=== PATIENT | female | born 1950 | race Caucasian/White ===

== ENCOUNTER → 2019-02-03 06:40 | Outpatient (CLI) | payer MEDICARE, SELFPAY ==
[2019-01-13 12:53] VITALS: BMI 26.7
--- NOTE | 2019-02-03 17:06 | STRESSREP_ITS ---
Stress Test Report Exercise myocardial perfusion stress test. 68-year-old lady with a history of hypertension, hyperlipidemia and coronary disease status post angioplasty and stenting to the proximal and mid right coronary artery. Stress protocol: Resting EKG demonstrates normal sinus rhythm with a rate of 77 bpm normal intervals are noted resting blood pressures 146/80 mmHg. Patient exercised according to regular Jose protocol for total duration of 7 minutes completing 1 minute into stage III of the Jose protocol the maximum heart rate attained was 141 bpm was 91% maximum predicted heart rate maximum workload was 8.5 metabolic equivalents. Patient maintained sinus rhythm throughout the recording. At rest there were no ST or T wave changes no suggest ischemia peak exercise upsloping ST changes only were noted with no meet the criteria for ischemia. No clinical angina was noted no arrhythmias were noted. Patient tolerated the procedure w ell. The test was terminated due to target heart rate being achieved. The resting blood pressure was 146/80 with a peak blood pressure 158/84 mmHg. Myocardial perfusion protocol. 11.0 mCi of technetium 99m sestamibi was injected at rest. The patient exercised for 7 minutes and at peak exercise 33.0 mCi of technetium 99m sestamibi was injected stress images were obtained stress and rest images were reconstructed and compared in the short axis vertical and horizontal long axis. Gated images was obtained Perfusion SPECT analysis: Review of the stress images demonstrate normal uptake of tracer noted in all areas of myocardium the rest images similar demonstrate normal uptake of tracer noted in all areas of myocardium. No reversibility is no suggest ischemia no previous infarct is noted. Gated SPECT analysis: The gated ejection fraction is noted to be 78%. Conclusion: Normal exercise myocardial perfusion stress test at a moderate workload. Preserved ejection fraction.
== END ==
PROVIDERS: Family Provider Family Medicine; PCP Family Medicine; Referring Provider Internal Medicine Cardiovascular Disease; Visit Provider Internal Medicine Cardiovascular Disease
DX: I25.10 Atherosclerotic heart disease of native coronary artery without angina pectoris (principal); Z95.5 Presence of coronary angioplasty implant and graft
CPT/HCPCS: 78452; 93017; A9500; A4216

== ENCOUNTER 2020-05-16 13:54 | Outpatient (RCR) | payer MEDICARE, SELFPAY ==
[2020-04-20 15:03] VITALS: BMI 27.6
[2020-05-16] MEDS: COVID-19 VACC, MRNA(PFIZER)/PF 30 MCG/0.3 ML SYRINGE IM (09:51)
[2020-06-06] MEDS: COVID-19 VACC, MRNA(PFIZER)/PF 30 MCG/0.3 ML SYRINGE IM (09:32)
== END 2020-08-15 23:59 ==
LOC: IMMUN 13:54
PROVIDERS: PCP Family Medicine; Visit Provider Family Medicine
DX: Z23 Encounter for immunization (principal)
CPT/HCPCS: 0001A; 0002A; 91300

== ENCOUNTER → 2020-05-22 09:41 | Outpatient (CLI) | payer MEDICARE, SELFPAY ==
[2020-04-20 15:03] VITALS: BMI 27.6
[2020-05-22 11:01] LABS: AST(SGOT) 35 U/L (15-37); Alanine Aminotransfer ALT/SGPT 26 U/L (13-56); Albumin, Serum 3.8 g/dL (3.2-5.0); Alkaline Phosphatase 76 U/L (45-117); Bilirubin, Direct 0.21 mg/dL (0.00-0.30); Cholesterol 152 mg/dL (200); Globulin 3.5 g/dL (2.2-4.2); High Density Lipoprotein 72 mg/dL; Protein, Total 7.3 g/dL (6.4-8.2); Triglycerides 47 mg/dL; Very Low Density Lipoprotein 9 mg/dL (5-40)
== END ==
PROVIDERS: PCP Family Medicine; Referring Provider Internal Medicine Cardiovascular Disease; Visit Provider Internal Medicine Cardiovascular Disease
DX: I25.10 Atherosclerotic heart disease of native coronary artery without angina pectoris (principal); E78.5 Hyperlipidemia, unspecified
CPT/HCPCS: 36415; 80061; 80076

== ENCOUNTER 2020-11-08 10:15 | Emergency (ER) | payer MEDICARE, SELFPAY ==
[2020-11-08 10:16] VITALS: BP 139/69; PULSE 91; RESP 14; TEMP 36.9; O2SAT 94; BMI 26.4
--- NOTE | 2020-11-08 10:24 | EKG12_ITS ---
Test Reason : CP Blood Pressure : / mmHG Vent. Rate : 089 BPM Atrial Rate : 089 BPM P-R Int : 154 ms QRS Dur : 076 ms QT Int : 360 ms P-R-T Axes : 041 011 029 degrees QTc Int : 438 ms Normal sinus rhythm Normal ECG Confirmed by JACY ZAMBRANO, NELI ([id number]), online content editor ANTHONY DELGADILLO ([id number]) on 11/09/2020 12:55:30 PM Referred By: MARINO Confirmed By:MILTON LOUIE MD
--- NOTE | 2020-11-08 10:26 | ED.VIS.CHEST ---
HPI History of Present Illness Chief Complaint: Chest Pain Informant: patient Onset/Context/Timing Onset: Today Timing: Intermittent Quality: Positive for Aching and Heaviness Location: Left Chest Current Severity: Gone Maximum Severity: Moderate Relieved By: NTG Associated Symptoms: Positive for Dyspnea Narrative Narrative: Patient presents via EMS secondary to chest pain. Patient is a history of cardiac disease and had 2 stents placed to the RCA in 2016. She does note increased shortness of breath with exertion for the past 2 weeks. Yesterday she developed URI symptoms with sinus congestion. This morning she had pain on the left side of her chest that lasted approximately half an hour. Symptoms resolved after 1 sublingual nitroglycerin. [facility] Medical History (Updated 11/08/20 @ 13:[address] Rea Nazario MD) Atherosclerotic heart disease of [place] coronary artery without angina pectoris Essential (primary) hypertension GERD (gastroesophageal reflux disease) Hyperlipemia Lupus erythematosus Osteopenia Tubular adenoma Home Medications meloxicam 15 mg tablet 15 mg PO DAILY 01/12/19 [History Last Taken Unknown] nitroglycerin 0.4 mg sublingual tablet 0.4 mg SUBLINGUAL Q5-15M 01/12/19 [History Last Taken Unknown] prednisolone sodium phosphate 10 mg disintegrating tablet 10 mg PO DAILY PRN tab 01/12/19 [History Last Taken Unknown] diclofenac sodium 1 % topical gel 2 g TOPICAL ONCE PRN 01/13/19 [History Last Taken Unknown] metoprolol succinate 25 mg tablet,extended release 24 hr 25 mg PO DAILY #90 tab 01/13/19 [Rx Last Taken Unknown] losartan 100 mg tablet 100 mg PO DAILY #90 tab 04/20/20 [Rx Last Taken Unknown] clopidogrel 75 mg tablet 75 mg PO DAILY #90 tab 04/24/20 [Rx Last Taken Unknown] hydrochlorothiazide 12.5 mg capsule 12.5 mg PO DAILY #90 cap 04/24/20 [Rx Last Taken Unknown] atorvastatin 40 mg tablet 40 mg PO QHS #90 tab 09/21/20 [Rx Last Taken Unknown] isosorbide mononitrate 30 mg PO DAILY #30 tab 11/08/20 [Rx Last Taken Unknown] mometasone-formoterol [Dulera] 2 puff INHALATION BID 11/08/20 [History Last Taken Unknown] pantoprazole 20 mg PO DAILY 11/08/20 [History Last Taken Unknown] Allergy/AdvReac Type Severity Reaction Status Date / Time amoxicillin AdvReac GI Upaset Verified 11/08/20 10:16 Family History Mother Breast cancer Myocardial infarction Father Hypertension Diabetes Surgical History History of coronary artery stent placement (02/13/16) Social History Smoking Status: Never smoker ROS ROS ED Constitutional Constitutional ED: Denies chills or fever(s) Eyes Eyes: Denies change in vision ENT ENT ED: Reports other Details: Head congestion ; Denies sore throat Cardiovascular Cardiovascular: Reports chest pain Respiratory/Chest Respiratory/Chest: Reports cough and dyspnea; Denies sputum Gastrointestinal Gastrointestinal: Denies abdominal pain, diarrhea, nausea or vomiting Genitourinary Genitourinary ED: Denies dysuria Musculoskeletal Musculoskeletal: Denies back pain Integumentary Denies rash Neurologic Neurologic: Reports weakness; Denies headache(s) Allergic/Immunologic Allergic/Immunologic ED: Denies urticaria EXAM Physical Exam Const Vital Signs: 11/08/20 10:16 11/08/20 10:24 11/08/20 10:27 Temperature 98.4 F Temperature Source Oral Pulse Rate 91 Respiratory Rate 14 Respiratory Effort Short of Breath Respiratory Pattern Normal Blood Pressure 139/69 H Blood Pressure Mean 92 Pulse Ox 94 Oxygen Delivery Method Room Air Nasal Cannula Oxygen Flow Rate (L/min) 2 Fraction of Inspired Oxygen (FIO2) 94 11/08/20 12:15 11/08/20 13:00 Temperature Temperature Source Pulse Rate 89 83 Respiratory Rate 18 19 H Respiratory Effort Respiratory Pattern Blood Pressure 141/77 H 150/77 H Blood Pressure Mean 98 101 Pulse Ox 98 98 Oxygen Delivery Method Nasal Cannula Nasal Cannula Oxygen Flow Rate (L/min) 2 2 Fraction of Inspired Oxygen (FIO2) Positive well nourished and well developed General Appearance ED: well developed HEENT Reports normocephalic and head/scalp atraumatic Eyes PERRL and EOMs intact bilaterally Neck supple Chest Wall inspection of chest normal and palpation of chest normal Resp normal respiratory effort and clear to auscultation bilaterally Cardio regular rate and regular rhythm GI normal to inspection, nondistended, normoactive bowel sounds, soft to palpation and non-tender Palpation: soft Extremity normal to inspection Neuro oriented x3 and no sensory deficits noted Sensorium / Orientation: alert Motor Exam: strength 5/5 throughout Psych mental status grossly normal Skin no rashes or lesions noted Heart Score History: Moderately Suspicious ECG: Normal Age: >/= 65 years Risk Factors: >/= 3 Risk Factors or History of CAD Troponin: </= Normal Limit Score: 5 MDM MDM MDM Narrative Medical decision making narrative: Patient was given aspirin on arrival. She was chest pain-free on initial evaluation. Lab work, chest x-ray, EKG, Covid test obtained. Lab Data Attestation: I reviewed the patient's lab results. Labs: Laboratory Results - last 24 hr 11/08/20 11/08/20 11/08/20 10:14 10:14 10:14 WBC 9.4 RBC 4.75 Hgb 14.2 Hct 40.5 MCV 85.3 MCH 29.9 MCHC 35.1 RDW Std Deviation 37.7 RDW Coeff of Marisa 12.2 Plt Count 206 MPV 10.9 Immature Gran % (Auto) 0.200 Neut % (Auto) 65.5 Lymph % (Auto) 19.7 [place] % (Auto) 13.1 H Eos % (Auto) 0.9 Baso % (Auto) 0.6 Absolute Neuts (auto) 6.1 Absolute Lymphs (auto) 1.85 Nucleated RBC % 0 D-Dimer Quant (PE/DVT) 0.36 Sodium 134 L Potassium 3.5 Chloride 100 Carbon Dioxide 26.0 Anion Gap 8 BUN 14 Creatinine 1.01 Estim Creat Clear Calc 50.07 Est GFR (MDRD) Af Amer 70 Est GFR (MDRD) Non-Af 58 L BUN/Creatinine Ratio 13.9 Glucose 158 H Calcium 9.7 Troponin I High Sens 5 11/08/20 12:10 WBC RBC Hgb Hct MCV MCH MCHC RDW Std Deviation RDW Coeff of Marisa Plt Count MPV Immature Gran % (Auto) Neut % (Auto) Lymph % (Auto) [place] % (Auto) Eos % (Auto) Baso % (Auto) Absolute Neuts (auto) Absolute Lymphs (auto) Nucleated RBC % D-Dimer Quant (PE/DVT) Sodium Potassium Chloride Carbon Dioxide Anion Gap BUN Creatinine Estim Creat Clear Calc Est GFR (MDRD) Af Amer Est GFR (MDRD) Non-Af BUN/Creatinine Ratio Glucose Calcium Troponin I High Sens 5 Radiography Chest X-Ray - ED: 1 View, Read by ED Physician, Normal, Heart, Lungs and Mediastinum Diagnostic Testing: Radiology Impression Chest X-Ray 11/08/20 10:50 IMPRESSION: No radiographic evidence of acute cardiopulmonary disease. at 1107 Reported and signed by: Johnathan Barr MD Electronically Signed: Johnathan Barr MD at 11:06 EDT Tel , Service support , EKG Initial EKG: Attestation: I personally reviewed and interpreted this EKG as follows: Interpretation: Sinus Rhythm (Sinus 89 with no acute ischemia.) Follow-up EKG: Attestation: I personally reviewed and interpreted this EKG as follows: Interpretation: Sinus Rhythm (Sinus at 74 with no acute ischemia.) Treatment and Re-Evaluation Comments:: On repeat evaluation patient is resting comfortably. She is had no recurrence of chest pain while in the emergency room. Patient's initial troponin returned negative at 5. Her Covid test did return positive. I spoke with Dr. 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 He did recommend obtaining a second troponin and if this is negative we could consider treating her at home to allow her to recover from her Covid before pursuing further cardiac evaluation. This was discussed with patient and at bedside and they are in agreement with this plan. Patient will start taking baby aspirin daily. We will write her prescription for Imdur and she will double her metoprolol dose to 50 mg daily. She will also be referred for monoclonal antibody treatment for her Covid. She is given return instructions. Discharge Plan Triage Chief Complaint: Chest Pain ED Provider: Rea Nazario Dx/Rx/DC Orders Clinical Impression: COVID-19, Chest pain Instructions: Coronavirus Disease 2019 (COVID-19): Overview, Coronavirus Disease 2019 (COVID-19): Caring for Yourself or Others, ED Chest Pain, Uncertain Cause Prescriptions: New isosorbide mononitrate 30 mg tablet extended release 24 hr 30 mg PO DAILY Qty: 30 RF: 0 No Action metoprolol succinate 25 mg tablet extended release 24 hr 25 mg PO DAILY Qty: 90 RF: 4 nitroglycerin 0.4 mg tablet, sublingual 0.4 mg SUBLINGUAL Q5-15M RF: 0 meloxicam [Mobic] 15 mg tablet 15 mg PO DAILY RF: 0 prednisolone sodium phosphate 10 mg tablet,disintegrating 10 mg PO DAILY PRN (Reason: Cold Symptoms) RF: 0 diclofenac sodium [Voltaren] 1 % gel 2 g TOPICAL ONCE PRN (Reason: Pain, Mild) RF: 0 losartan 100 mg tablet 100 mg PO DAILY Qty: 90 RF: 4 pantoprazole 20 mg Tablet,Delayed Release (Dr/Ec) 20 mg PO DAILY RF: 0 Dulera 100-5 mcg/actuation Hfa Aerosol Inhaler 2 puff INHALATION BID RF: 0 clopidogrel 75 mg tablet 75 mg PO DAILY Qty: 90 RF: 4 hydrochlorothiazide 12.5 mg capsule 12.5 mg PO DAILY Qty: 90 RF: 4 atorvastatin 40 mg tablet 40 mg PO QHS Qty: 90 RF: 3 Other Ambulatory Orders: COVID Outpatient Monoclonal Antibody Referral (Routine) Location: None Selected Ordered By: Dr. Rea Nazario Primary Care Provider: Xavi Frazier Referrals: Xavi Frazier MD [Primary Care Provider] - Activity Restrictions/Additional Instructions: As discussed, cardiology wants to change some of your heart medication. Please start taking baby aspirin daily. A prescription for Imdur has been sent to the pharmacy for you. The metoprolol you currently take is 25 mg. Please double this to 50 mg. Disposition Disposition: Home, Self Care
[2020-11-08] MEDS: Aspirin 81 MG TAB.CHEW 324 MG PO (10:36)
[2020-11-08 10:39] LABS: Absolute Lymphocyte Count 1.85 X10^3/uL (0.83-4.51); Absolute Neutrophil Count 6.1 X10^3/uL (2.0-7.7); Basophil# 0.06 X10^3/uL; Basophil% 0.6 % (0-1); Eosinophil# 0.08 X10^3/uL; Eosinophils% 0.9 % (0-5); Hematocrit 40.5 % (37-47); Hemoglobin 14.2 g/dL (12.0-15.0); Lymphocyte # 1.85 X10^3/ul (0.83-4.51); Lymphocyte % 19.7 % (19-41); Mean Corp Hgb Conc 35.1 g/dL (32-36); Mean Corpuscular Hgb 29.9 pg (27.0-32.0); Mean Corpuscular Volume 85.3 fL (81-99); Mean Platelet Vol. 10.9 fl (6.2-12.0); Monocyte# 1.23 X10^3/uL; Monocyte% 13.1 % (0-10); NRBC Flagged by Analyzer 0 % (0-5); Neutrophil # 6.13 X10^3/uL (2.7-7.7); Neutrophil % 65.5 % (47-70); Platelet Count 206 K/mm3 (150-450); RBC Distribution Width CV 12.2 % (11.6-14.6); RBC Distribution Width SD 37.7 fl (35.1-43.9); Red Blood Count 4.75 M/mm3 (4.2-5.4); White Blood Count 9.4 K/mm3 (4.4-11.0)
[2020-11-08 10:43] LABS: D-Dimer Quantitative (DVT/PE) 0.36 FEU/ug/m (0.27-0.49)
[2020-11-08 10:49] LABS: Anion Gap 8 (5-15); BUN 14 mg/dL (7-18); BUN/Creat Ratio 13.9 RATIO (10-20); Calcium,Total 9.7 mg/dL (8.5-10.1); Chloride 100 mmol/L (98-107); Creatinine, Serum 1.01 mg/dL (0.55-1.02); EST Glomerular Filtration Rate 58 mL/min (>60); Est Glom Filt Rate - Afr Amer 70 mL/min (>60); Estimated Creatinine Clearance 50.07 ml/min; Glucose 158 mg/dL (74-106); Potassium 3.5 mmol/L (3.5-5.1); Sodium Level 134 mmol/L (136-145); Troponin-I HS 5 pg/mL (3.0-54.0)
--- NOTE | 2020-11-08 10:50 | RAD_ITS ---
History: chest pain EXAMINATION/TECHNIQUE: XR Chest 1 View: Portable COMPARISON: None FINDINGS: LINES/DEVICES: None. LUNGS: No consolidation, edema or effusion. No pneumothorax. MEDIASTINUM AND CARDIOVASCULAR STRUCTURES: Cardiac silhouette not enlarged. Central airways and mediastinal contour are unremarkable. BONES AND SOFT TISSUES: Unremarkable. RAD/Chest 1 View (Portable) IMPRESSION: No radiographic evidence of acute cardiopulmonary disease. at 1107 Reported and signed by: Johnathan Barr MD Electronically Signed: Johnathan Barr MD at 11:06 EDT Tel , Service support ,
--- NOTE | 2020-11-08 12:14 | EKG12_ITS ---
Test Reason : REPEPAT Blood Pressure : / mmHG Vent. Rate : 074 BPM Atrial Rate : 074 BPM P-R Int : 156 ms QRS Dur : 074 ms QT Int : 376 ms P-R-T Axes : 039 004 019 degrees QTc Int : 417 ms Normal sinus rhythm Normal ECG Confirmed by JACY ZAMBRANO, NELI ([id number]), state editor ANTHONY DELGADILLO ([id number]) on 11/09/2020 12:55:17 PM Referred By: MARINO Confirmed By:MILTON LOUIE MD
[2020-11-08 12:15] VITALS: BP 141/77; PULSE 89; RESP 18; O2SAT 98
[2020-11-08 12:42] LABS: Troponin-I HS 5 pg/mL (3.0-54.0)
[2020-11-08 13:00] VITALS: BP 150/77; PULSE 83; RESP 19; O2SAT 98
== END 2020-11-08 13:39 | disposition home or self-care (01) ==
PROVIDERS: Emergency Provider Emergency Medicine; PCP Family Medicine
DX: U07.1 COVID-19 (principal); R07.9 Chest pain, unspecified; I25.10 Atherosclerotic heart disease of native coronary artery without angina pectoris; E78.5 Hyperlipidemia, unspecified; K21.9 Gastro-esophageal reflux disease without esophagitis; I10 Essential (primary) hypertension; Z79.51 Long term (current) use of inhaled steroids; Z79.899 Other long term (current) drug therapy
CPT/HCPCS: 71045; 80048; 84484; 85025; 85379; 87426; 93005; 99285; A4216

== ENCOUNTER 2020-12-08 15:24 | Emergency (ER) | payer MEDICARE, SELFPAY ==
[2020-12-08 15:37] VITALS: BP 145/87; PULSE 91; RESP 16; TEMP 36.6; O2SAT 98; BMI 25.4
--- NOTE | 2020-12-08 15:47 | EKG12_ITS ---
Test Reason : CP Blood Pressure : / mmHG Vent. Rate : 090 BPM Atrial Rate : 090 BPM P-R Int : 152 ms QRS Dur : 080 ms QT Int : 360 ms P-R-T Axes : 033 009 010 degrees QTc Int : 440 ms Normal sinus rhythm Normal ECG Confirmed by TOMASZ ZAMBRANO, EDEL ([id number]), story editor ANTHONY DELGADILLO ([id number]) on 12/11/2020 1:14:28 PM Referred By: WILTON Confirmed By:EDEL TOLBERT MD
--- NOTE | 2020-12-08 15:47 | RAD_ITS ---
History: chest pain EXAMINATION/TECHNIQUE: XR Chest 1 View: Portable COMPARISON: Not available FINDINGS: LINES/DEVICES: None. LUNGS: No consolidation, edema or effusion. No pneumothorax. MEDIASTINUM AND CARDIOVASCULAR STRUCTURES: Cardiac silhouette not enlarged. Central airways and mediastinal contour are unremarkable. BONES AND SOFT TISSUES: Unremarkable. RAD/Chest 1 View (Portable) IMPRESSION: No radiographic evidence of acute cardiopulmonary disease. at 1610 Reported and signed by: Johnathan Barr MD Electronically Signed: Johnathan Barr MD at 16:09 EDT Tel , Service support ,
[2020-12-08 16:00] LABS: Absolute Lymphocyte Count 1.17 X10^3/uL (0.83-4.51); Absolute Neutrophil Count 3.9 X10^3/uL (2.0-7.7); Basophil# 0.05 X10^3/uL; Basophil% 0.9 % (0-1); Eosinophil# 0.06 X10^3/uL; Hematocrit 38.6 % (37-47); Hemoglobin 13.4 g/dL (12.0-15.0); Lymphocyte # 1.17 X10^3/ul (0.83-4.51); Lymphocyte % 20.1 % (19-41); Mean Corp Hgb Conc 34.7 g/dL (32-36); Mean Corpuscular Hgb 29.9 pg (27.0-32.0); Mean Corpuscular Volume 86.2 fL (81-99); Mean Platelet Vol. 10.4 fl (6.2-12.0); Monocyte% 10.3 % (0-10); NRBC Flagged by Analyzer 0 % (0-5); Neutrophil # 3.91 X10^3/uL (2.7-7.7); Neutrophil % 67.2 % (47-70); Platelet Count 202 K/mm3 (150-450); RBC Distribution Width CV 12.9 % (11.6-14.6); RBC Distribution Width SD 39.9 fl (35.1-43.9); Red Blood Count 4.48 M/mm3 (4.2-5.4); White Blood Count 5.8 K/mm3 (4.4-11.0)
[2020-12-08 16:26] LABS: Anion Gap 7 (5-15); BUN 12 mg/dL (7-18); BUN/Creat Ratio 14.5 RATIO (10-20); Calcium,Total 9.7 mg/dL (8.5-10.1); Chloride 100 mmol/L (98-107); Creatinine, Serum 0.83 mg/dL (0.55-1.02); EST Glomerular Filtration Rate 73 mL/min (>60); Est Glom Filt Rate - Afr Amer 88 mL/min (>60); Estimated Creatinine Clearance 58.53 ml/min; Glucose 104 mg/dL (74-106); Potassium 3.5 mmol/L (3.5-5.1); Sodium Level 138 mmol/L (136-145); Troponin-I HS 6 pg/mL (3.0-54.0)
[2020-12-08 16:56] VITALS: BP 151/81; PULSE 79; RESP 16; O2SAT 100
--- NOTE | 2020-12-08 17:36 | ED.VIS.CHEST ---
HPI History of Present Illness Chief Complaint: Chest Pain Informant: patient Onset/Context/Timing Onset: Today (Onset at 0130 while lying in bed) Activity at onset: sudden Timing: Intermittent (Initial episode lasted 5 minutes multiple episodes since that lasted less than 1 minute) Quality: Positive for Tightness (Initial episode felt like something was running down her chest) Location: Substernal (Subsequent episodes that lasts less than 1 minute) and Right Parasternal (Initial episode) Current Severity: Gone Maximum Severity: Mild Worsened By: Nothing Relieved By: Nothing Associated Symptoms: Positive for Acid Reflux; Negative for Nausea, Vomiting, Diaphoresis, Dyspnea, Cough, Fever, Lightheadedness and Palpitations Narrative Narrative: Patient is a 70 Prior Similar Symptoms: No Recent Illness/Hospitalization: No CVD Risk Factors: Positive for Hypertension and Hypercholesterolemia; Negative for Diabetes and Family History 1' </=55 PE Risk Factors: Negative for Recent Travel/Surgery, Recent Immobilization, Prior DVT or PE, Cancer and OCP + Smoking + >/=35 TAD Risk Factors: Positive for Hypertension; Negative for Marfan's Syndrome and Family History [facility] Medical History (Updated 12/08/20 @ 17:[address] Ubaldo Peck MD) Atherosclerotic heart disease of [place] coronary artery without angina pectoris Essential (primary) hypertension GERD (gastroesophageal reflux disease) Hyperlipemia Lupus erythematosus Osteopenia Tubular adenoma Home Medications meloxicam 15 mg tablet 15 mg PO DAILY 01/12/19 [History Last Taken Unknown] nitroglycerin 0.4 mg sublingual tablet 0.4 mg SUBLINGUAL Q5-15M 01/12/19 [History Last Taken Unknown] prednisolone sodium phosphate 10 mg disintegrating tablet 10 mg PO DAILY PRN tab 01/12/19 [History Last Taken Unknown] diclofenac sodium 1 % topical gel 2 g TOPICAL ONCE PRN 01/13/19 [History Last Taken Unknown] losartan 100 mg tablet 100 mg PO DAILY #90 tab 04/20/20 [Rx Last Taken Unknown] clopidogrel 75 mg tablet 75 mg PO DAILY #90 tab 04/24/20 [Rx Last Taken Unknown] hydrochlorothiazide 12.5 mg capsule 12.5 mg PO DAILY #90 cap 04/24/20 [Rx Last Taken Unknown] atorvastatin 40 mg tablet 40 mg PO QHS #90 tab 09/21/20 [Rx Last Taken Unknown] aspirin 81 mg tablet,delayed release 81 mg PO DAILY 11/08/20 [History Last Taken Unknown] isosorbide mononitrate 30 mg PO DAILY #30 tab 11/08/20 [Rx Last Taken Unknown] metoprolol succinate 50 mg tablet,extended release 24 hr 50 mg PO DAILY #90 tab 11/08/20 [Rx Last Taken Unknown] mometasone-formoterol [Dulera] 2 puff INHALATION BID 11/08/20 [History Last Taken Unknown] pantoprazole 20 mg PO DAILY 11/08/20 [History Last Taken Unknown] Allergy/AdvReac Type Severity Reaction Status Date / Time amoxicillin AdvReac GI Upaset Verified 12/08/20 15:39 Family History Mother Breast cancer Myocardial infarction Father Hypertension Diabetes Surgical History History of coronary artery stent placement (02/13/16) Social History (Updated 12/08/20 @ 17:[address] Ubaldo Peck MD) household members: spouse Smoking Status: Never smoker alcohol intake: current alcohol intake frequency: other substance use type: does not use ROS ROS ED Constitutional Constitutional ED: Denies chills, fever(s), subjective or sweats Eyes Eyes: Reports none ENT ENT ED: Denies ear pain, rhinorrhea or sore throat Cardiovascular Cardiovascular: Reports as per HPI and chest pain; Denies orthopnea, palpitations, paroxysmal nocturnal dyspnea or racing heartbeat Respiratory/Chest Respiratory/Chest: Denies cough, dyspnea, dyspnea on exertion, orthopnea, paroxysmal nocturnal dyspnea or sputum Gastrointestinal Gastrointestinal: Denies abdominal pain, diarrhea, nausea or vomiting Genitourinary Genitourinary ED: Denies dysuria, hematuria or urinary frequency Musculoskeletal Musculoskeletal: Denies arthralgias, back pain or myalgias Integumentary Denies rash Neurologic Neurologic: Denies headache(s) or weakness Hematologic/Lymphatic Hematologic/Lymphatic: Denies easy bleeding or easy bruising EXAM Physical Exam Const Vital Signs: 12/08/20 15:37 12/08/20 16:56 12/08/20 16:59 Temperature 97.8 F Temperature Source Temporal Pulse Rate 91 79 Respiratory Rate 16 16 Respiratory Effort Normal Non-Labored Blood Pressure 145/87 H 151/81 H Blood Pressure Mean 106 104 Pulse Ox 98 100 Oxygen Delivery Method Room Air Room Air Positive well nourished and well developed General Appearance ED: well developed and NAD HEENT Reports moist mucous membranes normocephalic and atraumatic Eyes PERRL and EOMs intact bilaterally General Eye ED: Negative for pale conjunctiva Neck no lymphadenopathy and no JVD Chest Wall palpation of chest normal Resp normal respiratory effort Effort and Inspection: respiratory distress Cardio regular rate, regular rhythm, S1 normal heart sound and S2 normal heart sound GI normal to inspection, nondistended, normoactive bowel sounds, soft to palpation and non-tender; Negative for hepatosplenomegaly Back/Spine no CVA tenderness Extremity normal to inspection Neuro oriented x3 and CN's II-XII intact bilaterally Sensorium / Orientation: awake and alert Psych mental status grossly normal Skin no rashes or lesions noted Heart Score History: Slightly/Non-Suspicious ECG: Normal Age: >/= 65 years Risk Factors: >/= 3 Risk Factors or History of CAD Troponin: </= Normal Limit Score: 4 MDM MDM MDM Narrative Medical decision making narrative: With onset of symptoms greater than 12 hours prior to presentation transient and a normal troponin, 6. History of GERD with noncompliance of diet suspect this represents esophageal spasm/GERD. She is scheduled for outpatient stress test. Her marine habitat resource specialist Dr. Ventura. Her work-up is negative. Her EKG is normal. Lab Data Attestation: I reviewed the patient's lab results. Labs: Laboratory Results - last 24 hr 12/08/20 12/08/20 15:50 15:50 WBC 5.8 RBC 4.48 Hgb 13.4 Hct 38.6 MCV 86.2 MCH 29.9 MCHC 34.7 RDW Std Deviation 39.9 RDW Coeff of Marisa 12.9 Plt Count 202 MPV 10.4 Immature Gran % (Auto) 0.500 Neut % (Auto) 67.2 Lymph % (Auto) 20.1 [place] % (Auto) 10.3 H Eos % (Auto) 1.0 Baso % (Auto) 0.9 Absolute Neuts (auto) 3.9 Absolute Lymphs (auto) 1.17 Nucleated RBC % 0 Sodium 138 Potassium 3.5 Chloride 100 Carbon Dioxide 31.0 Anion Gap 7 BUN 12 Creatinine 0.83 Estim Creat Clear Calc 58.53 Est GFR (MDRD) Af Amer 88 Est GFR (MDRD) Non-Af 73 BUN/Creatinine Ratio 14.5 Glucose 104 Calcium 9.7 Troponin I High Sens 6 Radiography Chest X-Ray - ED: 1 View, Read by ED Physician, Normal, Heart, Lungs, Mediastinum, Bony Structures and No Acute Disease Diagnostic Testing: Radiology Impression Chest X-Ray 12/08/20 15:47 IMPRESSION: No radiographic evidence of acute cardiopulmonary disease. at 1610 Reported and signed by: Johnathan Barr MD Electronically Signed: Johnathan Barr MD at 16:09 EDT Tel , Service support , EKG Initial EKG: Attestation: I personally reviewed and interpreted this EKG as follows: Interpretation: Sinus Rhythm (The EKG is normal with a ventricular rate of 90. VT interval is 152 ms. QS duration 80 ms. QT duration 3 and 60 ms. [place] is normal.) Discharge Plan Triage Chief Complaint: Chest Pain ED Provider: Ubaldo Peck Dx/Rx/DC Orders Clinical Impression: Atypical chest pain, History of gastroesophageal reflux (GERD) Instructions: ED Chest Pain, Noncardiac Prescriptions: No Action nitroglycerin 0.4 mg tablet, sublingual 0.4 mg SUBLINGUAL Q5-15M RF: 0 meloxicam [Mobic] 15 mg tablet 15 mg PO DAILY RF: 0 prednisolone sodium phosphate 10 mg tablet,disintegrating 10 mg PO DAILY PRN (Reason: Cold Symptoms) RF: 0 diclofenac sodium [Voltaren] 1 % gel 2 g TOPICAL ONCE PRN (Reason: Pain, Mild) RF: 0 losartan 100 mg tablet 100 mg PO DAILY Qty: 90 RF: 4 pantoprazole 20 mg Tablet,Delayed Release (Dr/Ec) 20 mg PO DAILY RF: 0 Dulera 100-5 mcg/actuation Hfa Aerosol Inhaler 2 puff INHALATION BID RF: 0 isosorbide mononitrate 30 mg tablet extended release 24 hr 30 mg PO DAILY Qty: 30 RF: 0 clopidogrel 75 mg tablet 75 mg PO DAILY Qty: 90 RF: 4 hydrochlorothiazide 12.5 mg capsule 12.5 mg PO DAILY Qty: 90 RF: 4 atorvastatin 40 mg tablet 40 mg PO QHS Qty: 90 RF: 3 aspirin [Adult Aspirin Regimen] 81 mg tablet,delayed release (DR/EC) 81 mg PO DAILY RF: 0 metoprolol succinate 50 mg tablet extended release 24 hr 50 mg PO DAILY Qty: 90 RF: 3 Primary Care Provider: Xavi Frazier Referrals: Xavi Frazier MD [Primary Care Provider] - As Needed Disposition Disposition: Home, Self Care
[2020-12-08 17:56] VITALS: BP 158/72; PULSE 71; RESP 16; O2SAT 97
== END 2020-12-08 18:03 | disposition home or self-care (01) ==
LOC: ED 18:00
PROVIDERS: Emergency Provider Emergency Medicine; PCP Family Medicine
DX: R07.89 Other chest pain (principal); K21.9 Gastro-esophageal reflux disease without esophagitis; I10 Essential (primary) hypertension; I25.10 Atherosclerotic heart disease of native coronary artery without angina pectoris; E78.5 Hyperlipidemia, unspecified; Z79.51 Long term (current) use of inhaled steroids; Z79.82 Long term (current) use of aspirin; Z79.899 Other long term (current) drug therapy
CPT/HCPCS: 71045; 80048; 84484; 85025; 93005; 99284; A4216

== ENCOUNTER → 2020-12-20 07:08 | Outpatient (CLI) | payer MEDICARE, SELFPAY ==
--- NOTE | 2020-12-20 12:54 | STRESSREP ---
Stress Test Report Exercise myocardial perfusion stress test. 70-year-old lady with a history of chest pain. Stress protocol: Resting EKG demonstrates normal sinus rhythm with a rate of 76 bpm normal intervals are noted resting blood pressure is 150/88 mmHg. The patient exercised according to regular Jose protocol for total duration of 6 minutes completing stage II of the Jose protocol the maximum heart rate attained was 139 bpm which was 91% of max infected heart rate the maximum workload was 7 metabolic equivalents. At rest there were no ST or T wave changes noted to suggest ischemia and at peak exercise upsloping ST changes were noted with did not meet the criteria for ischemia. No clinical angina was noted. The test was terminated due to dyspnea and attainment of target heart rate. The peak blood pressure was noted to be 182/80 mmHg. Resting hypertension was noted. Myocardial perfusion protocol. 10.4 mCi of technetium 99m sestamibi was injected at rest. The patient exercised according to regular Jose protocol for 6 minutes and at peak exercise 35.7 mCi of technetium 99m sestamibi was injected stress images were obtained stress and rest images were reconstructed and compared in the short axis vertical long and horizontal long axis. Gated images were also obtained. Perfusion SPECT analysis: Review of the stress images demonstrate normal uptake of tracer noted in all areas of the myocardium the resting images similarly demonstrate normal uptake of tracer noted in all areas of the myocardium. No areas of reversibility are noted suggest ischemia and no previous infarct is noted. Gated SPECT analysis: The gated ejection fraction is 82%. Conclusion: Normal exercise myocardial perfusion stress test at a moderate workload. Preserved ejection fraction.
== END ==
PROVIDERS: PCP Family Medicine; Referring Provider Internal Medicine Cardiovascular Disease; Visit Provider Internal Medicine Cardiovascular Disease
DX: I25.119 Atherosclerotic heart disease of native coronary artery with unspecified angina pectoris (principal); U07.1 COVID-19; R07.9 Chest pain, unspecified; I10 Essential (primary) hypertension; E78.5 Hyperlipidemia, unspecified; Z95.5 Presence of coronary angioplasty implant and graft
CPT/HCPCS: 78452; 93017; A9500

== ENCOUNTER → 2022-05-23 | Outpatient (CLI) | payer MEDICARE, SELFPAY ==
[2022-05-23 12:46] LABS: AST(SGOT) 35 U/L (15-37); Alanine Aminotransfer ALT/SGPT 26 U/L (13-56); Albumin, Serum 3.6 g/dL (3.2-5.0); Alkaline Phosphatase 61 U/L (45-117); Bilirubin, Direct 0.14 mg/dL (0.00-0.30); Cholesterol 144 mg/dL (200); Creatinine, Serum 0.99 mg/dL (0.55-1.02); EST Glomerular Filtration Rate 59 mL/min (>60); Est Glom Filt Rate - Afr Amer 71 mL/min (>60); Globulin 3.5 g/dL (2.2-4.2); High Density Lipoprotein 73 mg/dL; Protein, Total 7.1 g/dL (6.4-8.2); Triglycerides 47 mg/dL; Very Low Density Lipoprotein 9 mg/dL (5-40)
== END | disposition home or self-care (01) ==
LOC: MTLAB 09:44
PROVIDERS: PCP Family Medicine; Referring Provider Internal Medicine Cardiovascular Disease; Visit Provider Internal Medicine Cardiovascular Disease
DX: N28.9 Disorder of kidney and ureter, unspecified (principal); E78.5 Hyperlipidemia, unspecified
CPT/HCPCS: 36415; 80061; 80076; 82565

== ENCOUNTER → 2022-05-31 | Outpatient (CLI) | payer MEDICARE, SELFPAY ==
--- NOTE | 2022-05-31 08:21 | ECHOD_ITS ---
Reason For Study: CAD/ASHD Procedure This was a 2D Doppler, Color Flow transthoracic echocardiogram. Exam performed in department. Left Ventricle Normal LV size. Left ventricular systolic function is normal. The estimated ejection fraction is 55 %. No regional wall motion abnormalities noted. Right Ventricle Normal RV size. Normal systolic function. Atria Normal left atrium. Normal right atrium. Mitral Valve Normal mitral valve. Mild (1+) eccentric mitral valve insufficiency. Tricuspid Valve Normal tricuspid valve. Mild (1+) tricuspid valve insufficiency. Pulmonary artery systolic pressure is 30 mmHg. Aortic Valve Trisinus/trileaflet aortic valve. Pulmonic Valve Normal pulmonic valve. Mild (1+) pulmonic valve insufficiency. Great Vessels Normal aortic root. The pulmonary artery is normal size. Normal inferior vena cava. Pericardium/Pleural No pericardial effusion. MMode/2D Measurements & Calculations LVIDd: 4.6 cm IVSd: 0.81 cm Ao root diam: 2.6 cm LVIDs: 3.2 cm LVPWd: 0.88 cm RVDd: 2.6 cm FS: 31.6 % LAV(MOD-bp): 43.6 ml LVAd ap4: 20.1 cm2 LVAd ap2: 22.8 cm2 LAV(MOD-bp) Indexed: 28.5 ml/m2 LVLd ap4: 6.5 cm LVLd ap2: 7.3 cm LAV(MOD-sp2): 44.8 ml EDV(MOD-sp4): 51.1 ml EDV(MOD-sp2): 62.1 ml LAV(MOD-sp4): 32.4 ml EDV(sp4-el): 52.3 ml EDV(sp2-el): 60.8 ml LVAs ap4: 10.0 cm2 LVAs ap2: 12.5 cm2 LVLs ap4: 5.0 cm LVLs ap2: 5.9 cm ESV(MOD-sp4): 17.5 ml ESV(MOD-sp2): 23.2 ml ESV(sp4-el): 16.9 ml ESV(sp2-el): 22.7 ml EF(MOD-sp4): 65.8 % EF(MOD-sp2): 62.6 % EF(sp4-el): 67.7 % SV(MOD-sp4): 33.6 ml SV(MOD-sp2): 38.9 ml SV(sp4-el): 35.4 ml LA dimension(2D): 3.6 cm LA A4 area: 12.5 cm2 RA A4 area: 9.8 cm2 Time Measurements MV dec time: 0.15 sec Doppler Measurements & Calculations MV E max anjum: 72.0 cm/sec Lat Peak E' Anjum: 6.3 cm/sec Med Peak E' Anjum: 6.3 cm/sec MV A max anjum: 64.3 cm/sec E/E' lat: 11.5 E/E' med: 11.5 MV E/A: 1.1 MV dec slope: 485.6 cm/sec2 Ao V2 max: 99.8 cm/sec LV V1 max: 78.6 cm/sec Ao max P.0 mmHg LV V1 max P.5 mmHg Ao V2 mean: 66.9 cm/sec LV V1 mean P.2 mmHg Ao mean P.1 mmHg LV V1 mean: 50.7 cm/sec Ao V2 VTI: 24.5 cm LV V1 VTI: 20.2 cm AV (velocity ratio): 0.83 MR max anjum: 594.8 cm/sec PA V2 max: 75.9 cm/sec PI dec slope: 150.8 cm/sec2 MR max P.5 mmHg PA V2 mean: 55.8 cm/sec MR mean anjum: 505.8 cm/sec MR mean P.1 mmHg MR VTI: 234.2 cm TR max anjum: 258.7 cm/sec TR max P.8 mmHg ECHO/Echo Complete Interpretation Summary Normal LV size. Left ventricular systolic function is normal. The estimated ejection fraction is 55 %. Mild (1+) eccentric mitral valve insufficiency. Structurally normal valves. Ordering Physician: Altaf Ventura Referring Physician: Xavi Frazier Performed By: Jaylene Baxter, [place], RVT
== END | disposition home or self-care (01) ==
LOC: CVS 08:18
PROVIDERS: PCP Family Medicine; Visit Provider Internal Medicine Cardiovascular Disease
DX: R07.9 Chest pain, unspecified (principal); I25.10 Atherosclerotic heart disease of native coronary artery without angina pectoris
CPT/HCPCS: 93306

== ENCOUNTER → 2022-08-14 | Outpatient (CLI) | payer MEDICARE, SELFPAY ==
[2022-08-14 13:06] LABS: Creatinine, Serum 1.01 mg/dL (0.55-1.02); EST Glomerular Filtration Rate 58 mL/min (>60); Est Glom Filt Rate - Afr Amer 70 mL/min (>60)
== END | disposition home or self-care (01) ==
LOC: MTLAB 10:44
PROVIDERS: PCP Family Medicine; Referring Provider Internal Medicine Rheumatology; Visit Provider Internal Medicine Rheumatology
DX: N28.9 Disorder of kidney and ureter, unspecified (principal)
CPT/HCPCS: 36415; 82565

== ENCOUNTER → 2022-12-04 | Outpatient (CLI) | payer MEDICARE, SELFPAY ==
[2022-12-04 11:11] LABS: AST(SGOT) 33 U/L (15-37); Alanine Aminotransfer ALT/SGPT 25 U/L (13-56); Albumin, Serum 3.4 g/dL (3.2-5.0); Alkaline Phosphatase 66 U/L (45-117); Bilirubin, Direct 0.14 mg/dL (0.00-0.30); Cholesterol 139 mg/dL (200); Globulin 3.6 g/dL (2.2-4.2); High Density Lipoprotein 72 mg/dL; Triglycerides 72 mg/dL; Very Low Density Lipoprotein 14 mg/dL (5-40)
== END | disposition home or self-care (01) ==
PROVIDERS: PCP Family Medicine; Referring Provider Internal Medicine Cardiovascular Disease; Visit Provider Internal Medicine Cardiovascular Disease
DX: E78.00 Pure hypercholesterolemia, unspecified (principal)
CPT/HCPCS: 36415; 80061; 80076

== ENCOUNTER → 2023-02-25 | Outpatient (CLI) | payer MEDICARE, SELFPAY ==
[2023-02-25 10:50] LABS: PTHIN 68.2 pg/mL (18.4-80.1)
== END | disposition home or self-care (01) ==
LOC: MTLAB 09:19
PROVIDERS: PCP Family Medicine
DX: E20.9 Hypoparathyroidism, unspecified (principal)
CPT/HCPCS: 36415; 83970

== ENCOUNTER → 2023-06-12 | Outpatient (CLI) | payer MEDICARE, SELFPAY ==
--- NOTE | 2023-06-12 09:55 | CDU_ITS ---
Reason For Study: carotid stenosis Rt. Velocities/BP Lt. Velocities/BP Prox CCA 72.1/21.1 cm/sec. Prox CCA 123.2/29.8 cm/sec. Mid CCA 87.2/23.9 cm/sec. Mid CCA 99.8/24.9 cm/sec. Dist CCA 78.7/23.0 cm/sec. Dist CCA 86.3/20.0 cm/sec. Prox ICA 176.3/44.6 cm/sec. Prox ICA 124.7/37.1 cm/sec. Mid ICA 159.2/40.7 cm/sec. Mid ICA 104.7/35.3 cm/sec. Dist ICA 132.1/31.6 cm/sec. Dist ICA 112.0/31.6 cm/sec. Rt. ICA/CCA = 2.0. Lt. ICA/CCA = 1.2. Prox ECA 218.0/16.0 cm/sec. Prox ECA 47.6/16.8 cm/sec. Rt. Vert. 61.8/15.1 cm/sec. Lt. Vert. 47.6/16.8 cm/sec. Right Extracranial There is intimal thickening but no significant atherosclerotic plaque noted in the right common carotid artery. There is heterogeneous, irregular atherosclerotic plaque noted in the right internal carotid artery. There is heterogeneous, irregular atherosclerotic plaque noted in the right external carotid artery. Antegrade flow is noted in the right vertebral artery. Left Extracranial There is intimal thickening but no significant atherosclerotic plaque noted in the left common carotid artery. There is heterogeneous, irregular atherosclerotic plaque noted in the left internal carotid artery. The atherosclerotic plaque causes acoustic shadowing. There is heterogeneous, irregular atherosclerotic plaque noted in the left external carotid artery. Antegrade flow is noted in the left vertebral artery. Procedure Carotid Duplex [id number]. This is a Carotid Duplex examination using B-mode, color flow and specral Doppler. The exam was diagnostic. Exam performed in department. VL/Carotid Duplex Ultrasound Interpretation Summary Extensive irregular calcific plaque with shadowing at the proximal right internal communications specialist al carotid artery with less than 50% stenosis based upon current guidelines but likely close to t his level. Greater than 50% stenosis right external carotid artery Heterogenous irregular plaque at the proximal left internal carotid artery with less than 50% stenosis Less than 50% stenosis left external carotid artery Patent antegrade vertebral arteries bilaterally Ordering Physician: Dylon Peña Performed By: Sumanth Martinez RVT
== END | disposition home or self-care (01) ==
LOC: CVS 09:52
PROVIDERS: PCP Family Medicine; Referring Provider Surgery; Visit Provider Surgery
DX: I65.22 Occlusion and stenosis of left carotid artery (principal)
CPT/HCPCS: 93880

== ENCOUNTER → 2023-08-29 | Outpatient (CLI) | payer MEDICARE, SELFPAY ==
[2023-08-29 12:31] LABS: Color, Urine Yellow (Yellow); Glucose, Dipstick Normal (Normal); Ketone-Dipstick Negative (Negative); Leukocyte Esterase-Dipstick Negative /ul (Negative); Nitrite-Dipstick Negative (Negative); Occult Blood-Urine Negative /ul (Negative); Protein-Dipstick Negative (Negative); Urine Bilirubin Dipstick Negative (Negative); Urine Clarity Clear (Clear); Urine Urobilinogen Normal (Normal); Urine pH 6.5 (5.0 - 8.0)
== END | disposition home or self-care (01) ==
LOC: MTLAB 10:46
PROVIDERS: PCP Family Medicine
DX: R31.9 Hematuria, unspecified (principal)
CPT/HCPCS: 81002

== ENCOUNTER 2023-12-15 13:53 | Outpatient (RCR) | payer MEDICARE, SELFPAY ==
--- NOTE | 2023-12-15 15:34 | HP.PTEVAL ---
Patient's Visit Information Visit Information Visit Information: MICHAEL ALCANTARA is a 73 year old F referred to Physical Therapy by EZEQUIEL SOTO MD with a diagnosis of Chronic lumbar spine pain. Date of Evaluation: 12/15/23 Physical Therapist: Duane Morataya DPT Visit Plan Frequency: 1x/Week Duration: 6 Weeks Plan: 1) glute med/max strengthening, core strengthening 2) lumbar stretching into flexion/extension (REIL/prayer stretch) 3) Progress gym exercises as tolerated. Subjective Subjective: Pt. is here today for her initial evaluation with diagnosis of chronic low back pain. Pt. reports having Lupus and RA. Due to this she has flare ups with increased low and mid back pain as well as B hip pain. Pt. [place] walking at local rec center. She had previously been waling ~12 laps, but now at times she can only walk 5-6 laps. Pt. is hopeful to get exercises to increase her overall strength and be able to continue to be active with her walking. Sleeping well. No N/T in either LE. No marked myotomal weakness noted. Pt. does not do much stretching or strengthening, but focuses her exercises with walking. Pain Lumbar spine: Pain Intensity (Out of 10): 1 Pain Intensity Range: 0 and 4 Thoracic spine: Pain Intensity (Out of 10): 0 Pain Intensity Range: 0 and 4 B hips: Pain Intensity (Out of 10): 0 Pain Intensity Range: 0 and 4 Objective Objective: POSTURE: Pt. has normal KYLE in stance. Slight increased thoracic kyphosis and slight posterior pelvic tilt. PALPATION: Pt. has no pain with palpation of Lumbar or thoracic spine. NEURO: Pt. has normal sensation and normal DTR of BLEs. Pt. is able to rise on heels and toes without issues. ROM: LUMBAR SPINE: flexion min loss tightness, extension mod loss tightness, SB nil loss bilat, rotation nil loss bilat. B hips: Pt. has good flexion, extension and IR motions. Slight tightness into B ER motions. Pt. has tightness in B HS. MMT: Pt. has good strength throughout BLEs, except 4/5 bilateral hip abduction, core strength poor+, lumbar extension poor+. GAIT: Pt. has fairly normal gait pattern, no Trendelenburg noted. STAIRS: pt. is able to complete with use of B HR with 1 HR without issues, but reports some increased fatigue. - PAs throughout lumbar and thoracic spine. - slump test noted bilaterally. - B hip scour testing. Balance/Special Test Scores Oswestry Low Back Score: 12 Goals Goal 1:: LTG: Pt. to be I with HEP. Goal Time Frame: 4-6 Weeks Goal 2:: LTG: pt. to have increased HS length to 90deg in 90/90 positioning. Goal Time Frame: 4-6 Weeks Goal 3:: LTG: Pt. to have increased B hip and core strength to 5/5 throughout. Goal Time Frame: 4-6 Weeks Goal 4:: LTG: Pt. to be able to complete all walking routine without increase in LBP or thoracic spine pain. Goal Time Frame: 4-6 Weeks Rehabilitation Potential Physical Therapy Diagnosis: Pt. has signs and symptoms consistent with chronic low back pain. Pt. has some low back tightness, and some core weakness. She would benefit from PT to address the above limitations. Rehabilitation Potential: Good Anticipated Interventions Patient/Client Instruction: Educate patient on: Condition, Plan of Care, Risk Factors and Benefits of Fitness Program For the Purpose of:: To facilitate caregiver knowledge, To improve self management, To prevent re-injury, To improve ability to perform tasks related to life management and To improve tolerance to ADL's Therapeutic Exercise to Include: Strength training, Power training, Postural training, Flexibilty training, Active ROM, Dynamic Lumbar Stabilization and Svetlana Exercises For the Purpose of:: To decrease pain, To increase ROM, To improve nutrient delivery to tissue, To increase oxygenation perfusion, To improve muscle performance and motor function, To improve ability to perform ADL's and To improve health of tissue Text: Thank you for the opportunity to evaluate your patient. For Medicare and Medicare HMO plans, please review the plan of care and approve it. It will need to be FAXED BACK to us at [phone] for Medicare purposes. For Medicare only, by signing this I certify the plan of care. Please let me know if there are questions or concerns regarding this plan of care. Physician Signature: Date:
== END 2023-12-15 19:00 | disposition home or self-care (01) ==
LOC: PT 13:53
PROVIDERS: PCP Family Medicine; Referring Provider Internal Medicine Rheumatology; Visit Provider Internal Medicine Rheumatology
DX: M54.50 Low back pain, unspecified (principal); M25.559 Pain in unspecified hip
CPT/HCPCS: 97110; 97161

== ENCOUNTER 2024-01-25 19:43 | Emergency (ER) | payer MEDICARE, SELFPAY ==
[2024-01-25 19:43] VITALS: BP 157/81; PULSE 88; RESP 16; TEMP 36; O2SAT 100; BMI 26.2
--- NOTE | 2024-01-25 19:52 | EKG12_ITS ---
Test Reason : CP Blood Pressure : */* mmHG Vent. Rate : 84 BPM Atrial Rate : 84 BPM P-R Int : 172 ms QRS Dur : 78 ms QT Int : 370 ms P-R-T Axes : 52 23 35 degrees QTcB Int : 437 ms Normal sinus rhythm Nonspecific T wave abnormality Abnormal ECG Confirmed by RENAN ZAMBRANO, BUBBA ([id number]), acquisition editor MARILEE AVERY ([id number]) on 01/26/2024 9:54:39 AM Referred By: MICK Confirmed By: BUBBA URRUTIA MD
[2024-01-25 20:07] LABS: Absolute Lymphocyte Count 1.89 X10^3/uL (0.83-4.51); Absolute Neutrophil Count 3.9 X10^3/uL (2.0-7.7); Basophil% 1.4 % (0-1); Eosinophil# 0.25 X10^3/uL; Eosinophils% 3.5 % (0-5); Hematocrit 39.7 % (37-47); Hemoglobin 13.6 g/dL (12.0-15.0); Lymphocyte # 1.89 X10^3/ul (0.83-4.51); Lymphocyte % 26.4 % (19-41); Mean Corp Hgb Conc 34.3 g/dL (32-36); Mean Corpuscular Volume 87.4 fL (81-99); Mean Platelet Vol. 10.8 fl (6.2-12.0); Monocyte# 0.99 X10^3/uL; Monocyte% 13.8 % (0-10); NRBC Flagged by Analyzer 0 % (0-5); Neutrophil # 3.93 X10^3/uL (2.7-7.7); Neutrophil % 54.8 % (47-70); Platelet Count 202 K/mm3 (150-450); RBC Distribution Width CV 12.8 % (11.6-14.6); RBC Distribution Width SD 40.9 fl (35.1-43.9); Red Blood Count 4.54 M/mm3 (4.2-5.4); White Blood Count 7.2 K/mm3 (4.4-11.0)
--- NOTE | 2024-01-25 20:25 | RAD_ITS ---
STUDY: XR Chest 2 Views 01/25/2024 8:24 PM REASON FOR EXAM: Female, 73 years old. chest pain COMPARISON: 12.09.23 TECHNIQUE: XR Chest 2 Views FINDINGS: There is no demonstrated pleural abnormality. Normal heart size. Normal mediastinum. Normal mateo. Prominent appearing increased interstitial lung markings. Normal visualized pulmonary arteries. There is atherosclerotic calcification of the aortic arch with tortuosity. There are diffuse degenerative changes of the visualized thoracic spine. There is degenerative osteoarthritis of the bilateral shoulders. There are no acute findings of the upper abdomen. RAD/Chest PA and Lateral IMPRESSION: There are no acute findings. Electronically Signed: Huey Pierce MD at 20:52 EST ,
[2024-01-25 20:35] LABS: Anion Gap 6 (5-15); BUN 17 mg/dL (7-18); Calcium,Total 9.4 mg/dL (8.5-10.1); Chloride 102 mmol/L (98-107); Creatinine, Serum 1.06 mg/dL (0.55-1.02); EST Glomerular Filtration Rate 54 mL/min (>60); Est Glom Filt Rate - Afr Amer 66 mL/min (>60); Estimated Creatinine Clearance 39.11 ml/min; Glucose 117 mg/dL (74-106); Potassium 3.6 mmol/L (3.5-5.1); Sodium Level 138 mmol/L (136-145); Troponin-I HS (w/2H Reflex) 4 pg/mL (3.0-54.0)
[2024-01-25 20:37] LABS: BNP,B-Type NATRIURETIC PEPTIDE 47.4 pg/mL (0-100)
[2024-01-25 20:43] VITALS: PULSE 75; O2SAT 98
[2024-01-25 21:00] VITALS: PULSE 69; O2SAT 98
[2024-01-25 21:51] VITALS: BP 148/69
[2024-01-25 22:00] VITALS: BP 141/66; PULSE 68; O2SAT 96
[2024-01-25 22:04] LABS: Reflex Troponin-HS? (from REC) Y
[2024-01-25 22:28] LABS: Troponin-I HS 5 pg/mL (3.0-54.0)
--- NOTE | 2024-01-25 22:47 | EDS_ITS ---
HPI History of Present Illness Chief Complaint: Chest Pain Narrative Narrative: Patient is a 73-year-old female with past medical history of GERD, hypertension, hyperlipidemia [facility] a chief complaint of chest pain. Patient states that around 330 this afternoon she was sitting watching TV when she developed some chest discomfort in the middle of her chest. States that the pain waxed and waned and her significant other noted that her blood pressure was elevated prompting them to come here for further evaluation management. Patient states that nothing makes her pain better or worse. States that she had a stress test about a year ago and states that it was normal. Patient denies history of blood clots denies any recent travel history. [facility] Medical History (Updated 01/25/24 @ 22:[address] Mj Posey, DO) Lupus erythematosus Osteopenia Tubular adenoma GERD (gastroesophageal reflux disease) Atherosclerotic heart disease of [place] coronary artery without angina pectoris Essential (primary) hypertension Hyperlipemia Home Medications ?Medication ?Instructions ?Recorded ?Last Taken ?Type nitroglycerin 0.4 mg sublingual 0.4 mg sublingual Q5-15M 01/12/19 Unknown History tablet pantoprazole 20 mg tablet,delayed 20 mg PO DAILY 11/08/20 Unknown History release potassium chloride 10 mEq 10 meq PO DAILY 12/29/20 Unknown History capsule,extended release mometasone-formoterol HFA 100 2 puff inhalation BID PRN SOB 04/20/21 Unknown History mcg-5 mcg/actuation aerosol inhaler (Dulera) calcium 600 mg (as 1 tab PO DAILY 05/21/22 Unknown History carbonate)-vitamin D3 20 mcg (800 unit) tablet hydroxychloroquine 200 mg tablet 200 mg PO DAILY 05/21/22 Unknown History lactobacillus combination no.9 4 4,000 mmu cells PO DAILY 05/21/22 Unknown History billion cell capsule (Adult 50 Plus Probiotic) clopidogrel 75 mg tablet 75 mg PO DAILY #90 TABLETS 08/29/23 Unknown Rx losartan 100 mg tablet 100 mg PO DAILY #90 tabs 10/08/23 Unknown Rx hydrochlorothiazide 12.5 mg capsule 12.5 mg PO DAILY #90 caps 10/15/23 Unknown Rx metoprolol succinate 50 mg 50 mg PO DAILY #90 tabs 10/15/23 Unknown Rx tablet,extended release 24 hr amlodipine 2.5 mg tablet 2.5 mg PO DAILY #90 tabs 12/08/23 Unknown Rx atorvastatin 40 mg tablet 40 mg PO QHS #90 tabs 12/30/23 Unknown Rx Allergy/AdvReac Type Severity Reaction Status Date / Time amoxicillin AdvReac GI Upaset Verified 01/25/24 19:46 Family History Mother Breast cancer Myocardial infarction Father Hypertension Diabetes Surgical History History of coronary artery stent placement (02/13/16) Social History household members: spouse Smoking Status: Never smoker alcohol intake: current alcohol intake frequency: other substance use type: does not use ROS ROS ED ROS Narrative Constitutional: Denies any fevers, chills, headaches, lightness, dizziness Eyes: Denies change in vision double vision blurry vision Cardiovascular: Complaint of chest pain as noted above denies palpitations Respiratory: Denies coughing wheezing shortness of breath Abdomen: Denies abdominal pain nausea vomit diarrhea : Denies any urinary symptoms Neurological: Denies any numbness, weakness, tingling Musculoskeletal: Denies back pain Skin: Denies rashes or lesions EXAM Physical Exam Narrative Exam Narrative: General: Patient lying in bed rest comfortably did not appear to be in acute d istress Head: Atraumatic, normocephalic Eyes: PERRL bilateral, EOMI bladder, no conjunctival injection noted Neck: Soft, supple, trachea midline Cardiovascular: Regular rate and rhythm no murmurs gallops rubs noted Respiratory: Clear to auscultation bilaterally no rales rhonchi or wheeze noted Abdomen: Soft, nondistended, nontender to palpation, bowel sounds present for Extremities: +5/5 strength noted in the bilateral upper and lower extremities, radial pulses +2/4 in the bilateral extremities, no pedal edema no exam Neurological: Patient following commands knew that she was at [facility] year is 2023 Skin: Warm, dry, intact Const Vital Signs: 01/25/24 19:43 01/25/24 20:00 01/25/24 20:43 Temperature 96.8 F L Temperature Source Temporal Pulse Rate 88 75 Respiratory Rate 16 Blood Pressure 157/81 H Blood Pressure Mean 106 Pulse Ox 100 98 Oxygen Delivery Method Room Air Room Air 01/25/24 21:00 01/25/24 21:51 01/25/24 22:00 Temperature Temperature Source Pulse Rate 69 68 Respiratory Rate Blood Pressure 148/69 H 141/66 H Blood Pressure Mean 95 91 Pulse Ox 98 96 Oxygen Delivery Method Room Air MDM MDM MDM Narrative Medical decision making narrative: Patient is a 73-year-old female who presents to the emergency department the chief complaint of chest pain. Patient will have a workup performed here on the differential diagnose includes but limited to ACS, GERD, pneumonia, pneumothorax, PE although revised Mcbh [place] score shows low risk therefore feel that this less likely. Patient's heart score was noted to be 3 low score. Once workup is obtained reviewed she will be reevaluated. Patient CBC reviewed and showed no evidence of leukocytosis white blood count normal at 7.2, hemoglobin stable 13.6, platelet count normal at 202. Sodium normal 130, potassium normal 3.6, creatinine normal at 1.06. Patient's troponin was normal at 4 with a delta troponin obtained normal at 5. Patient's EKG reviewed and independently interpreted by myself which showed sinus rhythm with a rate of 84 bpm . Patient's proBNP normal at 47. Patient's chest x-ray reviewed by myself and by radiology which showed no acute cardiopulmonary processes. Did discuss results with the patient and significant other at bedside she would like to go home at this point time. She was advised to follow-up with her primary care physician in the outpatient setting. She was advised to return with worsening symptoms or other concerns. She is agreeable with this plan all question concerns answered she was discharged home in stable condition. Lab Data Labs: Laboratory Results - last 24 hr 01/25/24 01/25/24 19:57 21:56 WBC 7.2 RBC 4.54 Hgb 13.6 Hct 39.7 MCV 87.4 MCH 30.0 MCHC 34.3 RDW Std Deviation 40.9 RDW Coeff of Marisa 12.8 Plt Count 202 MPV 10.8 Immature Gran % (Auto) 0.100 Neut % (Auto) 54.8 Lymph % (Auto) 26.4 Osborne % (Auto) 13.8 H Eos % (Auto) 3.5 Baso % (Auto) 1.4 H Absolute Neuts (auto) 3.9 Absolute Lymphs (auto) 1.89 Nucleated RBC % 0 Sodium 138 Potassium 3.6 Chloride 102 Carbon Dioxide 30.0 Anion Gap 6 BUN 17 Creatinine 1.06 H Estim Creat Clear Calc 39.11 Est GFR (MDRD) Af Amer 66 Est GFR (MDRD) Non-Af 54 L BUN/Creatinine Ratio 16.0 Glucose 117 H Calcium 9.4 Troponin I High Sens 4 5 B-Natriuretic Peptide 47.4 Radiography Diagnostic Testing: Clinical Impression(s) from Imaging Studies Chest X-Ray 01/25/24 20:25 IMPRESSION: There are no acute findings. Electronically Signed: Huey Pierce MD at 20:52 EST Reading Location ID and State: [facility] / [place] , Service support , Discharge Plan Triage Chief Complaint: Chest Pain ED Provider: Mj Posey Dx/Rx/DC Orders Clinical Impression: Chest pain Prescriptions: No Action nitroglycerin 0.4 mg tablet, sublingual 0.4 mg SUBLINGUAL Q5-15M potassium chloride 10 mEq capsule, extended release 10 meq PO DAILY calcium carbonate-vitamin D3 600 mg-20 mcg (800 unit) tablet 1 tab PO DAILY hydroxychloroquine 200 mg tablet 200 mg PO DAILY Adult 50 Plus Probiotic 4 billion cell capsule 4,000 mmu cells PO DAILY Rx Instructions: administer with a meal pantoprazole 20 mg Tablet,Delayed Release (Dr/Ec) 20 mg PO DAILY Dulera 100-5 mcg/actuation HFA aerosol inhaler 2 puff INHALATION BID PRN (Reason: SOB) clopidogrel 75 mg tablet 75 mg PO DAILY Qty: 90 4RF losartan 100 mg tablet 100 mg PO DAILY Qty: 90 3RF hydrochlorothiazide 12.5 mg capsule 12.5 mg PO DAILY Qty: 90 3RF metoprolol succinate 50 mg tablet extended release 24 hr 50 mg PO DAILY Qty: 90 3RF amlodipine 2.5 mg tablet 2.5 mg PO DAILY Qty: 90 3RF atorvastatin 40 mg tablet 40 mg PO QHS Qty: 90 3RF Primary Care Provider: Xavi Frazier Referrals: Xavi Frazier MD [Primary Care Provider] - Activity Restrictions/Additional Instructions: Follow-up with your primary care physician outpatient setting. Keep an eye on your blood pressure and keep blood pressure log and write your blood pressure randomly down 3 times a day and what time he took it take this to your family physician for their review. Return with worsening symptoms or other concerns. Print Language: Niuean Disposition Disposition: Home, Self Care
[2024-01-25 23:02] VITALS: BP 142/63; PULSE 70; RESP 14; TEMP 37.2; O2SAT 99
== END 2024-01-25 23:02 | disposition home or self-care (01) ==
PROVIDERS: Emergency Provider Emergency Medicine; PCP Family Medicine; Visit Provider Emergency Medicine
DX: R07.9 Chest pain, unspecified (principal); I25.10 Atherosclerotic heart disease of native coronary artery without angina pectoris; Z79.899 Other long term (current) drug therapy; Z95.5 Presence of coronary angioplasty implant and graft
CPT/HCPCS: 71046; 80048; 83880; 84484; 85025; 93005; 99284; A4216

== ENCOUNTER → 2024-06-14 | Outpatient (CLI) | payer MEDICARE, SELFPAY ==
--- NOTE | 2024-06-14 09:40 | CDU_ITS ---
Reason For Study Reason For Study: Carotid stenosis Rt. Velocities/BP Lt. Velocities/BP Prox CCA 77.8/19.2 cm/sec. Prox CCA 95.5/17 cm/sec. Mid CCA 89.1/20.1 cm/sec. Mid CCA 95.5/20.6 cm/sec. Dist CCA 74/18.2 cm/sec. Dist CCA 70.7/16.8 cm/sec. Prox ICA 163.4/32.3 cm/sec. Prox ICA 90.5/28.9 cm/sec. Mid ICA 148.8/31 cm/sec. Mid ICA 80.6/24.5 cm/sec. Dist ICA 106.5/24.3 cm/sec. Dist ICA 100.3/27.8 cm/sec. Rt. ICA/CCA = 1.83. Lt. ICA/CCA = 1.05. Prox ECA 196.1/5.2 cm/sec. Prox ECA 82.8/5.8 cm/sec. Rt. Vert. 56.9/13.9 cm/sec. Lt. Vert. 52/14.6 cm/sec. Right Extracranial There is intimal thickening but no significant atherosclerotic plaque noted in the right common carotid artery. There is heterogeneous, irregular atherosclerotic plaque noted in the right internal carotid artery. There is heterogeneous, irregular atherosclerotic plaque noted in the right external carotid artery. Antegrade flow is noted in the right vertebral artery. Left Extracranial There is intimal thickening but no significant atherosclerotic plaque noted in the left common carotid artery. There is heterogeneous, irregular atherosclerotic plaque noted in the left internal carotid artery. There is heterogeneous, irregular atherosclerotic plaque noted in the left external carotid artery. Antegrade flow is noted in the left vertebral artery. Procedure Carotid Duplex [id number]. This is a Carotid Duplex examination using B-mode, color flow and specral Doppler. Exam performed in department. VL/Carotid Duplex Ultrasound Interpretation Summary Moderate (50-69%) stenosis right extracranial internal carotid. Mild (<50%) stenosis left extracranial internal carotid. Patent and antegrade vertebrals bilaterally. Ordering Physician: Brooks Jamison Referring Physician: Xavi Frazier Performed By: Matilde Rutledge RVT
== END | disposition home or self-care (01) ==
LOC: CVS 09:39
PROVIDERS: PCP Family Medicine; Referring Provider Surgery Trauma Surgery; Visit Provider Surgery Trauma Surgery
DX: I65.21 Occlusion and stenosis of right carotid artery (principal)
CPT/HCPCS: 93880

== ENCOUNTER → 2024-08-23 | Outpatient (CLI) | payer MEDICARE, SELFPAY ==
--- OUTSIDE RECORDS SUMMARY | 2024-08-23 06:22 | XMS RPT_ITS | CCD ---
Author Organization [facility] Care Team Providers Care Bowling Alley Refinisher Name Role Phone QUENTIN RUTLEDGE Unavailable Unavailable XAVI JAIMES Unavailable Unavailable QUENTIN RUTLEDGE Unavailable Unavailable Xavi Jaimes Unavailable Unavailable Xavi Jaimes Unavailable Unavailable QUENTIN RUTLEDGE Unavailable Unavailable QUENTIN RUTLEDGE Unavailable Unavailable Xavi Jaimes Unavailable Unavailable XAVI JAIMES MD Primary Care Physician Xavi Jaimes MD Primary Care Provider Lorenzo, Roebuck S Unavailable Xavi Jaimes MD Primary Care Provider Lorenzo, Altaf S Unavailable Dr. Xavi Jaimes Primary Care Provider Fiona, Dr. Hurley Referring Provider Dr. Altaf Ventura Attending Provider Xavi Jaimes MD Primary Care Provider Lorenzo, Altaf S Unavailable Dr. Dylon Peña Attending Provider Jaida Padilla Attending Provider Unavailable Lornezo, Roebuck S Unavailable Altaf Ventura MD S Unavailable JENNIFER ROJAS MD Attending Unavailable XAVI JAIMES MD Primary Care Unavailable Dr. Xavi Jaimes Primary Care Provider Fiona, Dr. Hurley Referring Provider Donn ART, NIKKIE Grant Attending Provider Dr. Dylon Peña Attending Provider Varina MD, Xavi J Primary Care Provider Estee JOY OPERATOR HELPER.BUSINESS JOB TITLES, Amber Unavailable Jordan JOY OPERATOR HELPER.BUSINESS JOB TITLES, Rachel A Unavailable Dr. Xavi Jaimes MD Primary Care Provider VarinaDr. Xavi ba MD Referring Provider Bijal Scott Attending Provider [phone] Yaquelin ZAMBRANO, Dr. Guy Attending Provider [phone] Yaquelin ZAMBRANO, Dr. Guy Referring Provider [phone] ROMARIO GONZALES Attending Unavailable FIONA, XAVI J Primary Care Unavailable REFERRED, SELF Referring Unavailable FIONA, XAVI J Primary Care Unavailable ROMARIO GONZALES Referring Unavailable ROMARIO GONZALES Attending Unavailable Vivienne Blake RN Unavailable Unavailable Brooks Jamison Attending Unavailable Brooks Jamison Referring Unavailable Fiona, Xavi Primary Care Unavailable Mj Posey Attending Unavailable Varina, Xavi Primary Care Unavailable Varina, Xavi Primary Care Unavailable LorenzoAltaf plasencia Attending Unavailable Lorenzo, Roebuck Referring Unavailable YaquelinBrooks Attending Unavailable Brooks Jamison Referring Unavailable Fiona, Xavi Primary Care Unavailable Fiona, Xavi Referring Unavailable Fiona, Xavi Primary Care Unavailable Altaf Ventura Attending Unavailable Fiona, Xavi Referring Unavailable Bijal Wade Attending Unavailable Fiona, Xavi Primary Care Unavailable JONE PRYOR Attending Unavailable Varina, Xavi Primary Care Unavailable EZEQUIEL SOTO Attending Unavailable EZEQUIEL SOTO Referring Unavailable Varina, Xavi Primary Care Unavailable FIONA, XAVI J Primary Care Unavailable FIONA, XAVI J Referring Unavailable FIONA, XAVI J Primary Care Unavailable FIONA, XAVI J Attending Unavailable FIONA, XAVI J Primary Care Unavailable FIONA, XAVI J Referring Unavailable FIONA, XAVI J Primary Care Unavailable FIONA, XAVI J Primary Care Unavailable VERONIKA GOINS Attending Unavailable FARZANA SHIRLEY Referring Unavailable FIONA, XAVI J Primary Care Unavailable FARZANA SHIRLEY Attending Unavailable FIONA, XAVI J Referring Unavailable FIONA, XAVI J Primary Care Unavailable FIONA, XAVI J Attending Unavailable FIONA, XAVI J Primary Care Unavailable FIONA, XAVI J Referring Unavailable Allergies Allergy Classification Reported Allergen(s) Allergy Type Date of Onset Reaction(s) Facility (3 sources) OTHER; Translations: [OTHER] Propensity to adverse reactions (disorder) 5 [facility] Other [facility] (2 sources) seasonal enviromental Allergy to substance runny nose, sneezing [facility] (20 sources) Amoxicillin; Translations: [AMOXICILLIN] Drug Allergy 9 Diarrhea, GI Upset [facility] (12 sources) environmemtal [Other] Propensity to adverse reactions 5 [facility] Work Phone: (13 sources) Seasonal allergy; Translations: [SEASONAL ALLERGIES] Allergy to substance 4 Other: See Comments [facility] (1 source) Amoxicillin Drug Allergy 5 [facility] Repository Medications Current Medications Medication Drug Class(es) Dates Sig (Normalized) Sig (Original) amLODIPine 2.5 mg oral tablet (20 sources) Dihydropyridine Calcium Channel Philipp Start: 12-29-2020 End: 12-08-2023 take 1 tablet by mouth once daily Amlodipine 2.5 mg tablet Active 2.5 mg PO DAILY 90 December 08, 2023 1:03pm Comment on above: Take 2.5 mg by mouth once daily. atorvastatin 40 mg oral tablet (20 sources) HMG-CoA Reductase Inhibitor Start: 12-28-2018 End: 12-30-2023 take 1 tablet by mouth once daily atorvastatin (LIPITOR) 40 mg tablet Take 1 tablet by mouth once daily. 90 tablet 3 12/28/2018 Active Comment on above: Take 1 tablet by krystal once daily. benzonatate 100 mg oral capsule (1 source) Non-narcotic Antitussive Start: 04-24-2024 End: 05-01-2024 take 1 capsule by mouth every eight hours as needed benzonatate (TESSALON PERLE) 100 mg capsule Take 1 capsule by mouth three times a day as needed for cough for up to 7 days. 21 capsule 04/24/2024 05/01/2024 Active calcium carbonate 1500 mg oral tablet (8 sources) Start: 10-10-2021 calcium (as carbonate) 600 mg oral tablet Dose : 1,200 mg = 2 tab(s), Oral, qDay, 0 Refill(s) Start Date: 10/10/21 Status: Ordered Start: 12-29-2020 End: 05-21-2022 take 1 tablet by mouth once daily Calcium Carbonate (Calcium 500) 500 mg calcium (1,250 mg) tablet Discontinued 500 mg PO DAILY December 29, 2020 12:00am May 21, 2022 1:04pm calcium carbonate 1500 mg / cholecalciferol 800 unt oral tablet (6 sources) Vitamin D Start: 05-21-2022 Calcium Carbon ate-Vitamin D3 600 mg-20 mcg (800 unit) tablet Active 1 {tbl} PO DAILY May 21, 2022 12:00am Start: 05-21-2022 take 1 tablet by [facility] once daily Calcium Carbonate-Vitamin D3 Active 1 TABLET PO DAILY May 21, 2022 12:00am Calcium Carbonate / vitamin D3 (20 sources) take 2 tablets by mo [facility] once daily calcium carbonate/vitamin D3 (CALCIUM 600 + D,3, ORAL) Take 2 tablets by mouth once daily. Active take 2 tablets by mouth once kati ly calcium carbonate/vitamin D3 (CALCIUM 600 + D,3, ORAL) Take 2 tablets by mouth once daily. 0 Active Comment on above: Take 2 tablets by mo [facility] once daily. clopidogrel 75 mg oral tablet (20 sources) P2Y12 Platelet Inhibitor Start : 05-18 End: 08-28 clopidogrel (PLAVIX) 75 mg tablet TAKE 1 TABLET DAILY 90 tablet 3 05/18/2018 Active Comment on above: TAKE 1 TABLET DAILY Dulera 200 mcg-5 mcg/inh Metered Dose Inhaler (1 source) Start : 12-10 take 1 puff(s) by inhalation once daily Dulera 200 mcg-5 mcg/inh Metered Dose Inhaler 1 puff, Inhalation, Daily, # 13 gram(s), 0 Refill(s) Start Date: 12/10/22 Status: Ordered hydroCHLOROthiazide 12.5 mg oral capsule (20 sources) Thiazide Diuretic Start : 06-05 End: 10-14 take 1 capsule by mouth once daily Hydrochlorothiazide 12.5 mg capsule Take 1 capsule by mouth once daily. 90 capsule 3 06/05/2018 Active Comment on above: Take 1 capsule by mo ut once daily. hydroxychloroquine sulfate 200 mg oral tablet (20 sources) Antimalarial, Antirheumatic Agent Start : 10-10 take 1 tablet by mouth once daily hydrOXYchloroQUINE (PLAQUENIL) 200 mg tablet Take 200 mg by mouth once daily. 05/10/2022 Active Start: 01-12-2019 End: 04-20-2020 take 1 tablet by mouth once daily Hydroxychloroquine (Plaquenil) 200 mg tablet Discontinued 200 mg PO DAILY January 12, 2019 1:00am April 20, 2020 4:04pm Comment on above: Take 200 mg by mouth once daily. Lactobacillus acidophilus (12 sources) Lactobacillus acidophilus (PROBIOTIC ACIDOPHILUS ORAL) Take by mouth. Active Lactobacillus Combination No.9 (Adult 50 Plus Probiotic) 4 billion cell capsule (6 sources) Start: take 4 capsules by mouth once daily Lactobacillus Combination No.9 (Adult 50 Plus Probiotic) 4 billion cell capsule Active 4000 NMA PO DAILY May 21, 2022 12:00am administer with a meal Start: 05-21-2022 take 4 capsules by m outh once daily Lactobacillus Combination No.9 (Adult 50 Plus Probiotic) 4 billion cell capsule Active 4000 MMU CELLS PO DAILY May 20, 2022 11:00pm administer with a meal Start: 05-21-2022 take 4 capsules by m outh once daily Lactobacillus Combination No.9 (Adult 50 Plus Probiotic) 4 billion cell capsule Active 4000 MMU CELLS PO DAILY May 21, 2022 12:00am administer with a meal losartan potassium 100 mg oral tablet (20 sources) Angiotensin 2 Receptor Philipp Start: 04-20-2020 End: 10-08-2023 take 1 tablet by mouth once daily losartan (COZAAR) 100 mg tablet Take 100 mg by mouth once daily. 04/11/2022 Active Start: 08-06-2019 End: 04-20-2020 take 1 tablet by mouth once daily Losartan 50 mg tablet Discontinued 50 mg PO DAILY August 06, 2019 1:51pm April 20, 2020 4:11pm Start: 01-12-2019 End: 08-06-2019 take 1 tablet by mouth once daily Losartan 25 mg tablet Discontinued 25 mg PO DAILY July 14, 2019 10:25am August 06, 2019 1:51pm Comment on above: Take 100 mg by mouth once daily. 24 hr metoprolol succinate 50 mg extended release oral tablet (20 sources) beta-Adrenergic Philipp Start: 10-10-2021 Metoprolol Succinate ER 50 mg oral TABLET extended release Dose : 50 mg = 1 tab(s), Oral, qDay, # 30 tab(s), 0 Refill(s) Start Date: 10/10/21 Status: Ordered Start: 11-08-2020 End: 10-15-2023 take 1 tablet by mouth once daily metoprolol succinate ER (TOPROL XL) 50 mg 24 hr tablet Take 50 mg by mouth once daily. 04/11/2022 Active Start: 01-12-2019 End: 11-08-2020 take 1 tablet by mouth once daily Metoprolol Succinate 25 mg tablet extended release 24 hr Discontinued 25 mg PO DAILY 90 January 13, 2019 1:57pm November 08, 2020 4:52pm Comment on above: Take 50 mg by mouth once daily. Mometasone-Formoterol (Dulera) 100-5 mcg/actuation HFA aerosol inhaler (1 source) Start: 04-20-2021 Mometasone-Formoterol (Dulera) 100-5 mcg/actuation HFA aerosol inhaler Active 2 NMA INHALATION TWICE A DAY as needed for SOB April 20, 2021 11:15am nitroglycerin 0.4 mg sublingual tablet (20 sources) Nitrate Vasodilator Start: 01-12-2019 Nitroglycerin 0.4 mg tablet, sublingual Active 0.4 mg SL every 5 to 15 minutes January 12, 2019 1:00am Start: 01-12-2019 Nitroglycerin Active 0.4 MG SL every 5 to 15 minutes January 12, 2019 1:00am Start: 12-09-2017 nitroglycerin sublingual (NITROQUICK) 0.4 mg SL tablet Dissolve 1 tablet under the tongue as needed. FOR CHEST PAIN. IF NO RELIEF CALL 911 1 Bottle of 25 3 12/09/2017 Active Comment on above: Dissolve 1 tablet un jose the tongue as needed. FOR CHEST PAIN. IF NO RELIEF CALL 911 pantoprazole 20 mg delayed release oral tablet (20 sources) Proton Pump Inhibitor Start: End: 4 take 1 tablet by mouth once daily before breakfast pantoprazole DR (PROTONIX) 20 mg tablet Take 1 tablet by mouth daily before breakfast. Take on empty stomach, 1/2 hr before meal. 90 tablet 3 10/08/2023 Active Comment on above: Take 1 tablet by krystal th daily before breakfast. Take on empty stomach, 1/2 hr before meal. polyethylene glycol 3350 137141 mg / potassium chloride 2970 mg / sodium bicarbonate 6740 mg / sodium chloride 5860 mg / sodium sulfate 14262 mg powder for oral solution (1 source) Osmotic Laxative Start: End: peg 3350-Electrolytes (GOLYTELY) 236-22.74-6.74 -5.86 gram suspension Indications: History of colonic polyps , Screen for colon cancer Take 4,000 mL by mouth one time only for 1 dose. Refer to printed prep instructions from your provider. 4000 mL 12/31/2023 12/31/2023 Active potassium chloride 20 meq extended release oral tablet (20 sources) Start: End: take 1 tablet by mouth once daily at breakfast potassium chloride 20 mEq TbER Indications: Hypokalemia Take 1 tablet by mouth daily with breakfast. 90 tablet 3 06/09/2024 06/09/2025 Active Start: 01-26-2024 End: 01-25-2025 take 1 tablet by mouth once daily at breakfast potassium chloride (K-TAB) 10 mEq tablet Indications: Hypokalemia Take 1 tablet by mouth daily with breakfast. 90 tablet 3 01/26/2024 06/09/2024 Discontinued Start: 12-02-2022 End: 12-02-2023 take 1 tablet by mouth once daily at breakfast potassium chloride (K-TAB) 10 mEq tablet Indications: Hypokalemia Take 1 tablet by mouth daily with breakfast. 90 tablet 3 12/02/2022 12/02/2023 Active Start: 10-10-2021 Potassium Chlo ride (Eqv-K-Tab) 10 mEq oral tablet, extended release 0 Refill(s) Start Date: 10/10/21 Status: Ordered Start: 02-09-2021 End: 11-29-2022 take 1 tablet by mouth once daily at breakfast potassium chloride (K-TAB) 10 mEq tablet Indications: Hypokalemia Take 1 tablet by mouth daily with breakfast. 90 tablet 3 11/29/2021 11/29/2022 Active Start: 12-29-2020 take 1 capsule by mo [facility] once daily Potassium Chloride 10 mEq capsule, extended release Active 10 meq PO DAILY December 29, 2020 12:00am take 1 tablet by krystal th twice daily potassium chloride (K-TAB) 10 mEq tablet Take 10 mEq by mouth two times a day. Active Comment on above: Take 1 tablet by krystal th daily with breakfast. predniSONE 10 mg oral tablet (19 sources) Start: 04-24-19 End: 04-29-19 take 1 tablet by mouth twice daily predniSONE (DELTASONE) 10 mg tablet Take 1 tablet by mouth two times a day for 5 days. 10 tablet 04/24/2024 04/29/2024 Active Comment on above: Take 10 mg by mouth as needed. Probiotic (2 sources) Start: 10-11-19 Probiotic 0 Refill(s) Start Date: 10/10/21 Status: Ordered 72 hr scopolamine 0.0139 mg/hr transdermal system (6 sources) Anticholinergic Start: 06-10-19 End: 06-25-19 scopolamine (TRANSDERM-SCOP) patch 1.5 mg/72 hr (delivers 1 mg over 3 days) Indications: Motion sickness, subsequent encounter Apply 1 Patch as directed as directed for 15 days. BEHIND THE EAR AT LEAST 4 HOURS PRIOR TO EXPOSURE AND EVERY 3 DAYS NEEDED. 5 Patch 06/09/2024 06/24/2024 Active Start: 10-14-2022 End: 06-04-2023 scopolamine (TRANSDERM-SCOP) patch 1.5 mg/72 hr (delivers 1 mg over 3 days) Indications: Motion sickness, subsequent encounter Apply 1 Patch as directed every 72 hours. Apply patch to skin behind ear 4hrs prior to travel. 4 Patch 0 10/14/2022 06/04/2023 Discontinued Comment on above: Apply 1 Patch as dir ected every 72 hours. Apply patch to skin behind ear 4hrs prior to travel. Completed/Discontinued Medications Medication Drug Class(es) Dates Sig (Normalized) Sig (Original) aspirin 81 mg delayed release oral tablet (20 sources) Platelet Aggregation Inhibitor, Nonsteroidal Anti-inflammatory Drug Start: 11-08-2020 End: 12-31-2023 take 1 tablet by mouth once daily Aspirin (Adult Aspirin Regimen) 81 mg tablet,delayed release (DR/EC) Discontinued 81 mg PO DAILY November 08, 2020 12:00am May 19, 2023 1:49pm Comment on above: Take 81 mg by mouth once daily. calcium chloride 0.0014 meq/ml / potassium chloride 0.004 meq/ml / sodium chloride 0.103 meq/ml / sodium lactate 0.028 meq/ml injectable solution (1 source) Start: 02-11-2024 End: 02-11-2024 take 30 mL intravenously every hour 30 mL/hr, INTRAVENOUS, CONTINUOUS, Starting on Fri02/11/24 at 0800, Until Fri02/11/24 at 0843, Preprocedure cholecalciferol 0.01 mg oral capsule (20 sources) Vitamin D Start: 12-29-2020 End: 05-21-2022 take 1 capsule by mouth once daily Cholecalciferol (Vitamin D3) 10 mcg (400 unit) capsule Discontinued 10 ug PO DAILY December 29, 2020 12:00am May 21, 2022 1:04pm take 1 capsule by mouth once kati ly cholecalciferol, vitamin D3, 10 mcg (400 unit) cap Take 400 Units by mouth once daily. Active Comment on above: Take 400 Units by [facility] once daily. diclofenac sodium 0.01 mg/mg topical gel (20 sources) Nonsteroidal Anti-inflammatory Drug Start: 01-13-20 End: 12-30-19 apply 2 g topically once as needed for pain Diclofenac Sodium (Voltaren) 1 % gel Discontinued 2 g TOPICAL ONCE as needed for Pain, Mild January 13, 2019 1:54pm December 29, 2020 9:04am Start: 01-12-2019 End: 12-29-2020 apply 2 g topically once Diclofenac Sodium (Voltaren) 1 % gel Discontinued 2 GM TOPICAL ONCE January 13, 2019 1:54pm December 29, 2020 9:04am diclofenac (VOLT AREN) 1 % topical gel Apply 2 g to affected area as needed (each hand). Active Comment on above: Apply 2 g to affecte d area as needed (each hand). diphenhydrAMINE (1 source) Histamine-1 Receptor Antagonist Start: 02-11-2024 End: 02-11-2024 12.5-50 mg, INTRAVENOUS, DIRECTED, Starting on Fri02/11/24 at 0830, Until Fri02/11/24 at 1229, DOSING DIRECTED BY PHYSICIAN FOR PROCEDURAL SEDATION ONLY, Intraprocedure 1 ml fentaNYL 0.05 mg/ml injection (1 source) Opioid Agonist Start: 02-11-2024 End: 02-11-2024 25-100 mcg, INTRAVENOUS, DIRECTED, Starting on Fri02/11/24 at 0830, Until Fri02/11/24 at 1229, DOSING DIRECTED BY PHYSICIAN FOR PROCEDURAL SEDATION ONLY, Intraprocedure fluticasone furoate 0.0275 mg/actuat metered dose nasal spray (20 sources) Corticosteroid Start: 01-12-2019 End: 01-13-2019 Fluticasone Furoate 27.5 mcg/actuation spray,suspension Discontinued 1 NMA INTRANASAL DAILY January 12, 2019 1:00am January 13, 2019 1:55pm Start: 01-12-2019 End: 01-13-2019 Fluticasone Furoate Disconti nued 1 SPRAY INTRANASAL DAILY January 12, 2019 1:00am January 13, 2019 1:55pm Fluticasone Furo ate 27.5 mcg/actuation nasal spray Use 2 Sprays in each nostril as needed. Active Comment on above: Use 2 Sprays in each nostril as needed. 120 actuat formoterol fumarate 0.005 mg/actuat / mometasone furoate 0.1 mg/actuat metered dose inhaler (20 sources) Corticosteroid, beta2-Adrenergic Agonist Start: 11-08-2020 End: 04-20-2021 Mometasone-Formoterol (Dulera) 100-5 mcg/actuation Hfa Aerosol Inhaler Discontinued 2 NMA INHALATION TWICE A DAY November 08, 2020 12:00am April 20, 2021 11:16am Start: 11-08-2020 End: 04-20-2021 take 1 puff(s) by inhalation twice daily Mometasone-Formoterol (Dulera) 100-5 mcg/actuation HFA aerosol inhaler Active 2 PUFF INHALATION TWICE A DAY April 20, 2021 11:15am take 2 puff(s) by in halation twice daily mometasone-formoterol (DULERA) 100-5 mcg/actuation inhaler Inhale 2 Puffs as instructed twice daily. Dr. Liz Active Comment on above: Inhale 2 Puffs as in structed twice daily. Dr. Liz 24 hr isosorbide mononitrate 30 mg extended release oral tablet (6 sources) Nitrate Vasodilator Start: 11-09-19 End: 12-22-19 take 1 tablet by mouth once daily, then take 1 tablet by mouth every twenty-four hours Isosorbide Mononitrate 30 mg tablet extended release 24 hr Discontinued 30 mg PO DAILY November 08, 2020 12:00am December 21, 2020 9:19am lansoprazole 15 mg delayed release oral capsule (6 sources) Proton Pump Inhibitor Start: 01-13-20 End: 01-14-20 take 1 capsule by mouth once daily Lansoprazole (Prevacid) 15 mg capsule,delayed release(DR/EC) Discontinued 15 mg PO DAILY January 12, 2019 1:00am January 13, 2019 1:57pm meloxicam 7.5 mg oral tablet (20 sources) Nonsteroidal Anti-inflammatory Drug Start: 05-11-19 End: 12-31-19 take 1 tablet by mouth once daily meloxicam (MOBIC) 7.5 mg tablet Take 7.5 mg by mouth once daily. 05/10/2022 12/31/2023 Discontinued (Discontinued by Patient) Start: 10-10-2021 meloxicam 7.5 mg oral tablet Dose : 7.5 mg = 1 tab(s), Oral, qDay, # 30 tab(s), 0 Refill(s) Start Date: 10/10/21 Status: Ordered Start: 12-29-2020 End: 05-19-2023 take 7.5 mg by mouth once daily Meloxicam (Mobic) 15 m g tablet Discontinued 7.5 mg PO DAILY December 29, 2020 9:03am May 19, 2023 1:27pm Start: 01-12-2019 End: 12-29-2020 take 1 tablet by mouth once daily Meloxicam (Mobic) 15 mg tablet Discontinued 15 mg PO DAILY January 12, 2019 1:00am December 29, 2020 9:05am Comment on above: Take 7.5 mg by mouth once daily. 5 ml midazolam 1 mg/ml injection (1 source) Benzodiazepine Start: End: 1-5 mg, INTRAVENOUS, DIRECTED, Starting on Fri02/11/24 at 0830, Until Fri02/11/24 at 1229, DOSING DIRECTED BY PHYSICIAN FOR PROCEDURAL SEDATION ONLY, Intraprocedure prednisoLONE 10 mg disintegrating oral tablet (6 sources) Corticosteroid Start: 019 End: take 1 tablet by mouth once daily as needed Prednisolone Sodium Phosphate 10 mg tablet,disintegrating Discontinued 10 mg PO DAILY as needed for Cold Symptoms January 12, 2019 1:00am December 29, 2020 9:04am Problems Active Problems Problem Classification Problem Date Documented Da te Episodic/Chronic Asthma (20 sources) Mild intermittent asthma; Translations: [Mild intermittent asthma, uncomplicated] Onset: 05-24-2020 05-24-2020 Chronic Coronary atherosclerosis and other heart disease (20 sources) Coronary atherosclerosis; Translations: [Atherosclerotic heart disease of [place] coronary artery without angina pectoris] Onset: 12-02-2022 01-12-2019 Chronic Comment on above: PCI-VESTA-Mid RCA w/ 3 .0 x 23 mm Xience Alpine Stent and VESTA- Prox OM1 w/ 2.5 x 23 mm Xience Alpine Stent 02/13/2016 Disorders of lipid metabolism (20 sources) Hypercholesterolemi a; Translations: [Pure hypercholesterolemi a, unspecified] Onset: 02-07-2016 02-07-2016 Chronic Essential hypertension (20 sources) Benign essential hypertension; Translations: [Essential (primary) hypertension] Onset: 08-13-2007 01-03-2010 Chronic Fluid and electrolyte disorders (4 sources) Hypokalemia; Translations: [Hypokalemia] Onset: 06-21-2024 Episodic Occlusion or stenosis of precerebral arteries (1 source) Occlusion and stenosis of right carotid artery; Translations: [Occlusion and stenosis of right carotid artery] Onset: 06-17-2024 Chronic Osteoarthritis (20 sources) Osteoarthritis; Translations: [Osteoarth NOS-other site] Onset: 05-24-2020 05-24-2020 Chronic Other and unspecified benign neoplasm (3 sources) History of polyp of colon; Translations: [History of colonic polyps] 12-10-2023 Episodic Other circulatory disease (20 sources) Disorder of carotid artery; Translations: [Disorder of arteries and arterioles, unspecified] Onset: 12-02-2022 06-04-2022 Chronic Other circulatory disease (2 sources) Disorder of arteries and arterioles, unspecified; Translations: [Unspecified disorders of arteries and arterioles] 05-19-2023 Chronic Other injuries and conditions due to external causes (2 sources) Motion sickness; Translations: [Motion sickness, subsequent encounter] 10-14-2022 Episodic Other upper respiratory disease (20 sources) Allergic rhinitis; Translations: [Allergic rhinitis, unspecified] Onset: 08-13-2007 01-03-2010 Chronic Systemic lupus erythematosus and connective tissue disorders (20 sources) Systemic lupus erythematosus; Translations: [Other forms of systemic lupus erythematosus] Onset: 03-01-2016 11-27-2020 Chronic Unclassified (2 sources) Unknown / UNK(Unknown) Onset: 05-09-2017 Unclassified (1 source) Low back pain, unspecified; Translations: [Low back pain, unspecified] Onset: 03-04-2024 Unclassified (1 source) History of colonic polyps; Translations: [History of colonic polyps] Onset: 02-11-2024 Past or Other Problems Problem Classification Problem Date Documented Da te Episodic/Chronic Administrative/social admission (20 sources) Patient encounter status; Translations: [Other specified counseling] Onset: 1 Resolved: 6 05-28-2021 Episodic Coronary atherosclerosis and other heart disease (20 sources) Drug coated stent in circumflex branch of left coronary artery; Translations: [Presence of coronary angioplasty implant and graft] Onset: 6 05-24-2020 Episodic Diabetes mellitus without complication (20 sources) Hyperglycemia; Translations: [Hyperglycemia, unspecified] Onset: 2 05-22-2021 Episodic Esophageal disorders (20 sources) Gastroesophageal reflux disease; Translations: [Gastro-esophageal reflux disease without esophagitis] Onset: 8 Resolved: 3 01-03-2010 Chronic Genitourinary symptoms and ill-defined conditions (1 source) Hematuria, unspecified; Translations: [Hematuria, unspecified] Onset: 4 Episodic Nonspecific chest pain (20 sources) Atypical chest pain; Translations: [Other chest pain] Onset: 3 Resolved: 3 12-16-2020 Episodic Other and unspecified benign neoplasm (20 sources) Benign neoplasm of colon; Translations: [Benign neoplasm of colon, unspecified] Onset: 1 03-28-2010 Episodic Other and unspecified benign neoplasm (1 source) Benign neoplasm of colon, unspecified; Translations: [Benign neoplasm of colon, unspecified part of colon] Onset: 1 Episodic Other bone disease and musculoskeletal deformities (20 sources) Disorder of skeletal system; Translations: [Disorder of bone, unspecified] Onset: 8 05-24-2020 Episodic Other connective tissue disease (15 sources) Foot pain; Translations: [Pain in unspecified foot] Onset: 0 Resolved: 6 10-13-2015 Episodic Other gastrointestinal disorders (20 sources) History of gastroesophageal reflux disease; Translations: [Personal history of other diseases of the digestive system] Onset: 3 12-16-2020 Episodic Other screening for suspected conditions (not mental disorders or infectious disease) (1 source) Encounter for screening for malignant neoplasm of colon; Translations: [Screen for colon cancer] Onset: 4 Episodic Residual codes; unclassified (20 sources) Family history of diabetes mellitus; Translations: [Family history of diabetes mellitus] Onset: 9 01-03-2010 Episodic Unclassified (1 source) Follow Up Onset: 8 Viral infection (7 sources) Disease caused by 2019-nCoV; Translations: [COVID-19] Onset: 1 11-08-2020 Episodic Results Test Name Value Interpretation Reference Range Facility Cardiology Visit Reporton Cardiology Visit Report [facility] [address] [place], [place] [address] OFFICE VISIT Date of Service: 07/13/24 MR#: [id number] Acct: [id number] Name: MICHAEL ALCANTARA Rep #: [id number] : 1950 Provider: Dr. Altaf Ventura MD Age/Sex: 74/F [place] [facility] [place]: Signed HPI HPI History of Present Illness Details: This is a 74-year-old female who presents here today for a cardiovascular visit. She has a history of hypertension, hyperlipidemia, lupus erythematosus, coronary artery disease status post drug- eluting stent to the mid and proximal right coronary artery as well as the proximal obtuse marginal branch in February 2016. She underwent an exercise myocardial perfusion stress test in December 2020 demonstrating no evidence of ischemia present. From a cardiac standpoint, the patient is doing well. She denies any palpitations, chest pain, pressure or heaviness. She denies SOB, Orthopnea, and PND. She does not have bleeding issues; no blood in urine, stool or nosebleeds. She denies any decrease in energy level, myalgias, or claudication. She does not have edema, or sudden weight gain. She denies dizziness, lightheadedness, syncopal or near syncopal episodes, and headaches. Intake Vital Signs 05/19/23 13:28 01/25/24 19:43 07/13/24 12:56 Height 4 ft 11 in 4 ft 11 in 4 ft 11 in Weight: 126 lb BMI 25.4 Blood Pressure Location Lt brachial Position Sitting Respiration 16 Pulse 71 Pulse Source Monitor Intake Visit Reasons: 1 Y FU Fitness And Wellness Manager Required: No Accompanied by: Self Is patient in pain?: No Allergies amoxicillin Adverse Reaction (Verified 07/13/24 12:59) GI Upaset Medications ???Medication ???Instructions ???Recorded ???Confirmed ???Type nitroglycerin 0.4 mg sublingual 0.4 mg sublingual Q5-15M 01/12/19 07/13/24 History tablet pantoprazole 20 mg tablet,delayed 20 mg PO DAILY 11/08/20 07/13/24 History release mometasone-formoterol HFA 100 2 puff inhalation BID PRN SOB 04/1007/13/24 History mcg-5 mcg/actuation aerosol inhaler (Dulera) calcium 600 mg (as 1 tab PO DAILY 05/21/22 07/13/24 H istory carbonate)-vitamin D3 20 mcg (800 unit) tablet hydroxychloroquine 200 mg tablet 200 mg PO DAILY 05/21/22 07/13/24 History lactobacillus combination no.9 4 4,000 mmu cells PO DAILY 05/21/22 07/13/24 History billion cell capsule (Adult 50 Plus Probiotic) clopidogrel 75 mg tablet 75 mg PO DAILY #90 TABLETS 4 07/13/24 Rx losartan 100 mg tablet 100 mg PO DAILY #90 tabs 10/08/23 07/13/24 Rx hydrochlorothiazide 12.5 mg capsule 12.5 mg PO DAILY #90 caps 10/1407/13/24 Rx metoprolol succinate 50 mg 50 mg PO DAILY #90 tabs 10/15/23 0 07/13/24 Rx tablet,extended release 24 hr amlodipine 2.5 mg tablet 2.5 mg PO DAILY #90 tabs 12/08/23 07/13/24 Rx atorvastatin 40 mg tablet 40 mg PO QHS #90 tabs 12/30/2309/01 Rx potassium chloride 10 mEq 20 meq PO DAILY 07/13/24 07/13/24 History capsule,extended release Have you fallen in the past year?: No [facility] Medical History Lupus erythematosus Osteopenia Tubular adenoma GERD (gastroesophageal reflux disease) Atherosclerotic heart disease of [place] coronary artery without angina pectoris Essential (primary) hypertension Hyperlipemia Surgical History History of coronary artery stent placement (02/13/16) Family History Mother Breast cancer Myocardial infarction Father Hypertension Diabetes Social History household members: spouse Smoking Status: Never smoker alcohol intake: current alcohol intake frequency: other substance use type: does not use ROS Const Const: Negative for fatigue, weakness, headache(s), daytime sleepiness or difficulty sleeping ENT ENT: Negative for headache(s), dizziness or Nosebleed/epistaxis Cardio Chest Pain: No Palpitations: No Edema: None Resp Respiratory: Negative for SOB with activity, SOB at rest, SOB orthopnea SOB lying down or Cough GI GI: Negative nausea, vomiting or heartburn Neuro Neuro: Negative for dizziness, lightheadedness, near syncope, headache(s) or weakness Endo Endo: Negative for fatigue Cardiology Exam Const Appearance: cooperative and no acute distress Nutritional Appearance: overweight Orientation: alert and oriented x3 Head Head: normal to inspection Ears: hearing grossly normal bilaterally Nose: external nose normal Face and Sinus: face symmetric Eyes General: appearance normal, both eyes and all related structures Eyelids: eyelids normal Conjunctivae: conjunctivae luis alfredo (more content not included)... Normal [facility] POTASSIUMon 06-21-2024 Potassium [Moles/Vol] 3.9 mmol/L Normal 3.7-5.1 [facility] Comment on above: Order Comment: Speci men Type: BLOOD SPECIMENOrdering Facility: [facility] Address: [facility] [address] [place] [address] Performed By: #### K 1 ####[facility] [id number] [address] OF [facility] Carotid Duplex Ultrasoundon 06-14-2024 Carotid Duplex Ultrasound [facility] [address] [place] [address] Carotid Duplex Ultrasound 06/14/24 0940 MR#: [id number] Acct: [id number] Name: MICHAEL ALCANTARA Rep #: [id number] : 1950 74 From: Brooks Jamison MD Attending Dr: Dr. Brooks Jamison MD Status: REG C LI Ordering Dr: Brooks Jamison MD Date: 06/14/24 Location: [facility] Sex: F C Admitted: Reason For Study Reason For Study: Carotid stenosis Rt. Velocities/BP Lt. Velocities/BP Prox CCA 77.8/19.2 cm/sec. Prox CCA 95.5/17 cm/sec. Mid CCA 89.1/20.1 cm/sec. Mid CCA 95.5/20.6 cm/sec. Dist CCA 74/18.2 cm/sec. Dist CCA 70.7/16.8 cm/sec. Prox ICA 163.4/32.3 cm/sec. Prox ICA 90.5/28.9 cm/sec. Mid ICA 148.8/31 cm/sec. Mid ICA 80.6/24.5 cm/sec. Dist ICA 106.5/24.3 cm/sec. Dist ICA 100.3/27.8 cm/sec. Rt. ICA/CCA = 1.83. Lt. ICA/CCA = 1.05. Prox ECA 196.1/5.2 cm/sec. Prox ECA 82.8/5.8 cm/sec. Rt. Vert. 56.9/13.9 cm/sec. Lt. Vert. 52/14.6 cm/sec. Right Extracranial There is intimal thickening but no significant atherosclerotic plaque noted in the right common carotid artery. There is heterogeneous, irregular atherosclerotic plaque noted in the right internal carotid artery. There is heterogeneous, irregular atherosclerotic plaque noted in the right external carotid artery. Antegrade flow is noted in the right vertebral artery. Left Extracranial There is intimal thickening but no significant atherosclerotic plaque noted in the left common carotid artery. There is heterogeneous, irregular atherosclerotic plaque noted in the left internal carotid artery. There is heterogeneous, irregular atherosclerotic plaque noted in the left external carotid artery. Antegrade flow is noted in the left vertebral artery. Procedure Carotid Duplex 26636. This is a Carotid Duplex examination using B-mode, color flow and specral Doppler. Exam performed in department. VL/Carotid Duplex Ultrasound Interpretation Summary Moderate (50-69%) stenosis right extracranial internal carotid. Mild (<50%) stenosis left extracranial internal carotid. Patent and antegrade vertebrals bilaterally. Ordering Physician: Brooks Jamison Referring Physician: Xavi Jaimes Performed By: Matilde Rutledge, Ursula 06/14/241918 Date Brooks Jamison MD CC: Dr. Brooks Jamison MD; Dr. Xavi Jaimes MD Date Dictated: 06/14/24939 Date Transcribed: 06/14/241918 Vocational Counselor: Signed Normal [facility] Duplex ultrasound of carotid artery reportOrdered By: Brooks Jamison on 06-14-2024 Study report [facility] [address] [place] [address] Carotid Duplex Ultrasound 06/14/24939 MR#: [id number] Acct: [id number] Name: MICHAEL ALCANTARA #:[id number] : 1950 74 From: Brooks Estrada Attending Dr: Dr. Brooks Jamison MD S tatus: REG CLI Ordering Dr: Brooks Jamison MD Date: 10/01 Location: [facility] Sex: F C Admitted: Reason For Study Reason For Study: Carotid stenosis Rt. Velocities/BP Lt. Velocities/BP Prox CCA 77.8/19.2 cm/sec. Prox CCA 95.5/17 cm/sec. Mid CCA 89.1/20.1 cm/sec. Mid CCA 95.5/20.6 cm/sec. Dist CCA 74/18.2 cm/sec. Dist CCA 70.7/16.8 cm/sec. Prox ICA 163.4/32.3 cm/sec. Prox ICA 90.5/28.9 cm/sec. Mid ICA 148.8/31 cm/sec. Mid ICA 80.6/24.5 cm/sec. Dist ICA 106.5/24.3 cm/sec. Dist ICA 100.3/27.8 cm/sec. Rt. ICA/CCA = 1.83. Lt. ICA/CCA = 1.05. Prox ECA 196.1/5.2 cm/sec. Prox ECA 82.8/5.8 cm/sec. Rt. Vert. 56.9/13.9 cm/sec. Lt. Vert. 52/14.6 cm/sec. Right Extracranial There is intimal thickening but no significant atherosclerotic plaque noted in the right common carotid artery. There is heterogeneous, irregular atherosclerotic plaque noted in the right internal carotid artery. There is heterogeneous, irregular atherosclerotic plaque noted in the right external carotid artery. Antegrade flow is noted in the right vertebral artery. Left Extracranial There is intimal thickening but no significant atherosclerotic plaque noted in the left common carotid artery. There is heterogeneous, irregular atherosclerotic plaque noted in the left internal carotid artery. There is heterogeneous, irregular atherosclerotic plaque noted in the left external carotid artery. Antegrade flow is noted in the left vertebral artery. Procedure Carotid Duplex [id number]. This is a Carotid Duplex examination using B-mode, color flow and specral Doppler. Exam performed in department. VL/Carotid Duplex Ultrasound Interpretation Summary Moderate (50-69%) stenosis right extracranial internal carotid. Mild (<50%) stenosis left extracranial internal carotid. Patent and antegrade vertebrals bilaterally. Ordering Physician: Brooks Jamison Referring Physician: Xavi Jaimes Performed By: Matilde Rutledge T 06/14/241918 Date ____ _ Brooks Jamison MD CC: Dr. Brooks Jamison MD; Dr. Xavi Jaimes MD ~ Date Dictated: 06/14/24939 Date Transcribed: 06/14/241918 Vocational Counselor: Signed [facility] Work Phone: CNOVon 06-09-2024 [facility] Office Visit (FAMPWS ) MICHAEL ALCANTARA ([id number]) 1950 F Date Time Provider Department 06/09/24 9:40 AM XAVI JAIMES FAMPWS During your visit today, we recorded the following information about you: Pulse Blood pressure Weight Height 75/minute 106/66 57.2 kg 1.499 m Xavi Jaimes MD 06/09/2024 1:01 PM Signed Patient presents with: 6 Month Exam HPI: Patient presents today for office visit for routine 6 month follow up. Follows with Cardiology yearly. Has nitro prn on hand. Has never had to use. Denies chest pain and shortness of breath. Continues Plavix. No bleeding or bruising issues. HTN: Monitors BP occ. Had episode where her BP was elevated and she went to the ER. Workup was negative. Denies headaches and dizziness. Denies palpitations and syncope. No edema. HLD: No myalgias Follows with Customer Support Executive. Continues inhalers. Going on a cruise upcoming and needs meds for dizziness. Latest Ref Rng 06/03/2024 WBC 3.70 - 11.00 k/uL 4.29 RBC 3.90 - 5.20 m/uL 4.29 Hemoglobin 11.5 - 15.5 g/dL 12.8 Hematocrit 36.0 - 46.0 % 36.9 MCV 80.0 - 100.0 fL 86.0 MCH 26.0 - 34.0 pg 29.8 MCHC 30.5 - 36.0 g/dL 34.7 RDW-CV 11.5 - 15.0 % 12.9 Platelet Count 150 - 400 k/uL 165 MPV 9.0 - 12.7 fL 10.4 Neut% % 59.8 Abs Neut (ANC) 1.45 - 7.50 k/uL 2.56 Lymph% % 24.9 Abs Lymph 1.00 - 4.00 k/uL 1.07 Fisher% % 11.4 Abs Fisher <0.87 k/uL 0.49 Eosin% % 2.1 Abs Eosin <0.46 k/uL 0.09 Baso% % 1.6 Abs Baso <0.11 k/uL 0.07 Immature Gran % % 0.2 IMMATURE GRANS (ABS) <0.10 k/uL <0.03 NRBC /100 WBC 0.0 Absolute nRBC <0.01 k/uL <0.01 DTYPE Auto Protein, Total 6.3 - 8.0 g/dL 6.7 Albumin 3.9 - 4.9 g/dL 4.2 Calcium 8.5 - 10.2 mg/dL 9.7 Bilirubin, Total 0.2 - 1.3 mg/dL 0.5 Alkaline Phosphatase 34 - 123 U/L 62 AST 13 - 35 U/L 30 ALT 7 - 38 U/L 11 Glucose 74 - 99 mg/dL 113 (H) BUN 7 - 21 mg/dL 15 Creatinine 0.58 - 0.96 mg/dL 0.94 Sodium 136 - 144 mmol/L 138 Potassium 3.7 - 5.1 mmol/L 3.6 (L) Chloride 98 - 107 mmol/L 101 CO2 22 - 30 mmol/L 29 Anion Gap 8 - 15 mmol/L 8 eGFR >=60 mL/min/1.73m? 65 Cholesterol, Total <200 mg/dL 156 Triglyceride <150 mg/dL 52 HDL Cholesterol >39 mg/dL 69 Non HDL Cholesterol <130 mg/dL 87 Fasting Time hrs 13 VLDL Cholesterol <30 mg/dL 10 TC:HDL Ratio <5.10 2.26 LDL Cholesterol <100 mg/dL 77 LDL:HDL Ratio <2.54 1.12 Hemoglobin A1C 4.3 - 5.6 % 5.7 (H) Estimated Average Glucose mg/dL 117 MEDICATIONS: Current Outpatient Medications Medication Sig potassium chloride (K-TAB) 10 mEq tablet Take 1 tablet by mouth daily with breakfast. potassium chloride (K-TAB) 10 mEq tablet Take 10 mEq by mouth two times a day. Lactobacillus acidophilus (PROBIOTIC ACIDOPHILUS ORAL) Take by mouth. pantoprazole DR (PROTONIX) 20 mg tablet Take 1 tablet by mouth daily before breakfast. Take on empty stomach, 1/2 hr before meal. hydrOXYchloroQUINE (PLAQUENIL) 200 mg tablet Take 200 mg by mouth once daily. losartan (COZAAR) 100 mg tablet Take 100 mg by mouth once daily. metoprolol succinate ER (TOPROL XL) 50 mg 24 hr tablet Take 50 mg by mouth once daily. amLODIPine (NORVASC) 2.5 mg tablet Take 2.5 mg by mouth once daily. cholecalciferol, vitamin D3, 10 mcg (400 unit) cap Take 400 Units by mouth once daily. mometasone-formoterol (DULERA) 100-5 mcg/actuation inhaler Inhale 2 Puffs as instructed twice daily. Dr. Liz calcium carbonate/vitamin D3 (CALCIUM 600 + D,3, ORAL) Take 2 tablets by mouth once daily. atorvastatin (LIPITOR) 40 mg tablet Take 1 tablet by mouth once daily. Hydrochlorothiazide 12.5 mg capsule Take 1 capsule by mouth once daily. clopidogrel (PLAVIX) 75 mg tablet TAKE 1 TABLET DAILY nitroglycerin sublingual (NITROQUICK) 0.4 mg SL tablet Dissolve 1 tablet under the tongue as needed. FOR CHEST PAIN. IF NO RELIEF CALL 911 diclofenac (VOLTAREN) 1 % topical gel Apply 2 g to affected area as needed (each hand). Fluticasone Furoate 27.5 mcg/actuation nasal spray Use 2 Sprays in each nostril as needed. No current facility-administered medications for this visit. ALLERGIES: ALLERGIES Allergen Reactions Amoxicillin Diarrhea, GI Upset Seasonal Allergies Other: See Comments Stuffy nose, sneezing, cough PAST MEDICAL HISTORY Diagnosis Date allergies seasonal/environmental Colon polyps 2010 tubular adenomas GERD (gastroesophageal reflux disease) Hypertension Lupus 2009 KATARZYNA+ Osteopenia 2007 PAST SURGICAL HISTORY Procedure Laterality Date COLONOSCOPY FLX DX W/COLLJ SPEC WHEN PFRMD 03/28/2010 tubular adenoma x 2, repeat in 3-4 years COLONOSCOPY FLX DX W/COLLJ SPEC WHEN PFRMD 10/25/13 internal hemorrhoids FAMILY HISTORY Problem Relation Age of Onset Breast Cancer Mother at age 65, had twice Diabetes Father Diabetes Maternal Grandmother Hypertension Father Coronary Artery Disease Paternal Grandfather (more content not included)... Normal [facility] CBC W Auto Differential pane l (Bld)on 06-03-2024 Basophils (Bld) [#/Vol] 0.07 10*3/uL Normal <0.11 [facility] Comment on above: Order Comment: Speci men Type: BLOOD SPECIMENOrdering Facility: [facility] Address: [address] [place] [address] Performed By: #### 5 7021-8 ####[facility] [id number] [place] [address] [place] Basophils/100 WBC (Bld) 1.6 % Normal [facility] Comment on above: Order Comment: Speci men Type: BLOOD SPECIMENOrdering Facility: [facility] Address: [address] [place] [address] Performed By: #### 5 7021-8 ####[facility] [id number] [place] [address] [place] Differential cell count method Nom (Bld) Auto Normal [facility] Comment on above: Order Comment: Speci men Type: BLOOD SPECIMENOrdering Facility: [facility] Address: [address] [place] [address] Performed By: #### 5 7021-8 ####[facility] [id number] [place] [address] [place] Eosinophils (Bld) [#/Vol] 0.09 10*3/uL Normal <0.46 [facility] Comment on above: Order Comment: Speci men Type: BLOOD SPECIMENOrdering Facility: [facility] Address: [address] [place] [address] Performed By: #### 5 7021-8 ####[facility] [id number] [place] [address] [place] Eosinophils/100 WBC (Bld) 2.1 % Normal [facility] Comment on above: Order Comment: Speci men Type: BLOOD SPECIMENOrdering Facility: [facility] Address: [address] [place] [address] Performed By: #### 5 7021-8 ####[facility] [id number] [place] [address] [place] Erythrocyte distribution width (RBC) [Ratio] 12.9 % Normal 11.5-15.0 [facility] Comment on above: Order Comment: Speci men Type: BLOOD SPECIMENOrdering Facility: [facility] Address: [address] [place] [address] Performed By: #### 5 7021-8 ####[facility] [id number] [place] [address] [place] Hematocrit (Bld) [Volume fraction] 36.9 % Normal 36.0-46.0 [facility] Comment on above: Order Comment: Speci men Type: BLOOD SPECIMENOrdering Facility: [facility] Address: [address] [place] [address] Performed By: #### 5 7021-8 ####[facility] [id number] [place] [address] [place] Hemoglobin (Bld) [Mass/Vol] 12.8 g/dL Normal 11.5-15.5 [facility] Comment on above: Order Comment: Speci men Type: BLOOD SPECIMENOrdering Facility: [facility] Address: [address] [place] [address] Performed By: #### 5 7021-8 ####[facility] [id number] [place] [address] [place] Immature granulocytes (Bld) [#/Vol] 10*3/uL Normal <0.10 [facility] Comment on above: Order Comment: Speci men Type: BLOOD SPECIMENOrdering Facility: [facility] Address: [address] [place] [address] Performed By: #### 5 7021-8 ####[facility] [id number] [place] [address] [place] Immature granulocytes/100 WBC (Bld) 0.2 % Normal [facility] Comment on above: Order Comment: Speci men Type: BLOOD SPECIMENOrdering Facility: [facility] Address: [address] [place] [address] Performed By: #### 5 7021-8 ####[facility] [id number] [place] [address] [place] Lymphocytes (Bld) [#/Vol] 1.07 10*3/uL Normal 1.00-4.00 [facility] Comment on above: Order Comment: Speci men Type: BLOOD SPECIMENOrdering Facility: [facility] Address: [address] [place] [address] Performed By: #### 5 7021-8 ####[facility] [id number] [place] [address] [place] Lymphocytes/100 WBC (Bld) 24.9 % Normal [facility] Comment on above: Order Comment: Speci men Type: BLOOD SPECIMENOrdering Facility: [facility] Address: [address] [place] [address] Performed By: #### 5 7021-8 ####[facility] CYNTHIACatieNCZO [id number] [address] [place] [facility] MCH (RBC) [Entitic mass] 29.8 pg Normal 26.0-34.0 [facility] Comment on above: Order Comment: Speci men Type: BLOOD SPECIMENOrdering Facility: [facility] Address: [address] [place] [address] Performed By: #### 5 7021-8 ####[facility] [id number] [place] [address] [place] MCHC (RBC) [Mass/Vol] 34.7 g/dL Normal 30.5-36.0 [facility] Comment on above: Order Comment: Speci men Type: BLOOD SPECIMENOrdering Facility: [facility] Address: [address] [place] [address] Performed By: #### 5 7021-8 ####[facility] [id number] [address] [place] MCV (RBC) [Entitic vol] 86.0 fL Normal 80.0-100.0 [facility] Comment on above: Order Comment: Speci men Type: BLOOD SPECIMENOrdering Facility: [facility] Address: [address] [place] [address] Performed By: #### 5 7021-8 ####[facility] [id number] [place] [address] [place] Monocytes (Bld) [#/Vol] 0.49 10*3/uL Normal <0.87 [facility] Comment on above: Order Comment: Speci men Type: BLOOD SPECIMENOrdering Facility: [facility] Address: [address] [place] [address] Performed By: #### 5 7021-8 ####[facility] MILL[facility]CL[facility] [id number] [place] [address] [place] Monocytes/100 WBC (Bld) 11.4 % Normal [facility] Comment on above: Order Comment: Speci men Type: BLOOD SPECIMENOrdering Facility: [facility] Address: [address] [place] [address] Performed By: #### 5 7021-8 ####[facility] [id number] [place] [address] [place] Neutrophils (Bld) [#/Vol] 2.56 10*3/uL Normal 1.45-7.50 [facility] Comment on above: Order Comment: Speci men Type: BLOOD SPECIMENOrdering Facility: [facility] Address: [address] [place] [address] Performed By: #### 5 7021-8 ####[facility] [id number] [place] [address] [place] Neutrophils/100 WBC (Bld) 59.8 % Normal [facility] Comment on above: Order Comment: Speci men Type: BLOOD SPECIMENOrdering Facility: [facility] Address: [address] [place] [address] Performed By: #### 5 7021-8 ####[facility] [id number] [place] [address] [place] Nucleated RBC (Bld) [#/Vol] 10*3/uL Normal <0.01 [facility] Comment on above: Order Comment: Speci men Type: BLOOD SPECIMENOrdering Facility: [facility] Address: [address] [place] [address] Performed By: #### 5 7021-8 ####[facility]CL[facility] [id number] [place] [address] [place] Nucleated RBC/100 WBC (Bld) [Ratio] 0.0 /100 WBC Normal [facility] Comment on above: Order Comment: Speci men Type: BLOOD SPECIMENOrdering Facility: [facility] Address: [address] [place] [address] Performed By: #### 5 7021-8 ####[facility]ITALNCSOLA [id number] [place] [address] [place] Platelet mean volume (Bld) [Entitic vol] 10.4 fL Normal 9.0-12.7 [facility] Comment on above: Order Comment: Speci men Type: BLOOD SPECIMENOrdering Facility: [facility] Address: [address] [place] [address] Performed By: #### 5 7021-8 ####[facility]ITALN[facility] [id number] [place] [address] [place] Platelets (Bld) [#/Vol] 165 10*3/uL Normal 150-400 [facility] Comment on above: Order Comment: Speci men Type: BLOOD SPECIMENOrdering Facility: [facility] Address: [address] [place] [address] Performed By: #### 5 7021-8 ####[facility] [id number] [place] [address] [place] RBC (Bld) [#/Vol] 4.29 10*6/uL Normal 3.90-5.20 [facility] Comment on above: Order Comment: Speci men Type: BLOOD SPECIMENOrdering Facility: [facility] Address: [address] [place] [address] Performed By: #### 5 7021-8 ####[facility]ITALNCLIA [id number] [place] [address] [place] WBC (Bld) [#/Vol] 4.29 10*3/uL Normal 3.70-11.00 [facility] Comment on above: Order Comment: Speci men Type: BLOOD SPECIMENOrdering Facility: [facility] Address: [address] [place] [address] Performed By: #### 5 7021-8 ####[facility]PITALNCSHRINERS H[facility]ALS FOR CHILDREN [id number] [place] [address] [place] Comprehensive metabolic 2000 panelon 06-03-2024 Albumin [Mass/Vol] 4.2 g/dL Normal 3.9-4.9 [facility] Comment on above: Order Comment: Speci men Type: BLOOD SPECIMENOrdering Facility: [facility] Address: [address] [place] [address] Performed By: #### 2 4323-8 ####[facility]PITALNCSHRINERS HOSPITALS FOR CHILDREN [id number] [place] [address] [place] ALP [Catalytic activity/Vol] 62 U/L Normal 34-123 [facility] Comment on above: Order Comment: Speci men Type: BLOOD SPECIMENOrdering Facility: [facility] Address: [address] [place] [address] Performed By: #### 2 4323-8 ####[facility] [id number] [place] [address] [place] ALT [Catalytic activity/Vol] 11 U/L Normal 7-38 [facility] Comment on above: Order Comment: Speci men Type: BLOOD SPECIMENOrdering Facility: [facility] Address: [address] [place] [address] Performed By: #### 2 4323-8 ####[facility] [id number] [place] [address] [place] Anion gap [Moles/Vol] 8 mmol/L Normal 8-15 [facility] Comment on above: Order Comment: Speci men Type: BLOOD SPECIMENOrdering Facility: [facility] Address: [address] [place] [address] Performed By: #### 2 4323-8 ####[facility] MILLWNCLIA [id number] [place] [address] [place] AST [Catalytic activity/Vol] 30 U/L Normal 13-35 [facility] Comment on above: Order Comment: Speci men Type: BLOOD SPECIMENOrdering Facility: [facility] Address: [address] [place] [address] Performed By: #### 2 4323-8 ####[facility]ITALWNCLIA [id number] [place] [address] [place] Bilirubin [Mass/Vol] 0.5 mg/dL Normal 0.2-1.3 [facility] Comment on above: Order Comment: Speci men Type: BLOOD SPECIMENOrdering Facility: [facility] Address: [address] [place] [address] Performed By: #### 2 4323-8 ####[facility] CLINICLIA [id number] [place] [address] [place] Calcium [Mass/Vol] 9.7 mg/dL Normal 8.5-10.2 [facility] Comment on above: Order Comment: Speci men Type: BLOOD SPECIMENOrdering Facility: [facility] Address: [address] [place] [address] Performed By: #### 2 4323-8 ####[facility] MILLWNCLIA [id number] [place] [address] [place] Chloride [Moles/Vol] 101 mmol/L Normal 98-107 [facility] Comment on above: Order Comment: Speci men Type: BLOOD SPECIMENOrdering Facility: [facility] Address: [address] [place] [address] Performed By: #### 2 4323-8 ####[facility]ITALNCLIA [id number] [place] [address] [place] CO2 [Moles/Vol] 29 mmol/L Normal 22-30 [facility] Comment on above: Order Comment: Kacii men Type: BLOOD SPECIMENOrdering Facility: [facility] Address: [address] [place] [address] Performed By: #### 2 4323-8 ####[facility] [id number] [place] [address] [place] Creatinine [Mass/Vol] 0.94 mg/dL Normal 0.58-0.96 [facility] Comment on above: Order Comment: Kacii men Type: BLOOD SPECIMENOrdering Facility: [facility] Address: [address] [place] [address] Performed By: #### 2 4323-8 ####[facility]PITALNCSHRINERS HOSPITALS FOR CHILDREN [id number] [place] [address] [place] Creatinine and Glomerular filtration rate.predicted panel (S/P/Bld) 65 mL/min/1.73m??? Normal >=60 [facility] Comment on above: Order Comment: Kacii norris Type: BLOOD SPECIMENOrdering Facility: [facility] Address: [address] [place] [address] Result Comment: Afshan mated Glomerular Filtration Rate (eGFR) is calculated using the 2020 CKD-EPI creatinine equation. This equation utilizes serum creatinine, sex, and age as parameters. The creatinine assay has traceable calibration to isotope dilution-mass spectrometry. Refer to KDIGO guidelines for clinical interpretation. In patients with unstable renal function, e.g. those with acute kidney injury, the eGFR may not accurately reflect actual GFR. Performed By: #### 2 4323-8 ####[facility] [id number] [place] [address] [place] Glucose [Mass/Vol] 113 mg/dL High 74-99 [facility] Comment on above: Order Comment: Kacii men Type: BLOOD SPECIMENOrdering Facility: [facility] Address: [address] [place] [address] Result Comment: The [place] Diabetes Association (ADA) provides guidance for cutoff values for fasting glucose and random glucose. The ADA defines fasting as no caloric intake for at least 8 hours. Fasting plasma glucose results between 100 to 125 mg/dL indicate increased risk for diabetes (prediabetes). Fasting plasma glucose results greater than or equal to 126 mg/dL meet the criteria for diagnosis of diabetes. In the absence of unequivocal hyperglycemia, results should be confirmed by repeat testing. In a patient with classic symptoms of hyperglycemia or hyperglycemic crisis, random plasma glucose results greater than or equal to 200 mg/dL meet the criteria for diagnosis of diabetes. Reference: Standards of Medical Care in Diabetes 2016, [place] Diabetes Association. Diabetes Care. 2016.39(Suppl 1). Performed By: #### 2 4323-8 ####[facility] [id number] [place] [address] [place] Potassium [Moles/Vol] 3.6 mmol/L Low 3.7-5.1 [facility] Comment on above: Order Comment: Speci men Type: BLOOD SPECIMENOrdering Facility: [facility] Address: [address] [place] [address] Performed By: #### 2 4323-8 ####[facility] [id number] [place] [address] [place] Protein [Mass/Vol] 6.7 g/dL Normal 6.3-8.0 [facility] Comment on above: Order Comment: Speci men Type: BLOOD SPECIMENOrdering Facility: [facility] Address: [address] [place] [address] Performed By: #### 2 4323-8 ####[facility] [id number] [place] [address] [place] Sodium [Moles/Vol] 138 mmol/L Normal 136-144 [facility] Comment on above: Order Comment: Speci men Type: BLOOD SPECIMENOrdering Facility: [facility] Address: [address] [place] [place] [id number] Performed By: #### 2 4323-8 ####[facility] H[facility]PITALWNCLIA [id number] [place] [address] [place] Urea nitrogen [Mass/Vol] 15 mg/dL Normal 7-21 [facility] Comment on above: Order Comment: Speci men Type: BLOOD SPECIMENOrdering Facility: [facility] Address: [address] [place] [address] Performed By: #### 2 4323-8 ####[facility] CLINICLIA [id number] [place] [address] [place] HbA1c (Bld)on 06-03-2024 Average glucose Estimated from glycated hemoglobin (Bld) [Mass/Vol] 117 mg/dL Normal [facility] Comment on above: Order Comment: Speci men Type: BLOOD SPECIMENOrdering Facility: [facility] Address: [address] [place] [address] Result Comment: eAG: (Estimated average glucose) is a calculated value from HgbA1c and is care support representative of the average blood glucose level in the last 2-3 month period. Performed By: #### 5 5454-3 ####[facility] LABCLIA [id number] [address] [address] [place] HbA1c (Bld) [Mass fraction] 5.7 % High 4.3-5.6 [facility] Comment on above: Order Comment: Speci men Type: BLOOD SPECIMENOrdering Facility: [facility] Address: [address] [place] [address] Result Comment: [place] Diabetes Association guidelines indicate that patients with HgbA1c in the range 5.7-6.4% are at increased risk for development of diabetes, and intervention by lifestyle modification may be beneficial. HgbA1c greater or equal to 6.5% is considered diagnostic of diabetes. Performed By: #### 5 5454-3 ####[facility] LABCLIA [id number] [address] [id number] [address] [place] Lipid 1996 panelon 5 Cholesterol [Mass/Vol] 156 mg/dL Normal <200 [facility] Comment on above: Order Comment: Kacii men Type: BLOOD SPECIMENOrdering Facility: [facility] Address: [address] [place] [address] Result Comment: <200 mg/dL, Desirable 200-239 mg/dL, Borderline high >239 mg/dL, High Performed By: #### 2 4331-1 ####[facility]ORATORYCLIA [id number] [id number] [place] [address] Cholesterol in HDL [Mass/Vol] 69 mg/dL Normal >39 [facility] Comment on above: Order Comment: Kacii men Type: BLOOD SPECIMENOrdering Facility: [facility] Address: [address] [place] [address] Result Comment: 40-5 9 mg/dL, Acceptable >59 mg/dL, High: Negative risk factor for coronary heart disease <40 mg/dL, Low: Positive risk factor for coronary heart disease Performed By: #### 2 4331-1 ####[facility]ORATORYCLIA [id number] [address] [id number] [place] [address] Cholesterol in LDL [Mass/Vol] 77 mg/dL Normal <100 [facility] Comment on above: Order Comment: Speci men Type: BLOOD SPECIMENOrdering Facility: [facility] Address: [address] [place] [address] Result Comment: <100 mg/dL, Optimal 100-129 mg/dL, Near optimal/above optimal 130-159 mg/dL, Borderline high 160-189 mg/dL, High >189 mg/dL, Very high Secondary prevention optimal LDL Cholesterol levels are recommended to be < 70 mg/dL Performed By: #### 2 4331-1 ####[facility]ORATORYCLIA [id number] [address] [id number] [place] [address] [place] Cholesterol in LDL/Cholesterol in HDL [Mass ratio] 1.12 {ratio} Normal <2.54 [facility] Comment on above: Order Comment: Speci men Type: BLOOD SPECIMENOrdering Facility: [facility] Address: [address] [place] [address] Result Comment: Edd saul: 1. National Cholesterol Education Program ATP III Guideline At-A-Glance Quick Desk Reference: National Heart, Lung, and Blood [place]. National Institutes of Health. 2001: NIH Publication No. 01-3305. 2. An International Atherosclerosis Society position paper: global recommendations for the management of dyslipidemia: executive summary, Atherosclerosis. 2014: 232(2):410-413. Performed By: #### 2 4331-1 ####[facility]ORATORYCLIA [id number] [address] [id number] [place] [address] [place] Cholesterol in VLDL [Mass/Vol] 10 mg/dL Normal <30 [facility] Comment on above: Order Comment: Speci men Type: BLOOD SPECIMENOrdering Facility: [facility] Address: [address] [place] [address] Performed By: #### 2 4331-1 ####[facility]ORATORYCLIA [id number] [address] [id number] [place] [address] [place] Cholesterol non HDL [Mass/Vol] 87 mg/dL Normal <130 [facility] Comment on above: Order Comment: Speci men Type: BLOOD SPECIMENOrdering Facility: [facility] Address: [address] [place] [address] Result Comment: <130 mg/dL, Optimal 130-159 mg/dL, Near optimal/above optimal 160-189 mg/dL, Borderline high 190-219 mg/dL, High >219 mg/dL, Very high Secondary prevention optimal non HDL Cholesterol levels are recommended to be <100 mg/dL Performed By: #### 2 4331-1 ####[facility]ATORYCLIA [id number] [address] [id number] [address] Cholesterol.total/C holesterol in HDL [Mass ratio] 2.26 {ratio} Normal <5.10 [facility] Comment on above: Order Comment: Speci men Type: BLOOD SPECIMENOrdering Facility: [facility] Address: [address] [place] [address] Performed By: #### 2 4331-1 ####[facility]ATORYCLIA [id number] [address] [id number] [place] [address] FASTING TIME 13 hrs Normal [facility] Comment on above: Order Comment: Speci men Type: BLOOD SPECIMENOrdering Facility: [facility] Address: [address] [place] [address] Performed By: #### 2 4331-1 ####[facility]ORYCLIA [id number] [address] [id number] [place] [address] Triglyceride [Mass/Vol] 52 mg/dL Normal <150 [facility] Comment on above: Order Comment: Speci men Type: BLOOD SPECIMENOrdering Facility: [facility] Address: [address] [place] [address] Result Comment: <150 mg/dL, Normal 150-199 mg/dL, Borderline high 200-499 mg/dL, High >499 mg/dL, Very high Performed By: #### 2 4331-1 ####[facility] LABORATORYCLIA [id number] [place] [id number] [facility] [id number] [address] [place] MR/BMS.Dusty 05-05-2024 MR/BMS.[facility] Surgery [address] [place] [address] OFFICE VISIT Date of Service: 05/05/24 MR#: [id number] Acct: [id number] Name: MICHAEL ALCANTARA Rep #: [id number] : 1950 Provider: IRENE Root Age/Sex: 74/F [facility] Status: Signed Intake Vital Signs 01/25/24 19:43 05/05/24 08:36 Height 4 ft 11 in Weight: 127 lb BP 108/69 Blood Pressure Location Lt brachial Position Sitting Respiration 14 Pulse 87 Pulse Source Monitor Temp 97.8 F Temp Source Temporal Pulse Oximetry (%) 97 Oxygen Delivery Method room air Intake Visit Reasons: Establish Care, Carotid Stenosis Chief Complaint: establish care Is patient in pain?: No Allergies amoxicillin Adverse Reaction (Verified 05/05/24 08:38) GI Upaset Medications ???Medication ???Instructions ???Recorded ???Confirmed ???Type nitroglycerin 0.4 mg sublingual 0.4 mg sublingual Q5-15M 01/12/19 05/05/24 History tablet pantoprazole 20 mg tablet,delayed 20 mg PO DAILY 11/08/20 05/05/24 History release potassium chloride 10 mEq 10 meq PO DAILY 12/29/20 05/05/24 History capsule,extended release mometasone-formoterol HFA 100 2 puff inhalation BID PRN SOB 04/1005/05/24 History mcg-5 mcg/actuation aerosol inhaler (Dulera) calcium 600 mg (as 1 tab PO DAILY 05/21/22 05/05/24 H istory carbonate)-vitamin D3 20 mcg (800 unit) tablet hydroxychloroquine 200 mg tablet 200 mg PO DAILY 05/21/22 05/05/24 History lactobacillus combination no.9 4 4,000 mmu cells PO DAILY 05/21/22 05/05/24 History billion cell capsule (Adult 50 Plus Probiotic) clopidogrel 75 mg tablet 75 mg PO DAILY #90 TABLETS 4 05/05/24 Rx losartan 100 mg tablet 100 mg PO DAILY #90 tabs 10/08/23 05/05/24 Rx hydrochlorothiazide 12.5 mg capsule 12.5 mg PO DAILY #90 caps 10/1405/05/24 Rx metoprolol succinate 50 mg 50 mg PO DAILY #90 tabs 10/15/23 0 05/05/24 Rx tablet,extended release 24 hr amlodipine 2.5 mg tablet 2.5 mg PO DAILY #90 tabs 12/08/23 05/05/24 Rx atorvastatin 40 mg tablet 40 mg PO QHS #90 tabs 12/30/23 Rx Is last menstrual period known: No Post menopausal: Yes Patient : No Have you fallen in the past year?: No PFSH Medical History Lupus erythematosus Osteopenia Tubular adenoma GERD (gastroesophageal reflux disease) Atherosclerotic heart disease of [place] coronary artery without angina pectoris Essential (primary) hypertension Hyperlipemia Surgical History History of coronary artery stent placement (02/13/16) Family History Mother Breast cancer Myocardial infarction Father Hypertension Diabetes Social History household members: spouse Smoking Status: Never smoker alcohol intake: current alcohol intake frequency: other substance use type: does not use HPI HPI HPI: MICHAEL ALCANTARA, is a 74 F who presents to the office today to establish ongoing care for her carotid artery disease for which she has previously followed with Dr. Peña. She had a blood flow screening 2 years ago which identified her carotid disease. She has no history of CVA/TIA. She denies any neurologic symptoms over the last year such as unilateral weakness or numbness/paresthesias, facial droop, monocular vision loss, dysarthria. Her last carotid duplex was 06/12/23 and demonstrated extensive irregular calcific plaque with shadowing at the proximal right internal carotid artery with max R PSV 176.3/44.6 cm/s and L ICA max PSV 124.7/37.1. Her medical history is significant for coronary artery disease s/p PCI and HTN. She takes Plavix and atorvastatin daily. ROS General General: Yes fatigue; No weight change, appetite, colon cancer, breast cancer or weakness HEENT HEENT: No difficulty swallowing, eye injury, eye surgery, swollen glands or hoarseness Endo Endocrine: No thyroid disease, diabetes mellitus, thyroid cancer, Hair loss, heat intolerance or cold intolerance Skin Skin: Yes rash; No changing moles Musc Musculoskeletal: Yes back problems, arthritis and rheumatoid arthritis; No gout or joint pain Cardio Cardiovascular: Yes heart disease, high blood pressure and heart stent; No murmur, pacemaker, atrial fibrillation, heart attack, palpitations, shortness of breat with exertion or chest pain Psych Psychiatric: No depression, anxiety or hearing voices Resp Respiratory: Yes shortness of breath, No sleep apnea, Yes cough, No COPD, Yes asthma, No emphysema and No wheezing Gastro Gastrointestinal: No abdominal pain, No nausea or v (more content not included)... Normal [facility] 04-24-2024 [facility] Office Visit (UCWSTR ) RADHAMOODYMICHAEL ([id number]) 1950 F Date Time Provider Department 04/24/24 10:15 AM DEMETRI SOLIS [facility] During your visit today, we recorded the following information about you: Temperature Pulse Respiration Blood pressure 98.6 degrees 100/minute 18/minute 132/68 Weight 58.2 kg Demetri Solis PA-C 04/24/2024 10:49 AM Signed This note was created using Skiipiriter. Subjective Michael Alcantara is a 74 year old female. Patient is a 74-year-old female who complains of fever, chills, body ache, sore throat and cough that she has been experiencing for the past 6 days. Patient reports that her fever has resolved over the past 24 hours and she continues to experience chills and myalgia. Patient does have asthma and is using her albuterol MDI as directed. Patient reports that her inhaler is current and she does not require a refill of same. Patient denies increased episodes of wheezing and also denies dyspnea or shortness of breath. Patient has no history of COPD and does not smoke. Patient did receive both the influenza as well as COVID-19 vaccines. Cough Associated symptoms include chills, sore throat and myalgias. Review of Systems Constitutional: Positive for chills and fever. HENT: Positive for sore throat. Respiratory: Positive for cough. Musculoskeletal: Positive for myalgias. Objective BP 132/68 Pulse 100 Temp 37 ?C (98.6 ?F) (Tympanic) Resp 18 Wt 58.2 kg (128 lb 4.9 oz) LMP 07/15/2007 SpO2 95% BMI 25.91 kg/m? Physical Exam Vitals and nursing note reviewed. Constitutional: Appearance: Normal appearance. She is normal weight. HENT: Head: Normocephalic and atraumatic. Right Ear: Tympanic membrane, ear canal and external ear normal. Left Ear: Tympanic membrane, ear canal and external ear normal. Nose: Nose normal. Mouth/Throat: Mouth: Mucous membranes are moist. Pharynx: Oropharynx is clear. Eyes: Extraocular Movements: Extraocular movements intact. Conjunctiva/sclera: Conjunctivae normal. Pupils: Pupils are equal, round, and reactive to light. Cardiovascular: Rate and Rhythm: Normal rate and regular rhythm. Pulses: Normal pulses. Heart sounds: Normal heart sounds. Pulmonary: Effort: Pulmonary effort is normal. Breath sounds: Normal breath sounds. Musculoskeletal: Cervical back: Normal range of motion and neck supple. Skin: General: Skin is warm and dry. Capillary Refill: Capillary refill takes less than 2 seconds. Neurological: General: No focal deficit present. Mental Status: She is alert and oriented to person, place, and time. Psychiatric: Mood and Affect: Mood normal. Behavior: Behavior normal. Thought Content: Thought content normal. Judgment: Judgment normal. Assessment and Plan Unremarkable physical exam findings as noted above. Patient was provided with prescriptions for prednisone 10 mg and Tessalon 100 mg. Supportive care instructions were discussed and the patient verbalizes good understanding of same. CLINICAL IMPRESSION: Viral Illness ASSESSMENT/PLAN: 1. Viral illness - ICD9: 079.99, ICD10: B34.9 Demetri Solis PA-C Allergies As of Date: 04/24/2024 Noted Allergy Reaction AMOXICILLIN 07/10/2018 6 - Diarrhea 8 - GI Upset SEASONAL ALLERGIES 12/31/2023 14 - Other: See Comments Comments: Stuffy nose, sneezing, cough Date Reviewed: 04/24/2024 Reviewed by: Angy Lazaro LPN - Fully Assessed Reason for Visit: Cough [28] Cmt: Cough, RAMIREZ and ST x 1 week Primary Visit Diagnosis:Viral illness [B34.9] Order(s):predniSONE (DELTASONE) 10 mg tabletTake 1 tablet by mouth two times a day for 5 days.Disp: 10 tabletRfl: 0 benzonatate (TESSALON PERLE) 100 mg capsuleTake 1 capsule by mouth three times a day as needed for cough for up to 7 days.Disp: 21 capsuleRfl: 0 Prescriptions as of 04/24/2024 - predniSONE (DELTASONE) 10 mg tablet Take 1 tablet by mouth two times a day for 5 days. - benzonatate (TESSALON PERLE) 100 mg capsule Take 1 capsule by mouth three times a day as needed for cough for up to 7 days. - potassium chloride (K-TAB) 10 mEq tablet Take 1 tablet by mouth daily with breakfast. - potassium chloride (K-TAB) 10 mEq tablet Take 10 mEq by mouth two times a day. - Lactobacillus acidophilus (PROBIOTIC ACIDOPHILUS ORAL) Take by mouth. - pantoprazole DR (PROTONIX) 20 mg tablet Take 1 tablet by mouth daily before breakfast. Take on empty stomach, 1/2 hr before meal. - hydrOXYchloroQUINE (PLAQUENIL) 200 mg tablet Take 200 mg by mouth once daily. - losartan (COZAAR) 100 mg tablet Take 100 mg by mouth once daily. - metoprolol succinate ER (TOPROL XL) 50 mg 24 hr tablet Take 50 mg by mouth once daily. - amLODIPine (NORVASC) 2.5 mg tablet Take 2.5 mg by mouth once daily. - cholecalciferol, vitamin D3, 10 mcg (400 unit) cap Take 400 Units by mouth once daily. - mometason (more content not included)... Normal [facility] [id number] 02-11-2024 [id number] HNO ID: [id number] Author: NEELA MOTA RN Service: ? Author Type: Registered Nurse Type: [id number] Filed: 02/11/2024 08:52 Note Text: The patient received a copy of Colonoscopy discharge instructions that contain information for how to contact the physician who performed the procedure and when to seek medical care. Normal [facility] Colonoscopyon 02-11-2024 Colonoscopy [place] [facility] Gastrointestinal Endoscopy Patient Name: Michael Alcantara Procedure Date: 02/11/2024 8:00 AM Date of : 1950 Admit Type: Outpatient Age: 73 Gender: Female Note Status: Finalized Procedure: Colonoscopy Indications: Screening for colorectal malignant neoplasm Providers: Veronika Goins MD Patient Profile: This is a 73 year old female. Refer to note in patient chart for documentation of history and physical. Last Colonoscopy: 10 years ago. Referring Physician: Farzana Shirley (Referring MD) Medicines: Midazolam 4 mg IV, Fentanyl 75 micrograms IV, Diphenhydramine 50 mg IV Complications: No immediate complications. Requesting Provider: Procedure: Pre-Anesthesia Assessment: - Prior to the procedure, a History and Physical was performed, and patient medications and allergies were reviewed. The patient is competent. The risks and benefits of the procedure and the sedation options and risks were discussed with the patient. All questions were answered and informed consent was obtained. Patient identification and proposed procedure were verified by the physician and the nurse in the procedure room. Mental Status Examination: alert and oriented. Airway Examination: normal oropharyngeal airway and neck mobility. Respiratory Examination: clear to auscultation. CV Examination: normal. Prophylactic Antibiotics: The patient does not require prophylactic antibiotics. Prior Anticoagulants: The patient has taken Plavix (clopidogrel), last dose was day of procedure. ASA Grade Assessment: III - A patient with severe systemic disease. After reviewing the risks and benefits, the patient was deemed in satisfactory condition to undergo the procedure. The anesthesia plan was to use moderate sedation / analgesia (conscious sedation). Immediately prior to administration of medications, the patient was re-assessed for adequacy to receive sedatives. The heart rate, respiratory rate, oxygen saturations, blood pressure, adequacy of pulmonary ventilation, and response to care were monitored throughout the procedure. The physical status of the patient was re-assessed after the procedure. After I obtained informed consent, the scope was passed under direct vision. Throughout the procedure, the patient's blood pressure, pulse, and oxygen saturations were monitored continuously. The Colonoscope was introduced through the anus and advanced to the cecum, identified by the appendiceal orifice, ileocecal valve and palpation. The colonoscopy was performed without difficulty. The patient tolerated the procedure well. The quality of the bowel preparation was good. The ileocecal valve, appendiceal orifice, and rectum were photographed. Moderate Sedation: Moderate (conscious) sedation was personally administered by the endoscopist. The following parameters were monitored: oxygen saturation, heart rate, blood pressure, and response to care. Total physician intraservice time was 16 minutes. The administration of moderate sedation was initiated at 08:13. Findings: The perianal and digital rectal examinations were normal. Three sessile polyps were found in the transverse colon, proximal transverse colon and cecum. The polyps were small (4-6 mm) in size. These polyps were removed with a cold biopsy forceps. Resection and retrieval were complete. The exam was otherwise without abnormality on direct and retroflexion views. Impression: - Three small (4-6 mm) polyps in the transverse colon, in the proximal transverse colon and in the cecum, removed with a cold biopsy forceps. Resected and retrieved. - The examination was otherwise normal on direct and retroflexion views. Recommendation: - Discharge patient to home. - Resume previous diet. - Continue present medications. - Repeat colonoscopy for surveillance based on pathology results. - Telephone nurse practitioner for pathology results in 1 week. - Resume Plavix (clopidogrel) today at prior dose. - Patient has a contact number available for emergencies. The signs and symptoms of potential delayed complications were discussed with the patient. Return to normal activities tomorrow. Written discharge instructions were provided to the patient. Procedure Code(s): --- Professional --- 25403, Colonoscopy, flexible; with biopsy, single or multiple G0500, Moderate sedation services provided by the same physician or other qualified health child care teacher performing a gastrointestinal endoscopic service that sedation supports, requiring the presence of an independent trained observer to assist in the monitoring of the patient's level of consciousness and physiological status; initial 15 minutes of intra-service time; patient age 5 years or older (additional time may be reported with 27416, as appropriate) CPT copyright 2020 [employer]. All rights reserve (more content not included)... Normal [facility] Colonoscopy Study observatio non 02-11-2024 [place] [facility] Gastrointestinal Endoscopy Patient Name: Michael Alcantara Procedure Date: 02/11/2024 8:00 AM Date of : 1950 Admit Type: Outpatient Age: 73 Gender: Female Note Status: Finalized Procedure: Colonoscopy Indications: Screening for colorectal malignant neoplasm Providers: Veronika Goins MD Patient Profile: This is a 73 year old female. Refer to note in patient chart for documentation of history and physical. Last Colonoscopy: 10 years ago. Referring Physician: Farzana Shirley (Referring MD) Medicines: Midazolam 4 mg IV, Fentanyl 75 micrograms IV, Diphenhydramine 50 mg IV Complications: No immediate complications. Requesting Provider: Procedure: Pre-Anesthesia Assessment: - Prior to the procedure, a History and Physical was performed, and patient medications and allergies were reviewed. The patient is competent. The risks and benefits of the procedure and the sedation options and risks were discussed with the patient. All questions were answered and informed consent was obtained. Patient identification and proposed procedure were verified by the physician and the nurse in the procedure room. Mental Status Examination: alert and oriented. Airway Examination: normal oropharyngeal airway and neck mobility. Respiratory Examination: clear to auscultation. CV Examination: normal. Prophylactic Antibiotics: The patient does not require prophylactic antibiotics. Prior Anticoagulants: The patient has taken Plavix (clopidogrel), last dose was day of procedure. ASA Grade Assessment: III - A patient with severe systemic disease. After reviewing the risks and benefits, the patient was deemed in satisfactory condition to undergo the procedure. The anesthesia plan was to use moderate sedation / analgesia (conscious sedation). Immediately prior to administration of medications, the patient was re-assessed for adequacy to receive sedatives. The heart rate, respiratory rate, oxygen saturations, blood pressure, adequacy of pulmonary ventilation, and response to care were monitored throughout the procedure. The physical status of the patient was re-assessed after the procedure. After I obtained informed consent, the scope was passed under direct vision. Throughout the procedure, the patient's blood pressure, pulse, and oxygen saturations were monitored continuously. The Colonoscope was introduced through the anus and advanced to the cecum, identified by the appendiceal orifice, ileocecal valve and palpation. The colonoscopy was performed without difficulty. The patient tolerated the procedure well. The quality of the bowel preparation was good. The ileocecal valve, appendiceal orifice, and rectum were photographed. Moderate Sedation: Moderate (conscious) sedation was personally administered by the endoscopist. The following parameters were monitored: oxygen saturation, heart rate, blood pressure, and response to care. Total physician intraservice time was 16 minutes. The administration of moderate sedation was initiated at 08:13. Findings: The perianal and digital rectal examinations were normal. Three sessile polyps were found in the transverse colon, proximal transverse colon and cecum. The polyps were small (4-6 mm) in size. These polyps were removed with a cold biopsy forceps. Resection and retrieval were complete. The exam was otherwise without abnormality on direct and retroflexion views. Impression: - Three small (4-6 mm) polyps in the transverse colon, in the proximal transverse colon and in the cecum, removed with a cold biopsy forceps. Resected and retrieved. - The examination was otherwise normal on direct and retroflexion views. Recomm (more content not included)... [facility] Radiology Study observation (narrative) [facility] HISTORY PHYSICALon HISTORY PHYSICAL HNO ID: [id number] Author: VERONIKA GOINS MD Service: General Surgery Author Type: Physician Type: H&P Filed: 02/11/2024 08:10 Note Text: HISTORY AND PHYSICAL Michael Alcantara : 1950 REFERRING PHYSICIAN: Xavi Jaimes [address] [facility] [address] CHIEF COMPLAINT: Patient presents with: Consult: colonoscopy HPI: Michael is a 73 year old female referred for endoscopy. Michael notes due for screening colonoscopy, history of polyps. Michael denies abdominal pain.. Michael denies diarrhea. Michael denies constipation. Michael denies a change in bowel habits. Michael denies melena. Michael denies bright red blood per rectum. Michael denies hemorrhoids. Michael denies heartburn. Michael denies dysphagia. Michael denies a history of ulcers/ peptic ulcer disease. Michael notes family history of colon issues. Sister with celiac disease. Michael has a history of CAD with stent x2 placement in 2015. She take Plavix. Cardiology recently stopped 81mg asa. Stress test in 2020 with no ischemia and preserved EF. Last OV 05/2023. Hx of bilateral carotid artery stenosis. Denies CP, SOB, dizziness, palpitations, syncope, edema, recent hospitalizations. Hx of mild intermittent asthma. Follows with Dr. Gonzales. Uses Dulera daily. Denies any increasing SOB, wheezing, recent illness/hospitalizations. Michael has undergone prior endoscopy. Last colonoscopy was 10/[address] Hwang at [facility]. Sedation received: Fentanyl 50 micrograms IV, Midazolam 7 mg IV, Diphenhydramine 50 mg IV Impression: - Internal hemorrhoids. CURRENT MEDICATIONS Current Outpatient Medications Medication Sig potassium chloride (K-TAB) 10 mEq tablet Take 10 mEq by mouth two times a day. Lactobacillus acidophilus (PROBIOTIC ACIDOPHILUS ORAL) Take by mouth. pantoprazole DR (PROTONIX) 20 mg tablet Take 1 tablet by mouth daily before breakfast. Take on empty stomach, 1/2 hr before meal. hydrOXYchloroQUINE (PLAQUENIL) 200 mg tablet Take 200 mg by mouth once daily. losartan (COZAAR) 100 mg tablet Take 100 mg by mouth once daily. metoprolol succinate ER (TOPROL XL) 50 mg 24 hr tablet Take 50 mg by mouth once daily. amLODIPine (NORVASC) 2.5 mg tablet Take 2.5 mg by mouth once daily. cholecalciferol, vitamin D3, 10 mcg (400 unit) cap Take 400 Units by mouth once daily. mometasone-formoterol (DULERA) 100-5 mcg/actuation inhaler Inhale 2 Puffs as instructed twice daily. Dr. Liz calcium carbonate/vitamin D3 (CALCIUM 600 + D,3, ORAL) Take 2 tablets by mouth once daily. atorvastatin (LIPITOR) 40 mg tablet Take 1 tablet by mouth once daily. Hydrochlorothiazide 12.5 mg capsule Take 1 capsule by mouth once daily. clopidogrel (PLAVIX) 75 mg tablet TAKE 1 TABLET DAILY nitroglycerin sublingual (NITROQUICK) 0.4 mg SL tablet Dissolve 1 tablet under the tongue as needed. FOR CHEST PAIN. IF NO RELIEF CALL 911 diclofenac (VOLTAREN) 1 % topical gel Apply 2 g to affected area as needed (each hand). predniSONE 10 mg tablet Take 10 mg by mouth as needed. Fluticasone Furoate 27.5 mcg/actuation nasal spray Use 2 Sprays in each nostril as needed. No current facility-administered medications for this visit. ALLERGIES: Amoxicillin and Seasonal Allergies PAST MEDICAL HISTORY PAST MEDICAL HISTORY Diagnosis Date allergies seasonal/environmental Colon polyps 2010 tubular adenomas GERD (gastroesophageal reflux disease) Hypertension Lupus 2009 KATARZYNA+ Osteopenia 2007 PAST SURGICAL HISTORY PAST SURGICAL HISTORY Procedure Laterality Date COLONOSCOPY FLX DX W/COLLJ SPEC WHEN PFRMD 03/28/2010 tubular adenoma x 2, repeat in 3-4 years COLONOSCOPY FLX DX W/COLLJ SPEC WHEN PFRMD 10/25/13 internal hemorrhoids FAMILY HISTORY FAMILY HISTORY Problem Relation Age of Onset Breast Cancer Mother at age 65, had twice Diabetes Father Diabetes Maternal Grandmother Hypertension Father Coronary Artery Disease Paternal Grandfather [place] other (celiac disease [Other]) Sister Coronary Artery Disease Mother [place] SOCIAL HISTORY Social History Tobacco Use Smoking status: Never Smokeless tobacco: Never Substance Use Topics Alcohol use: No Drug use: No REVIEW OF SYMPTOMS: The review of systems data was entered by the nurse and reviewed by id Nursing Notes: Massiel Lomeli RN 12/31/2023 2:59 PM Signed REVIEW OF SYSTEMS: General: The patient denies fatigue, denies weight loss, denies weight gain, denies feeling hot, and denies feelings of cold. Eyes: The patient denies glaucoma, denies eye injury/surgery, does not wear glasses or contacts. Ear/Nose/Throat: The patient NOTES allergies, denies hayfever, denies ear infections, and denies bloody noses. Cardiovascular: The patient denies chest pain, denies heart disease, NOTES high blood pressure,NOTES cardiac stent, denies prior heart attack, denies irregular heart beat, NOTES high cholesterol, denies poor (more content not included)... Normal [facility] SURGICAL PATHOLOGYon 024 CASE REPORT Normal [facility] Comment on above: Order Comment: Speci men Type: TISSUE SPECIMENOrdering Facility: [facility] Address: [address] [place] [address] Result Comment: Surg [facility] Pathology Report Case: [id number] Authorizing Provider: Veronika Goins MD Collected: 02/11/2024 08:23 AM Ordering Location: Ambulatory Surgery Received: 02/11/2024 01:28 PM Pathologist: Vanessa Majano MD Specimens: A) - Colon, Cecum, Polyp, polyps x 2 B) - Colon, Transverse, Polyp Performed By: #### S ####[facility] LABCLIA [id number] [address] [place] FINAL DIAGNOSIS Normal [facility] Comment on above: Order Comment: Speci men Type: TISSUE SPECIMENOrdering Facility: [facility] Address: [address] [place] [address] Result Comment: A. C olon, cecum, polypectomy x 2: -Fragments of tubular adenoma B. Colon, transverse, polypectomy: -Tubular adenoma Performed By: #### S ####[facility] LABCLIA [id number] [address] [place] FINAL PERFORMING LAB Normal [facility] Comment on above: Order Comment: Speci men Type: TISSUE SPECIMENOrdering Facility: [facility] Address: [address] [place] [address] Result Comment: Diag nostic interpretation performed at [facility], [address] [place] [address] CLIA# [id number] [place] Operator: Jeronimo Plascencia M.D. Performed By: #### S ####[facility] LABCLIA [id number] [place] [address] [place] GROSS DESCRIPTION Normal [facility] Comment on above: Order Comment: Speci men Type: TISSUE SPECIMENOrdering Facility: [facility] Address: [address] [place] [address] Result Comment: A. C olon, Cecum, Polyp Received in formalin are multiple pieces of bermeo, soft tissue aggregating to 0.7 x 0.6 x 0.2 cm. Totally submitted in one cassette. B. Colon, Transverse, Polyp Received in formalin is one piece of bermeo, soft tissue measuring 0.4 x 0.2 x 0.1 cm. Totally submitted in one cassette. [facility] February 11, 2024 10:08 PM Gross examination performed at [facility], [address] [place] [address] [place] [address] Performed By: #### S ####[facility] LABCLIA [id number] RADHA LAWRENCEDESK [id number]IL[place] [id number] [place] 12 Lead EKGon 01-25-2024 12 Lead EKG [facility] Cardiovascular Services [address] [place] [address] 12 Lead EKG 01/25/241953 MR#: [id number] Acct: [id number] Name: MICHAEL ALCANTARA Rep #: [id number] : 1950 73 From: Altaf Ventura MD Attending Dr: Status: DEP ER Ordering Dr: Mj Posey DO Date: 01/25/24 Location: ED Sex: F C Admitted: Test Reason : CP Blood Pressure : */* mmHG Vent. Rate : 84 BPM Atrial Rate : 84 BPM P-R Int : 172 ms QRS Dur : 78 ms QT Int : 370 ms P-R-T Axes : 52 23 35 degrees QTcB Int : 437 ms Normal sinus rhythm Nonspecific T wave abnormality Abnormal ECG Confirmed by LORENZO ZAMBRANO, ALTAF ([id number]), editorial assistant MARILEE AVERY ([id number]) on 01/26/2024 9:54:39 AM Referred By: MICK Confirmed By: ALTAF VENTURA MD 01/26/24 0954 Date Altaf Ventura MD CC: Dr. Mj Posey DO; Dr. Xavi Jaimes MD Signed Normal [facility] BNP,B-Type NATRIURETIC PEPTI Kyle 01-25-2024 Natriuretic peptide B (Bld) [Mass/Vol] 47.4 pg/mL Normal 0-100 [facility] Comment on above: Performed By: #### L 503.6620 #### [facility] [address] [facility] [place], [address] Basic Metabolic Profile (BMP )on 01-25-2024 BUN/CRE 16.0 RATIO Normal 10-20 [facility] Comment on above: Order Comment: 1 Y Performed By: #### L 100.0100, L500.2500, L501.5425 #### [facility] [address] [place], [address] CA,Total 9.4 mg/dL Normal 8.5-10.1 [facility] Comment on above: Order Comment: 1 Y Performed By: #### L 100.0100, L500.2500, L501.5425 #### [facility] [address] [place], [address] Chloride [Moles/Vol] 102 mmol/L Normal 98-107 [facility] Comment on above: Order Comment: 1 Y Performed By: #### L 100.0100, L500.2500, L501.5425 #### [facility] [address] [place], [address] CO2 [Moles/Vol] 30.0 mmol/L Normal 21.0-32.0 [facility] Comment on above: Order Comment: 1 Y Performed By: #### L 100.0100, L500.2500, L501.5425 #### [facility] [address] [place], [address] Creatinine [Mass/Vol] 1.06 mg/dL High 0.55-1.02 [facility] Comment on above: Order Comment: 1 Y Result Comment: The validity of the calculated GFR GFRAA in patients over 70 years has not been determined. Clinical correlation is essential. Performed By: #### L 100.0100, L500.2500, L501.5425 #### [facility] [address] [place], [address] ECRCL 39.11 ml/min Normal [facility] Comment on above: Order Comment: 1 Y Performed By: #### L 100.0100, L500.2500, L501.5425 #### [facility] [address] [place], [address] EST GFR - AA 66 mL/min Normal >60 [facility] Comment on above: Order Comment: 1 Y Result Comment: Afri can [place] GFR Calc Performed By: #### L 100.0100, L500.2500, L501.5425 #### [facility] [address] [place], [address] GAP 6 Normal 5-15 [facility] Comment on above: Order Comment: 1 Y Performed By: #### L 100.0100, L500.2500, L501.5425 #### [facility] [address] [place], [address] GFR/1.73 sq M.predicted among non-blacks MDRD (S/P/Bld) [Vol rate/Area] 54 mL/min/{1.73_m2} Low >60 [facility] Comment on above: Order Comment: 1 Y Result Comment: Non- GFR Calc Performed By: #### L 100.0100, L500.2500, L501.5425 #### [facility] [address] [place], [address] Glucose [Mass/Vol] 117 mg/dL High 74-106 [facility] Comment on above: Order Comment: 1 Y Result Comment: Fast ing Glucose result from 100 to 125 mg/dL suggests IMPAIRED HOMEOSTASIS per A.D.A. criteria. Performed By: #### L 100.0100, L500.2500, L501.5425 #### [facility] [address] [place], [address] Potassium [Moles/Vol] 3.6 mmol/L Normal 3.5-5.1 [facility] Comment on above: Order Comment: 1 Y Performed By: #### L 100.0100, L500.2500, L501.5425 #### [facility] [address] [place], [address] Sodium [Moles/Vol] 138 mmol/L Normal 136-145 [facility] Comment on above: Order Comment: 1 Y Performed By: #### L 100.0100, L500.2500, L501.5425 #### [facility] [address] [place], [address] Urea nitrogen [Mass/Vol] 17 mg/dL Normal 7-18 [facility] Comment on above: Order Comment: 1 Y Performed By: #### L 100.0100, L500.2500, L501.5425 #### [facility] [address] [place], [address] CBC W/Diff, Automatedon 11 Absolute Lymph 1.89 X10 3/uL Normal 0.83-4.51 [facility] Comment on above: Performed By: #### L 100.0100, L500.2500, L501.5425 #### [facility] [address] [place], [address] Absolute Neut 3.9 X10 3/uL Normal 2.0-7.7 [facility] Comment on above: Performed By: #### L 100.0100, L500.2500, L501.5425 #### [facility] [address] [place], [address] Basophils/100 WBC (Bld) 1.4 % High 0-1 [facility] Comment on above: Performed By: #### L 100.0100, L500.2500, L501.5425 #### [facility] [address] [place], [address] Eosinophils/100 WBC (Bld) 3.5 % Normal 0-5 [facility] Comment on above: Performed By: #### L 100.0100, L500.2500, L501.5425 #### [facility] [address] [place], [address] Erythrocyte distribution width (RBC) [Ratio] 12.8 % Normal 11.6-14.6 [facility] Comment on above: Performed By: #### L 100.0100, L500.2500, L501.5425 #### [facility] [address] [place], [address] Hematocrit (Bld) [Volume fraction] 39.7 % Normal 37-47 [facility] Comment on above: Performed By: #### L 100.0100, L500.2500, L501.5425 #### [facility] [address] [place], [address] Hemoglobin (Bld) [Mass/Vol] 13.6 g/dL Normal 12.0-15.0 [facility] Comment on above: Performed By: #### L 100.0100, L500.2500, L501.5425 #### [facility] [address] [place], [address] IG% 0.100 Normal 0.0-0.9 [facility] Comment on above: Result Comment: IG% - Immature Granulocytes (promyelocytes, myelocytes and metamyelocytes) > 1% indicates that a LEFT SHIFT is Present. Performed By: #### L 100.0100, L500.2500, L501.5425 #### [facility] [address] [place], [address] Lymphocytes/100 WBC (Bld) 26.4 % Normal 19-41 [facility] Comment on above: Performed By: #### L 100.0100, L500.2500, L501.5425 #### [facility] [address] [place], [address] MCH (RBC) [Entitic mass] 30.0 pg Normal 27.0-32.0 [facility] Comment on above: Performed By: #### L 100.0100, L500.2500, L501.5425 #### [facility] [address] [place], [address] MCHC (RBC) [Mass/Vol] 34.3 g/dL Normal 32-36 [facility] Comment on above: Performed By: #### L 100.0100, L500.2500, L501.5425 #### [facility] [address] [place], [address] MCV (RBC) [Entitic vol] 87.4 fL Normal 81-99 [facility] Comment on above: Performed By: #### L 100.0100, L500.2500, L501.5425 #### [facility] [address] [place], [address] Monocytes/100 WBC (Bld) 13.8 % High 0-10 [facility] Comment on above: Performed By: #### L 100.0100, L500.2500, L501.5425 #### [facility] [address] [place], [address] Neutrophils/100 WBC (Bld) 54.8 % Normal 47-70 [facility] Comment on above: Performed By: #### L 100.0100, L500.2500, L501.5425 #### [facility] [address] [place], [address] Nucleated RBC (Bld) [#/Vol] 0 10*3/uL Normal 0-5 [facility] Comment on above: Performed By: #### L 100.0100, L500.2500, L501.5425 #### [facility] [address] [place], [address] Platelet mean volume (Bld) [Entitic vol] 10.8 fL Normal 6.2-12.0 [facility] Comment on above: Performed By: #### L 100.0100, L500.2500, L501.5425 #### [facility] [address] [place], [address] Platelets (Bld) [#/Vol] 202 10*3/uL Normal 150-450 [facility] Comment on above: Performed By: #### L 100.0100, L500.2500, L501.5425 #### [facility] [address] [place], [address] RBC (Bld) [#/Vol] 4.54 10*6/uL Normal 4.2-5.4 [facility] [facility] Comment on above: Performed By: #### L 100.0100, L500.2500, L501.5425 #### [facility] [address] [place], [address] RDW SD 40.9 fl Normal 35.1-43.9 [facility] Comment on above: Performed By: #### L 100.0100, L500.2500, L501.5425 #### [facility] [address] [place], [address] WBC (Bld) [#/Vol] 7.2 10*3/uL Normal 4.4-11.0 [facility] Comment on above: Performed By: #### L 100.0100, L500.2500, L501.5425 #### [facility] [address] [place], [address] Chest PA and Lateralon 01-24 Chest PA and Lateral Imaging Services [address] [place] [address] Chest PA and Lateral MR#: [id number] Acct: [id number] Name: MICHAEL ALCANTARA Rep #: [id number] : 1950 F 73 From: Huey Estrada PCP: Dr. Xavi Jaimes MD Status: [facility] ER Study: Chest PA and Lateral Date of Exam: 01/25/24 Exam# [id number] Ordering Dr: Mj Posey DO -[id number] STUDY: XR Chest 2 Views 01/25/2024 8:24 PM REASON FOR EXAM: Female, 73 years old. chest pain COMPARISON: 10.1.24 TECHNIQUE: XR Chest 2 Views FINDINGS: There is no demonstrated pleural abnormality. Normal heart size. Normal mediastinum. Normal mateo. Prominent appearing increased interstitial lung markings. Normal visualized pulmonary arteries. There is atherosclerotic calcification of the aortic arch with tortuosity. There are diffuse degenerative changes of the visualized thoracic spine. There is degenerative osteoarthritis of the bilateral shoulders. There are no acute findings of the upper abdomen. RAD/Chest PA and Lateral IMPRESSION: There are no acute findings. Electronically Signed: Huey Pierce MD at 20:52 EST , CC: Dr. Mj Posey DO; Dr. Xavi Jaimes MD Vocational Counselor: Signed Normal [facility] Department Summary on 01-25-2024 Emergency Department Summary [facility] Medical Records Department [address] [place] [address] Emergency Department Summary 01/25/24 MR#: [id number] Acct: [id number] Name: MICHAEL ALCANTARA Rep #: [id number] : 1950 73 From: Mj Posey DO PCP: Dr. Xavi Jaimes MD Status:REG ER Location: ED HPI History of Present Illness Chief Complaint: Chest Pain Narrative Narrative: Patient is a 73-year-old female with past medical history of GERD, hypertension, hyperlipidemia who presented to the emerged part with a chief complaint of chest pain. Patient states that around 330 this afternoon she was sitting watching TV when she developed some chest discomfort in the middle of her chest. States that the pain waxed and waned and her significant other noted that her blood pressure was elevated prompting them to come here for further evaluation management. Patient states that nothing makes her pain better or worse. States that she had a stress test about a year ago and states that it was normal. Patient denies history of blood clots denies any recent travel history. [facility] Medical History (Updated 01/25/24 @ 22:[address] Mj Posey, ) Lupus erythematosus Osteopenia Tubular adenoma GERD (gastroesophageal reflux disease) Atherosclerotic heart disease of [place] coronary artery without angina pectoris Essential (primary) hypertension Hyperlipemia Home Medications ???Medication ???Instructions ???Recorded ???Last Taken ???Type nitroglycerin 0.4 mg sublingual 0.4 mg sublingual Q5-15M 01/12/19 Unknown History tablet pantoprazole 20 mg tablet,delayed 20 mg PO DAILY 11/08/20 Unknown History release potassium chloride 10 mEq 10 meq PO DAILY 12/29/20 Unknown History capsule,extended release mometasone-formoterol HFA 100 2 puff inhalation BID PRN SOB 04/20/21 Unknown History mcg-5 mcg/actuation aerosol inhaler (Dulera) calcium 600 mg (as 1 tab PO DAILY 05/21/22 Unknown History carbonate)-vitamin D3 20 mcg (800 unit) tablet hydroxychloroquine 200 mg tablet 200 mg PO DAILY 05/21/22 Unknown History lactobacillus combination no.9 4 4,000 mmu cells PO DAILY 05/21/22 Unknown History billion cell capsule (Adult 50 Plus Probiotic) clopidogrel 75 mg tablet 75 mg PO DAILY #90 TABLETS 08/29/23 Unknown Rx losartan 100 mg tablet 100 mg PO DAILY #90 tabs 10/08/23 Unknown Rx hydrochlorothiazide 12.5 mg capsule 12.5 mg PO DAILY #90 caps 10/15/23 Unknown Rx metoprolol succinate 50 mg 50 mg PO DAILY #90 tabs 10/15/23 Unknown Rx tablet,extended release 24 hr amlodipine 2.5 mg tablet 2.5 mg PO DAILY #90 tabs 12/08/23 Unknown Rx atorvastatin 40 mg tablet 40 mg PO QHS #90 tabs 12/30/23 Unknown Rx Allergy/AdvReac Type Severity Reaction Status Date / Time amoxicillin AdvReac GI Upaset Verified 01/25/24 19:46 Family History Mother Breast cancer Myocardial infarction Father Hypertension Diabetes Surgical History History of coronary artery stent placement (02/13/16) Social History household members: spouse Smoking Status: Never smoker alcohol intake: current alcohol intake frequency: other substance use type: does not use ROS ROS ED ROS Narrative Constitutional: Denies any fevers, chills, headaches, lightness, dizziness Eyes: Denies change in vision double vision blurry vision Cardiovascular: Complaint of chest pain as noted above denies palpitations Respiratory: Denies coughing wheezing shortness of breath Abdomen: Denies abdominal pain nausea vomit diarrhea : Denies any urinary symptoms Neurological: Denies any numbness, weakness, tingling Musculoskeletal: Denies back pain Skin: Denies rashes or lesions EXAM Physical Exam Narrative Exam Narrative: General: Patient lying in bed rest comfortably did not appear to be in acute distress Head: Atraumatic, normocephalic Eyes: PERRL bilateral, EOMI bladder, no conjunctival injection noted Neck: Soft, supple, trachea midline Cardiovascular: Regular rate and rhythm no murmurs gallops rubs noted Respiratory: Clear to auscultation bilaterally no rales rhonchi or wheeze noted Abdomen: Soft, nondistended, nontender to palpation, bowel sounds present for Extremities: +5/5 strength noted in the bilateral upper and lower extremities, radial pulses +2/4 in the bilateral extremities, no pedal edema no exam Neurological: Patient following commands knew that she was at [facility] year is 2023 Skin: Warm, dry, intact Const Vital Signs: 01/25/24 19:43 01/25/24 20:00 01/25/24 20:43 Temperature 96.8 F L Temperature Source Temporal Pulse Rate 88 75 Respiratory Rate 16 Blood Pressure 157/81 H Blood P (more content not included)... Normal [facility] L501.4020on 01-25-2024 TROPONIN-I HS 5 pg/mL Normal 3.0-54.0 [facility] Comment on above: Result Comment: Plea se Note: New Test Units and Gender Specific Reference Ranges. For more information see Policy Stat Procedure [place] High Sensitivity Troponin (TNIH) and attachments. Performed By: #### L 501.4020 #### [facility] [address] [place], [address] L501.5425on 01-25-2024 TROPONIN-I HS 4 pg/mL Normal 3.0-54.0 [facility] Comment on above: Order Comment: 1 Y Result Comment: Joi bonilla Note: New Test Units and Gender Specific Reference Ranges. For more information see Policy Stat Procedure [place] High Sensitivity Troponin (TNIH) and attachments. Performed By: #### L 100.0100, L500.2500, L501.5425 #### [facility] [address] [place], [address] CNOVon 12-31-2023 CNOV Office Visit (GENSWS ) MICHAEL ALCANTARA ([id number]) 1950 F Date Time Provider Department 12/31/23 2:30 PM FARZANA SHIRLEY During your visit today, we recorded the following information about you: Temperature Pulse Blood pressure Weight 97 degrees 83/minute 112/70 59.1 kg Farzana Shirley APRN.CNP 12/31/2023 3:30 PM Signed HISTORY AND PHYSICAL Michael Alcantara : 1950 REFERRING PHYSICIAN: Xavi Jaimes [address] [facility] [address] CHIEF COMPLAINT: Patient presents with: Consult: colonoscopy HPI: Michael is a 73 year old female referred for endoscopy. Michael notes due for screening colonoscopy, history of polyps. Michael denies abdominal pain.. Michael denies diarrhea. Michael denies constipation. Michael denies a change in bowel habits. Michael denies melena. Michael denies bright red blood per rectum. Michael denies hemorrhoids. Michael denies heartburn. Michael denies dysphagia. Michael denies a history of ulcers/ peptic ulcer disease. Michael notes family history of colon issues. Sister with celiac disease. Michael has a history of CAD with stent x2 placement in 2016. She take Plavix. Cardiology recently stopped 81mg asa. Stress test in 2020 with no ischemia and preserved EF. Last OV 05/2023. Hx of bilateral carotid artery stenosis. Denies CP, SOB, dizziness, palpitations, syncope, edema, recent hospitalizations. Hx of mild intermittent asthma. Follows with Dr. Gonzales. Uses Dulera daily. Denies any increasing SOB, wheezing, recent illness/hospitalizations. Michael has undergone prior endoscopy. Last colonoscopy was 10/[address] Hwang at [facility]. Sedation received: Fentanyl 50 micrograms IV, Midazolam 7 mg IV, Diphenhydramine 50 mg IV Impression: - Internal hemorrhoids. Current Outpatient Medications Medication Sig potassium chloride (K-TAB) 10 mEq tablet Take 10 mEq by mouth two times a day. Lactobacillus acidophilus (PROBIOTIC ACIDOPHILUS ORAL) Take by mouth. pantoprazole DR (PROTONIX) 20 mg tablet Take 1 tablet by mouth daily before breakfast. Take on empty stomach, 1/2 hr before meal. hydrOXYchloroQUINE (PLAQUENIL) 200 mg tablet Take 200 mg by mouth once daily. losartan (COZAAR) 100 mg tablet Take 100 mg by mouth once daily. metoprolol succinate ER (TOPROL XL) 50 mg 24 hr tablet Take 50 mg by mouth once daily. amLODIPine (NORVASC) 2.5 mg tablet Take 2.5 mg by mouth once daily. cholecalciferol, vitamin D3, 10 mcg (400 unit) cap Take 400 Units by mouth once daily. mometasone-formoterol (DULERA) 100-5 mcg/actuation inhaler Inhale 2 Puffs as instructed twice daily. Dr. Liz calcium carbonate/vitamin D3 (CALCIUM 600 + D,3, ORAL) Take 2 tablets by mouth once daily. atorvastatin (LIPITOR) 40 mg tablet Take 1 tablet by mouth once daily. Hydrochlorothiazide 12.5 mg capsule Take 1 capsule by mouth once daily. clopidogrel (PLAVIX) 75 mg tablet TAKE 1 TABLET DAILY nitroglycerin sublingual (NITROQUICK) 0.4 mg SL tablet Dissolve 1 tablet under the tongue as needed. FOR CHEST PAIN. IF NO RELIEF CALL 911 diclofenac (VOLTAREN) 1 % topical gel Apply 2 g to affected area as needed (each hand). predniSONE 10 mg tablet Take 10 mg by mouth as needed. Fluticasone Furoate 27.5 mcg/actuation nasal spray Use 2 Sprays in each nostril as needed. No current facility-administered medications for this visit. ALLERGIES: Amoxicillin and Seasonal Allergies PAST MEDICAL HISTORY Diagnosis Date allergies seasonal/environmental Colon polyps 2010 tubular adenomas GERD (gastroesophageal reflux disease) Hypertension Lupus 2009 KATARZYNA+ Osteopenia 2007 PAST SURGICAL HISTORY Procedure Laterality Date COLONOSCOPY FLX DX W/COLLJ SPEC WHEN PFRMD 03/28/2010 tubular adenoma x 2, repeat in 3-4 years COLONOSCOPY FLX DX W/COLLJ SPEC WHEN PFRMD 10/25/13 internal hemorrhoids FAMILY HISTORY Problem Relation Age of Onset Breast Cancer Mother at age 65, had twice Diabetes Father Diabetes Maternal Grandmother Hypertension Father Coronary Artery Disease Paternal Grandfather [place] other (celiac disease [Other]) Sister Coronary Artery Disease Mother [place] Social History Tobacco Use Smoking status: Never Smokeless tobacco: Never Substance Use Topics Alcohol use: No Drug use: No REVIEW OF SYMPTOMS: The review of systems data was entered by the nurse and reviewed by id Nursing Notes: Massiel Lomeli RN 12/31/2023 2:59 PM Signed REVIEW OF SYSTEMS: General: The patient denies fatigue, denies weight loss, denies weight gain, denies feeling hot, and denies feelings of cold. Eyes: The patient denies glaucoma, denies eye injury/surgery, does not wear glasses or contacts. Ear/Nose/Throat: The patient NOTES allergies, denies hayfever, denies ear infections, and denies bloody noses. Cardiovascular: The patient denies ch (more content not included)... Normal [facility] Inital Evaluation (1) - PTon 12-15-2023 Inital Evaluation (1) - PT [facility] [address] [place] [address] / REHABILITATION SERVICES INITIAL EVALUATION MR#: [id number] Acct: [id number] Name: MICHAEL ALCANTARA Rep #: [id number] : 1950 73 From: Duane MELOT Referring DrOfelia: EZEQUIEL SOTO MD Status: REG R CR Insurance: [facility] [employer]URANCE Patient's Visit Information Visit Information Visit Information: MICHAEL ALCANTARA is a 73 year old F referred to Physical Therapy by EZEQUIEL SOTO MD with a diagnosis of Chronic lumbar spine pain. Date of Evaluation: 12/15/23 Physical Therapist: Duane Morataya DPT Visit Plan Frequency: 1x/Week Duration: 6 Weeks Plan: 1) glute med/max strengthening, core strengthening 2) lumbar stretching into flexion/extension (REIL/prayer stretch) 3) Progress gym exercises as tolerated. Subjective Subjective: Pt. is here today for her initial evaluation with diagnosis of chronic low back pain. Pt. reports having Lupus and RA. Due to this she has flare ups with increased low and mid back pain as well as B hip pain. Pt. enjoys walking at local [facility]. She had previously been waling 12 laps, but now at times she can only walk 5-6 laps. Pt. is hopeful to get exercises to increase her overall strength and be able to continue to be active with her walking. Sleeping well. No N/T in either LE. No marked myotomal weakness noted. Pt. does not do much stretching or strengthening, but focuses her exercises with walking. Pain Lumbar spine: Pain Intensity (Out of 10): 1 Pain Intensity Range: 0 and 4 Thoracic spine: Pain Intensity (Out of 10): 0 Pain Intensity Range: 0 and 4 B hips: Pain Intensity (Out of 10): 0 Pain Intensity Range: 0 and 4 Objective Objective: POSTURE: Pt. has normal KYLE in stance. Slight increased thoracic kyphosis and slight posterior pelvic tilt. PALPATION: Pt. has no pain with palpation of Lumbar or thoracic spine. NEURO: Pt. has normal sensation and normal DTR of BLEs. Pt. is able to rise on heels and toes without issues. ROM: LUMBAR SPINE: flexion min loss tightness, extension mod loss tightness, SB nil loss bilat, rotation nil loss bilat. B hips: Pt. has good flexion, extension and IR motions. Slight tightness into B ER motions. Pt. has tightness in B HS. MMT: Pt. has good strength throughout BLEs, except 4/5 bilateral hip abduction, core strength poor+, lumbar extension poor+. GAIT: Pt. has fairly normal gait pattern, no Trendelenburg noted. STAIRS: pt. is able to complete with use of B HR with 1 HR without issues, but reports some increased fatigue. - PAs throughout lumbar and thoracic spine. - slump test noted bilaterally. - B hip scour testing. Balance/Special Test Scores Oswestry Low Back Score: 12 Goals Goal 1:: LTG: Pt. to be I with HEP. Goal Time Frame: 4-6 Weeks Goal 2:: LTG: pt. to have increased HS length to 90deg in 90/90 positioning. Goal Time Frame: 4-6 Weeks Goal 3:: LTG: Pt. to have increased B hip and core strength to 5/5 throughout. Goal Time Frame: 4-6 Weeks Goal 4:: LTG: Pt. to be able to complete all walking routine without increase in LBP or thoracic spine pain. Goal Time Frame: 4-6 Weeks Rehabilitation Potential Physical Therapy Diagnosis: Pt. has signs and symptoms consistent with chronic low back pain. Pt. has some low back tightness, and some core weakness. She would benefit from PT to address the above limitations. Rehabilitation Potential: Good Anticipated Interventions Patient/Client Instruction: Educate patient on: Condition, Plan of Care, Risk Factors and Benefits of Fitness Program For the Purpose of:: To facilitate caregiver knowledge, To improve self management, To prevent re- injury, To improve ability to perform tasks related to life management and To improve tolerance to ADL's Therapeutic Exercise to Include: Strength training, Power training, Postural training, Flexibilty training, Active ROM, Dynamic Lumbar Stabilization and Svetlana Exercises For the Purpose of:: To decrease pain, To increase ROM, To improve nutrient delivery to tissue, To increase oxygenation perfusion, To improve muscle performance and motor function, To improve ability to perform ADL's and To improve health of tissue Text: Thank you for the opportunity to evaluate your patient. For Medicare and Medicare HMO plans, please review the plan of care and approve it. It will need to be FAXED BACK to us at [phone] for Medicare purposes. For Medicare only, by signing this I certify the plan of care. Please let me know if there are questions or concerns regarding this plan of care. Physician Signature: D ate: 12/15/23 1534 CC: Dr. Xavi Jaimes MD; EZEQUIEL SOTO MD CLS Signed Normal [facility] CNOVon 12-10-2023 [facility] Office Visit (FAMPWS ) MICHAEL ALCANTARA ([id number]) 1950 F Date Time Provider Department 12/10/23 9:20 AM [facility] your visit today, we recorded the following information about you: Pulse Respiration Blood pressure Weight 80/minute 14/minute 122/72 58.4 kg Xavi Jaimes MD 12/10/2023 11:02 AM Signed Patient presents with: Follow Up: 6 months HPI: Patient presents today for office visit for follow up. Still following with rheumatology. Did have flare of lupus recently. Dong well now. No issues with gi tract. Asthmas is doing well. No new cough or wheeze. Rarely using rescue inhaler. Still seeing Dr Gonzales. Still seeing [facility]. No chest pain or shortness of beath. Had followed with Dr. Peña for her vascular follow up. Note was copied and pasted, without alteration from: GERD: Patient takes: pantoprazole Heartburn is controlled: Yes. Bloody or black stools: No. Bowel changes: No. Cardio stopped ASA. They are keeping her on plavix. Seeing [facility]. Getting another carotid done. And then seeing Dr Peña Still seeing rheumatology Also seeing Dr Gonzales in [place] for her asthma. Is stable. Latest Ref Rng 12/08/2023 Glucose 74 - 99 mg/dL 107 (H) BUN 7 - 21 mg/dL 21 Creatinine 0.58 - 0.96 mg/dL 0.94 Sodium 136 - 144 mmol/L 138 Potassium 3.7 - 5.1 mmol/L 3.9 Chloride 98 - 107 mmol/L 101 CO2 22 - 30 mmol/L 26 Anion Gap 8 - 15 mmol/L 11 Calcium 8.5 - 10.2 mg/dL 9.7 eGFR >=60 mL/min/1.73m? 65 Legend: (H) High .MEDICATIONS: Current Outpatient Medications Medication Sig pantoprazole DR (PROTONIX) 20 mg tablet Take 1 tablet by mouth daily before breakfast. Take on empty stomach, 1/2 hr before meal. hydrOXYchloroQUINE (PLAQUENIL) 200 mg tablet Take 200 mg by mouth once daily. losartan (COZAAR) 100 mg tablet Take 100 mg by mouth once daily. metoprolol succinate ER (TOPROL XL) 50 mg 24 hr tablet Take 50 mg by mouth once daily. amLODIPine (NORVASC) 2.5 mg tablet Take 2.5 mg by mouth once daily. cholecalciferol, vitamin D3, 10 mcg (400 unit) cap Take 400 Units by mouth once daily. mometasone-formoterol (DULERA) 100-5 mcg/actuation inhaler Inhale 2 Puffs as instructed twice daily. Dr. Liz calcium carbonate/vitamin D3 (CALCIUM 600 + D,3, ORAL) Take 2 tablets by mouth once daily. atorvastatin (LIPITOR) 40 mg tablet Take 1 tablet by mouth once daily. Hydrochlorothiazide 12.5 mg capsule Take 1 capsule by mouth once daily. clopidogrel (PLAVIX) 75 mg tablet TAKE 1 TABLET DAILY diclofenac (VOLTAREN) 1 % topical gel Apply 2 g to affected area as needed (each hand). Fluticasone Furoate 27.5 mcg/actuation nasal spray Use 2 Sprays in each nostril as needed. meloxicam (MOBIC) 7.5 mg tablet Take 7.5 mg by mouth once daily. (Patient not taking: Reported on 12/10/2023) aspirin, enteric coated (ASPIRIN, ENTERIC COATED) 81 mg EC tablet Take 81 mg by mouth once daily. (Patient not taking: Reported on 12/10/2023) nitroglycerin sublingual (NITROQUICK) 0.4 mg SL tablet Dissolve 1 tablet under the tongue as needed. FOR CHEST PAIN. IF NO RELIEF CALL 911 predniSONE 10 mg tablet Take 10 mg by mouth as needed. No current facility-administered medications for this visit. ALLERGIES: ALLERGIES Allergen Reactions Amoxicillin Diarrhea, GI Upset Environmemtal [Othe* stuffy nose, sneezing, cough PAST MEDICAL HISTORY Diagnosis Date allergies seasonal/environmental Colon polyps 2010 tubular adenomas GERD (gastroesophageal reflux disease) Hypertension Lupus 2009 KATARZYNA+ Osteopenia 2007 PAST SURGICAL HISTORY Procedure Laterality Date COLONOSCOPY FLX DX W/COLLJ SPEC WHEN PFRMD 03/28/2010 tubular adenoma x 2, repeat in 3-4 years COLONOSCOPY FLX DX W/COLLJ SPEC WHEN PFRMD 10/25/13 internal hemorrhoids FAMILY HISTORY Problem Relation Age of Onset Breast Cancer Mother at age 65, had twice Diabetes Father Diabetes Maternal Grandmother Hypertension Father Coronary Artery Disease Paternal Grandfather [place] other (celiac disease [Other]) Sister Coronary Artery Disease Mother [place] Social History Tobacco Use Smoking status: Never Smokeless tobacco: Never Substance Use Topics Alcohol use: No Drug use: No Reviewed current medications, allergies, past medical history, surgical history, family history and social history today. REVIEW OF SYSTEMS All other reviewed and negative other than HPI. HEALTH MAINTENANCE: Reviewed health maintenance issues today and recommended the following in detail. Depression Screening Never done Anxiety Screening Never done Cervical Cancer Screening due on 02/18/2014 Mammogram Screening due on 10/24/2022 DTaP,Tdap,Td Vaccine(3 - Td or Tdap) due on 09/18/2023 Colorectal Cancer Screening due on 10/26/2023 Influenza Vaccine(1) due on 11/09/2023 Covid-19 Vaccine(5 - 2023- (more content not included)... Normal [facility] Basic metabolic 2000 panelon 12-08-2023 Anion gap [Moles/Vol] 11 mmol/L Normal 8-15 [facility] Comment on above: Order Comment: Speci men Type: BLOOD SPECIMENOrdering Facility: [facility] Address: [address] [place] [address] Performed By: #### 2 4321-2 ####[facility] [id number] [place] [address] [place] Calcium [Mass/Vol] 9.7 mg/dL Normal 8.5-10.2 [facility] Comment on above: Order Comment: Speci men Type: BLOOD SPECIMENOrdering Facility: [facility] Address: [address] [place] [address] Performed By: #### 2 4321-2 ####[facility] [id number] [place] [address] [place] Chloride [Moles/Vol] 101 mmol/L Normal 98-107 [facility] Comment on above: Order Comment: Speci men Type: BLOOD SPECIMENOrdering Facility: [facility] Address: [address] [place] [address] Performed By: #### 2 4321-2 ####[facility] [id number] [place] [address] [place] CO2 [Moles/Vol] 26 mmol/L Normal 22-30 [facility] Comment on above: Order Comment: Speci men Type: BLOOD SPECIMENOrdering Facility: [facility] Address: [address] [place] [address] Performed By: #### 2 4321-2 ####[facility] [id number] [place] [address] [place] Creatinine [Mass/Vol] 0.94 mg/dL Normal 0.58-0.96 [facility] Comment on above: Order Comment: Speci men Type: BLOOD SPECIMENOrdering Facility: [facility] Address: [address] [place] [address] Performed By: #### 2 4321-2 ####[facility] [id number] [address] STATES OF [facility] Creatinine and Glomerular filtration rate.predicted panel (S/P/Bld) 65 mL/min/1.73m??? Normal >=60 [facility] Comment on above: Order Comment: Speci men Type: BLOOD SPECIMENOrdering Facility: [facility] Address: [address] [place] [address] Result Comment: Afshan mated Glomerular Filtration Rate (eGFR) is calculated using the 2020 CKD-EPI creatinine equation. This equation utilizes serum creatinine, sex, and age as parameters. The creatinine assay has traceable calibration to isotope dilution-mass spectrometry. Refer to KDIGO guidelines for clinical interpretation. In patients with unstable renal function, e.g. those with acute kidney injury, the eGFR may not accurately reflect actual GFR. Performed By: #### 2 4321-2 ####[facility] [id number] [place] [address] [place] Glucose [Mass/Vol] 107 mg/dL High 74-99 [facility] [facility] Comment on above: Order Comment: Santiago pisano Type: BLOOD SPECIMENOrdering Facility: [facility] Address: [address] [id number] Result Comment: The [place] [employer] Association (ADA) provides guidance for cutoff values for fasting glucose and random glucose. The ADA defines fasting as no caloric intake for at least 8 hours. Fasting plasma glucose results between 100 to 125 mg/dL indicate increased risk for diabetes (prediabetes). Fasting plasma glucose results greater than or equal to 126 mg/dL meet the criteria for diagnosis of diabetes. In the absence of unequivocal hyperglycemia, results should be confirmed by repeat testing. In a patient with classic symptoms of hyperglycemia or hyperglycemic crisis, random plasma glucose results greater than or equal to 200 mg/dL meet the criteria for diagnosis of diabetes. Reference: Standards of Medical Care in Diabetes 2016, [place] [employer]. Diabetes Care. 2016.39(Suppl 1). Performed By: #### 2 4321-2 ####[facility] [id number] [place] [address] [place] Potassium [Moles/Vol] 3.9 mmol/L Normal 3.7-5.1 [facility] Comment on above: Order Comment: Santiago pisano Type: BLOOD SPECIMENOrdering Facility: [facility] Address: [address] [place] [address] Performed By: #### 2 4321-2 ####[facility]raulio [id number] [place] [address] [place] Sodium [Moles/Vol] 138 mmol/L Normal 136-144 [facility] Comment on above: Order Comment: Speci men Type: BLOOD SPECIMENOrdering Facility: [facility] Address: [address] [place] [address] Performed By: #### 2 4321-2 ####[facility] ALMA MARIEBUTLERNCLI [id number] [place] [address] [place] Urea nitrogen [Mass/Vol] 21 mg/dL Normal 7-21 [facility] Comment on above: Order Comment: Speci men Type: BLOOD SPECIMENOrdering Facility: [facility] Address: [facility] [address] [place] [address] Performed By: #### 2 4321-2 ####[facility]ENT[facility]CLIA [id number] [address] [place] Urinalysis, Routine (Dipstic k)on 08-29-2023 BILIRUBIN URINE Negative Normal Negative [facility] Comment on above: Order Comment: REFLE X TO MICROSCOPIC CLEAN CATCH Performed By: #### L 400.2010 #### [facility] [address] [place], [address] Clarity (U) Clear Normal Clear [facility] Comment on above: Order Comment: REFLE X TO MICROSCOPIC CLEAN CATCH Performed By: #### L 400.2010 #### [facility] [address] [place], [address] Color (U) Yellow Normal Yellow [facility] Comment on above: Order Comment: REFLE X TO MICROSCOPIC CLEAN CATCH Performed By: #### L 400.2010 #### [facility] [address] [place], [address] GLUCOSE, UR Normal Normal Normal [facility] Comment on above: Order Comment: REFLE X TO MICROSCOPIC CLEAN CATCH Performed By: #### L 400.2010 #### [facility] [address] [place], [address] KETONE UR Negative Normal Negative [facility] Comment on above: Order Comment: REFLE X TO MICROSCOPIC CLEAN CATCH Performed By: #### L 400.2010 #### [facility] [address] [place], [address] LEUK ESTERASE Negative Normal Negative [facility] Comment on above: Order Comment: REFLE X TO MICROSCOPIC CLEAN CATCH Performed By: #### L 400.2010 #### [facility] [address] [place], [address] Nitrite Ql (U) Negative Normal Negative [facility] Comment on above: Order Comment: REFLE X TO MICROSCOPIC CLEAN CATCH Performed By: #### L 400.2010 #### [facility] [address] [place], [address] OCCULT BLOOD-UR Negative Normal Negative [facility] Comment on above: Order Comment: REFLE X TO MICROSCOPIC CLEAN CATCH Performed By: #### L 400.2010 #### [facility] [address] [place], [address] pH UR 6.5 Normal 5.0 - 8.0 [facility] Comment on above: Order Comment: REFLE X TO MICROSCOPIC CLEAN CATCH Performed By: #### L 400.2010 #### [facility] [address] [place], [address] PROT DIPSTX Negative Normal Negative [facility] Comment on above: Order Comment: REFLE X TO MICROSCOPIC CLEAN CATCH Performed By: #### L 400.2010 #### [facility] [address] [place], [address] SP.GR. DIPSTX 1.010 Normal 1.002-1.03 0 [facility] Comment on above: Order Comment: REFLE X TO MICROSCOPIC CLEAN CATCH Performed By: #### L 400.2010 #### [facility] [address] [place], [address] UROBILI Normal Normal Normal [facility] Comment on above: Order Comment: REFLE X TO MICROSCOPIC CLEAN CATCH Performed By: #### L 400.2010 #### [facility] [address] [place], [address] No Panel Informationon 02-25 Parathyroid Hormone (Intact) 68.2 pg/mL 18.4-80.1 [facility] MA MAMMOGRAM SCREENING BILAT ERAL W/TOMOon 12-23-2022 MA MAMMOGRAM SCREENING BILATERAL W/EFRAÍN ORIGINAL FROM: [address] [address] [address] PROCEDURE FOR: MICHAEL ALCANTARA [address] [place] [address] Home: PID#: [id number] Exam#: [id number] : 1950 Age: 72 TO: JENNIFER ROJAS MD [address] [facility] [address] [place] [address] Fax: NO FAX EXAMINATION: SCREENING DIGITAL BILATERAL MAMMOGRAM WITH TOMOSYNTHESIS, 12/23/2022 8:39 am TECHNIQUE: Screening mammography of the bilateral breasts was performed with tomosynthesis. 2D standard and 3D tomosynthesis combination imaging performed through both breasts in the MLO and CC projection. Computer aided detection was utilized in the interpretation of this exam. COMPARISON: 10/19/2021, 09/08/2020 HISTORY: Breast cancer screening. FINDINGS: BREAST DENSITY: Heterogeneously dense There are benign calcifications in both breasts. There are no significant masses or calcifications. IMPRESSION: No mammographic evidence of malignancy. Continued screening with annual mammograms is recommended. Dayna Enniszick risk calculations, generated with the history provided, report this patient's 10 year risk and lifetime risk for developing breast cancer at 8.6% and 13.4%, respectively. Based on this assessment tool, if the patient's calculated lifetime risk is below 20%, then the patient is considered at average risk for developing breast cancer. If the patient's calculated lifetime risk is at or above 20%, then the patient is considered high risk for developing breast cancer and may be a candidate for supplemental breast MRI screening in addition to annual mammographic screening per the [place] [employer]. BIRADS: MAMMOGRAM BI-RADS: 2: Benign finding RECALL: 1 year screening RECALL TYPE: mammo LETTER SENT: Normal BI-RADS 1 and 2 Interpreted by: Alirio Gutierrez MD Preliminary Report By: Alirio Gutierrez MD Electronically signed By Alirio Gutierrez MD Dictated Date: 12/23/2022 2:39:42 PM Prelim Date: 12/23/2022 2:51:39 PM Sign Date: 12/23/2022 2:51:39 PM Ordering Provider: JENNIFER ROJAS Mangle Catcher: ANTONIETA OWUSU RT (R) (M) (CT) letter sent: Normal BI-RADS 1 and 2 Mammogram BI-RADS: 2 Benign Normal [facility] ([place]) Basophil percentageOrdered B y: Roebuck Lorenzo on 12-04-2022 Bilirubin [Mass/Vol] 0.50 mg/dL 0.20-1.00 [facility] Comment on above: For patients on eltr ombopag therapy, use of Dimension [place] TBIL is not recommended. Cholesterol [Mass/Vol] 139 mg/dL <200 [facility] Comment on above: <200 mg/dL Desirable 200-240 mg/dL Borderline >240 mg/dL High Risk Protein [Mass/Vol] 7.0 g/dL 6.4-8.2 [facility] Triglyceride [Mass/Vol] 72 mg/dL <199 [facility] Comment on above: The drugs N-Acetylcy steine and Metamizole may falsely depress this assay.Serum Triglycerides Reference Interval Normal <150 mg/dL Borderline high 150 - 199 mg/dL High 200 - 499 mg/dL Very High > or = 500 mg/dL Direct bilirubinOrdered By: Roebuck Lorenzo on 12-04-2022 Bilirubin.direct [Mass/Vol] 0.14 mg/dL 0.00-0.30 [facility] - Chemistry and C hemistry - challengeOrdered By: Altaf Lorenzo on 12-04-2022 ALP [Catalytic activity/Vol] 66 U/L 45-117 [facility] ALT [Catalytic activity/Vol] 25 U/L 13-56 [facility] Globulin (S) [Mass/Vol] 3.6 g/dL 2.2-4.2 [facility] Serum or plasma albumin gladys urement (mass/volume)Ordered By: Altaf Ventura on 12-04-2022 Albumin [Mass/Vol] 3.4 g/dL 3.2-5.0 [facility] Serum or plasma cholesterol in HDL measurement (mass/volume)Ordered By: Altaf Ventura on 12-04-2022 Cholesterol in HDL [Mass/Vol] 72 mg/dL >40 [facility] Comment on above: The drugs N-Acetylcy steine and Metamizole may falsely depress this assay. Reference Range HDL <40 mg/dL Low HDL Cholesterol HDL >or= 60 mg/dL High HDL Cholesterol Serum or plasma cholesterol in VLDL measurement (mass/volume)Ordered By: Altaf Ventura on 12-04-2022 Cholesterol in VLDL [Mass/Vol] 14 mg/dL 5-40 [facility] Serum or plasma low density lipoprotein (LDL) cholesterol measurement (mass/volume)Ordered By: Altaf Ventura on 12-04-2022 Cholesterol in LDL [Mass/Vol] 53 mg/dL 0-130 [facility] Thin prep Papanicolaou smear with manual screeningOrdered By: Altaf Ventura on 12-04-2022 Thin prep Papanicolaou smear with manual screening 33 U/L 15-37 [facility] No Panel InformationOrdered By: EZEQUIEL SOTO on 08-14-2022 Estimated GFR (MDRD) Amer 70 mL/min >60 [facility] Comment on above: GFR Calc Estimated GFR (MDRD) Non-Af Amer 58 mL/min >60 [facility] Comment on above: Non- GFR Calc Serum or plasma creatinine m easurement (mass/volume)Ordered By: EZEQUIEL SOTO on 08-14-2022 Creatinine [Mass/Vol] 1.01 mg/dL 0.55-1.02 [facility] Comment on above: The validity of the calculated GFR & GFRAA in patients over 70 years has not been determined. Clinical correlation is essential. Basophil percentageOrdered B y: Dr. Ventura on 05-23-2022 Bilirubin [Mass/Vol] 0.50 mg/dL 0.20-1.00 [facility] Comment on above: For patients on eltr ombopag therapy, use of Dimension [place] TBIL is not recommended. Cholesterol [Mass/Vol] 144 mg/dL <200 [facility] Comment on above: <200 mg/dL Desirable 200-240 mg/dL Borderline >240 mg/dL High Risk Protein [Mass/Vol] 7.1 g/dL 6.4-8.2 [facility] Triglyceride [Mass/Vol] 47 mg/dL <199 [facility] Comment on above: The drugs N-Acetylcy steine and Metamizole may falsely depress this assay.Serum Triglycerides Reference Interval Normal <150 mg/dL Borderline high 150 - 199 mg/dL High 200 - 499 mg/dL Very High > or = 500 mg/dL Direct bilirubinOrdered By: Dr. Ventura on 05-23-2022 Bilirubin.direct [Mass/Vol] 0.14 mg/dL 0.00-0.30 [facility] - Chemistry and C hemistry - challengeOrdered By: Dr. Ventura on 05-23-2022 ALP [Catalytic activity/Vol] 61 U/L 45-117 [facility] ALT [Catalytic activity/Vol] 26 U/L 13-56 [facility] Globulin (S) [Mass/Vol] 3.5 g/dL 2.2-4.2 [facility] No Panel InformationOrdered By: Dr. Ventura on 05-23-2022 Estimated GFR (MDRD) Amer 71 mL/min >60 [facility] Comment on above: GFR Calc Estimated GFR (MDRD) Non-Af Amer 59 mL/min >60 [facility] Comment on above: Non- GFR Calc Serum or plasma albumin gladys urement (mass/volume)Ordered By: Dr. Ventura on 05-23-2022 Albumin [Mass/Vol] 3.6 g/dL 3.2-5.0 [facility] Serum or plasma cholesterol in HDL measurement (mass/volume)Ordered By: Dr. Ventura on 05-23-2022 Cholesterol in HDL [Mass/Vol] 73 mg/dL >40 [facility] Comment on above: The drugs N-Acetylcy steine and Metamizole may falsely depress this assay. Reference Range HDL <40 mg/dL Low HDL Cholesterol HDL >or= 60 mg/dL High HDL Cholesterol Serum or plasma cholesterol in VLDL measurement (mass/volume)Ordered By: Dr. Ventura on 05-23-2022 Cholesterol in VLDL [Mass/Vol] 9 mg/dL 5-40 [facility] Serum or plasma creatinine m easurement (mass/volume)Ordered By: Dr. Ventura on 05-23-2022 Creatinine [Mass/Vol] 0.99 mg/dL 0.55-1.02 [facility] Comment on above: The validity of the calculated GFR & GFRAA in patients over 70 years has not been determined. Clinical correlation is essential. Serum or plasma low density lipoprotein (LDL) cholesterol measurement (mass/volume)Ordered By: Dr. Ventura on 05-23-2022 Cholesterol in LDL [Mass/Vol] 62 mg/dL 0-130 [facility] Thin prep Papanicolaou smear with manual screeningOrdered By: Dr. Ventura on 05-23-2022 Thin prep Papanicolaou smear with manual screening 35 U/L 15-37 [facility] CNOVon 05-09-2017 CNOV Office Visit (AGCARDWST) -MICHAEL ALCANTARA ([id number]) 1950 [facility] Time Provider Department05/09/17 10:30 AM QUENTIN RUTLEDGE AGCARDWST During your visit today, we recorded the following information about you: Pulse Blood pressure Weight Height 76/minute 122/80 57.9 kg 1.499 Rukhsana Rutledge MD 05/15/2017 4:46 PM SignedPERTINENT CARDIAC HISTORYASHD - PCI RCA/OM1 (false negative perfusion) 02/22HLHTNSLEADHERENCE TO GUIDELINESACE-I or ARB for HF with prior LVEFANDlt;40 (NQF 0081) - N/AASA or Plavix for ASHD (NQF 0067) - metBeta philipp for ASHD with prior OK or prior LVEFANDlt;40 (NQF 0070) - N/ABeta philipp for HF with prior LVEFANDlt;40 (NQF 0083) - N/AACE-I or ARB for ASHD with DM or prior LVEFANDlt;40 (NQ 0066) - N/AStatin therapy for ASHD or FHL or DM - metBMI documented and plan if ANDgt;25 (NQ 0421) - lifestyle recommendation formTobacco use screening and referral (NQ 0028) - lifestyle recommendation formRecommendation for whole food, plant based diet - lifestyle recommendation formCLINICAL IMPRESSION/PLAN:Michael Alcantara is doing well. Her coronary disease is stable. We discussedplant based nutrition. I've encouraged her to continue her current medication.Blood pressure is well-controlled.Lipids are under good control. She will continue her current dose of statin.I will see her in 8 months or as needed. If there is increased chest pain orshortness of breath, she has been advised to contact me.Written and verbal health teaching given to patient, patient verbalizesunderstanding and agrees with treatment plan.This note was generated using [employer] voice recognition system, and there may besome incorrect words, spellings, and punctuation that were not noted inchecking the note before saving.DIAGNOSIS FOR VISIT:HypertensionASHDHISTORY OF PRESENT ILLNESSBeantonietta Alcantara is a 67-year-old woman with previous history of ischemic heartdisease who is seen for follow-up. She was previously a patient of Dr. Almendarez.She reports stable exercise tolerance. She's had no chest discomfort. She hasused no nitroglycerin. She denies orthopnea, edema, syncope, palpitations, TIAsamaurosis and claudication.ALLERGIES:ALLERGI ESAllergen Reactions- Environmemtal [Othe* stuffy nose, sneezing, coughCURRENT OUTPATIENT MEDICATIONS:Hydrochlorothiazid e 12.5 mg capsule TAKE 1 CAPSULE DAILYlosartan (COZAAR) 25 mg tablet Take 1 tablet by mouth once daily.clopidogrel (PLAVIX) 75 mg tablet Take 1 tablet by mouth once daily.atorvastatin (LIPITOR) 40 mg tablet Take 1 tablet by mouth once daily.metoprolol succinate ER (TOPROL XL) 25 mg 24 hr tablet Take 1 tablet by mouthonce daily.aspirin 81 mg chewable tablet Take 1 tablet by mouth once daily.nitroglycerin sublingual (NITROQUICK) 0.4 mg SL tablet Dissolve 1 tablet underthe tongue as needed. FOR CHEST PAIN. IF NO RELIEF CALL 911lansoprazole (PREVACID) 15 mg capsule Take 1 capsule by mouth once daily.meloxicam (MOBIC) 15 mg tablet Take 15 mg by mouth once daily.Diclofenac Sodium (VOLTAREN) 1 % gel Apply 2 g to affected area as needed (eachhand).predniSONE 10 mg tablet Take 10 mg by mouth as needed.hydroxychloroquine (PLAQUENIL) 200 mg ORAL tablet Take one tablet once dailyCOMPOUNDED PRESCRIPTION Takes otc digestive advantage as directed.benzonatate (TESSALON PERLES) 100 mg capsule Take 1 capsule by mouth threetimes daily as needed.Cholecalciferol, Vitamin D3, (VITAMIN D) 1,000 unit cap Take 1,000 Units bymouth once daily.calcium carbonate-vitamin D3 (CALTRATE-600 + D VIT D3, 800,) 600 mg(1,500mg)-800 unit tab Take 1 tablet by mouth once daily.Fluticasone Furoate (VERAMYST) 27.5 mcg/actuation nasal spray Use 2 Sprays ineach nostril as needed.PAST MEDICAL HISTORYDiagnosis Date- allergies seasonal/environmental- Colon polyps 2010 tubular adenomas- GERD (gastroesophageal reflux disease)- Hypertension- Lupus 2009 KATARZYNA+- Osteopenia 2008PAST SURGICAL HISTORYProcedure Laterality Date- COLONOSCOP W/ OR W/O [facility] 03/28/2010 tubular adenoma x 2, repeat in 3-4 years- COLONOSCOP W/ OR W/O [facility] 10/25/13 internal hemorrhoidsFAMILY HISTORYProblem Relation Age of Onset- Breast Cancer Mother at age 65, had twice- Diabetes Father- Diabetes Maternal Grandmother- Hypertension Father- Coronary Artery Disease Paternal Grandfather [place]- celiac disease [Other] [OTHER] Sister- Coronary Artery Disease Mother MISocial History Marital status: Spouse name: Veronika Years of education: Number of children: 2Occupational HistoryOccupation Employer [employer] hide grader [employer]* retiredTTEERZA [facility]*Social History Main Topics Smoking status: Never Smoker Smokeless status: Never Used Alcohol use: No Drug use: No Sexual activity: Yes Partners with: Male control/protection: SurgicalSocial History Narrative 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 Cardiac: As noted above. GI: No melena.: No dysuria. Musculoskeletal: No myalgias.PHYSICAL EXAMINATION: S/he is alert and in no distress.VITAL SIGNS: BP 122/80 Pulse 76 Ht 4' 11ANDquot; (1.50m) Wt 127 lb 9.6 oz(57.9kg) LMP 07/15/2007 BMI 25.76 kg/(m2).SHEENT: Skin is warm and dry. No xanthelasmas appreciated. Pharynx isbenign. There is no oral cyanosis. Neck: supple. No adenopathy or thyroidenlargement. Chest: Clear to percussion and auscultation. Trachea is midline. Air entry is equal. There is no chest wall tenderness. Cardiac: Regularrhythm. S1 and S2 are normal. PMI is nondisplaced. There is a soft systolicejection murmur. No click is heard. Carotids are brisk without bruits. JVPis less than 10 cm. Abdomen: Soft and nontender. There are no pulsatilemasses or bruits. No liver enlargement. Bowel sounds are active.Extremities: No edema. Pulses are intact and symmetrical. No clubbing orcyanosis. No femoral bruits. Neurologic: Grossly normal motor and sensory.S/he is alert and oriented x4.EKG demonstrates sinus rhythm and is within normal limits.Recent labs were reviewed. LDL was 55. Renal function is normalElectronically Signed:Quentin Rutledge [facility] 2017 10:48 [facility]:Mich Ward MD 05/09/2017 10:49 AM SignedLIFESTYLE CHANGEA healthy lifestyle is the most important component of your overall treatmentplan. Please give serious thought to the following areas and commit to makinglong term changes.EAT A WHOLE FOOD, PLANT BASED DIETThe nutrition your body gets is more important than the medicine you take.What matters most is the overall way you eat. We encourage you to minimize theuse of animal products (which include dairy and all meats except fatty fish)and use whole, unprocessed plant foods to provide your protein, vitamins andother nutrients. We have a lot of information to share with you on this topic. We also hold Shared Medical Appointments, where you can come visit with in the company of other patients and spend over an hour talking aboutthe challenges of changing the way you eat. This is not a ANDquot;dietANDquot;.It is a way of life that you will keep with you.EXERCISE REGULARLYIt is not important to spend hours in the gym, lifting weights and perspiringheavily. A total of 2-3 hours per week of aerobic (causing you to bemoderately short of breath) exercise is sufficient to improve your health.Talk to us before you begin a new exercise program, if you have heart diseaseor experience shortness of breath or chest pain.REDUCE STRESSChronic emotional and physical stress leads to disease. Ways of reducingstress include meditation, visualization, prayer, yoga and other forms ofrelaxation therapy. Consistency is the tolliver. Find a technique that works foryou and do it every day.CULTIVATE RELATIONSHIPSLoneliness and isolation have a major negative impact on health. Seek outothers who can love, care for and nurture you. Avoid hurtful relationships.MAINTAIN IDEAL BODY WEIGHTThe best way to do this is to do all the things above. Our bodies naturallyfind the right weight if we keep moving and feed ourselves the right food. Ifyour BMI is greater than 25, we strongly recommend a referral to a weightmanagement program. Please speak to us or your family physician aboutavailable programs.AVOID NICOTINE IN ALL FORMSThis includes all tobacco products, whether chewed, smoked, vaped, or rubbed onthe skin. Smoking cessation programs, which can make use of tobaccosubstitutes, medications to suppress cravings and behavior management, areavailable. Please contact your family physician about programs in your area.Referring Provider: XAVI JAIMES [[id number]]Allergies As of Date: 05/09/2017 Noted Allergy Reactionenvironmemtal [Other] 02/19/2005 Comments: stuffy nose, sneezing, coughDate Reviewed: 05/09/2017Reviewed by: Nilda Loredo - Fully AssessedReason for Visit: Follow Up [171]Primary Visit Diagnosis:ASHD (arteriosclerotic heart disease) [I25.10] Other Visit Diagnosis:Hypertension, essential [I10]Order(s):clopidogrel (PLAVIX) 75 mg tabletTake 1 tablet by mouth once daily.Disp: 90 tabletRfl: 3 metoprolol succinate ER (TOPROL XL) 25 mg 24 hr tabletTake 1 tablet by mouth once daily.Disp: 90 tabletRfl: 3 losartan (COZAAR) 25 mg tabletTake 1 tablet by mouth once daily.Disp: 90 tabletRfl: 3 Hydrochlorothiazide 12.5 mg capsuleTake 1 capsule by mouth once daily.Disp: 90 capsuleRfl: 3 ECG B/O W INTERP (MED OFFICE) [ECG06] Order #: [id number] as of 05/09/2017 Sig: CLOPIDOGREL 75 MG TABLET Take 1 tablet by mouth once d* METOPROLOL SUCCINATE ER 25 MG* Take 1 tablet by mouth once d* LOSARTAN 25 MG TABLET Take 1 tablet by mouth once d* HYDROCHLOROTHIAZIDE 12.5 MG C* Take 1 capsule by mouth once * ATORVASTATIN 40 MG TABLET Take 1 tablet by mouth once d* ASPIRIN 81 MG CHEWABLE TABLET Take 1 tablet by mouth once d* NITROGLYCERIN 0.4 MG SUBLINGU* Dissolve 1 tablet under the t* LANSOPRAZOLE 15 MG CAPSULE,DE* Take 1 capsule by mouth once * Patient taking differently: Take 15 mg by mouth once tomasz* MELOXICAM 15 MG TABLET Take 15 mg by mouth once tomasz* DICLOFENAC 1 % TOPICAL GEL Apply 2 g to affected area as* PREDNISONE 10 MG TABLET Take 10 mg by mouth as needed. HYDROXYCHLOROQUINE 200 MG TAB* Take one tablet once daily COMPOUNDED PRESCRIPTION Takes otc digestive advantage* BENZONATATE 100 MG CAPSULE Take 1 capsule by mouth three* CHOLECALCIFEROL (VITAMIN D3) * Take 1,000 Units by mouth onc* CALCIUM CARBONATE-VITAMIN D3 * Take 1 tablet by mouth once d* FLUTICASONE FUROATE 27.5 MCG/* Use 2 Sprays in each nostril *Medication notes this encounter CHOLECALCIFEROL (VITAMIN D3) 1,000 UNIT CAPSULE >> Nilda Loredo MA 05/09/2017 10:32 AM >> NILDA LOREDO MA FriMay 09, 2017 10:32 AM Not taking CALCIUM CARBONATE-VITAMIN D3 600 MG (1,500 MG)-800 UNIT TABLET >> Nilda Loredo MA 05/09/2017 10:32 AM >> NILDA LOREDO MA FriMay 09, 2017 10:32 AM Not taking FLUTICASONE FUROATE 27.5 MCG/ACTUATION NASAL SPRAY,SUSPENSION >> Nilda Loredo MA 05/09/2017 10:33 AM >> NILDA LOREDO MA May 09, 2017 10:33 AM Not usingProblem List As Of Date 05/09/2017 Noted Resolved Allergic rhinitis, cause unspecified [J30.9] INVALID FOR* Priority: B More... Esophageal reflux [K21.9] INVALID FOR* Priority: A Essential hypertension, benign [I10] INVALID FOR* Priority: A More... OSTEOPENIA [M89.9, M94.9] INVALID FOR* Priority: B More... Routine [facility] at [facility]*INVALID FOR*04/13/2015 Class: Chronic More... Routine gynecological examination [Z01.419] INVALID FOR*04/13/2015 Class: Chronic More... Fam hx-diabetes mellitus INVALID FOR* Priority: B More... Foot pain [M79.673] INVALID FOR*10/13/2015 Priority: D Special screening for malignant neoplasms, colo*INVALID FOR*04/13/2015 Benign neoplasm of colon [D12.6] INVALID FOR* Hypercholesterolemia [E78.00] INVALID FOR* Status post insertion of drug-eluting stent int*INVALID FOR* Presence of drug coated stent in left circumfle*INVALID FOR* Systemic lupus erythematosus (HCC) [M32.9] INVALID FOR* More... Other instructions from your clinician: LIFESTYLE CHANGE A healthy lifestyle is the most important component of your overall treatment plan. Please give serious thought to the following areas and commit to making skilled nursing changes. EAT A WHOLE FOOD, PLANT BASED DIET The nutrition your body gets is more important than the medicine you take. What matters most is the overall way you eat. We encourage you to minimize the use of animal products (which include dairy and all meats except fatty fish) and use whole, unprocessed plant foods to provide your protein, vitamins and other nutrients. We have a lot of information to share with you on this topic. We also hold Shared Medical Appointments, where you can come visit with Dr. Rutledge in the company of other patients and spend over an hour talking about the challenges of changing the way you eat. This is not a diet. It is a way of life that you will keep with you. EXERCISE REGULARLY It is not important to spend hours in the gym, lifting weights and perspiring heavily. A total of 2-3 hours per week of aerobic (causing you to be moderately short of breath) exercise is sufficient to improve your health. Talk to us before you begin a new exercise program, if you have heart disease or experience shortness of breath or chest pain. REDUCE STRESS Chronic emotional and physical stress leads to disease. Ways of reducing stress include meditation, visualization, prayer, yoga and other forms of relaxation therapy. Consistency is the tolliver. Find a technique that works for you and do it every day. CULTIVATE RELATIONSHIPS Loneliness and isolation have a major negative impact on health. Seek out others who can love, care for and nurture you. Avoid hurtful relationships. MAINTAIN IDEAL BODY WEIGHT The best way to do this is to do all the things above. Our bodies naturally find the right weight if we keep moving and feed ourselves the right food. If your BMI is greater than 25, we strongly recommend a referral to a weight management program. Please speak to us or your family physician about available programs. AVOID NICOTINE IN ALL FORMS This includes all tobacco products, whether chewed, smoked, vaped, or rubbed on the skin. Smoking cessation programs, which can make use of tobacco substitutes, medications to suppress cravings and behavior management, are available. Please contact your family physician about programs in your area.Prescriptions ordered this encounter Disp Refills Start End CLOPIDOGREL 75 MG TABLET 90 t* 3 05/09/2017 Route: ORAL Sig: Take 1 tablet by mouth once daily. METOPROLOL SUCCINATE ER 25 MG TABLET* 90 t* 3 05/09/2017 Route: ORAL Sig: Take 1 tablet by mouth once daily. LOSARTAN 25 MG TABLET 90 t* 3 05/09/2017 Route: ORAL Sig: Take 1 tablet by mouth once daily. HYDROCHLOROTHIAZIDE 12.5 MG CAPSULE 90 c* 3 05/09/2017 Route: ORAL Sig: Take 1 capsule by mouth once daily.Medications Discontinued During This Encounter clopidogrel (PLAVIX) 75 mg tablet 90 t* 0 12/31/2016 05/09/2017 Route: ORAL Sig: Take 1 tablet by mouth once daily. Disc: Reason for discontinue is not on file. metoprolol succinate ER (TOPROL XL) * 90 t* 3 07/22/2016 05/09/2017 Class: [facility] Route: ORAL Sig: Take 1 tablet by mouth once daily. Disc: Reason for discontinue is not on file. losartan (COZAAR) 25 mg tablet 90 t* 0 12/31/2016 05/09/2017 Route: ORAL Sig: Take 1 tablet by mouth once daily. Disc: Reason for discontinue is not on file. Hydrochlorothiazide 12.5 mg capsule 90 c* 1 04/03/2017 05/09/2017 Sig: TAKE 1 CAPSULE DAILY Disc: Reason for discontinue is not on file. Status:Closed by QUENTIN RUTLEDGE MD on 05/15/17 Normal [facility] PROGRESSon 05-09-2017 PROGRESS HNO ID: [id number] thor: Quentin Priest: (none)Author Type: PhysicianType: Progress NotesFiled: 05/15/2017 4:46 PMNote Text:PERTINENT CARDIAC HISTORYASHD - PCI RCA/OM1 (false negative perfusion) 02/22HLHTNSLEADHERENCE TO GUIDELINESACE-I or ARB for HF with prior LVEF<40 (NQF 0081) - N/AASA or Plavix for ASHD (NQF 0067) - metBeta philipp for ASHD with prior OK or prior LVEF<40 (NQF 0070) - N/ABeta philipp for HF with prior LVEF<40 (NQF 0083) - N/AACE-I or ARB for ASHD with DM or prior LVEF<40 (NQF 0066) - N/AStatin therapy for ASHD or FHL or DM - metBMI documented and plan if >25 (NQF 0421) - lifestyle recommendation formTobacco use screening and referral (NQF 0028) - lifestyle recommendationformRecommendati on for whole food, plant based diet - lifestyle recommendationformCLINICAL IMPRESSION/PLAN:Michael Alcantara is doing well. Her coronary disease is stable. We discussedplant based nutrition. I've encouraged her to continue her currentmedication.Blood pressure is well-controlled.Lipids are under good control. She will continue her current dose ofstatin.I will see her in 8 months or as needed. If there is increased chest painor shortness of breath, she has been advised to contact me.Written and verbal health teaching given to patient, patient verbalizesunderstanding and agrees with treatment plan.This note was generated using [employer] voice recognition system, and theremay be some incorrect words, spellings, and punctuation that were notnoted in checking the note before saving.DIAGNOSIS FOR VISIT:HypertensionASHDHISTORY OF PRESENT ILLNESSBeverosiel Alcantara is a 67-year-old woman with previous history of ischemicheart disease who is seen for follow-up. She was previously a patient ofDr. Almendarez.She reports stable exercise tolerance. She's had no chest discomfort. Shehas used no nitroglycerin. She denies orthopnea, edema, syncope,palpitations, TIAs amaurosis and claudication.ALLERGIES:ALLERGI ESAllergen Reactions- Environmemtal [Othe* stuffy nose, sneezing, coughCURRENT OUTPATIENT MEDICATIONS:Hydrochlorothiazid e 12.5 mg capsule TAKE 1 CAPSULE DAILYlosartan (COZAAR) 25 mg tablet Take 1 tablet by mouth once daily.clopidogrel (PLAVIX) 75 mg tablet Take 1 tablet by mouth once daily.atorvastatin (LIPITOR) 40 mg tablet Take 1 tablet by mouth once daily.metoprolol succinate ER (TOPROL XL) 25 mg 24 hr tablet Take 1 tablet bymouth once daily.aspirin 81 mg chewable tablet Take 1 tablet by mouth once daily.nitroglycerin sublingual (NITROQUICK) 0.4 mg SL tablet Dissolve 1 tabletunder the tongue as needed. FOR CHEST PAIN. IF NO RELIEF CALL 911lansoprazole (PREVACID) 15 mg capsule Take 1 capsule by mouth once daily.meloxicam (MOBIC) 15 mg tablet Take 15 mg by mouth once daily.Diclofenac Sodium (VOLTAREN) 1 % gel Apply 2 g to affected area as needed(each hand).predniSONE 10 mg tablet Take 10 mg by mouth as needed.hydroxychloroquine (PLAQUENIL) 200 mg ORAL tablet Take one tablet oncedailyCOMPOUNDED PRESCRIPTION Takes otc digestive advantage as directed.benzonatate (TESSALON PERLES) 100 mg capsule Take 1 capsule by mouth threetimes daily as needed.Cholecalciferol, Vitamin D3, (VITAMIN D) 1,000 unit cap Take 1,000 Unitsby mouth once daily.calcium carbonate-vitamin D3 (CALTRATE-600 + D VIT D3, 800,) 600mg(1,500mg) -800 unit tab Take 1 tablet by mouth once daily.Fluticasone Furoate (VERAMYST) 27.5 mcg/actuation nasal spray Use 2 Spraysin each nostril as needed.PAST MEDICAL HISTORYDiagnosis Date- allergies seasonal/environmental- Colon polyps 2010 tubular adenomas- GERD (gastroesophageal reflux disease)- Hypertension- Lupus 2009 KATARZYNA+- Osteopenia 2008PAST SURGICAL HISTORYProcedure Laterality Date- COLONOSCOP W/ OR W/O [facility] 03/28/2010 tubular adenoma x 2, repeat in 3-4 years- COLONOSCOP W/ OR W/O [facility] 10/25/13 internal hemorrhoidsFAMILY HISTORYProblem Relation Age of Onset- Breast Cancer Mother at age 65, had twice- Diabetes Father- Diabetes Maternal Grandmother- Hypertension Father- Coronary Artery Disease Paternal Grandfather [place]- celiac disease [Other] [OTHER] Sister- Coronary Artery Disease Mother MISocial History Marital status: Spouse name: Veronika Years of education: Number of children: 2Occupational HistoryOccupation Employer [id number] 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 Respiratory: No productive cough. Cardiac: As noted above. GI: Nomelena. : No dysuria. Musculoskeletal: No myalgias.PHYSICAL EXAMINATION: S/he is alert and in no distress.VITAL SIGNS: BP 122/80 Pulse 76 Ht 4' 11 (1.50m) Wt 127 lb 9.6 oz(57.9kg) LMP 07/15/2007 BMI 25.76 kg/(m2).SHEENT: Skin is warm and dry. No xanthelasmas appreciated. Pharynx isbenign. There is no oral cyanosis. Neck: supple. No adenopathy orthyroid enlargement. Chest: Clear to percussion and auscultation.Trachea is midline. Air entry is equal. There is no chest walltenderness. Cardiac: Regular rhythm. S1 and S2 are normal. PMI isnondisplaced. There is a soft systolic ejection murmur. No click isheard. Carotids are brisk without bruits. JVP is less than 10 cm.Abdomen: Soft and nontender. There are no pulsatile masses or bruits. Noliver enlargement. Bowel sounds are active. Extremities: No edema.Pulses are intact and symmetrical. No clubbing or cyanosis. No femoralbruits. Neurologic: Grossly normal motor and sensory. S/he is alert andoriented x4.EKG demonstrates sinus rhythm and is within normal limits.Recent labs were reviewed. LDL was 55. Renal function is normalElectronically Signed:Quentin Rutledge, [facility] 2017 10:48 [facility]:Xavi Jaimes MD [facility] Vital Signs Date Time Vital Sign Value Performing Clinician Slavai leidy 06-09-2024 09:36-0400 Body height 149.9 cm Xavi Jaimes MD Work Phone: [facility] 06-09-2024 09:36-0400 Body mass index (BMI) [Ratio] 25.45 kg/m2 Xavi Jaimes MD Work Phone: [facility] 06-09-2024 09:36-0400 Body weight 57.15 kg Xavi Jaimes MD Work Phone: [facility] 06-09-2024 09:36-0400 Diastolic blood pressure 66 mm[Hg] Xavi Jaimes MD Work Phone: [facility] 06-09-2024 09:36-0400 Heart rate 75 /min Xavi Jaimes MD Work Phone: [facility] 06-09-2024 09:36-0400 Systolic blood pressure 106 mm[Hg] Xavi Jaimes MD Work Phone: [facility] 05-05-2024 08:36-0500 Body temperature 97.8 [degF] Dr. Xaiv Jaimes MD Work Phone: [facility] 05-05-2024 08:36-0500 Body weight 57.[address] Xavi Jaimes MD Work Phone: [facility] 05-05-2024 08:36-0500 Diastolic blood pressure 69 mm[Hg] Dr. Xavi Jaimes MD Work Phone: [facility] 05-05-2024 08:36-0500 Heart rate 87 /min Dr. Xavi Jaimes MD Work Phone: [facility] 05-05-2024 08:36-0500 Respiratory rate 14 /min Dr. Xavi Jaimes MD Work Phone: [facility] 05-05-2024 08:36-0500 SaO2% (BldA) [Mass fraction] 97 % Dr. Xavi Jaimes MD Work Phone: [facility] 05-05-2024 08:36-0500 Systolic blood pressure 108 mm[Hg] Dr. Xavi Jaimes MD Work Phone: [facility] 04-24-2024 10:18-0500 Body mass index (BMI) [Ratio] 25.91 kg/m2 Demetri Clutter PA-C Work Phone: [facility] 04-24-2024 10:18-0500 Body temperature 98.6 [degF] Demetri Clutter PA-C Work Phone: [facility] 04-24-2024 10:18-0500 Body weight 58.2 kg Demetri Clutter PA-C Work Phone: [facility] 04-24-2024 10:18-0500 Diastolic blood pressure 68 mm[Hg] Demetri Clutter PA-C Work Phone: [facility] 04-24-2024 10:18-0500 Heart rate 100 /min Demetri Clutter PA-C Work Phone: [facility] 04-24-2024 10:18-0500 Respiratory rate 18 /min Demetri Clutter PA-C Work Phone: [facility] 04-24-2024 10:18-0500 SaO2% (BldA) [Mass fraction] 95 % Demetri Clutter PA-C Work Phone: [facility] 04-24-2024 10:18-0500 Systolic blood pressure 132 mm[Hg] Demetri Clutter PA-C Work Phone: [facility] 02-11-2024 08:56-0500 Diastolic blood pressure 56 mm[Hg] Veronika Goins MD Work Phone: [facility] 02-11-2024 08:56-0500 Heart rate 96 /min Veronika Goins MD Work Phone: [facility] 02-11-2024 08:56-0500 Respiratory rate 16 /min Veronika Goins MD Work Phone: [facility] 02-11-2024 08:56-0500 SaO2% (BldA) [Mass fraction] 97 % Veronika Goins MD Work Phone: [facility] 02-11-2024 08:56-0500 Systolic blood pressure 131 mm[Hg] Veronika Goins MD Work Phone: [facility] 02-11-2024 07:51-0500 Body mass index (BMI) [Ratio] 26.32 kg/m2 Veronika Goins MD Work Phone: [facility] 02-11-2024 07:51-0500 Body temperature 97.5 [degF] Veronika Goins MD Work Phone: [facility] 02-11-2024 07:51-0500 Body weight 59.1 kg Veronika Goins MD Work Phone: [facility] 12-31-2023 14:59-0400 Body mass index (BMI) [Ratio] 26.34 kg/m2 Farzana Shirley JOY OPERATOR HELPER[employer] Work Phone: [facility] 12-31-2023 14:59-0400 Body temperature 97 [degF] Farzana Juan Francisco JOY OPERATOR HELPER[employer] Work Phone: [facility] 12-31-2023 14:59-0400 Body weight 59.15 kg Farzana Juan Francisco JOY OPERATOR HELPER.[employer] Work Phone: [facility] 12-31-2023 14:59-0400 Diastolic blood pressure 70 mm[Hg] Farzana Juan Francisco JOY OPERATOR HELPER.[employer] Work Phone: [facility] 12-31-2023 14:59-0400 Heart rate 83 /min Farzana Juan Francisco JOY OPERATOR HELPER.[employer] Work Phone: [facility] 12-31-2023 14:59-0400 SaO2% (BldA) [Mass fraction] 100 % Farzana Juan Francisco JOY OPERATOR HELPER.[employer] Work Phone: [facility] 12-31-2023 14:59-0400 Systolic blood pressure 112 mm[Hg] Farzana Juan Francisco JOY OPERATOR HELPER.[employer] Work Phone: [facility] 12-10-2023 09:16-0400 Body mass index (BMI) [Ratio] 26 kg/m2 Xavi Jaimes MD Work Phone: [facility] 12-10-2023 09:16-0400 Body weight 58.4 kg Xavi Jaimes MD Work Phone: [facility] 12-10-2023 09:16-0400 Diastolic blood pressure 72 mm[Hg] Xavi Jaimes MD Work Phone: [facility] 12-10-2023 09:16-0400 Heart rate 80 /min Xavi Jaimes MD Work Phone: [facility] 12-10-2023 09:16-0400 Respiratory rate 14 /min Xavi Jaimes MD Work Phone: [facility] 12-10-2023 09:16-0400 Systolic blood pressure 122 mm[Hg] Xavi Jaimes MD Work Phone: [facility] 06-17-2023 13:05-0400 Diastolic blood pressure 71 mm[Hg] Dr. Xavi Jaimes Work Phone: [facility] 06-17-2023 13:05-0400 Systolic blood pressure 114 mm[Hg] Dr. Xavi Jaimes Work Phone: [facility] 06-04-2023 10:05-0400 Body weight 58.06 kg Xavi Jaimes MD Work Phone: [facility] 06-04-2023 10:05-0400 Diastolic blood pressure 72 mm[Hg] Xavi Jaimes MD Work Phone: [facility] 06-04-2023 10:05-0400 Heart rate 82 /min Xavi Jaimes MD Work Phone: [facility] 06-04-2023 10:05-0400 SaO2% (BldA) [Mass fraction] 99 % Xavi Jaimes MD Work Phone: [facility] 06-04-2023 10:05-0400 Systolic blood pressure 122 mm[Hg] Xavi Jaimes MD Work Phone: [facility] 05-19-2023 13:28-0400 Body height 149.[address] Xavi Jaimes Work Phone: [facility] 05-19-2023 13:26-0400 Body mass index (BMI) [Ratio] 26.2 kg/m2 Dr. Xavi Jaimes Work Phone: [facility] 05-19-2023 13:26-0400 Body weight 58.[address] Xavi Jaimes Work Phone: [facility] 05-19-2023 13:26-0400 Diastolic blood pressure 75 mm[Hg] Dr. Xavi Jaimes Work Phone: [facility] 05-19-2023 13:26-0400 Heart rate 80 /min Dr. Xavi Jaimes Work Phone: [facility] 05-19-2023 13:26-0400 Respiratory rate 18 /min Dr. Xavi Jaimes Work Phone: [facility] 05-19-2023 13:26-0400 SaO2% (BldA) [Mass fraction] 100 % Dr. Xavi Jaimes Work Phone: [facility] 05-19-2023 13:26-0400 Systolic blood pressure 122 mm[Hg] Dr. Xavi Jaimes Work Phone: [facility] 05-29-2022 09:57-0400 Body height 149.9 cm Xavi Jaimes MD Work Phone: [facility] 05-29-2022 09:57-0400 Body weight 58.88 kg Xavi Jaimes MD Work Phone: [facility] 05-29-2022 09:57-0400 Diastolic blood pressure 74 mm[Hg] Xavi Jaimes MD Work Phone: [facility] 05-29-2022 09:57-0400 Heart rate 73 /min Xavi Jaimes MD Work Phone: [facility] 05-29-2022 09:57-0400 SaO2% (BldA) [Mass fraction] 99 % Xavi Jaimes MD Work Phone: [facility] 05-29-2022 09:57-0400 Systolic blood pressure 100 mm[Hg] Xavi Jaimes MD Work Phone: [facility] 05-21-2022 09:45-0400 Body height 149.[address] Xavi Jaimes Work Phone: [facility] 05-21-2022 09:45-0400 Body mass index (BMI) [Ratio] 26.9 kg/m2 Dr. Xavi Jaimes Work Phone: [facility] 05-21-2022 09:45-0400 Body weight 60.[address] Xavi Jaimes Work Phone: [facility] 05-21-2022 09:45-0400 Diastolic blood pressure 69 mm[Hg] Dr. Xavi Jaimes Work Phone: [facility] 05-21-2022 09:45-0400 Heart rate 74 /min Dr. Xavi Jaimes Work Phone: [facility] 05-21-2022 09:45-0400 Respiratory rate 16 /min Dr. Xavi Jaimes Work Phone: [facility] 05-21-2022 09:45-0400 Systolic blood pressure 129 mm[Hg] Dr. Xavi Jaimes Work Phone: [facility] 11-29-2021 09:17-0400 Body height 149.9 cm Xavi Jaimes MD Work Phone: [facility] 11-29-2021 09:17-0400 Body weight 59.69 kg Xavi Jaimes MD Work Phone: [facility] 11-29-2021 09:17-0400 Diastolic blood pressure 70 mm[Hg] Xavi Jaimes MD Work Phone: [facility] 11-29-2021 09:17-0400 Heart rate 72 /min Xavi Jaimes MD Work Phone: [facility] 11-29-2021 09:17-0400 SaO2% (BldA) [Mass fraction] 99 % Xavi Jaimes MD Work Phone: [facility] 11-29-2021 09:17-0400 Systolic blood pressure 126 mm[Hg] Xavi Jaimes MD Work Phone: [facility] Encounters Encounter Date Encounter Type Care Provider Facility Start: 08-23-2024 ambulatory [facility] Facility:[facility] Start: 08-18-2024 End: 08-18-2024 ambulatory Vivienne Blake RN Welfare Supervisor Management Comment on above: Bi-Weekly Outreach ( Recurring) for Chronic Disease Management Start: 07-21-2024 End: 07-21-2024 ambulatory Vivienne Blake RN Welfare Supervisor Management Comment on above: Initial enrollment o [facility] for Chronic Disease Management Start: 07-13-2024 End: 07-13-2024 ambulatory Xavi Varina Facility:[facility] Start: 06-25-2024 End: 06-25-2024 ambulatory ROMARIO CERON [facility] Start: 06-21-2024 End: 08-21-2024 Follow-up encounter Xavi Jaimes MD Work Phone: [facility] Start: 06-21-2024 End: 06-21-2024 ambulatory XAVI JAIMES Facility:[facility] Start: 06-14-2024 Non-patient / Non-visit Dr. Brooks crowley MD -[facility] Start: 06-14-2024 End: 06-14-[address] Xavi Jaimes MD Work Phone: [facility] Work Phone: Start: 06-14-2024 End: 06-14-[address] Brooks Jamison MD -[facility] Work Phone: Start: 06-14-2024 End: 06-14-2024 ambulatory Brooks Jamison Facility:[facility] Start: 06-09-2024 End: 06-09-2024 ambulatory XAVI Da Silva FIONA Facility:[facility] Start: 06-09-2024 End: 06-09-2024 Patient encounter procedure Xavi Jaimes MD Work Phone: [facility] [place] Comment on above: Primary hypertension (Primary Dx); Hypercholesterolemia; Atherosclerosis of coronary artery of [place] heart without angina pectoris, unspecified vessel or lesion type; Benign neoplasm of colon, unspecified part of colon; History of gastroesophageal reflux (GERD); Hyperglycemia; Other forms of systemic lupus erythematosus, unspecified organ involvement status (HCC); Disorder of carotid artery; Motion sickness, subsequent encounter; Hypokalemia Start: 06-03-2024 End: 06-03-2024 ambulatory XAVI D aSilva FIONA Facility:[facility] Start: 05-26-2024 End: 05-26-2024 ambulatory Oliva Bernard MA [facility] Start: 05-26-2024 End: 05-26-2024 Patient encounter procedure Oliva Carrilloingrid [facility] Comment on above: Population Health Na vigation Outreach ([employer] High Risk Attempt Three [place] [facility] ) Start: 05-17-2024 End: 05-17-2024 ambulatory Oliva Bernard MA [facility] Start: 05-17-2024 End: 05-17-2024 Patient encounter procedure Oliva Carrilloingrid [facility] Comment on above: Population Health Na vigation Outreach ([employer] High Risk Attempt Two [place] [facility] ) Start: 05-07-2024 End: 05-07-2024 ambulatory XAVI Da Silva FIONA [facility] Start: 05-05-2024 End: 05-05-2024 Patient encounter procedure Bijal BONILLA -[facility] Work Phone: Start: 05-05-2024 End: 05-05-2024 ambulatory Xavi Jaimes Facility:[facility] Start: 04-24-2024 End: 04-24-2024 ambulatory [facility] Facility:[facility] Start: 04-24-2024 End: 04-24-2024 Office outpatient new 30 minutes Demetri Solis PA-C Work Phone: [facility] Comment on above: Viral illness (Prima ry Dx) Start: 04-22-2024 End: 04-22-2024 ambulatory Oliva Bernard MA [facility] Start: 04-22-2024 End: 04-22-2024 [facility] Comment on above: Population Health Na vigation Outreach ([employer] High Risk - Attempt 1) Start: 02-12-2024 End: 02-12-2024 Admission to same day surgery center Farzana Shirley APRN.[employer]INESS [employer]ITLES Work Phone: General Surgery Comment on above: Colonoscopy polyps Start: 02-12-2024 End: 02-12-2024 E-mail encounter from caregiver Farzana Shirley APRN.[employer] Work Phone: General Surgery Start: 02-11-2024 End: 02-11-2024 ambulatory [facility] Facility:[facility] Start: 02-11-2024 End: 02-11-2024 Subsequent hospital visit by physician Veronika Goins MD Work Phone: Ambulatory Surgery Comment on above: History of colonic p olyps [Z86.0100] Start: 01-26-2024 End: 01-26-2024 Refill Xavi Jaimes MD Work Phone: [facility] Comment on above: Refill Request Start: 01-25-2024 End: 01-25-2024 Emergency department patient visit [facility] Facility:[facility] Start: 12-31-2023 End: 12-31-2023 ambulatory [facility] Facility:[facility] Start: 12-31-2023 End: 12-31-2023 Patient encounter procedure Farzana Shirley APRN.[employer] Work Phone: General Surgery Comment on above: Screen for colon can cer (Primary Dx); History of colonic polyps Start: 12-15-2023 End: 12-15-2023 ambulatory EZEQUIEL SOTO Facility:[facility] Start: 12-10-2023 End: 12-10-2023 ambulatory XAVI JAIMES Facility:[facility] Start: 12-10-2023 End: 12-10-2023 Patient encounter procedure Xavi Jaimes MD Work Phone: [facility] Comment on above: Hypercholesterolemia (Primary Dx); Screening for depression; Encounter for screening examination for other mental health and behavioral disorders; Encounter for immunization; Primary hypertension; Atherosclerosis of coronary artery of [place] heart without angina pectoris, unspecified vessel or lesion type; History of gastroesophageal reflux (GERD); Disorder of carotid artery (HCC); Hyperglycemia; Mild intermittent asthma, uncomplicated; Other forms of systemic lupus erythematosus, unspecified organ involvement status (HCC); History of colonic polyps Start: 12-08-2023 End: 12-08-2023 ambulatory XAVI JAIMES Facility:[facility] Start: 11-05-2023 End: 11-10-2023 ambulatory Xavi Jaimes MD Work Phone: Internal Medicine [place] [id number] Start: 10-08-2023 ambulatory Xavi Jaimes MD Work Phone: [facility] Comment on above: Change in prescripti on provider Start: 08-29-2023 End: 08-29-2023 ambulatory JONE PRYOR Facility:[facility] Start: 06-17-2023 End: 06-17-[address] Xavi Jaimes Work Phone: [facility] Work Phone: Start: 06-12-2023 Non-patient / Non-visit Dr. Martin Jaimes Work Phone: [facility] Start: 06-12-2023 End: 06-12-[address] Xavi Jaimes Work Phone: [facility] Work Phone: Start: 06-12-2023 End: 06-12-[address] Xavi Jaimes Work Phone: [facility] Work Phone: Start: 06-04-2023 End: 06-04-2023 Patient encounter procedure Xavi Jaimes MD Work Phone: [facility] [place] Comment on above: Primary hypertension (Primary Dx); Hypercholesterolemia; Atherosclerosis of coronary artery of [place] heart without angina pectoris, unspecified vessel or lesion type; Mild intermittent asthma, uncomplicated; Hyperglycemia; Disorder of carotid artery (HCC); Other forms of systemic lupus erythematosus, unspecified organ involvement status (HCC) Start: 05-19-2023 End: 05-19-[address] Xavi Jaimes Work Phone: [facility] Work Phone: Start: 02-25-2023 End: 02-25-2023 ambulatory [facility] Work Phone: Start: 02-25-2023 End: 02-25-2023 Patient encounter procedure [facility] Work Phone: Start: 12-23-2022 End: 12-24-2022 ambulatory JENNIFER ROJAS MD Facility:[facility] Start: 12-23-2022 End: 12-23-2022 Patient encounter procedure JENNIFER ROJAS MD [facility] Start: 12-04-2022 End: 12-04-2022 ambulatory [facility] Work Phone: Start: 12-04-2022 End: 12-04-2022 Patient encounter procedure [facility] Work Phone: Start: 11-27-2022 ambulatory Xavi Jaimes MD Work Phone: Internal Medicine [facility] Start: 10-14-2022 ambulatory Xavi Jaimes MD Work Phone: Family [facility] Comment on above: Motion Sickness Refill Request Start: 08-14-2022 End: 08-14-2022 Patient encounter procedure [facility] Work Phone: Start: 06-03-2022 Non-patient / Non-visit Dr. Martin Jaimes Work Phone: [facility] Start: 05-31-2022 Non-patient / Non-visit Dr. Martin Jaimes Work Phone: [facility] Start: 05-31-2022 End: 05-31-[address] Xavi Jaimes Work Phone: [facility] Work Phone: Start: 05-31-2022 End: 05-31-[address] Xavi Jaimes Work Phone: [facility] Start: 05-31-[address] Rae Jaimes Work Phone: [facility] Start: 05-29-2022 End: 05-29-2022 Patient encounter procedure Xavi Jaimes MD Work Phone: [facility] Comment on above: Hypercholesterolemia (Primary Dx); Primary hypertension; Presence of drug coated stent in left circumflex coronary artery; Mild intermittent asthma, uncomplicated; Hyperglycemia; Osteoarth NOS-other site Start: 05-23-2022 End: 05-23-[address] Xavi Jaimes Work Phone: [facility] Work Phone: Start: 05-23-2022 End: 05-23-[address] Xavi Jaimes Work Phone: [facility] Start: 05-21-2022 End: 05-21-[address] Xavi Jaimes Work Phone: [facility] Start: 12-01-2021 ambulatory Xavi Jaimes MD Work Phone: [facility] Comment on above: Potassium Start: 11-29-2021 End: 11-29-2021 Patient encounter procedure Xavi Jaimes MD Work Phone: [facility] [place] Comment on above: Primary hypertension (Primary Dx); Encounter for immunization; Hypercholesterolemia; Presence of drug coated stent in left circumflex coronary artery; Status post insertion of drug-eluting stent into right coronary artery for coronary artery disease; Mild intermittent asthma, uncomplicated; Gastroesophageal reflux disease without esophagitis; Other forms of systemic lupus erythematosus, unspecified organ involvement status (HCC); Hypokalemia Start: 10-19-2021 Get Medical Advice Xavi Jaimes MD Work Phone: [facility] [place] Comment on above: Rx Refill Start: 10-19-2021 End: 10-19-2021 Patient encounter procedure JENNIFER ROJAS MD [facility] Start: 10-17-2021 ambulatory Xavi Jaimes MD Work Phone: Internal Medicine [facility] Start: 12-09-2017 Ambulatory QUENTIN RUTLEDGE Facility :[facility] Start: 05-09-2017 End: 05-09-2017 Ambulatory QUENTIN Nakita MATY [facility] Start: 11-21-2008 End: 04-13-2015 Patient encounter status Xavi Jaimes MD Work Phone: [facility] Procedures Date Procedure Procedure Detail Performing Clinician Start: 06-03-2024 Lipid 1996 panel - S lina or Plasma Xavi Jaimes MD Work Phone: Start: 02-11-2024 Colonoscopy flx dx w /collj spec when pfrmd Farzana Shirley [employer] Work Phone: Start: 02-11-2024 Colonoscopy Veronika helm MD Work Phone: Start: 12-10-2023 PFIZER-BIONTECH COVI D-19 VACCINE AGE 12+ YR (COMIRNATY) Xavi Jaimes MD Work Phone: Start: 12-10-2023 Adult depression scr eening assessment Xavi Jaimes MD Work Phone: Start: 05-29-2023 Lipid 1996 panel - S lina or Plasma Xavi Jaimes MD Work Phone: Start: 11-30-2021 Lipid 1996 panel - S lina or Plasma Xavi Jaimes MD Work Phone: Start: 11-29-2021 INFLUENZA SEASONAL QUADRIVALENT HIGH DOSE AGE 65+ Xavi Jaimes MD Work Phone: Start: 11-29-2021 [email or web address] [facility] [email or web address] COVI D-19 BIVALENT BOOSTER VACCINE, AGE 12+ YR Xavi Jaimes MD Work Phone: Start: 11-29-2021 Adult depression scr eening assessment Xavi Jaimes MD Work Phone: Start: 10-24-2021 Mammography Xavi Orellana MD Work Phone: Start: 11-26-2020 Adult depression scr eening assessment Xavi Jaimes MD Work Phone: Start: 09-13-2020 Mammography Xavi Orellana MD Work Phone: Start: 03-01-2016 End: 05-29-2022 History of placement of stent for coronary artery disease Status post insertion of drug-eluting stent into right coronary artery for coronary artery disease Xavi Jaimes MD Work Phone: Start: 02-13-2016 History of placement of stent for coronary artery disease History of coronary artery stent placement Dr. Xavi Jaimes Work Phone: Comment on above: PCI-VESTA-Mid RCA w/ 3 .0 x 23 mm Xience Alpine Stent and VESTA- Prox OM1 w/ 2.5 x 23 mm Xience Alpine Stent 02/13/2016 Start: 03-10-2015 Cardiac catheterization JENNIFER ROJAS MD Comment on above: with stent x2 Start: 10-25-2013 Colonoscopy Xavi Orellana MD Work Phone: History of placement of stent for coronary artery disease Status post insertion of drug-eluting stent into right coronary artery for coronary artery disease Xavi Jaimes MD Work Phone: Plan of Treatment Date Care Activity Detail Author Start: 02-10-2034 Screening for malignant neoplasm of colon [facility] Start: 06-03-2029 Lipid panel Lipid Screening [facility] Start: 02-10-2029 Screening for malignant neoplasm of colon [facility] Start: 05-28-2028 Lipid panel Lipid Screening [facility] Start: 06-04-2027 Diabetes Screening Diabetes Screening [facility] Start: 12-07-2026 Diabetes Screening Diabetes Screening [facility] Start: 11-30-2026 Lipid 1996 panel - Serum or Plasma Lipid Screening [facility] Start: 11-30-2026 LIPID SCREEN LIPID SCREEN [facility] Start: 05-28-2026 Diabetes Screening Diabetes Screening [facility] Start: 11-29-2025 Diabetes Screening Diabetes Screening [facility] Start: 11-21-2025 LIPID SCREEN LIPID SCREEN [facility] Start: 06-09-2025 Annual PCP Team Chronic Disease Visit Annual PCP Team Chronic Disease Visit [facility] Start: 06-09-2025 BP Controlled (<130/80) BP Controlled (<130/80) [facility] Start: 06-09-2025 Covid-19 Vaccine () Covid-19 Vaccine () [facility] Comment on above: Postponed from 06/09/2024 (Declined at t his time) Start: 06-09-2025 RSV Vaccine (1 - Risk 60-74 years 1-dose series) RSV Vaccine (1 - Risk 60-74 years 1-dose series) [facility] Comment on above: Postponed from 2012 (Declined at t his time) Start: 06-03-2025 Hepatitis B surface antibody level LDL Cholesterol [facility] Start: 05-29-2025 DIABETES SCREEN DIABETES SCREEN [facility] Start: 12-30-2024 BP Controlled (<130/80) BP Controlled (<130/80) [facility] Start: 12-27-2024 End: 12-27-2024 Patient encounter procedure 12/27/2024 10:00 AM EDT Office Visit Family [facility] [address] [place] [id number] Xavi Jaimes MD [address] [place] [id number] 6 month follow up Family [facility] Comment on above: 6 month follow up Start: 12-09-2024 Annual PCP Team Chronic Disease Visit Annual PCP Team Chronic Disease Visit [facility] Start: 12-09-2024 Anxiety Screening Anxiety Screening [facility] Start: 12-09-2024 BP Controlled (<130/80) BP Controlled (<130/80) [facility] Start: 12-09-2024 Depression Screening Depression Screening [facility] Start: 12-09-2024 Urine microalbumin profile DTaP,Tdap,Td Vaccine (3 - Td or Tdap) [facility] Comment on above: Postponed from 09/18/2023 (Declined at t his time) Start: 11-30-2024 DIABETES SCREEN DIABETES SCREEN [facility] Start: 06-16-2024 End: 09-15-2024 Potassium [Moles/volume] in Serum or Plasma POTASSIUM Lab Routine Hypokalemia Expected: 06/16/2024, Expires: 09/15/2024 [facility] Work Phone: Comment on above: Expected: 06/16/2024, Expires: Start: 06-09-2024 End: 09-08-2024 CBC W Auto Differential panel - Blood COMPLETE BLOOD COUNT AND DIFFERENTIAL Lab Routine Hypercholesterolemia Expected: 06/09/2024, Expires: 09/08/2024 [facility] Work Phone: Comment on above: Expected: 06/09/2024, Expires: Start: 06-09-2024 End: 09-08-2024 Comprehensive metabolic 2000 panel - Serum or Plasma COMPREHENSIVE METABOLIC PANEL Lab Routine Hypercholesterolemia Expected: 06/09/2024, Expires: 09/08/2024 [facility] Comment on above: Expected: 06/09/2024, Expires: Start: 06-09-2024 Covid-19 Vaccine () Covid-19 Vaccine () [facility] Start: 06-09-2024 End: 09-08-2024 Hemoglobin A1c in Blood HEMOGLOBIN A1C Lab Routine Hyperglycemia Expected: 06/09/2024, Expires: 09/08/2024 [facility] Comment on above: Expected: 06/09/2024, Expires: Start: 06-09-2024 End: 09-08-2024 Lipid 1996 panel - Serum or Plasma LIPID PANEL BASIC Lab Routine Hypercholesterolemia Expected: 06/09/2024, Expires: 09/08/2024 [facility] Comment on above: Expected: 06/09/2024, Expires: Start: 06-09-2024 End: 06-09-2024 Patient encounter procedure 06/09/2024 9:40 AM EDT Office Visit [facility] [place] [address] [place] [address] Xavi Jaimes MD [address] [place], [place] [address] follow up 6 months [facility] [place] Comment on above: follow up 6 months Start: 06-03-2024 Annual PCP Team Chronic Disease Visit Annual PCP Team Chronic Disease Visit [facility] Start: 06-03-2024 BP Controlled (<130/80) BP Controlled (<130/80) [facility] Start: 06-03-2024 RSV Vaccine (1 - 1-dose 60+ series) RSV Vaccine (1 - 1-dose 60+ series) [facility] Comment on above: Postponed from 2012 (Declined at t his time) Start: 06-03-2024 RSV Vaccine (1 - Risk 60-74 years 1-dose series) RSV Vaccine (1 - Risk 60-74 years 1-dose series) [facility] Comment on above: Postponed from 2012 (Declined at t his time) Start: 05-28-2024 Hepatitis B surface antibody level LDL Cholesterol [facility] Start: 05-24-2024 DIABETES SCREEN DIABETES SCREEN [facility] Start: 03-10-2024 Advance Directive Discussion Advance Directive Discussion [facility] Start: 03-10-2024 Medicare Advantage Annual Wellness Visit Medicare Advantage Annual Wellness Visit [facility] Start: 02-11-2024 End: 02-11-2024 Patient encounter procedure 02/11/2024 8:15 AM EST Appointment Ambulatory Surgery [address] [place] [address] Veronika Goins MD [address] [address] Ambulatory Surgery Start: 12-31-2023 End: 12-31-2023 Patient encounter procedure 12/31/2023 2:15 PM EDT Office Visit General Surgery [address] [place] [address] Veronika Goins MD [address] [address] History of colonic polyps [Z86.0100] General Surgery Comment on above: History of colonic polyps [Z86.0100] Start: 12-10-2023 End: 12-10-2023 Patient encounter procedure 12/10/2023 9:20 AM EDT Office Visit [facility] [place] [address] [place], [place] [id number] Xavi Jaimes MD [address] [place], [place] [id number] 6 month follow up (GERD) [facility] [place] Comment on above: 6 month follow up (GERD) Start: 12-05-2023 End: 03-05-2024 Basic metabolic 2000 panel - Serum or Plasma BASIC METABOLIC PNL Lab Routine Hyperglycemia Expected: 12/05/2023, Expires: 03/05/2024 [facility] Work Phone: Comment on above: Expected: 12/05/2023, Expires: Start: 12-03-2023 Covid-19 Vaccine ( season) Covid-19 Vaccine () [facility] Comment on above: Postponed from 11/08/2022 (Declined at t his time) Start: 11-09-2023 Covid-19 Vaccine ( season) Covid-19 Vaccine () [facility] Start: 11-09-2023 Influenza vaccination Influenza Vaccine (#1) [facility] Start: 10-26-2023 Colonoscopy COLONOSCOPY [facility] Start: 10-26-2023 COLORECTAL CANCER SCREENING COLORECTAL CANCER SCREENING [facility] Start: 10-26-2023 Screening for malignant neoplasm of colon [facility] Start: 09-18-2023 Urine microalbumin profile [facility] Start: 05-30-2023 ANNUAL PCP TEAM CHRONIC DISEASE VISIT ANNUAL PCP TEAM CHRONIC DISEASE VISIT [facility] Start: 05-30-2023 BP CONTROLLED (<130/80) BP CONTROLLED (<130/80) [facility] Start: 11-29-2022 Adult depression screening assessment DEPRESSION SCREENING [facility] Start: 11-29-2022 ANNUAL PCP TEAM CHRONIC DISEASE VISIT ANNUAL PCP TEAM CHRONIC DISEASE VISIT [facility] Start: 11-29-2022 BP CONTROLLED (<130/80) BP CONTROLLED (<130/80) [facility] Start: 11-29-2022 End: 01-29-2023 Comprehensive metabolic 2000 panel - Serum or Plasma COMP METABOLIC PANEL Lab Routine Mild intermittent asthma, uncomplicated Expected: 11/29/2022, Expires: 01/29/2023 [facility] Work Phone: Comment on above: Expected: 11/29/2022, Expires: 3 Start: 11-29-2022 End: 01-29-2023 Hemoglobin A1c in Blood HGB A1C Lab Routine Hyperglycemia Expected: 11/29/2022, Expires: 01/29/2023 [facility] Work Phone: Comment on above: Expected: 11/29/2022, Expires: 3 Start: 11-08-2022 Influenza vaccination [facility] Start: 10-24-2022 Mammography [facility] Start: 10-24-2022 Screening for malignant neoplasm of breast Mammogram Screening [facility] Start: 05-29-2022 End: 07-29-2022 Hemoglobin A1c in Blood [facility] Work Phone: Comment on above: Expected: 05/29/2022, Expires: 3 Start: 05-28-2022 ANNUAL PCP TEAM CHRONIC DISEASE VISIT ANNUAL PCP TEAM CHRONIC DISEASE VISIT [facility] Start: 05-28-2022 BP CONTROLLED (<130/80) BP CONTROLLED (<130/80) [facility] Start: 03-31-2022 COVID-19 VACCINE (5 - Pfizer series) COVID-19 VACCINE (5 - Pfizer series) [facility] Start: 03-10-2022 ADVANCE DIRECTIVE DISCUSSION ADVANCE DIRECTIVE DISCUSSION [facility] Start: 11-26-2021 Adult depression screening assessment DEPRESSION SCREENING [facility] Start: 11-08-2021 Influenza vaccination INFLUENZA (#1) [facility] Start: 09-13-2021 Mammography MAMMOGRAM [facility] Start: 06-28-2021 COVID-19 VACCINE (4 - Booster for Pfizer series) COVID-19 VACCINE (4 - Booster for Pfizer series) [facility] Start: 03-10-2021 ADVANCE DIRECTIVE DISCUSSION ADVANCE DIRECTIVE DISCUSSION [facility] Start: 07-30-2019 FECAL OCCULT BLOOD FECAL OCCULT BLOOD [facility] Start: 07-30-2019 Screening for malignant neoplasm of colon Fecal Occult Blood [facility] Start: 02-18-2014 Screening for malignant neoplasm of cervix Cervical Cancer Screening [facility] Start: 2002 SHINGRIX VACCINE (1 of 2) SHINGRIX VACCINE (1 of 2) [facility] Start: 1997 COLOGUARD (FIT-DNA) COLOGUARD (FIT-DNA) [facility] Start: [address] COLONOGRAPHY [facility] Start: 1997 Screening for malignant neoplasm of colon [facility] Start: 1997 SIGMOIDOSCOPY SIGMOIDOSCOPY [facility] Start: 1970 Anxiety Screening Anxiety Screening [facility] Start: 1970 BP Controlled (<130/80) BP Controlled (<130/80) [facility] Start: 1970 Depression Screening Depression Screening [facility] Start: 1970 SPIROMETRY SPIROMETRY [facility] End: 12-04-2024 DBT Breast - bilateral screening NIRAJ SCREENING W EFRAÍN Radiology Routine Encounter for screening mammogram for breast cancer 1 Occurrences starting 11/05/2023 until 12/04/2024 [facility] Work Phone: Comment on above: 1 Occurrences starting 11/05/2023 until 12/04/2024 End: 12-27-2023 NIRAJ SCREENING NIRAJ SCREENING Radiology Routine Encounter for screening mammogram for breast cancer 1 Occurrences starting 11/27/2022 until 12/27/2023 [facility] Work Phone: Comment on above: 1 Occurrences starting 11/27/2022 until 12/27/2023 End: 12-30-2024 Screening colonoscopy COLONOSCOPY SCREENING Endoscopy Routine History of colonic polyps Screen for colon cancer 1 Occurrences starting 12/31/2023 until 12/30/2024 [facility] Work Phone: Comment on above: 1 Occurrences starting 12/31/2023 until 12/30/2024 End: 11-16-2022 Screening mammography bi 2-view breast inc cad NIRAJ SCREENING Radiology Routine Encounter for screening mammogram for breast cancer 1 Occurrences starting 10/17/2021 until 11/16/2022 [facility] Work Phone: Comment on above: 1 Occurrences starting 10/17/2021 until 11/16/2022 SURGICAL PATHOLOGY [facility] Work Phone: Comment on above: Release Upon Ordering for 1 Occurrences starting 02/11/2024, 1 completed US Carotid arteries [facility] Immunizations Immunization Date Immunization Notes Care Provider [facility] 12-23-2023 influenza, high dose seasonal, preservative-free Xavi Jaimes MD Work Phone: [facility] 12-10-2023 COVID-19 vaccine, ag e 12+ yr (PFIZER-BIONTECH COMIRNATY) Xavi Jaimes MD Work Phone: [facility] 12-10-2023 influenza, high dose seasonal, preservative-free Xavi Jaimes MD Work Phone: [facility] 12-31-2022 influenza, high dose seasonal, preservative-free Xavi Jaimes MD Work Phone: [facility] 12-02-2022 influenza (HD-IIV4) vaccine, age 65+ yr, high dose, quadrivalent, PF (FLUZONE HIGH-DOSE) Xavi Jaimes MD Work Phone: [facility] 12-02-2022 influenza virus vacc ine, unspecified formulation Xavi Jaimes MD Work Phone: [facility] 12-18-2021 influenza, high dose seasonal, preservative-free Xavi Jaimes MD Work Phone: [facility] 11-29-2021 COVID-19 booster vaccine, age 12+ yr, bivalent (EventSneakerBIONTECH) Xavi Jaimes MD Work Phone: [facility] 11-29-2021 influenza, high-dose , quadrivalent vaccine (FLUZONE HIGH DOSE QUADRIVALENT) Xavi Jaimes MD Work Phone: [facility] 11-29-2021 influenza virus vacc ine, unspecified formulation Xavi Jaimes MD Work Phone: [facility] 12-08-2020 influenza, high dose seasonal, preservative-free Xavi Jaimes MD Work Phone: [facility] 11-27-2020 influenza, high-dose , quadrivalent vaccine (FLUZONE HIGH DOSE QUADRIVALENT) Xavi Jaimes MD Work Phone: [facility] 11-27-2020 pneumococcal polysaccharide vaccine, 23 valent Xavi Jaimes MD Work Phone: [facility] 06-06-2020 Covid (Pfizer) Dr. Xavi singh Work Phone: [facility] 05-16-2020 COVID-19 vaccine, ag e 12+ yr (PFIZER-BIONT2degreesmobile - PURPLE TOP) Xavi Jaimes MD Work Phone: [facility] 12-15-2019 zoster vaccine recombinant Xavi Jaimes MD Work Phone: [facility] 11-25-2019 influenza, high dose seasonal, preservative-free Xavi Jaimes MD Work Phone: [facility] 11-24-2019 influenza, high-dose , quadrivalent vaccine (FLUZONE HIGH DOSE QUADRIVALENT) Xavi Jaimes MD Work Phone: [facility] 01-15-2019 pneumococcal polysaccharide vaccine, 23 valent Xavi Jaimes MD Work Phone: [facility] 01-12-2019 influenza, high dose seasonal, preservative-free Xavi Jaimes MD Work Phone: [facility] Work Phone: 01-12-2019 pneumococcal conjuga te vaccine, 13 valent Xavi Jaimes MD Work Phone: [facility] Work Phone: 01-05-2018 influenza, high dose seasonal, preservative-free Xavi Jaimes MD Work Phone: [facility] Work Phone: 12-23-2017 influenza, high dose seasonal, preservative-free Xavi Jaimes MD Work Phone: [facility] 12-23-2017 pneumococcal polysaccharide vaccine, 23 valent Xavi Jaimes MD Work Phone: [facility] 01-14-2017 pneumococcal polysaccharide vaccine, 23 valent Xavi Jaimes MD Work Phone: [facility] 12-13-2016 influenza virus vacc ine, live, attenuated, for intranasal use Xavi Jaimes MD Work Phone: [facility] 12-10-2016 pneumococcal polysaccharide vaccine, 23 valent Xavi Jaimes MD Work Phone: [facility] 01-30-2016 influenza virus vacc ine, live, attenuated, for intranasal use Xavi Jaimes MD Work Phone: [facility] 01-30-2016 pneumococcal polysaccharide vaccine, 23 valent Xavi Jaimes MD Work Phone: [facility] 01-03-2016 influenza, injectabl e, quadrivalent, contains preservative Xavi Jaimes MD Work Phone: [facility] 01-18-2014 influenza virus vacc ine, live, attenuated, for intranasal use Xavi Jaimes MD Work Phone: [facility] 09-17-2013 tetanus toxoid, redu monse diphtheria toxoid, and acellular pertussis vaccine, adsorbed Xavi Jaimes MD Work Phone: [facility] 05-26-2006 tetanus toxoid, redu monse diphtheria toxoid, and acellular pertussis vaccine, adsorbed Xavi Jaimes MD Work Phone: [facility] Work Phone: Payers Date Payer Category Payer Self-pay [id number] 2021 Medicare AETNA MEDICARE A ETNA MEDICARE PPO [id number] 2021-Present [phone] [address] [place] [address] PPO [id number] 2021 Medicare (Managed Care) FABIOLA MUSA [id number] [address] [facility] [id number] 1950 Unknown [id number] 1950 Unknown [id number] 1950 Unknown [id number] Medicare [id number] Medicare MEDICARE PART A B [id number] Unknown [facility] [id number] Unknown [id number] Unknown [id number] Unknown [id number] Unknown [id number] Unknown [id number] Unknown [id number] Unknown [id number] Unknown [id number] Social History Date Type Detail Facility Start: 09-17-2013 End: 10-10-2021 Tobacco smoking status Never smoked tobacco (finding) [facility] [facility] Start: 1950 Sex Assigned At Female [facility] Start: 09-17-2013 Tobacco use and exposure Smoke less tobacco non-user [facility] Start: 05-28-2021 End: 06-09-2024 Alcohol intake Current non-drinker of alcohol (finding) [facility] Start: 11-26-2020 History SDOH Alcohol Frequency 1 [facility] Start: 11-26-2020 History SDOH Social Connections Phone 5 [facility] Start: 11-26-2020 History SDOH Social Connections Get Together 3 [facility] Start: 11-26-2020 History SDOH Stress 2 [facility] Start: 11-26-2020 Education 17 [facility] Start: 1950 Sex Assigned At Not on file [facility] Start: 11-19-2021 End: 11-29-2021 Exposure to SARS-CoV-2 (event) Not sure [facility] Start: 05-21-2022 End: 06-17-2023 Tobacco smoking status NHIS Unknown if ever smoked [facility] Start: 11-26-2020 End: 12-02-2022 History of Social function [place] [facility] Start: 11-26-2020 End: 12-02-2022 Social connection and isolation panel [facility] Do you belong to any clubs or organizations such as protestant groups, unions, fraternal or athletic groups, or school groups? Yes [facility] Are you now , , , , never or living with a partner? [facility] How often to you hav e a drink containing alcohol? Never [facility] How many standard dr inks containing alcohol do you have on a typical day? 1 or 2 [facility] How hard is it for y ou to pay for the very basics like food, housing, medical care, and heating Not hard at all [facility] Do you feel stress - tense, restless, nervous, or anxious, or unable to sleep at night because your mind is troubled all the time - these days [OSQ] Only a little [facility] (I/We) worried elvira er (my/our) food would run out before (I/we) got money to buy more. Never true [facility] In the past 12 month s, was there a time when you were not able to pay the mortgage or rent on time? No [facility] Start: 06-17-2024 Sex Female (finding) [facility] Functional Status Date Assessment Result Facility 02-14-2016 Are you deaf, or do you have serious difficulty hearing No 02/14/2016 9:41 AM So Beaver APRN.CNP No [facility] Work Phone: 02-14-2016 Are you blind, or do you have serious difficulty seeing, even when wearing glasses No 02/14/2016 9:41 AM So Beaver APRN.CNP No [facility] 02-14-2016 Do you have serious difficulty walking or climbing stairs No 02/14/2016 9:41 AM So Beaver APRN.CNP No [facility] 02-14-2016 Do you have difficul ty dressing or bathing No 02/14/2016 9:41 AM So Beaver APRN.CNP No [facility] 02-14-2016 Because of a physica l, mental, or emotional condition, do you have difficulty doing errands alone such as visiting a physician's office or shopping No 02/14/2016 9:41 AM So Beaver APRN.CNP No [facility] Mental Status Date Assessment Result Facility 02-14-2016 Because of a physica l, mental, or emotional condition, do you have serious difficulty concentrating, remembering, or making decisions No 02/14/2016 9:41 AM So Beaver APRN.BUSINESS JOB TITLES No [facility] Clinical Notes 03-28-2010 to 08-18-2024 Vivienne Blake RN - 08/18/2024 12:54 PM Vivienne Reno RN - 07/21/2024 3:32 PM Xavi Taylor MD - 06/09/2024 9:36 AM Oliva Jackson MA - 05/26/2024 11:05 AM EDT Note Date & Type Note Facility 08-18-2024 Note HNO ID: [id number] Author: VIVIENNE BLAKE RN Service: ? Author Type: Registered Nurse Type: Progress Notes Filed: 08/18/2024 12:54 Note Text: [facility] Telephonic Outreach Provider Action/FYI Patient identified by Name and Date of . Message left for patient x2 Program Details Chronic Disease Management Status: Enrolled Effective Dates: 07/21/2024 - present Responsible Staff: Vivienne Blake RN Support and Services: Hypertension Program Goals Targets Target Due Completed Completed By Outcome General education provided (managing stress, where to go/how to contact, etc.) 08/23/2024 -- -- -- Annual Medicare Wellness visit addressed 10/21/2024 -- -- -- Biannual PCP visit addressed 10/21/2024 -- -- -- Comprehensive HTN education provided 10/21/2024 -- -- -- HTN lab care gaps addressed 10/21/2024 -- -- -- Patient-stated goal addressed (add comment) 10/21/2024 -- -- -- Intake assessments completed: ADLs, Fall Risk, SDOH 08/23/2024 07/21/2024 Vivienne Blake RN Complete Assessments No documentation this encounter Interventions No checklist tasks for this episode were completed during this visit, and no tasks for this episode are pending completion. Vivienne Blake RN August 18, 2024 12:54 PM [facility] 08-18-2024 History of Present illness Narrative Images from the original note were not included. [facility] Telephonic Outreach Provider Action/FYI Patient identified by Name and Date of . Message left for patient x2 Program Details Chronic Disease Management Status: Enrolled Effective Dates: 07/21/2024 - present Responsible Staff: Vivienne Blake RN Support and Services: Hypertension Program Goals Targets Target Due Completed Completed By Outcome General education provided (managing stress, where to go/how to contact, etc.) 08/23/2024 -- -- -- Annual Medicare Wellness visit addressed 10/21/2024 -- -- -- Biannual PCP visit addressed 10/21/2024 -- -- -- Comprehensive HTN education provided 10/21/2024 -- -- -- HTN lab care gaps addressed 10/21/2024 -- -- -- Patient-stated goal addressed (add comment) 10/21/2024 -- -- -- Intake assessments completed: ADLs, Fall Risk, SDOH 08/23/2024 07/21/2024 Vivienne Blake RN Complete Assessments No documentation this encounter Interventions No checklist tasks for this episode were completed during this visit, and no tasks for this episode are pending completion. Vivienne Blake RN August 18, 2024 12:54 PM documented in this encounter [facility] 08-18-2024 Note Patient Outreach ([facility] -------- MICHAEL ALCANTARA ([id number]) 1950 F Date Time Provider Department 08/18/24 [facility] [place] During your visit today, we recorded the following information about you: Vivienne Blake RN 08/18/2024 12:54 PM Signed [facility] Telephonic Outreach Provider Action/FYI Patient identified by Name and Date of . Message left for patient x2 Program Details Chronic Disease Management Status: Enrolled Effective Dates: 07/21/2024 - present Responsible Staff: Vivienne Blake RN Support and Services: Hypertension Program Goals Targets Target Due Completed Completed By Outcome General education provided (managing stress, where to go/how to contact, etc.) 08/23/2024 -- -- -- Annual Medicare Wellness visit addressed 10/21/2024 -- -- -- Biannual PCP visit addressed 10/21/2024 -- -- -- Comprehensive HTN education provided 10/21/2024 -- -- -- HTN lab care gaps addressed 10/21/2024 -- -- -- Patient-stated goal addressed (add comment) 10/21/2024 -- -- -- Intake assessments completed: ADLs, Fall Risk, SDOH 08/23/2024 07/21/2024 Vivienne Blake RN Complete Assessments No documentation this encounter Interventions No checklist tasks for this episode were completed during this visit, and no tasks for this episode are pending completion. Vivienne Blake RN August 18, 2024 12:54 PM Allergies As of Date: 08/18/2024 Noted Allergy Reaction AMOXICILLIN 07/10/2018 6 - Diarrhea 8 - GI Upset SEASONAL ALLERGIES 12/31/2023 14 - Other: See Comments Comments: Stuffy nose, sneezing, cough Date Reviewed: 06/09/2024 Reviewed by: Lou Bates MA - Fully Assessed Prescriptions as of 08/18/2024 - potassium chloride 20 mEq TbER Take 1 tablet by mouth daily with breakfast. - potassium chloride (K-TAB) 10 mEq tablet Take 10 mEq by mouth two times a day. - Lactobacillus acidophilus (PROBIOTIC ACIDOPHILUS ORAL) Take by mouth. - pantoprazole DR (PROTONIX) 20 mg tablet Take 1 tablet by mouth daily before breakfast. Take on empty stomach, 1/2 hr before meal. - hydrOXYchloroQUINE (PLAQUENIL) 200 mg tablet Take 200 mg by mouth once daily. - losartan (COZAAR) 100 mg tablet Take 100 mg by mouth once daily. - metoprolol succinate ER (TOPROL XL) 50 mg 24 hr tablet Take 50 mg by mouth once daily. - amLODIPine (NORVASC) 2.5 mg tablet Take 2.5 mg by mouth once daily. - cholecalciferol, vitamin D3, 10 mcg (400 unit) cap Take 400 Units by mouth once daily. - mometasone-formoterol (DULERA) 100-5 mcg/actuation inhaler Inhale 2 Puffs as instructed twice daily. Dr. Liz - calcium carbonate/vitamin D3 (CALCIUM 600 + D,3, ORAL) Take 2 tablets by mouth once daily. - atorvastatin (LIPITOR) 40 mg tablet Take 1 tablet by mouth once daily. - Hydrochlorothiazide 12.5 mg capsule Take 1 capsule by mouth once daily. - clopidogrel (PLAVIX) 75 mg tablet TAKE 1 TABLET DAILY - nitroglycerin sublingual (NITROQUICK) 0.4 mg SL tablet Dissolve 1 tablet under the tongue as needed. FOR CHEST PAIN. IF NO RELIEF CALL 911 - diclofenac (VOLTAREN) 1 % topical gel Apply 2 g to affected area as needed (each hand). - Fluticasone Furoate 27.5 mcg/actuation nasal spray Use 2 Sprays in each nostril as needed. 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, M94.9] 10/06/2007 Routine general medical examination at [facility]*11/21/2008 04/13/2015 Class: Chronic Routine gynecological examination [Z01.419] 11/21/2008 04/13/2015 Class: Chronic Fam hx-diabetes mellitus 11/21/2008 Foot pain [M79.673] 08/16/2009 10/13/2015 Special screening for malignant neoplasms, colo*03/28/2010 04/13/2015 Benign neoplasm of colon [D12.6] 03/28/2010 Hypercholesterolemia [E78.00] 02/07/2016 Status post insertion of drug-eluting stent int*03/01/2016 05/29/2022 Presence of drug coated stent in left circumfle*03/01/2016 Other forms of systemic lupus erythematosus (HC*03/01/2016 Mild intermittent asthma, uncomplicated [J45.20]05/24/2020 Osteoarth NOS-other site [M19.09] 05/24/2020 Hyperglycemia [R73.9] 05/22/2021 Advance care planning [Z71.89] 05/28/2021 Atherosclerosis of coronary artery [I25.10] 12/02/2022 Diagnosed: 12/02/2022 Atypical chest pain [R07.89] 06/05/2022 12/02/2022 Diagnosed: 12/02/2022 Disorder of carotid artery (HCC) [I77.9] 12/02/2022 Diagnosed: 12/02/2022 History of gastroesophageal reflux (GERD) [Z87.*12/02/2022 Diagnosed: 12/02/2022 Encounter Status:Closed by VIVIENNE BLAKE on 08/18/24 [facility] 07-21-2024 Note HNO ID: [id number] Author: VIVIENNE BLAKE RN Service: ? Author Type: Registered Nurse Type: Progress Notes Filed: 07/21/2024 15:38 Note Text: CDM ENROLLMENT Provider Action / FYI: Patient identified by name and date of . Discussed care with patient. Program Details Chronic Disease Management Status: Enrolled Effective Dates: 07/21/2024 - present Responsible Staff: Vivienne Blake RN Support and Services: Hypertension Assessments CDM Assessment Medications: Do you have any questions about taking your medications or which medications you should be taking?: No Do you need any medication refills at this time, including any of the medication you might take only when needed?: No Social: It can be normal to feel anxious or down during a time like this. Would you like to talk to a mental health professional about how you have been feeling?: No Symptoms: Are you experiencing any new or worsening symptoms that you need to talk about today?: No ADLs Patients can perform the following activities without help: Bathing: Yes Dressing: Yes Eating: Yes Transferring: Yes Toileting: Yes Walking : Yes Instrumental activities of daily living Grocery Shopping: Yes Driving / Use Public Transportation: Yes Using Telephone: Yes Meal Preparation: Yes Housework: Yes Home Repair: Yes Doing laundry: Yes Taking Medications: Yes Handling finances: Yes Fall Risk One or more falls in the last year:: No Any near falls in the last year?: No Advised to use a cane or walker to get around safely:: No Feels unsteady when walking:: No Steadies self on furniture while walking at home:: No Worried about falling:: No Needs to push with hands when rising from a chair:: No Has trouble stepping up onto a curb:: No Often has to neal to the toilet:: No Has lost some feeling in feet:: No Takes medicine that makes him/her feel lightheaded or more tired than usual:: No Takes medicine to sleep or improve mood:: No SDOH Financial Resource Strain How hard is it for you to pay for the very basics like food, housing, medical care, and heating?: Not hard at all Housing Stability In the last 12 months, was there a time when you were not able to pay the mortgage or rent on time?: No At any time in the past 12 months, were you homeless or living in a fpc (including now)?: No Transportation Needs In the past 12 months, has lack of transportation kept you from medical appointments or from getting medications?: No In the past 12 months, has lack of transportation kept you from meetings, work, or from getting things needed for daily living?: No Food Insecurity Within the past 12 months, you worried that your food would run out before you got the money to buy more.: Never true Within the past 12 months, the food you bought just didn't last and you didn't have money to get more.: Never true Utilities In the past 12 months has the electric, gas, oil, or water company threatened to shut off services in your home?: No Tobacco Use Patient reports that she has never smoked. She has never used smokeless tobacco. Interventions The following were addressed during this visit: - Initial enrollment outreach - Intake assessments completed: ADLs, Fall Risk, SDOH - Month 1: Provide General Education: Managing Stress AND Anxiety Vivienne Blake RN July 21, 2024 3:32 PM [facility] 07-21-2024 History of Present illness Narrative CDM ENROLLMENT Provider Action / FYI: Patient identified by name and date of . Discussed care with patient. Program Details Chronic Disease Management Status: Enrolled Effective Dates: 07/21/2024 - present Responsible Staff: Vivienne Blake, RN Support and Services: Hypertension Assessments CDM Assessment Medications: Do you have any questions about taking your medications or which medications you should be taking?: No Do you need any medication refills at this time, including any of the medication you might take only when needed?: No Social: It can be normal to feel anxious or down during a time like this. Would you like to talk to a mental health professional about how you have been feeling?: No Symptoms: Are you experiencing any new or worsening symptoms that you need to talk about today?: No ADLs Patients can perform the following activities without help: Bathing: Yes Dressing: Yes Eating: Yes Transferring: Yes Toileting: Yes Walking : Yes Instrumental activities of daily living Grocery Shopping: Yes Driving / Use Public Transportation: Yes Using Telephone: Yes Meal Preparation: Yes Housework: Yes Home Repair: Yes Doing laundry: Yes Taking Medications: Yes Handling finances: Yes Fall Risk One or more falls in the last year:: No Any near falls in the last year?: No Advised to use a cane or walker to get around safely:: No Feels unsteady when walking:: No Steadies self on furniture while walking at home:: No Worried about falling:: No Needs to push with hands when rising from a chair:: No Has trouble stepping up onto a curb:: No Often has to neal to the toilet:: No Has lost some feeling in feet:: No Takes medicine that makes him/her feel lightheaded or more tired than usual:: No Takes medicine to sleep or improve mood:: No SDOH Financial Resource Strain How hard is it for you to pay for the very basics like food, housing, medical care, and heating?: Not hard at all Housing Stability In the last 12 months, was there a time when you were not able to pay the mortgage or rent on time?: No At any time in the past 12 months, were you homeless or living in a fpc (including now)?: No Transportation Needs In the past 12 months, has lack of transportation kept you from medical appointments or from getting medications?: No In the past 12 months, has lack of transportation kept you from meetings, work, or from getting things needed for daily living?: No Food Insecurity Within the past 12 months, you worried that your food would run out before you got the money to buy more.: Never true Within the past 12 months, the food you bought just didn't last and you didn't have money to get more.: Never true Utilities In the past 12 months has the electric, gas, [employer], or water [employer] threatened to shut off services in your home?: No Tobacco Use Patient reports that she has never smoked. She has never used smokeless tobacco. Interventions The following were addressed during this visit: - Initial enrollment outreach - Intake assessments completed: ADLs, Fall Risk, SDOH - Month 1: Provide General Education: Managing Stress & Anxiety Vivienne Blake RN July 21, 2024 3:32 PM documented in this encounter [facility] 07-21-2024 Note Patient Outreach ([facility] -------- MICHAEL ALCANTARA ([id number]) 1950 F Date Time Provider Department 07/21/24 VIVIENNE BLAKE [facility] During your visit today, we recorded the following information about you: Vivienne Blake RN 07/21/2024 3:38 PM Signed CDM ENROLLMENT Provider Action / FYI: Patient identified by name and date of . Discussed care with patient. Program Details Chronic Disease Management Status: Enrolled Effective Dates: 07/21/2024 - present Responsible Staff: Vivienne Blake, [place] Support and Services: Hypertension Assessments CDM Assessment Medications: Do you have any questions about taking your medications or which medications you should be taking?: No Do you need any medication refills at this time, including any of the medication you might take only when needed?: No Social: It can be normal to feel anxious or down during a time like this. Would you like to talk to a mental health professional about how you have been feeling?: No Symptoms: Are you experiencing any new or worsening symptoms that you need to talk about today?: No ADLs Patients can perform the following activities without help: Bathing: Yes Dressing: Yes Eating: Yes Transferring: Yes Toileting: Yes Walking : Yes Instrumental activities of daily living Grocery Shopping: Yes Driving / Use Public Transportation: Yes Using Telephone: Yes Meal Preparation: Yes Housework: Yes Home Repair: Yes Doing laundry: Yes Taking Medications: Yes Handling finances: Yes Fall Risk One or more falls in the last year:: No Any near falls in the last year?: No Advised to use a cane or walker to get around safely:: No Feels unsteady when walking:: No Steadies self on furniture while walking at home:: No Worried about falling:: No Needs to push with hands when rising from a chair:: No Has trouble stepping up onto a curb:: No Often has to neal to the toilet:: No Has lost some feeling in feet:: No Takes medicine that makes him/her feel lightheaded or more tired than usual:: No Takes medicine to sleep or improve mood:: No SDOH Financial Resource Strain How hard is it for you to pay for the very basics like food, housing, medical care, and heating?: Not hard at all Housing Stability In the last 12 months, was there a time when you were not able to pay the mortgage or rent on time?: No At any time in the past 12 months, were you homeless or living in a fpc (including now)?: No Transportation Needs In the past 12 months, has lack of transportation kept you from medical appointments or from getting medications?: No In the past 12 months, has lack of transportation kept you from meetings, work, or from getting things needed for daily living?: No Food Insecurity Within the past 12 months, you worried that your food would run out before you got the money to buy more.: Never true Within the past 12 months, the food you bought just didn't last and you didn't have money to get more.: Never true Utilities In the past 12 months has the [employer], gas, oil, or water [employer] threatened to shut off services in your home?: No Tobacco Use Patient reports that she has never smoked. She has never used smokeless tobacco. Interventions The following were addressed during this visit: - Initial enrollment outreach - Intake assessments completed: ADLs, Fall Risk, SDOH - Month 1: Provide General Education: Managing Stress AND Anxiety Vivienne Blake RN July 21, 2024 3:32 PM Allergies As of Date: 07/21/2024 Noted Allergy Reaction AMOXICILLIN 07/10/2018 6 - Diarrhea 8 - GI Upset SEASONAL ALLERGIES 12/31/2023 14 - Other: See Comments Comments: Stuffy nose, sneezing, cough Date Reviewed: 06/09/2024 Reviewed by: Lou Bates MA - Fully Assessed Prescriptions as of 07/21/2024 - potassium chloride 20 mEq TbER Take 1 tablet by mouth daily with breakfast. - potassium chloride (K-TAB) 10 mEq tablet Take 10 mEq by mouth two times a day. - Lactobacillus acidophilus (PROBIOTIC ACIDOPHILUS ORAL) Take by mouth. - pantoprazole DR (PROTONIX) 20 mg tablet Take 1 tablet by mouth daily before breakfast. Take on empty stomach, 1/2 hr before meal. - hydrOXYchloroQUINE (PLAQUENIL) 200 mg tablet Take 200 mg by mouth once daily. - losartan (COZAAR) 100 mg tablet Take 100 mg by mouth once daily. - metoprolol succinate ER (TOPROL XL) 50 mg 24 hr tablet Take 50 mg by mouth once daily. - amLODIPine (NORVASC) 2.5 mg tablet Take 2.5 mg by mouth once daily. - cholecalciferol, vitamin D3, 10 mcg (400 unit) cap Take 400 Units by mouth once daily. - mometasone-formoterol (DULERA) 100-5 mcg/actuation inhaler Inhale 2 Puffs as instructed twice daily. Dr. Liz - calcium carbonate/vitamin D3 (CALCIUM 600 + D,3, ORAL) Take 2 tablets by mouth once daily. - atorvastatin (LIPITOR) 40 mg ta (more content not included)... [facility] 06-25-2024 Note Michael is a 74 y.o. female who presents to our office today for evaluation. She was last seen on 05/07/24 and before this on 04/25/23 and before this she used to be seen at my old office (I had not seen her for 10 years prior to the 04/25/23 visit) and she did do allergy injections for a period of time and in the past she did nasal sprays and Guaifenesin and right now, she is Dulera 100mcg and she has a history of Lupus/Rheumatoid arthritis and HTN and high cholesterol and has medications listed as Amlodipine, Atorvastatin, Clopidogrel, Hydrochlorothiazide, Hydroxychloroquine, Losartan, Metoprolol, Pantoprazole, Calcium/Vitamin D, KCL, Probiotic and Reclast once a year. She says at [facility] she used to use Dulera at 1 puff a day and she was out of this for the month prior to her 04/25/23 visit and albuterol was prescribed and not used and maybe she would have a little shortness of breath with exercise. She has Astelin/Azelastine as needed and Nasacort as needed and Pataday as needed and GenTeal and Soothe and Optive. -She may have previously attempted Symbicort 80/4.5mcg and Advair 115/21 and Breo and Wixela but said she did not use them much. At times she does prednisone as needed for her arthritis and Lupus and she was last allergy tested by me 07/11/10 and was essentially negative and she brought her old skin test sheets with her, I initially saw her 06/22/01 and then she had some select testing on 10/06/14 and had some mildly + results to alternaria, boxelder/maple and [place] bluegrass and mugwort and ragweed. -Regarding foods, she has a lactose intolerance but no other issues, she tolerates Dairy with Lactaid. -She presented 04/25/23 to transfer her care to our facility and she does OTC Loratadine as needed. Spirometry 04/25/23 showed some mild small airway obstruction and mild large airway obstruction and I recommended using Dulera every day and continuing with albuterol as needed and Loratadine, Nasacort, Azelastine and Guaifenesin. At the end of March 2024, she had cough and she went to an Urgent Care and was treated with Prednisone and Tessalon and the cough was improved but she then continued with sinus issues. She has a previous history of tolerating a Zpack and I had her attempt this 05/07/24. Dulera has been used at 2 puffs twice a day since the last visit with good results. Azelastine has been helpful and tolerated. Now she presents on 06/25/24 with a history of possible sinus issues and she was seen by her PCP on 06/09/24 and she says she did not have any issues at that time. Right now, she thinks for about a 7-10 days, she started with similar sinus symptoms and had increased sinus type symptoms and cough for the last 7-10 days and right now, she says her is not ill. She says on 06/21/24, her KCL medication dose was increased and her K+ level was checked on 06/21/24 and was normal. She is taking a [facility] Acetaminophen/Phenylephrine type medication that helps some with her current symptoms. -She denies any other chest or other symptoms such as fever, rash, emesis, etc at this time. Environmental Survey/Social History: Lives with spouse Special Needs: None Preferred Language: Chilean Pets: No School/Daycare: No, she is retired Smoking/Alcohol/Drug Use or Exposure: No Recreational Activities/Sports: No Review of Systems/Past Medical History: Constitutional: denies fever, chills, weight loss. Eyes: denies vision changes, color blindness. Ears, nose throat and mouth: see narrative above. Nasal symptoms at times. She is having some runny nose and postnasal drainage in the back of her throat. Respiratory: denies wheezing or chest tightness/ see above narrative. Gastrointestinal: denies diarrhea, constipation, emesis. Genitourinary: denies dysuria or urine odor. Skin/integumentary: denies nail changes or other rash. Neurologic: denies seizures, weakness or speech problems. Hematologic/lymphatic: denies pallor. Allergic/Immunologic: see narrative above. No overt food issues. *Regarding bee stings, no issues (she has been stung). No past medical history on file. Hypertension and High Cholesterol and she now sees Dr. Jaimes at [facility]. No past surgical history on file. She has a cardiac stent done at [facility] 10 years ago Current Outpatient Medications Medication Sig Dispense Refill albuterol 108 (90 Base) MCG/ACT inhaler Inhale 2 Puffs into the lungs every 4 hours as needed for Wheezing, Shortness of Breath or Cough 54 g 3 mometasone-formoterol (DULERA) 100-5 MCG/ACT AERO inhaler Inhale 2 Puffs into the lungs 2 times daily 3 Each 3 amLODIPine (NORVASC) 2.5 MG tablet Take 1 Tablet (2.5 mg) by mouth daily Atorvastatin Calcium (LIPITOR) 40 MG TABS tablet Take 1 Tablet (40 mg) by mouth daily clopidogrel (PLAVIX) 75 MG tablet Take 1 Tablet (75 mg) by mouth daily hydroxychloroquine (PLAQUENIL) 100 MG TABS Take 2 T (more content not included)... [facility] 06-09-2024 Note HNO ID: [id number] Author: XAVI JAIMES MD Service: ? Author Type: Physician Type: Progress Notes Filed: 06/09/2024 13:01 Note Text: Patient presents with: 6 Month Exam HPI: Patient presents today for office visit for routine 6 month follow up. Follows with Cardiology yearly. Has nitro prn on hand. Has never had to use. Denies chest pain and shortness of breath. Continues Plavix. No bleeding or bruising issues. HTN: Monitors BP occ. Had episode where her BP was elevated and she went to the ER. Workup was negative. Denies headaches and dizziness. Denies palpitations and syncope. No edema. HLD: No myalgias Follows with Customer Support [employer]. Continues inhalers. Going on a cruise upcoming and needs meds for dizziness. Latest Ref Rng 06/03/2024 WBC 3.70 - 11.00 k/uL 4.29 RBC 3.90 - 5.20 m/uL 4.29 Hemoglobin 11.5 - 15.5 g/dL 12.8 Hematocrit 36.0 - 46.0 % 36.9 MCV 80.0 - 100.0 fL 86.0 MCH 26.0 - 34.0 pg 29.8 MCHC 30.5 - 36.0 g/dL 34.7 RDW-CV 11.5 - 15.0 % 12.9 Platelet Count 150 - 400 k/uL 165 MPV 9.0 - 12.7 fL 10.4 Neut% % 59.8 Abs Neut (ANC) 1.45 - 7.50 k/uL 2.56 Lymph% % 24.9 Abs Lymph 1.00 - 4.00 k/uL 1.07 Fisher% % 11.4 Abs Fisher <0.87 k/uL 0.49 Eosin% % 2.1 Abs Eosin <0.46 k/uL 0.09 Baso% % 1.6 Abs Baso <0.11 k/uL 0.07 Immature Gran % % 0.2 IMMATURE GRANS (ABS) <0.10 k/uL <0.03 NRBC /100 WBC 0.0 Absolute nRBC <0.01 k/uL <0.01 DTYPE Auto Protein, Total 6.3 - 8.0 g/dL 6.7 Albumin 3.9 - 4.9 g/dL 4.2 Calcium 8.5 - 10.2 mg/dL 9.7 Bilirubin, Total 0.2 - 1.3 mg/dL 0.5 Alkaline Phosphatase 34 - 123 U/L 62 AST 13 - 35 U/L 30 ALT 7 - 38 U/L 11 Glucose 74 - 99 mg/dL 113 (H) BUN 7 - 21 mg/dL 15 Creatinine 0.58 - 0.96 mg/dL 0.94 Sodium 136 - 144 mmol/L 138 Potassium 3.7 - 5.1 mmol/L 3.6 (L) Chloride 98 - 107 mmol/L 101 CO2 22 - 30 mmol/L 29 Anion Gap 8 - 15 mmol/L 8 eGFR >=60 mL/min/1.73m? 65 Cholesterol, Total <200 mg/dL 156 Triglyceride <150 mg/dL 52 HDL Cholesterol >39 mg/dL 69 Non HDL Cholesterol <130 mg/dL 87 Fasting Time hrs 13 VLDL Cholesterol <30 mg/dL 10 TC:HDL Ratio <5.10 2.26 LDL Cholesterol <100 mg/dL 77 LDL:HDL Ratio <2.54 1.12 Hemoglobin A1C 4.3 - 5.6 % 5.7 (H) Estimated Average Glucose mg/dL 117 MEDICATIONS: Current Outpatient Medications Medication Sig potassium chloride (K-TAB) 10 mEq tablet Take 1 tablet by mouth daily with breakfast. potassium chloride (K-TAB) 10 mEq tablet Take 10 mEq by mouth two times a day. Lactobacillus acidophilus (PROBIOTIC ACIDOPHILUS ORAL) Take by mouth. pantoprazole DR (PROTONIX) 20 mg tablet Take 1 tablet by mouth daily before breakfast. Take on empty stomach, 1/2 hr before meal. hydrOXYchloroQUINE (PLAQUENIL) 200 mg tablet Take 200 mg by mouth once daily. losartan (COZAAR) 100 mg tablet Take 100 mg by mouth once daily. metoprolol succinate ER (TOPROL XL) 50 mg 24 hr tablet Take 50 mg by mouth once daily. amLODIPine (NORVASC) 2.5 mg tablet Take 2.5 mg by mouth once daily. cholecalciferol, vitamin D3, 10 mcg (400 unit) cap Take 400 Units by mouth once daily. mometasone-formoterol (DULERA) 100-5 mcg/actuation inhaler Inhale 2 Puffs as instructed twice daily. Dr. Liz calcium carbonate/vitamin D3 (CALCIUM 600 + D,3, ORAL) Take 2 tablets by mouth once daily. atorvastatin (LIPITOR) 40 mg tablet Take 1 tablet by mouth once daily. Hydrochlorothiazide 12.5 mg capsule Take 1 capsule by mouth once daily. clopidogrel (PLAVIX) 75 mg tablet TAKE 1 TABLET DAILY nitroglycerin sublingual (NITROQUICK) 0.4 mg SL tablet Dissolve 1 tablet under the tongue as needed. FOR CHEST PAIN. IF NO RELIEF CALL 911 diclofenac (VOLTAREN) 1 % topical gel Apply 2 g to affected area as needed (each hand). Fluticasone Furoate 27.5 mcg/actuation nasal spray Use 2 Sprays in each nostril as needed. No current facility-administered medications for this visit. ALLERGIES: ALLERGIES Allergen Reactions Amoxicillin Diarrhea, GI Upset Seasonal Allergies Other: See Comments Stuffy nose, sneezing, cough PAST MEDICAL HISTORY Diagnosis Date allergies seasonal/environmental Colon polyps 2010 tubular adenomas GERD (gastroesophageal reflux disease) Hypertension Lupus 2009 KATARZYNA+ Osteopenia 2007 PAST SURGICAL HISTORY Procedure Laterality Date COLONOSCOPY FLX DX W/COLLJ SPEC WHEN PFRMD 03/28/2010 tubular adenoma x 2, repeat in 3-4 years COLONOSCOPY FLX DX W/COLLJ SPEC WHEN PFRMD 10/25/13 internal hemorrhoids FAMILY HISTORY Problem Relation Age of Onset Breast Cancer Mother at age 65, had twice Diabetes Father Diabetes Maternal Grandmother Hypertension Father Coronary Artery Disease Paternal Grandfather [place] other (celiac disease [Other]) Sister Coronary Artery Disease Mother [place] Social History Tobacco Use Smoking status: Never Smokeless tobacco: Never Substance Use Topics Alcohol use: No Drug use: No Reviewed current medications, allerg (more content not included)... [facility] 06-09-2024 History of Present illness Narrative Patient presents with: 6 Month Exam HPI: Patient presents today for office visit for routine 6 month follow up. Follows with Cardiology yearly. Has nitro prn on hand. Has never had to use. Denies chest pain and shortness of breath. Continues Plavix. No bleeding or bruising issues. HTN: Monitors BP occ. Had episode where her BP was elevated and she went to the ER. Workup was negative. Denies headaches and dizziness. Denies palpitations and syncope. No edema. HLD: No myalgias Follows with [employer]. Continues inhalers. Going on a cruise upcoming and needs meds for dizziness. Latest Ref Rng 06/03/2024 WBC 3.70 - 11.00 k/uL 4.29 RBC 3.90 - 5.20 m/uL 4.29 Hemoglobin 11.5 - 15.5 g/dL 12.8 Hematocrit 36.0 - 46.0 % 36.9 MCV 80.0 - 100.0 fL 86.0 MCH 26.0 - 34.0 pg 29.8 MCHC 30.5 - 36.0 g/dL 34.7 RDW-CV 11.5 - 15.0 % 12.9 Platelet Count 150 - 400 k/uL 165 MPV 9.0 - 12.7 fL 10.4 Neut% % 59.8 Abs Neut (ANC) 1.45 - 7.50 k/uL 2.56 Lymph% % 24.9 Abs Lymph 1.00 - 4.00 k/uL 1.07 Fisher% % 11.4 Abs Fisher <0.87 k/uL 0.49 Eosin% % 2.1 Abs Eosin <0.46 k/uL 0.09 Baso% % 1.6 Abs Baso <0.11 k/uL 0.07 Immature Gran % % 0.2 IMMATURE GRANS (ABS) <0.10 k/uL <0.03 NRBC /100 WBC 0.0 Absolute nRBC <0.01 k/uL <0.01 DTYPE Auto Protein, Total 6.3 - 8.0 g/dL 6.7 Albumin 3.9 - 4.9 g/dL 4.2 Calcium 8.5 - 10.2 mg/dL 9.7 Bilirubin, Total 0.2 - 1.3 mg/dL 0.5 Alkaline Phosphatase 34 - 123 U/L 62 AST 13 - 35 U/L 30 ALT 7 - 38 U/L 11 Glucose 74 - 99 mg/dL 113 (H) BUN 7 - 21 mg/dL 15 Creatinine 0.58 - 0.96 mg/dL 0.94 Sodium 136 - 144 mmol/L 138 Potassium 3.7 - 5.1 mmol/L 3.6 (L) Chloride 98 - 107 mmol/L 101 CO2 22 - 30 mmol/L 29 Anion Gap 8 - 15 mmol/L 8 eGFR >=60 mL/min/1.73m 65 Cholesterol, Total <200 mg/dL 156 Triglyceride <150 mg/dL 52 HDL Cholesterol >39 mg/dL 69 Non HDL Cholesterol <130 mg/dL 87 Fasting Time hrs 13 VLDL Cholesterol <30 mg/dL 10 TC:HDL Ratio <5.10 2.26 LDL Cholesterol <100 mg/dL 77 LDL:HDL Ratio <2.54 1.12 Hemoglobin A1C 4.3 - 5.6 % 5.7 (H) Estimated Average Glucose mg/dL 117 MEDICATIONS: Current Outpatient Medications Medication Sig potassium chloride (K-TAB) 10 mEq tablet Take 1 tablet by mouth daily with breakfast. potassium chloride (K-TAB) 10 mEq tablet Take 10 mEq by mouth two times a day. Lactobacillus acidophilus (PROBIOTIC ACIDOPHILUS ORAL) Take by mouth. pantoprazole DR (PROTONIX) 20 mg tablet Take 1 tablet by mouth daily before breakfast. Take on empty stomach, 1/2 hr before meal. hydrOXYchloroQUINE (PLAQUENIL) 200 mg tablet Take 200 mg by mouth once daily. losartan (COZAAR) 100 mg tablet Take 100 mg by mouth once daily. metoprolol succinate ER (TOPROL XL) 50 mg 24 hr tablet Take 50 mg by mouth once daily. amLODIPine (NORVASC) 2.5 mg tablet Take 2.5 mg by mouth once daily. cholecalciferol, vitamin D3, 10 mcg (400 unit) cap Take 400 Units by mouth once daily. mometasone-formoterol (DULERA) 100-5 mcg/actuation inhaler Inhale 2 Puffs as instructed twice daily. Dr. Liz calcium carbonate/vitamin D3 (CALCIUM 600 + D,3, ORAL) Take 2 tablets by mouth once daily. atorvastatin (LIPITOR) 40 mg tablet Take 1 tablet by mouth once daily. Hydrochlorothiazide 12.5 mg capsule Take 1 capsule by mouth once daily. clopidogrel (PLAVIX) 75 mg tablet TAKE 1 TABLET DAILY nitroglycerin sublingual (NITROQUICK) 0.4 mg SL tablet Dissolve 1 tablet under the tongue as needed. FOR CHEST PAIN. IF NO RELIEF CALL 911 diclofenac (VOLTAREN) 1 % topical gel Apply 2 g to affected area as needed (each hand). Fluticasone Furoate 27.5 mcg/actuation nasal spray Use 2 Sprays in each nostril as needed. No current facility-administered medications for this visit. ALLERGIES: ALLERGIES Allergen Reactions Amoxicillin Diarrhea, GI Upset Seasonal Allergies Other: See Comments Stuffy nose, sneezing, cough PAST MEDICAL HISTORY Diagnosis Date allergies seasonal/environmental Colon polyps 2010 tubular adenomas GERD (gastroesophageal reflux disease) Hypertension Lupus 2009 KATARZYNA+ Osteopenia 2007 PAST SURGICAL HISTORY Procedure Laterality Date COLONOSCOPY FLX DX W/COLLJ SPEC WHEN PFRMD 03/28/2010 tubular adenoma x 2, repeat in 3-4 years COLONOSCOPY FLX DX W/COLLJ SPEC WHEN PFRMD 10/25/13 internal hemorrhoids FAMILY HISTORY Problem Relation Age of Onset Breast Cancer Mother at age 65, had twice Diabetes Father Diabetes Maternal Grandmother Hypertension Father Coronary Artery Disease Paternal Grandfather [place] other (celiac disease [Other]) Sister Coronary Artery Disease Mother [place] Social History Tobacco Use Smoking status: Never Smokeless tobacco: Never Substance Use Topics Alcohol use: No Drug use: No Reviewed current medications, allergies, past medical history, surgical history, family history and social history today. REVIEW OF SYSTEMS Has a duplex done next week of her carotid . All other reviewed and negative other than HPI. HEALTH MAINTENANCE: Reviewed health maintenance issues today and recommended the following in detail. 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 Advance Directive Discussion due on 03/10/2024 Covid-19 Vaccine( season) due on 06/09/2024 VITALS: BP 106/66 Pulse 75 Ht 149.9 cm (4' 11) Wt 57.2 kg (126 lb) LMP 07/15/2007 BMI 25.45 kg/m Last 4 Encounter Wt Readings: Date: Wt: 04/24/2024 58.2 kg (128 lb 4.9 oz) 02/11/2024 59.1 kg (130 lb 4.7 oz) 12/31/2023 59.1 kg (130 lb 6.4 oz) 12/10/2023 58.4 kg (128 lb 12 oz) PHYSICAL EXAMINATION: General appearance: Well appearing, alert, in no acute distress, well-hydrated, well nourished. Skin: Skin color, texture, turgor normal, no suspicious rashes or lesion Lungs: Lungs clear to auscultation. No wheezing, rhonchi, rales Heart: RRR without murmur, gallop, or rubs. No ectopy Abdomen: Normal abdominal exam, Abdomen soft, non-tender. Bowel sounds normal. No masses, organomegaly Extremities: No deformities, edema, skin discoloration, clubbing or cyanosis. Good capillary refill. ASSESSMENT/PLAN: 1. Primary hypertension - ICD9: 401.9, ICD10: I10 (primary diagnosis) - Controlled - Continue current medications 2. Hypercholesterolemia - ICD9: 272.0, ICD10: E78.00 - follow progress. 3. Atherosclerosis of coronary artery of [place] heart without angina pectoris, unspecified vessel or lesion type - ICD9: 414.01, ICD10: I25.10 - follow progress. 4. Benign neoplasm of colon, unspecified part of colon - ICD9: 211.3, ICD10: D12.6 - stable. 5. History of gastroesophageal reflux (GERD) - ICD9: V12.79, ICD10: Z87.19 - stable. 6. Hyperglycemia - ICD9: 790.29, ICD10: R73.9 - doing well. 7. Other forms of systemic lupus erythematosus, unspecified organ involvement status (HCC) - ICD9: 710.0, ICD10: M32.8 - current doing well. Has seen rheum. 8. Disorder of carotid artery - ICD9: 447.9, ICD10: I77.9 - per vascular. 9. Motion sickness, subsequent encounter - ICD9: V58.89, 994.6, ICD10: T75.3XXD\F2- - SCOPOLAMINE 1 MG OVER 3 DAYS TRANSDERMAL PATCH Discussed risks and benefits of new medication with the patient. Advised them to call if any side effects or questions. 10. Hypokalemia - ICD9: 276.8, ICD10: E87.6 - POTASSIUM CHLORIDE ER 20 MEQ TABLET,EXTENDED RELEASE - POTASSIUM - increase dose and recheck labs in one to two weeks Xavi Jaimes MD documented in this encounter [facility] 05-26-2024 Note HNO ID: [id number] Author: OLIVA BERNARD MA Service: ? Author Type: Sales And Training Specialist Type: Progress Notes Filed: 05/26/2024 11:11 Note Text: POPULATION HEALTH NAVIGATION OUTREACH Action/May 26, 2024 11:06 AM Attempt Three - [employer] High Risk [place] PCSA ~NITIN with Xavi Jaimes MD was December 10, 2023 Follow up Patient is scheduled on June 09, 2024 for six month follow up Health Maintenance Due: BP Controlled (<130/80) Never done Mammogram Screening due on 10/24/2022 Advance Directive Discussion due on 03/10/2024 Outcome: Left third message on voicemail for patient to return call. My chart message reviewed by patient in April Reason for Outreach Care Gap/HCC or Scheduling Wellness Visits Care Gaps due: Medicare Annual Wellness Visit Breast Cancer Screening Controlling Blood Pressure Patient Contacted: Unable or unnecessary to reach patient: Left message Navigation Signature: Oliva Bernard MA May 26, 2024 11:06 AM [facility] 05-26-2024 History of Present illness Narrative POPULATION HEALTH NAVIGATION OUTREACH Action/May 26, 2024 11:06 AM Attempt Three - [employer] High Risk [place] PERRYA ~NITIN with Xavi Jaimes MD was December 10, 2023 Follow up Patient is scheduled on June 09, 2024 for six month follow up Health Maintenance Due: BP Controlled (<130/80) Never done Mammogram Screening due on 10/24/2022 Advance Directive Discussion due on 03/10/2024 Outcome: Left third message on voicemail for patient to return call. My chart message reviewed by patient in April Reason for Outreach Care Gap/HCC or Scheduling Wellness Visits Care Gaps due: Medicare Annual Wellness Visit Breast Cancer Screening Controlling Blood Pressure Patient Contacted: Unable or unnecessary to reach patient: Left message Navigation Signature: Oliva Bernard MA May 26, 2024 11:06 AM documented in this encounter [facility] 05-26-2024 Note Patient Outreach (IVIS ACOSTA) -------- MICHAEL ALCANTARA Avinash ([id number]) 1950 F Date Time Provider Department 05/26/24 OLIVA BERNARD During your visit today, we recorded the following information about you: Oliva Bernard MA 05/26/2024 11:11 AM Signed POPULATION HEALTH NAVIGATION OUTREACH Action/FYI May 26, 2024 11:06 AM Attempt Three - [employer] High Risk [place] PCSA ~NITIN with Xavi Jaimes MD was December 10, 2023 Follow up Patient is scheduled on June 09, 2024 for six month follow up Health Maintenance Due: BP Controlled (<130/80) Never done Mammogram Screening due on 10/24/2022 Advance Directive Discussion due on 03/10/2024 Outcome: Left third message on voicemail for patient to return call. My chart message reviewed by patient in April Reason for Outreach Care Gap/HCC or Scheduling Wellness Visits Care Gaps due: Medicare Annual Wellness Visit Breast Cancer Screening Controlling Blood Pressure Patient Contacted: Unable or unnecessary to reach patient: Left message Navigation Signature: Oliva Bernard MA May 26, 2024 11:06 AM Allergies As of Date: 05/26/2024 Noted Allergy Reaction AMOXICILLIN 07/10/2018 6 - Diarrhea 8 - GI Upset SEASONAL ALLERGIES 12/31/2023 14 - Other: See Comments Comments: Stuffy nose, sneezing, cough Date Reviewed: 04/24/2024 Reviewed by: Angy Lazaro LPN - Fully Assessed Reason for Visit: Population Health Navigation Outreach [3910] Cmt: [employer] High Risk Attempt Three [place] PCSA Prescriptions as of 05/26/2024 - potassium chloride (K-TAB) 10 mEq tablet Take 1 tablet by mouth daily with breakfast. - potassium chloride (K-TAB) 10 mEq tablet Take 10 mEq by mouth two times a day. - Lactobacillus acidophilus (PROBIOTIC ACIDOPHILUS ORAL) Take by mouth. - pantoprazole DR (PROTONIX) 20 mg tablet Take 1 tablet by mouth daily before breakfast. Take on empty stomach, 1/2 hr before meal. - hydrOXYchloroQUINE (PLAQUENIL) 200 mg tablet Take 200 mg by mouth once daily. - losartan (COZAAR) 100 mg tablet Take 100 mg by mouth once daily. - metoprolol succinate ER (TOPROL XL) 50 mg 24 hr tablet Take 50 mg by mouth once daily. - amLODIPine (NORVASC) 2.5 mg tablet Take 2.5 mg by mouth once daily. - cholecalciferol, vitamin D3, 10 mcg (400 unit) cap Take 400 Units by mouth once daily. - mometasone-formoterol (DULERA) 100-5 mcg/actuation inhaler Inhale 2 Puffs as instructed twice daily. Dr. Liz - calcium carbonate/vitamin D3 (CALCIUM 600 + D,3, ORAL) Take 2 tablets by mouth once daily. - atorvastatin (LIPITOR) 40 mg tablet Take 1 tablet by mouth once daily. - Hydrochlorothiazide 12.5 mg capsule Take 1 capsule by mouth once daily. - clopidogrel (PLAVIX) 75 mg tablet TAKE 1 TABLET DAILY - nitroglycerin sublingual (NITROQUICK) 0.4 mg SL tablet Dissolve 1 tablet under the tongue as needed. FOR CHEST PAIN. IF NO RELIEF CALL 911 - diclofenac (VOLTAREN) 1 % topical gel Apply 2 g to affected area as needed (each hand). - Fluticasone Furoate 27.5 mcg/actuation nasal spray Use 2 Sprays in each nostril as needed. Problem List As Of Date 05/26/2024 Noted Resolved Allergic rhinitis, cause unspecified [J30.9] 08/13/2007 Esophageal reflux [K21.9] 08/13/2007 12/02/2022 Primary hypertension [I10] 08/13/2007 Disorder of bone and cartilage [M89.9, M94.9] 10/06/2007 Routine general medical examination at [facility]*11/21/2008 04/13/2015 Class: Chronic Routine gynecological examination [Z01.419] 11/21/2008 04/13/2015 Class: Chronic Fam hx-diabetes mellitus 11/21/2008 Foot pain [M79.673] 08/16/2009 10/13/2015 Special screening for malignant neoplasms, colo*03/28/2010 04/13/2015 Benign neoplasm of colon [D12.6] 03/28/2010 Hypercholesterolemia [E78.00] 02/07/2016 Status post insertion of drug-eluting stent int*03/01/2016 05/29/2022 Presence of drug coated stent in left circumfle*03/01/2016 Other forms of systemic lupus erythematosus (HC*03/01/2016 Mild intermittent asthma, uncomplicated [J45.20]05/24/2020 Osteoarth NOS-other site [M19.09] 05/24/2020 Hyperglycemia [R73.9] 05/22/2021 Advance care planning [Z71.89] 05/28/2021 Atherosclerosis of coronary artery [I25.10] 12/02/2022 Diagnosed: 12/02/2022 Atypical chest pain [R07.89] 06/05/2022 12/02/2022 Diagnosed: 12/02/2022 Disorder of carotid artery (HCC) [I77.9] 12/02/2022 Diagnosed: 12/02/2022 History of gastroesophageal reflux (GERD) [Z87.*12/02/2022 Diagnosed: 12/02/2022 Encounter Status:Closed by OLIVA BERNARD on 05/26/24 [facility] 05-17-2024 Note HNO ID: [id number] Author: OLIVA BERNARD MA Service: ? Author Type: Sales And Training Specialist Type: Progress Notes Filed: 05/17/2024 09:32 Note Text: POPULATION HEALTH NAVIGATION OUTREACH Action/May 17, 2024 9:27 AM Attempt Two [employer] High Risk [place] PCSA ~NITIN with Xavi Jaimes MD was December 10, 2023 Follow up Patient is scheduled on June 09, 2024 for six month follow up Health Maintenance Due: BP Controlled (<130/80) Never done Mammogram Screening due on 10/24/2022 Advance Directive Discussion due on 03/10/2024 Outcome: Left second message for patient to return call. My chart message sent in April was reviewed by patient. Reason for Outreach Care Gap/HCC or Scheduling Wellness Visits Care Gaps due: Medicare Annual Wellness Visit Breast Cancer Screening Controlling Blood Pressure Patient Contacted: Unable or unnecessary to reach patient: Left message Navigation Signature: Oliva Bernard MA May 17, 2024 9:27 AM [facility] 05-17-2024 History of Present illness Narrative POPULATION HEALTH NAVIGATION OUTREACH Action/May 17, 2024 9:27 AM Attempt Two [employer] High Risk [place] PCSA ~NITIN with Xavi Jaimes MD was December 10, 2023 Follow up Patient is scheduled on June 09, 2024 for six month follow up Health Maintenance Due: BP Controlled (<130/80) Never done Mammogram Screening due on 10/24/2022 Advance Directive Discussion due on 03/10/2024 Outcome: Left second message for patient to return call. My chart message sent in April was reviewed by patient. Reason for Outreach Care Gap/HCC or Scheduling Wellness Visits Care Gaps due: Medicare Annual Wellness Visit Breast Cancer Screening Controlling Blood Pressure Patient Contacted: Unable or unnecessary to reach patient: Left message Navigation Signature: Oliva Bernard MA May 17, 2024 9:27 AM documented in this encounter [facility] 05-17-2024 Note Patient Outreach (IVIS ACOSTA) -------- MICHAEL ALCANTARA ([id number]) 1950 F Date Time Provider Department 05/17/24 OLIVA BERNARD During your visit today, we recorded the following information about you: Oliva Bernard MA 05/17/2024 9:32 AM Signed POPULATION HEALTH NAVIGATION OUTREACH Action/FYI May 17, 2024 9:27 AM Attempt Two [employer] High Risk [place] THAYER ~NITIN with Xavi Jaimes MD was December 10, 2023 Follow up Patient is scheduled on June 09, 2024 for six month follow up Health Maintenance Due: BP Controlled (<130/80) Never done Mammogram Screening due on 10/24/2022 Advance Directive Discussion due on 03/10/2024 Outcome: Left second message for patient to return call. My chart message sent in April was reviewed by patient. Reason for Outreach Care Gap/HCC or Scheduling Wellness Visits Care Gaps due: Medicare Annual Wellness Visit Breast Cancer Screening Controlling Blood Pressure Patient Contacted: Unable or unnecessary to reach patient: Left message Navigation Signature: Oliva Bernard MA May 17, 2024 9:27 AM Allergies As of Date: 05/17/2024 Noted Allergy Reaction AMOXICILLIN 07/10/2018 6 - Diarrhea 8 - GI Upset SEASONAL ALLERGIES 12/31/2023 14 - Other: See Comments Comments: Stuffy nose, sneezing, cough Date Reviewed: 04/24/2024 Reviewed by: Angy Lazaro LPN - Fully Assessed Reason for Visit: Population Health Navigation Outreach [3910] Cmt: Aetna High Risk Attempt Two [place] PCSA Prescriptions as of 05/17/2024 - potassium chloride (K-TAB) 10 mEq tablet Take 1 tablet by mouth daily with breakfast. - potassium chloride (K-TAB) 10 mEq tablet Take 10 mEq by mouth two times a day. - Lactobacillus acidophilus (PROBIOTIC ACIDOPHILUS ORAL) Take by mouth. - pantoprazole DR (PROTONIX) 20 mg tablet Take 1 tablet by mouth daily before breakfast. Take on empty stomach, 1/2 hr before meal. - hydrOXYchloroQUINE (PLAQUENIL) 200 mg tablet Take 200 mg by mouth once daily. - losartan (COZAAR) 100 mg tablet Take 100 mg by mouth once daily. - metoprolol succinate ER (TOPROL XL) 50 mg 24 hr tablet Take 50 mg by mouth once daily. - amLODIPine (NORVASC) 2.5 mg tablet Take 2.5 mg by mouth once daily. - cholecalciferol, vitamin D3, 10 mcg (400 unit) cap Take 400 Units by mouth once daily. - mometasone-formoterol (DULERA) 100-5 mcg/actuation inhaler Inhale 2 Puffs as instructed twice daily. Dr. Liz - calcium carbonate/vitamin D3 (CALCIUM 600 + D,3, ORAL) Take 2 tablets by mouth once daily. - atorvastatin (LIPITOR) 40 mg tablet Take 1 tablet by mouth once daily. - Hydrochlorothiazide 12.5 mg capsule Take 1 capsule by mouth once daily. - clopidogrel (PLAVIX) 75 mg tablet TAKE 1 TABLET DAILY - nitroglycerin sublingual (NITROQUICK) 0.4 mg SL tablet Dissolve 1 tablet under the tongue as needed. FOR CHEST PAIN. IF NO RELIEF CALL 911 - diclofenac (VOLTAREN) 1 % topical gel Apply 2 g to affected area as needed (each hand). - Fluticasone Furoate 27.5 mcg/actuation nasal spray Use 2 Sprays in each nostril as needed. Problem List As Of Date 05/17/2024 Noted Resolved Allergic rhinitis, cause unspecified [J30.9] 08/13/2007 Esophageal reflux [K21.9] 08/13/2007 12/02/2022 Primary hypertension [I10] 08/13/2007 Disorder of bone and cartilage [M89.9, M94.9] 10/06/2007 Routine general medical examination at [facility]*11/21/2008 04/13/2015 Class: Chronic Routine gynecological examination [Z01.419] 11/21/2008 04/13/2015 Class: Chronic Fam hx-diabetes mellitus 11/21/2008 Foot pain [M79.673] 08/16/2009 10/13/2015 Special screening for malignant neoplasms, colo*03/28/2010 04/13/2015 Benign neoplasm of colon [D12.6] 03/28/2010 Hypercholesterolemia [E78.00] 02/07/2016 Status post insertion of drug-eluting stent int*03/01/2016 05/29/2022 Presence of drug coated stent in left circumfle*03/01/2016 Other forms of systemic lupus erythematosus (HC*03/01/2016 Mild intermittent asthma, uncomplicated [J45.20]05/24/2020 Osteoarth NOS-other site [M19.09] 05/24/2020 Hyperglycemia [R73.9] 05/22/2021 Advance care planning [Z71.89] 05/28/2021 Atherosclerosis of coronary artery [I25.10] 12/02/2022 Diagnosed: 12/02/2022 Atypical chest pain [R07.89] 06/05/2022 12/02/2022 Diagnosed: 12/02/2022 Disorder of carotid artery (HCC) [I77.9] 12/02/2022 Diagnosed: 12/02/2022 History of gastroesophageal reflux (GERD) [Z87.*12/02/2022 Diagnosed: 12/02/2022 Encounter Status:Closed by OLIVA BERNARD on 05/17/24 [facility] 05-07-2024 Note Michael is a 74 y.o. female who presents to our office today for evaluation. She was last seen on 04/25/23 and before this she used to be seen at my old office (I had not seen her for 10 years) and she did do allergy injections for a period of time and in the past she did nasal sprays and Guaifenesin and right now, she is Dulera 100mcg and she has a history of Lupus/Rheumatoid arthritis and HTN and high cholesterol and has medications listed as Amlodipine, Atorvastatin, Clopidogrel, Hydrochlorothiazide, Hydroxychloroquine, Losartan, Metoprolol, Pantoprazole, Calcium/Vitamin D, KCL, Probiotic and Reclast once a year. She says at [facility] and she used to use Dulera at 1 puff a day and she was out of this for the month prior to her 04/25/23 visit and albuterol was prescribed and not used and maybe she has a little shortness of breath with exercise. She has Astelin/Azelastine as needed and Nasacort as needed and Pataday as needed and GenTeal and Soothe and Optive. -She may have previously attempted Symbicort 80/4.5mcg and Advair 115/21 and Breo and Wixela but said she did not use them much. At times she does prednisone as needed for her arthritis and Lupus and she was last allergy tested by me 07/11/10 and was essentially negative and she brought her old skin test sheets with her, I initially saw her 06/22/01 and then she had some select testing on 10/06/14 and had some mildly + results to alternaria, boxelder/maple and [place] bluegrass and mugwort and ragweed. -Regarding foods, she has a lactose intolerance but no other issues, tolerates Dairy with Lactaid. -She presented to transfer her care to our facility and she does OTC Loratadine as needed. Spirometry 04/25/23 showed some mild small airway obstruction and mild large airway obstruction and I recommended using Dulera every day and continuing with albuterol as needed and Loratadine, Nasacort, Azelastine and Guaifenesin and she presents today for a follow up visit. She says for the last 3 weeks she had cough and she went to an Urgent Care and was treated with Prednisone and Tessalon and now the cough is improved but she has sinus issues. She has a history of tolerating a Zpack and right now her has just started to be ill with similar symptoms. Prior to the recent illness, she had been doing well. Dulera has been used at 2 puffs twice a day since the last visit with good results. Azelastine has been helpful and tolerated. Environmental Survey/Social History: Lives with spouse Special Needs: None Preferred Language: Chilean Pets: No School/Daycare: No, she is retired Smoking/Alcohol/Drug Use or Exposure: No Recreational Activities/Sports: No Review of Systems/Past Medical History: Constitutional: denies fever, chills, weight loss. Eyes: denies vision changes, color blindness. Ears, nose throat and mouth: see narrative above. Nasal symptoms at times. Respiratory: denies wheezing, cough or chest tightness/ see above narrative. Gastrointestinal: denies diarrhea, constipation, emesis. Genitourinary: denies dysuria or urine odor. Skin/integumentary: denies nail changes or other rash. Neurologic: denies seizures, weakness or speech problems. Hematologic/lymphatic: denies pallor. Allergic/Immunologic: see narrative above. No overt food issues. *Regarding bee stings, no issues (she has been stung). History reviewed. No pertinent past medical history. Hypertension and High Cholesterol and she now sees Dr. Jaimes at [facility]. History reviewed. No pertinent surgical history. She has a cardiac stent done at [facility] 9 years ago Current Outpatient Medications Medication Sig Dispense Refill amLODIPine (NORVASC) 2.5 MG tablet Take 1 Tablet (2.5 mg) by mouth daily Atorvastatin Calcium (LIPITOR) 40 MG TABS tablet Take 1 Tablet (40 mg) by mouth daily clopidogrel (PLAVIX) 75 MG tablet Take 1 Tablet (75 mg) by mouth daily hydroxychloroquine (PLAQUENIL) 100 MG TABS Take 2 Tablets (200 mg) by mouth Losartan (COZAAR) 100 MG TABS tablet Take 1 Tablet (100 mg) by mouth daily metoprolol (TOPROL-XL) 50 MG tablet Take 1 Tablet (50 mg) by mouth daily pantoprazole (PROTONIX) 20 MG EC tablet Take 1 Tablet (20 mg) by mouth daily Calcium Carbonate-Vitamin D (OSCAL) 500-5 MG-MCG tablet Take 600 mg by mouth potassium chloride SA (KLOR-CON M10) 10 MEQ CR tablet Take 1 Tablet (10 mEq) by mouth 2 times daily Probiotic Product (ALIGN) 4 MG by Feeding route albuterol (PROAIR RESPICLICK) 108 (90 Base) MCG/ACT inhaler Inhale 1 Puff into the lungs every 6 hours as needed for Wheezing NaCl 0.9% SOLN 100 mL with Zoledronic Acid 5 MG/100ML SOLN injection Infuse intravenously once Once yearly mometasone-formoterol (DULERA) 100-5 MCG/ACT AERO inhaler Inhale 2 Puffs into the lungs 2 times daily as needed for Other (as needed) mometasone-formoterol (DULERA) 100-5 MCG/ACT AERO inhaler Inhale 2 Puffs into the lungs (more content not included)... [facility] 05-05-2024 Evaluation note Diagnosis Onset Date Resolution Carotid artery disease acute May 05, 2 025 8:10am [facility] Work Phone: [phone] 132-203902-15-2025 NoteHNO ID: [id number] Author: DEMETRI SOLIS PA-C Service: ? Author Type: Physician Gallery Host Type: Progress Notes Filed: 04/24/2024 10:49 Note Text: This note was created using Skiipiriter. Subjective Michael Alcantara is a 74 year old female. Patient is a 74-year-old female who complains of fever, chills, body ache, sore throat and cough that she has been experiencing for the past 6 days. Patient reports that her fever has resolved over the past 24 hours and she continues to experience chills and myalgia. Patient does have asthma and is using her albuterol MDI as directed. Patient reports that her inhaler is current and she does not require a refill of same. Patient denies increased episodes of wheezing and also denies dyspnea or shortness of breath. Patient has no history of COPD and does not smoke. Patient did receive both the influenza as well as COVID-19 vaccines. Cough Associated symptoms include chills, sore throat and myalgias. Review of Systems Constitutional: Positive for chills and fever. HENT: Positive for sore throat. Respiratory: Positive for cough. Musculoskeletal: Positive for myalgias. Objective BP 132/68 Pulse 100 Temp 37 ?C (98.6 ?F) (Tympanic) Resp 18 Wt 58.2 kg (128 lb 4.9 oz) LMP 07/15/2007 SpO2 95% BMI 25.91 kg/m? Physical Exam Vitals and nursing note reviewed. Constitutional: Appearance: Normal appearance. She is normal weight. HENT: Head: Normocephalic and atraumatic. Right Ear: Tympanic membrane, ear canal and external ear normal. Left Ear: Tympanic membrane, ear canal and external ear normal. Nose: Nose normal. Mouth/Throat: Mouth: Mucous membranes are moist. Pharynx: Oropharynx is clear. Eyes: Extraocular Movements: Extraocular movements intact. Conjunctiva/sclera: Conjunctivae normal. Pupils: Pupils are equal, round, and reactive to light. Cardiovascular: Rate and Rhythm: Normal rate and regular rhythm. Pulses: Normal pulses. Heart sounds: Normal heart sounds. Pulmonary: Effort: Pulmonary effort is normal. Breath sounds: Normal breath sounds. Musculoskeletal: Cervical back: Normal range of motion and neck supple. Skin: General: Skin is warm and dry. Capillary Refill: Capillary refill takes less than 2 seconds. Neurological: General: No focal deficit present. Mental Status: She is alert and oriented to person, place, and time. Psychiatric: Mood and Affect: Mood normal. Behavior: Behavior normal. Thought Content: Thought content normal. Judgment: Judgment normal. Assessment and Plan Unremarkable physical exam findings as noted above. Patient was provided with prescriptions for prednisone 10 mg and Tessalon 100 mg. Supportive care instructions were discussed and the patient verbalizes good understanding of same. CLINICAL IMPRESSION: Viral Illness ASSESSMENT/PLAN: 1. Viral illness - ICD9: 079.99, ICD10: B34.9 IRENE Bernardo-[facility]02-15-2025 History of Present illness Narrative* Demetri Solis PA-C - 04/24/2024 10:46 AM EST This note was created using NoteWriter. Subjective Michael Alcantara is a 74 year old female. Patient is a 74-year-old female who complains of fever, chills, body ache, sore throat and cough that she has been experiencing for the past 6 days. Patient reports that her fever has resolved over the past 24 hours and she continues to experience chills and myalgia. Patient does have asthma and isusing her albuterol MDI as directed. Patient reports that her inhaler is current and she does not require a refill of same. Patient denies increased episodes of wheezing and also denies dyspnea or shortness of breath. Patient has no history of COPD and does not smoke. Patient did receive both the influenza as well as COVID-19 vaccines. Cough Associated symptoms include chills, sore throat and myalgias. Review of Systems Constitutional: Positive for chills and fever. HENT: Positive for sore throat. Respiratory: Positive for cough. Musculoskeletal: Positive for myalgias. Objective BP 132/68 Pulse 100 Temp 37 C (98.6 F) (Tympanic) Resp 18 Wt 58.2 kg (128 lb 4.9 oz) LMP 07/15/2007 SpO2 95% BMI 25.91 kg/m Physical Exam Vitals and nursing note reviewed. Constitutional: Appearance: Normal appearance. She is normal weight. HENT: Head: Normocephalic and atraumatic. Right Ear: Tympanic membrane, ear canal and external ear normal. Left Ear: Tympanic membrane, ear canal and external ear normal. Nose: Nose normal. Mouth/Throat: Mouth: Mucous membranes are moist. Pharynx: Oropharynx is clear. Eyes: Extraocular Movements: Extraocular movements intact. Conjunctiva/sclera: Conjunctivae normal. Pupils: Pupils are equal, round, and reactive to light. Cardiovascular: Rate and Rhythm: Normal rate and regular rhythm. Pulses: Normal pulses. Heart sounds: Normal heart sounds. Pulmonary: Effort: Pulmonary effort is normal. Breath sounds: Normal breath sounds. Musculoskeletal: Cervical back: Normal range of motion and neck supple. Skin: General: Skin is warm and dry. Capillary Refill: Capillary refill takes less than 2 seconds. Neurological: General: No focal deficit present. Mental Status: She is alert and oriented to person, place, and time. Psychiatric: Mood and Affect: Mood normal. Behavior: Behavior normal. Thought Content: Thought content normal. Judgment: Judgment normal. Assessment and Plan Unremarkable physical exam findings as noted above. Patient was provided with prescriptions for prednisone 10 mg and Tessalon 100 mg. Supportive care instructions were discussed and the patient verbalizes good understanding of same. CLINICAL IMPRESSION: Viral Illness ASSESSMENT/PLAN: 1. Viral illness - ICD9: 079.99, ICD10: B34.9 Demetri Solis PA-C documented in this encounterPomerene Hospital02-13-[facility]25 NoteHNO ID: [id number] Author: OLIVA BERNARD MA Service: ? Author Type: Sales And Training Specialist Type: Progress Notes Filed: 04/22/2024 16:09 Note Text: POPULATION HEALTH NAVIGATION OUTREACH Action/April 22, 2024 4:05 PM [employer] High Risk - Attempt 1 ~NITIN with Xavi Jaimes MD was December 10, 2023 Follow up Patient is scheduled on June 09, 2024 for six month follow up Health Maintenance Due: Mammogram Screening due on 10/24/2022 Advance Directive Discussion due on 03/10/2024 Outcome: Left message for patient to return call. My chart message sent Reason for Outreach Care Gap/HCC or Scheduling Wellness Visits Care Gaps due: Medicare Annual Wellness Visit Breast Cancer Screening Patient Contacted: Unable or unnecessary to reach patient: Left message edPULSEhart message sent Navigation Signature: Oliva Bernard MA April 22, 2024 4:05 [facility]02-13-2025 History of Present illness Narrative* Oliva Bernard MA - 04/22/2024 4:04 PM EST POPULATION HEALTH NAVIGATION OUTREACH Action/April 22, 2024 4:05 PM A[employer] High Risk - Attempt 1 ~NITIN with Xavi Jaimes MD was December 10, 2023 Follow up Patient is scheduled on June 09, 2024 for six month follow up Health Maintenance Due: Mammogram Screening due on 10/24/2022 Advance Directive Discussion due on 03/10/2024 Outcome: Left message for patient to return call. My chart message sent Reason for Outreach Care Gap/HCC or Scheduling Wellness Visits Care Gaps due: Medicare Annual Wellness Visit Breast Cancer Screening Patient Contacted: Unable or unnecessary to reach patient: Left message MyChart message sent Navigation Signature: Oliva Bernard MA April 22, 2024 4:05 PM documented in this encounterPomerene Hospital02-13-2025 NotePatient Outreach (NETNAV) MICHAEL ALCANTARA ([id number]) 1950 F Date Time Provider Department 04/22/24 OLIVA BERNARD During your visit today, we recorded the following information about you: Oliva Bernard MA 04/22/2024 4:09 PM Signed POPULATION HEALTH NAVIGATION OUTREACH Action/FYI April 22, 2024 4:05 PM [employer] High Risk - Attempt 1 ~NITIN with Xavi Jaimes MD was December 10, 2023 Follow up Patient is scheduled on June 09, 2024 for six month follow up Health Maintenance Due: Mammogram Screening due on 10/24/2022 Advance Directive Discussion due on 03/10/2024 Outcome: Left message for patient to return call. My chart message sent Reason for Outreach Care Gap/HCC or Scheduling Wellness Visits Care Gaps due: Medicare Annual Wellness Visit Breast Cancer Screening Patient Contacted: Unable or unnecessary to reach patient: Left message [employer] message sent Navigation Signature: Oliva Bernard MA April 22, 2024 4:05 PM Allergies As of Date: 04/22/2024 Noted Allergy Reaction AMOXICILLIN 07/10/2018 6 - Diarrhea 8 - GI Upset SEASONAL ALLERGIES 12/31/2023 14 - Other: See Comments Comments: Stuffy nose, sneezing, cough Date Reviewed: 02/11/2024 Reviewed by: Neela Mota, RN - Fully Assessed Reason for Visit: Population Health Navigation Outreach [3910] Cmt: Aetpia High Risk - Attempt 1 Prescriptions as of 04/22/2024 - potassium chloride (K-TAB) 10 mEq tablet Take 1 tablet by mouth daily with breakfast. - potassium chloride (K-TAB) 10 mEq tablet Take 10 mEq by mouth two times a day. - Lactobacillus acidophilus (PROBIOTIC ACIDOPHILUS ORAL) Take by mouth. - pantoprazole DR (PROTONIX) 20 mg tablet Take 1 tablet by mouth daily before breakfast. Take on empty stomach, 1/2 hr before meal. - hydrOXYchloroQUINE (PLAQUENIL) 200 mg tablet Take 200 mg by mouth once daily. - losartan (COZAAR) 100 mg tablet Take 100 mg by mouth once daily. - metoprolol succinate ER (TOPROL XL) 50 mg 24 hr tablet Take 50 mg by mouth once daily. - amLODIPine (NORVASC) 2.5 mg tablet Take 2.5 mg by mouth once daily. - cholecalciferol, vitamin D3, 10 mcg (400 unit) cap Take 400 Units by mouth once daily. - mometasone-formoterol (DULERA) 100-5 mcg/actuation inhaler Inhale 2 Puffs as instructed twice daily. Dr. Liz - calcium carbonate/vitamin D3 (CALCIUM 600 + D,3, ORAL) Take 2 tablets by mouth once daily. - atorvastatin (LIPITOR) 40 mg tablet Take 1 tablet by mouth once daily. - Hydrochlorothiazide 12.5 mg capsule Take 1 capsule by mouth once daily. - clopidogrel (PLAVIX) 75 mg tablet TAKE 1 TABLET DAILY - nitroglycerin sublingual (NITROQUICK) 0.4 mg SL tablet Dissolve 1 tablet under the tongue as needed. FOR CHEST PAIN. IF NO RELIEF CALL 911 - diclofenac (VOLTAREN) 1 % topical gel Apply 2 g to affected area as needed (each hand). - predniSONE 10 mg tablet Take 10 mg by mouth as needed. - Fluticasone Furoate 27.5 mcg/actuation nasal spray Use 2 Sprays in each nostril as needed. Problem List As Of Date 04/22/2024 Noted Resolved Allergic rhinitis, cause unspecified [J30.9] 08/13/2007 Esophageal reflux [K21.9] 08/13/2007 12/02/2022 Primary hypertension [I10] 08/13/2007 Disorder of bone and cartilage [M89.9, M94.9] 10/06/2007 Routine general medical examination at [facility]*11/21/2008 04/13/2015 Class: Chronic Routine gynecological examination [Z01.419] 11/21/2008 04/13/2015 Class: Chronic Fam hx-diabetes mellitus 11/21/2008 Foot pain [M79.673] 08/16/2009 10/13/2015 Special screening for malignant neoplasms, colo*03/28/2010 04/13/2015 Benign neoplasm of colon [D12.6] 03/28/2010 Hypercholesterolemia [E78.00] 02/07/2016 Status post insertion of drug-eluting stent int*03/01/2016 05/29/2022 Presence of drug coated stent in left circumfle*03/01/2016 Other forms of systemic lupus erythematosus (HC*03/01/2016 Mild intermittent asthma, uncomplicated [J45.20]05/24/2020 Osteoarth NOS-other site [M19.09] 05/24/2020 Hyperglycemia [R73.9] 05/22/2021 Advance care planning [Z71.89] 05/28/2021 Atherosclerosis of coronary artery [I25.10] 12/02/2022 Diagnosed: 12/02/2022 Atypical chest pain [R07.89] 06/05/2022 12/02/2022 Diagnosed: 12/02/2022 Disorder of carotid artery (HCC) [I77.9] 12/02/2022 Diagnosed: 12/02/2022 History of gastroesophageal reflux (GERD) [Z87.*12/02/2022 Diagnosed: 12/02/2022 Encounter Status:Closed by OLIVA BERNARD on 04/22/24[facility]12-04-2024 Note* Discharge Instr - Nursing - Neela Mota RN - 02/11/2024 8:52 AM EST The patient received a copy of Colonoscopy discharge instructions that contain information for how to contact the physician who performed the procedure and when to seek medical care. [facility]12-04-[facility] Miscellaneous Notes* Discharge Instr - Nursing - Neela Mota RN - 02/11/2024 8:52 AM EST The patient received a copy of Colonoscopy discharge instructions that contain information for how to contact the physician who performed the procedure and when to seek medical care. documented in this encounterPomerene Hospital12-04-2024 NoteHNO ID: [id number] Author: NEELA MOTA RN Service: ? Author Type: Registered Nurse Type: Nursing Progress Note Filed: 02/11/2024 08:48 Note Text: Abdomen soft non-distended. Will continue to monitor.[facility] 02-11-2024 Nurse Note* Neela Mota RN - 02/11/2024 8:36 AM EST Abdomen soft non-distended. Will continue to monitor. [facility]12-[facility] Nurse Note* Neela Mota RN - 02/11/2024 8:36 AM EST Abdomen soft non-distended. Will continue to monitor. documented in this encounterPomerene Hospital12-04-2024 Attending History and physical note* Veronika Goins MD - 02/11/2024 8:15 AM EST UPDATED PROCEDURAL SEDATION HISTORY AND PHYSICAL EXAMINATION SERVICE DATE: 02/11/2024 SERVICE TIME: 8:11 AM PHYSICAL EXAM MUST BE COMPLETED ON ADMISSION PROCEDURE: Procedure Indications: The History and Physical (completed in the past 30 days) has been reviewed and the patient has beenexamined. The contents accurately reflect the patient's condition with the following additions or revisions since the H&P was completed. ASA Class: ASA Class: Patient with severe systemic disease Examination indicates no changes. AIRWAY: Airway Visualization of Uvula: Yes Mouth opening greater than 2 fingerbreadths: Yes Neck Full Range of Motion: Yes LUNGS: Lungs clear to auscultation CARDIAC: Regular rhythm,Regular rate Provisional Diagnosis/Treatment Plan: screening colonoscopy Sedation Goal: Moderate This H&P can be found in the attached. SIGNATURE: Veronika Goins MD PATIENT NAME: Michael Alcantara DATE: February 11, 2024 TIME: 8:11 AM Source Note - Veronika Goins MD - 02/11/2024 8:15 AM EST HISTORY AND PHYSICAL Michael Alcantara : 1950 REFERRING PHYSICIAN: Xavi Jaimes [address] [place] [facility] [id number] CHIEF COMPLAINT: Patient presents with: Consult: colonoscopy HPI: Michael is a 73 year old female referred for endoscopy. Michael notes due for screening colonoscopy, history of polyps. Michael denies abdominal pain.. Michael denies diarrhea. Michael denies constipation. Michael denies a change in bowel habits. Michael denies melena. Michael denies bright red blood per rectum. Michael denies hemorrhoids. Michael denies heartburn. Michael denies dysphagia. Michael denies a history of ulcers/ peptic ulcer disease. Michael notes family history of colon issues. Sister with celiac disease. Michael has a history of CAD with stent x2 placement in 2015. She take Plavix. Cardiology recently stopped 81mg asa. Stress test in 2020 with no ischemia and preserved EF. Last OV 05/2023. Hx of bilateral carotid artery stenosis. Denies CP, SOB, dizziness, palpitations, syncope, edema, recent hospitalizations. Hx of mild intermittent asthma. Follows with Dr. Gonzales. Uses Dulera daily. Denies any increasing SOB, wheezing, recent illness/hospitalizations. Michael has undergone prior endoscopy. Last colonoscopy was 10/[address] Hwang at [facility]. Sedation received: Fentanyl 50 micrograms IV, Midazolam 7 mg IV, Diphenhydramine 50 mg IV Impression: - Internal hemorrhoids. CURRENT MEDICATIONS Current Outpatient Medications Medication Sig potassium chloride (K-TAB) 10 mEq tablet Take 10 mEq by mouth two times a day. Lactobacillus acidophilus (PROBIOTIC ACIDOPHILUS ORAL) Take by mouth. pantoprazole DR (PROTONIX) 20 mg tablet Take 1 tablet by mouth daily before breakfast. Take on empty stomach, 1/2 hr before meal. hydrOXYchloroQUINE (PLAQUENIL) 200 mg tablet Take 200 mg by mouth once daily. losartan (COZAAR) 100 mg tablet Take 100 mg by mouth once daily. metoprolol succinate ER (TOPROL XL) 50 mg 24 hr tablet Take 50 mg by mouth once daily. amLODIPine (NORVASC) 2.5 mg tablet Take 2.5 mg by mouth once daily. cholecalciferol, vitamin D3, 10 mcg (400 unit) cap Take 400 Units by mouth once daily. mometasone-formoterol (DULERA) 100-5 mcg/actuation inhaler Inhale 2 Puffs as instructed twice daily. Dr. Liz calcium carbonate/vitamin D3 (CALCIUM 600 + D,3, ORAL) Take 2 tablets by mouth once daily. atorvastatin (LIPITOR) 40 mg tablet Take 1 tablet by mouth once daily. Hydrochlorothiazide 12.5 mg capsule Take 1 capsule by mouth once daily. clopidogrel (PLAVIX) 75 mg tablet TAKE 1 TABLET DAILY nitroglycerin sublingual (NITROQUICK) 0.4 mg SL tablet Dissolve 1 tablet under the tongue as needed. FOR CHEST PAIN. IF NO RELIEF CALL 911 diclofenac (VOLTAREN) 1 % topical gel Apply 2 g to affected area as needed (each hand). predniSONE 10 mg tablet Take 10 mg by mouth as needed. Fluticasone Furoate 27.5 mcg/actuation nasal spray Use 2 Sprays in each nostril as needed. No current facility-administered medications for this visit. ALLERGIES: Amoxicillin and Seasonal Allergies PAST MEDICAL HISTORY PAST MEDICAL HISTORY Diagnosis Date allergies seasonal/environmental Colon polyps 2010 tubular adenomas GERD (gastroesophageal reflux disease) Hypertension Lupus 2009 KATARZYNA+ Osteopenia 2007 PAST SURGICAL HISTORY PAST SURGICAL HISTORY Procedure Laterality Date COLONOSCOPY FLX DX W/COLLJ SPEC WHEN PFRMD 03/28/2010 tubular adenoma x 2, repeat in 3-4 years COLONOSCOPY FLX DX W/COLLJ SPEC WHEN PFRMD 10/25/13 internal hemorrhoids FAMILY HISTORY FAMILY HISTORY Problem Relation Age of Onset Breast Cancer Mother at age 65, had twice Diabetes Father Diabetes Maternal Grandmother Hypertension Father Coronary Artery Disease Paternal Grandfather [place] other (celiac disease [Other]) Sister Coronary Artery Disease Mother [place] SOCIAL HISTORY Social History Tobacco Use Smoking status: Never Smokeless tobacco: Never Substance Use Topics Alcohol use: No Drug use: No REVIEW OF SYMPTOMS: The review of systems data was entered by the nurse and reviewed by id Nursing Notes: Massiel Lomeli RN 12/31/2023 2:59 PM Signed REVIEW OF SYSTEMS: General: The patient denies fatigue, denies weight loss, denies weight gain, denies feeling hot, and denies feelings of cold. Eyes: The patient denies glaucoma, denies eye injury/surgery, does not wear glasses or contacts. Ear/Nose/Throat: The patient NOTES allergies, denies hayfever, denies ear infections, and denies bloody noses. Cardiovascular: The patient denies chest pain, denies heart disease, NOTES high blood pressure,NOTES cardiac stent, denies prior heart attack, denies irregular heart beat, NOTES high cholesterol, denies poor circulation, denies heart failure, other cardiac issues, denies claudication, denies cold feet, denies peripheral arterial stent. Respiratory: The patient denies tuberculosis, denies pneumonia, denies frequent cough, denies pulmonary embolism, denies shortness of breath, and denies coughing up blood. Gastrointestinal: The patient denies difficulty swallowing, NOTES acid reflux, denies ulcers, denies vomiting, denies jaundice/hepatitis, denies gallbladder problems, denies black or tarry stools, denies hemorrhoids, denies bleeding from rectum, denies diverticulitis, denies constipation, denies diarrhea, denies loss of stool control, and denies hernias. Kidney/Bladder: The patient denies kidney stones, denies urine infections, and denies bloody urine. Skin: The patient denies a history of skin cancer, denies bleeding/changing moles, and NOTES a history of skin rash. Neurologic: The patient denies a history of epilepsy/convulsions, denies headaches, denies head/spinal injuries, and denies stroke/TIA. Psychiatric: The patient denies psychiatric medications, denies depression, and denies voices, denies substance abuse. Endocrine: The patient denies thyroid disorders, denies diabetes, and denies hormonal problems. Hematologic: The patient denies a history of bruising, denies bleeding, and denies anemia, denies blood clots. Infections: The patient denies a history of measles and mumps, denies rheumatic fever, and denies sexually transmitted diseases. Musculoskeletal: The patient denies back pain/injury, denies back problems, denies sciatica, deniesknee/foot trouble, denies arthritis, or denies gout. When was patient's last Mammogram screening? 10/2023 Last Colonoscopy: 10/25/2013 Massiel Lomeli RN PHYSICAL EXAMINATION: General: The patient is 73 year old, female well nourished, well hydrated in no acute distress. Thepatient is oriented to time, place, and person. VITALS: Blood pressure 112/70, pulse 83, temperature 36.1 C (97 F), weight 59.1 kg (130 lb 6.4 oz),last menstrual period 07/15/2007, SpO2 100%. Body mass index is 26.34 kg/m . HEENT: Normal cephalic, ataumatic, pupils are equally round, sclera are anicteric, mucous membranesare moist, oropharynx is clear. Neck has no masses, asymmetry or lymphadenopathy. Respiratory: Clear to auscultation and percussion. Normal respiratory excursion and pattern. Cardiac: Examination is regular rate and rhythm. Normal S1/S2 Abdominal exam: Soft, nontender, with no palpable masses. No hepatosplenomegaly. No palpable hernias. Extremities: no clubbing, cyanosis or edema. No adenopathy. LABORATORY VALUES: As Noted RADIOLOGIC STUDIES: As Noted Assessment IMPRESSION: screen for colon cancer PLAN: I have reviewed my findings with the surgeon. Will plan for lower endoscopy. We discussed therisks and benefits of the planned endoscopy. I have informed the patient that complications can occur including failure to complete the endoscopy and perforation. Michael had the opportunity to ask questions concerning the planned endoscopy. My staff has also explained the procedure to the patient in understandable terms and has given the patient printed material concerning the procedure. Jolly consents to surgery. I plan to use Golytely bowel preparation Based on hx of bilateral carotid stenosis (<50% on both sides) & hx of stents, recently taken off 81mg asa, going to proceed with endoscopy while continuing plavix. Pt agreeable. I have explained to the patient the difference between IV conscious sedation and MAC anesthesia - and I have offered either, according to the patient's wishes. I have explained that with IV conscioussedation there is no anesthesia provider available and therefore there is a limitation of the amount of IV medications that can be given and that the patient may wake up in the middle of the procedure and/or experience pain/discomfort during the procedure. Further discussion was done and the patient was given the opportunity to ask questions and all questions were answered. Michael chooses IV conscious sedation. Michael was counseled that if there are changes in his/her medical condition, to let the office know if surgery should proceed. If there are changes in patient's medical condition from time of this encounter to the day of the procedure that preclude anesthesia, patient may have procedure cancelled for patient's safety. Diagnoses: (Z12.11) Screen for colon cancer (primary encounter diagnosis) (Z86.0100) History of colonic polyps Consultation requested by Dr. Jaimes for an opinion regarding history of colonic polyps. My final recommendations will be communicated back to the requesting physician by way of shared Medical record or letter to requesting physician via US mail. Portions of this documentation were copied and pasted from previous office visit notes in order to provide a cohesive continuity of the history. The note has been reviewed and edited and updated as necessary. Farzana Shirley APRN.BUSINESS JOB [employer]ITLES [facility] Work Phone: [phone] 874-198212-04-2024 History and physical note* Veronika Goins MD - 02/11/2024 8:15 AM EST HISTORY AND PHYSICAL Michael Alcantara : 1950 REFERRING PHYSICIAN: Xavi Jaimes [address] [facility] [place] [address] CHIEF COMPLAINT: Patient presents with: Consult: colonoscopy HPI: Michael is a 73 year old female referred for endoscopy. Michael notes due for screening colonoscopy, history of polyps. Michael denies abdominal pain.. Michael denies diarrhea. Michael denies constipation. Michael denies a change in bowel habits. Michael denies melena. Michael denies bright red blood per rectum. Michael denies hemorrhoids. Michael denies heartburn. Michael denies dysphagia. Michael denies a history of ulcers/ peptic ulcer disease. Michael notes family history of colon issues. Sister with celiac disease. Michael has a history of CAD with stent x2 placement in 2015. She take Plavix. Cardiology recently stopped 81mg asa. Stress test in 2020 with no ischemia and preserved EF. Last OV 05/2023. Hx of bilateral carotid artery stenosis. Denies CP, SOB, dizziness, palpitations, syncope, edema, recent hospitalizations. Hx of mild intermittent asthma. Follows with Dr. Gonzales. Uses Dulera daily. Denies any increasing SOB, wheezing, recent illness/hospitalizations. Michael has undergone prior endoscopy. Last colonoscopy was 10/[address] Hwang at [facility]. Sedation received: Fentanyl 50 micrograms IV, Midazolam 7 mg IV, Diphenhydramine 50 mg IV Impression: - Internal hemorrhoids. CURRENT MEDICATIONS Current Outpatient Medications Medication Sig potassium chloride (K-TAB) 10 mEq tablet Take 10 mEq by mouth two times a day. Lactobacillus acidophilus (PROBIOTIC ACIDOPHILUS ORAL) Take by mouth. pantoprazole DR (PROTONIX) 20 mg tablet Take 1 tablet by mouth daily before breakfast. Take on empty stomach, 1/2 hr before meal. hydrOXYchloroQUINE (PLAQUENIL) 200 mg tablet Take 200 mg by mouth once daily. losartan (COZAAR) 100 mg tablet Take 100 mg by mouth once daily. metoprolol succinate ER (TOPROL XL) 50 mg 24 hr tablet Take 50 mg by mouth once daily. amLODIPine (NORVASC) 2.5 mg tablet Take 2.5 mg by mouth once daily. cholecalciferol, vitamin D3, 10 mcg (400 unit) cap Take 400 Units by mouth once daily. mometasone-formoterol (DULERA) 100-5 mcg/actuation inhaler Inhale 2 Puffs as instructed twice daily. Dr. Liz calcium carbonate/vitamin D3 (CALCIUM 600 + D,3, ORAL) Take 2 tablets by mouth once daily. atorvastatin (LIPITOR) 40 mg tablet Take 1 tablet by mouth once daily. Hydrochlorothiazide 12.5 mg capsule Take 1 capsule by mouth once daily. clopidogrel (PLAVIX) 75 mg tablet TAKE 1 TABLET DAILY nitroglycerin sublingual (NITROQUICK) 0.4 mg SL tablet Dissolve 1 tablet under the tongue as needed. FOR CHEST PAIN. IF NO RELIEF CALL 911 diclofenac (VOLTAREN) 1 % topical gel Apply 2 g to affected area as needed (each hand). predniSONE 10 mg tablet Take 10 mg by mouth as needed. Fluticasone Furoate 27.5 mcg/actuation nasal spray Use 2 Sprays in each nostril as needed. No current facility-administered medications for this visit. ALLERGIES: Amoxicillin and Seasonal Allergies PAST MEDICAL HISTORY PAST MEDICAL HISTORY Diagnosis Date allergies seasonal/environmental Colon polyps 2010 tubular adenomas GERD (gastroesophageal reflux disease) Hypertension Lupus 2009 KATARZYNA+ Osteopenia 2007 PAST SURGICAL HISTORY PAST SURGICAL HISTORY Procedure Laterality Date COLONOSCOPY FLX DX W/COLLJ SPEC WHEN PFRMD 03/28/2010 tubular adenoma x 2, repeat in 3-4 years COLONOSCOPY FLX DX W/COLLJ SPEC WHEN PFRMD 10/25/13 internal hemorrhoids FAMILY HISTORY FAMILY HISTORY Problem Relation Age of Onset Breast Cancer Mother at age 65, had twice Diabetes Father Diabetes Maternal Grandmother Hypertension Father Coronary Artery Disease Paternal Grandfather [place] other (celiac disease [Other]) Sister Coronary Artery Disease Mother [place] SOCIAL HISTORY Social History Tobacco Use Smoking status: Never Smokeless tobacco: Never Substance Use Topics Alcohol use: No Drug use: No REVIEW OF SYMPTOMS: The review of systems data was entered by the nurse and reviewed by id Nursing Notes: Massiel Lomeli RN 12/31/2023 2:59 PM Signed REVIEW OF SYSTEMS: General: The patient denies fatigue, denies weight loss, denies weight gain, denies feeling hot, and denies feelings of cold. Eyes: The patient denies glaucoma, denies eye injury/surgery, does not wear glasses or contacts. Ear/Nose/Throat: The patient NOTES allergies, denies hayfever, denies ear infections, and denies bloody noses. Cardiovascular: The patient denies chest pain, denies heart disease, NOTES high blood pressure,NOTES cardiac stent, denies prior heart attack, denies irregular heart beat, NOTES high cholesterol, denies poor circulation, denies heart failure, other cardiac issues, denies claudication, denies cold feet, denies peripheral arterial stent. Respiratory: The patient denies tuberculosis, denies pneumonia, denies frequent cough, denies pulmonary embolism, denies shortness of breath, and denies coughing up blood. Gastrointestinal: The patient denies difficulty swallowing, NOTES acid reflux, denies ulcers, denies vomiting, denies jaundice/hepatitis, denies gallbladder problems, denies black or tarry stools, denies hemorrhoids, denies bleeding from rectum, denies diverticulitis, denies constipation, denies diarrhea, denies loss of stool control, and denies hernias. Kidney/Bladder: The patient denies kidney stones, denies urine infections, and denies bloody urine. Skin: The patient denies a history of skin cancer, denies bleeding/changing moles, and NOTES a history of skin rash. Neurologic: The patient denies a history of epilepsy/convulsions, denies headaches, denies head/spinal injuries, and denies stroke/TIA. Psychiatric: The patient denies psychiatric medications, denies depression, and denies voices, denies substance abuse. Endocrine: The patient denies thyroid disorders, denies diabetes, and denies hormonal problems. Hematologic: The patient denies a history of bruising, denies bleeding, and denies anemia, denies blood clots. Infections: The patient denies a history of measles and mumps, denies rheumatic fever, and denies sexually transmitted diseases. Musculoskeletal: The patient denies back pain/injury, denies back problems, denies sciatica, deniesknee/foot trouble, denies arthritis, or denies gout. When was patient's last Mammogram screening? 10/2023 Last Colonoscopy: 10/25/2013 Massiel Lomeli RN PHYSICAL EXAMINATION: General: The patient is 73 year old, female well nourished, well hydrated in no acute distress. Thepatient is oriented to time, place, and person. VITALS: Blood pressure 112/70, pulse 83, temperature 36.1 C (97 F), weight 59.1 kg (130 lb 6.4 oz),last menstrual period 07/15/2007, SpO2 100%. Body mass index is 26.34 kg/m . HEENT: Normal cephalic, ataumatic, pupils are equally round, sclera are anicteric, mucous membranesare moist, oropharynx is clear. Neck has no masses, asymmetry or lymphadenopathy. Respiratory: Clear to auscultation and percussion. Normal respiratory excursion and pattern. Cardiac: Examination is regular rate and rhythm. Normal S1/S2 Abdominal exam: Soft, nontender, with no palpable masses. No hepatosplenomegaly. No palpable hernias. Extremities: no clubbing, cyanosis or edema. No adenopathy. LABORATORY VALUES: As Noted RADIOLOGIC STUDIES: As Noted Assessment IMPRESSION: screen for colon cancer PLAN: I have reviewed my findings with the surgeon. Will plan for lower endoscopy. We discussed therisks and benefits of the planned endoscopy. I have informed the patient that complications can occur including failure to complete the endoscopy and perforation. Michael had the opportunity to ask questions concerning the planned endoscopy. My staff has also explained the procedure to the patient in understandable terms and has given the patient printed material concerning the procedure. Jolly consents to surgery. I plan to use Golytely bowel preparation Based on hx of bilateral carotid stenosis (<50% on both sides) & hx of stents, recently taken off 81mg asa, going to proceed with endoscopy while continuing plavix. Pt agreeable. I have explained to the patient the difference between IV conscious sedation and MAC anesthesia - and I have offered either, according to the patient's wishes. I have explained that with IV conscioussedation there is no anesthesia provider available and therefore there is a limitation of the amount of IV medications that can be given and that the patient may wake up in the middle of the procedure and/or experience pain/discomfort during the procedure. Further discussion was done and the patient was given the opportunity to ask questions and all questions were answered. Michael chooses IV conscious sedation. Michael was counseled that if there are changes in his/her medical condition, to let the office know if surgery should proceed. If there are changes in patient's medical condition from time of this encounter to the day of the procedure that preclude anesthesia, patient may have procedure cancelled for patient's safety. Diagnoses: (Z12.11) Screen for colon cancer (primary encounter diagnosis) (Z86.0100) History of colonic polyps Consultation requested by Dr. Jaimes for an opinion regarding history of colonic polyps. My final recommendations will be communicated back to the requesting physician by way of shared Medical record or letter to requesting physician via US mail. Portions of this documentation were copied and pasted from previous office visit notes in order to provide a cohesive continuity of the history. The note has been reviewed and edited and updated as necessary. Farzana Shirley APRN.BUSINESS [employer]LES [facility]12-04-2024 History and physical note* Veronika Goins MD - 02/11/2024 8:15 AM EST UPDATED PROCEDURAL SEDATION HISTORY AND PHYSICAL EXAMINATION SERVICE DATE: 02/11/2024 SERVICE TIME: 8:11 AM PHYSICAL EXAM MUST BE COMPLETED ON ADMISSION PROCEDURE: Procedure Indications: The History and Physical (completed in the past 30 days) has been reviewed and the patient has beenexamined. The contents accurately reflect the patient's condition with the following additions or revisions since the H&P was completed. ASA Class: ASA Class: Patient with severe systemic disease Examination indicates no changes. AIRWAY: Airway Visualization of Uvula: Yes Mouth opening greater than 2 fingerbreadths: Yes Neck Full Range of Motion: Yes LUNGS: Lungs clear to auscultation CARDIAC: Regular rhythm,Regular rate Provisional Diagnosis/Treatment Plan: screening colonoscopy Sedation Goal: Moderate This H&P can be found in the attached. SIGNATURE: Veronika Goins MD PATIENT NAME: Michael Alcantara DATE: February 11, 2024 TIME: 8:11 AM Source Note - Veronika Goins MD - 02/11/2024 8:15 AM EST HISTORY AND PHYSICAL Michael Alcantara : 1950 REFERRING PHYSICIAN: Xavi Jaimes [address] [facility] [place] [address] CHIEF COMPLAINT: Patient presents with: Consult: colonoscopy HPI: Michael is a 73 year old female referred for endoscopy. Michael notes due for screening colonoscopy, history of polyps. Michael denies abdominal pain.. Michael denies diarrhea. Michael denies constipation. Michael denies a change in bowel habits. Michael denies melena. Michael denies bright red blood per rectum. Michael denies hemorrhoids. Michael denies heartburn. Michael denies dysphagia. Michael denies a history of ulcers/ peptic ulcer disease. Michael notes family history of colon issues. Sister with celiac disease. Michael has a history of CAD with stent x2 placement in 2016. She take Plavix. Cardiology recently stopped 81mg asa. Stress test in 2020 with no ischemia and preserved EF. Last OV 05/2023. Hx of bilateral carotid artery stenosis. Denies CP, SOB, dizziness, palpitations, syncope, edema, recent hospitalizations. Hx of mild intermittent asthma. Follows with Dr. Gonzales. Uses Dulera daily. Denies any increasing SOB, wheezing, recent illness/hospitalizations. Michael has undergone prior endoscopy. Last colonoscopy was 10/[address] Hwang at [facility]. Sedation received: Fentanyl 50 micrograms IV, Midazolam 7 mg IV, Diphenhydramine 50 mg IV Impression: - Internal hemorrhoids. CURRENT MEDICATIONS Current Outpatient Medications Medication Sig potassium chloride (K-TAB) 10 mEq tablet Take 10 mEq by mouth two times a day. Lactobacillus acidophilus (PROBIOTIC ACIDOPHILUS ORAL) Take by mouth. pantoprazole DR (PROTONIX) 20 mg tablet Take 1 tablet by mouth daily before breakfast. Take on empty stomach, 1/2 hr before meal. hydrOXYchloroQUINE (PLAQUENIL) 200 mg tablet Take 200 mg by mouth once daily. losartan (COZAAR) 100 mg tablet Take 100 mg by mouth once daily. metoprolol succinate ER (TOPROL XL) 50 mg 24 hr tablet Take 50 mg by mouth once daily. amLODIPine (NORVASC) 2.5 mg tablet Take 2.5 mg by mouth once daily. cholecalciferol, vitamin D3, 10 mcg (400 unit) cap Take 400 Units by mouth once daily. mometasone-formoterol (DULERA) 100-5 mcg/actuation inhaler Inhale 2 Puffs as instructed twice daily. Dr. Liz calcium carbonate/vitamin D3 (CALCIUM 600 + D,3, ORAL) Take 2 tablets by mouth once daily. atorvastatin (LIPITOR) 40 mg tablet Take 1 tablet by mouth once daily. Hydrochlorothiazide 12.5 mg capsule Take 1 capsule by mouth once daily. clopidogrel (PLAVIX) 75 mg tablet TAKE 1 TABLET DAILY nitroglycerin sublingual (NITROQUICK) 0.4 mg SL tablet Dissolve 1 tablet under the tongue as needed. FOR CHEST PAIN. IF NO RELIEF CALL 911 diclofenac (VOLTAREN) 1 % topical gel Apply 2 g to affected area as needed (each hand). predniSONE 10 mg tablet Take 10 mg by mouth as needed. Fluticasone Furoate 27.5 mcg/actuation nasal spray Use 2 Sprays in each nostril as needed. No current facility-administered medications for this visit. ALLERGIES: Amoxicillin and Seasonal Allergies PAST MEDICAL HISTORY PAST MEDICAL HISTORY Diagnosis Date allergies seasonal/environmental Colon polyps 2010 tubular adenomas GERD (gastroesophageal reflux disease) Hypertension Lupus 2009 KATARZYNA+ Osteopenia 2007 PAST SURGICAL HISTORY PAST SURGICAL HISTORY Procedure Laterality Date COLONOSCOPY FLX DX W/COLLJ SPEC WHEN PFRMD 03/28/2010 tubular adenoma x 2, repeat in 3-4 years COLONOSCOPY FLX DX W/COLLJ SPEC WHEN PFRMD 10/25/13 internal hemorrhoids FAMILY HISTORY FAMILY HISTORY Problem Relation Age of Onset Breast Cancer Mother at age 65, had twice Diabetes Father Diabetes Maternal Grandmother Hypertension Father Coronary Artery Disease Paternal Grandfather [place] other (celiac disease [Other]) Sister Coronary Artery Disease Mother [place] SOCIAL HISTORY Social History Tobacco Use Smoking status: Never Smokeless tobacco: Never Substance Use Topics Alcohol use: No Drug use: No REVIEW OF SYMPTOMS: The review of systems data was entered by the nurse and reviewed by id Nursing Notes: Massiel Lomeli RN 12/31/2023 2:59 PM Signed REVIEW OF SYSTEMS: General: The patient denies fatigue, denies weight loss, denies weight gain, denies feeling hot, and denies feelings of cold. Eyes: The patient denies glaucoma, denies eye injury/surgery, does not wear glasses or contacts. Ear/Nose/Throat: The patient NOTES allergies, denies hayfever, denies ear infections, and denies bloody noses. Cardiovascular: The patient denies chest pain, denies heart disease, NOTES high blood pressure,NOTES cardiac stent, denies prior heart attack, denies irregular heart beat, NOTES high cholesterol, denies poor circulation, denies heart failure, other cardiac issues, denies claudication, denies cold feet, denies peripheral arterial stent. Respiratory: The patient denies tuberculosis, denies pneumonia, denies frequent cough, denies pulmonary embolism, denies shortness of breath, and denies coughing up blood. Gastrointestinal: The patient denies difficulty swallowing, NOTES acid reflux, denies ulcers, denies vomiting, denies jaundice/hepatitis, denies gallbladder problems, denies black or tarry stools, denies hemorrhoids, denies bleeding from rectum, denies diverticulitis, denies constipation, denies diarrhea, denies loss of stool control, and denies hernias. Kidney/Bladder: The patient denies kidney stones, denies urine infections, and denies bloody urine. Skin: The patient denies a history of skin cancer, denies bleeding/changing moles, and NOTES a history of skin rash. Neurologic: The patient denies a history of epilepsy/convulsions, denies headaches, denies head/spinal injuries, and denies stroke/TIA. Psychiatric: The patient denies psychiatric medications, denies depression, and denies voices, denies substance abuse. Endocrine: The patient denies thyroid disorders, denies diabetes, and denies hormonal problems. Hematologic: The patient denies a history of bruising, denies bleeding, and denies anemia, denies blood clots. Infections: The patient denies a history of measles and mumps, denies rheumatic fever, and denies sexually transmitted diseases. Musculoskeletal: The patient denies back pain/injury, denies back problems, denies sciatica, deniesknee/foot trouble, denies arthritis, or denies gout. When was patient's last Mammogram screening? 10/2023 Last Colonoscopy: 10/25/2013 Massiel Lomeli RN PHYSICAL EXAMINATION: General: The patient is 73 year old, female well nourished, well hydrated in no acute distress. Thepatient is oriented to time, place, and person. VITALS: Blood pressure 112/70, pulse 83, temperature 36.1 C (97 F), weight 59.1 kg (130 lb 6.4 oz),last menstrual period 07/15/2007, SpO2 100%. Body mass index is 26.34 kg/m . HEENT: Normal cephalic, ataumatic, pupils are equally round, sclera are anicteric, mucous membranesare moist, oropharynx is clear. Neck has no masses, asymmetry or lymphadenopathy. Respiratory: Clear to auscultation and percussion. Normal respiratory excursion and pattern. Cardiac: Examination is regular rate and rhythm. Normal S1/S2 Abdominal exam: Soft, nontender, with no palpable masses. No hepatosplenomegaly. No palpable hernias. Extremities: no clubbing, cyanosis or edema. No adenopathy. LABORATORY VALUES: As Noted RADIOLOGIC STUDIES: As Noted Assessment IMPRESSION: screen for colon cancer PLAN: I have reviewed my findings with the surgeon. Will plan for lower endoscopy. We discussed therisks and benefits of the planned endoscopy. I have informed the patient that complications can occur including failure to complete the endoscopy and perforation. Michael had the opportunity to ask questions concerning the planned endoscopy. My staff has also explained the procedure to the patient in understandable terms and has given the patient printed material concerning the procedure. Jolly consents to surgery. I plan to use Golytely bowel preparation Based on hx of bilateral carotid stenosis (<50% on both sides) & hx of stents, recently taken off 81mg asa, going to proceed with endoscopy while continuing plavix. Pt agreeable. I have explained to the patient the difference between IV conscious sedation and MAC anesthesia - and I have offered either, according to the patient's wishes. I have explained that with IV conscioussedation there is no anesthesia provider available and therefore there is a limitation of the amount of IV medications that can be given and that the patient may wake up in the middle of the procedure and/or experience pain/discomfort during the procedure. Further discussion was done and the patient was given the opportunity to ask questions and all questions were answered. Michael chooses IV conscious sedation. Michael was counseled that if there are changes in his/her medical condition, to let the office know if surgery should proceed. If there are changes in patient's medical condition from time of this encounter to the day of the procedure that preclude anesthesia, patient may have procedure cancelled for patient's safety. Diagnoses: (Z12.11) Screen for colon cancer (primary encounter diagnosis) (Z86.0100) History of colonic polyps Consultation requested by Dr. Jaimes for an opinion regarding history of colonic polyps. My final recommendations will be communicated back to the requesting physician by way of shared Medical record or letter to requesting physician via US mail. Portions of this documentation were copied and pasted from previous office visit notes in order to provide a cohesive continuity of the history. The note has been reviewed and edited and updated as necessary. Farzana Shirley APRN.BUSINESS JOB TITLES * Veronika Goins MD - 02/11/2024 8:15 AM EST HISTORY AND PHYSICAL Michael Alcantara : 1950 REFERRING PHYSICIAN: Xavi Jaimes [address] [facility] [address] CHIEF COMPLAINT: Patient presents with: Consult: colonoscopy HPI: Michael is a 73 year old female referred for endoscopy. Michael notes due for screening colonoscopy, history of polyps. Michael denies abdominal pain.. Michael denies diarrhea. Michael denies constipation. Michael denies a change in bowel habits. Michael denies melena. Michael denies bright red blood per rectum. Michael denies hemorrhoids. Michael denies heartburn. Michael denies dysphagia. Michael denies a history of ulcers/ peptic ulcer disease. Michael notes family history of colon issues. Sister with celiac disease. Michael has a history of CAD with stent x2 placement in 2015. She take Plavix. Cardiology recently stopped 81mg asa. Stress test in 2020 with no ischemia and preserved EF. Last OV 05/2023. Hx of bilateral carotid artery stenosis. Denies CP, SOB, dizziness, palpitations, syncope, edema, recent hospitalizations. Hx of mild intermittent asthma. Follows with Dr. Gonzales. Uses Dulera daily. Denies any increasing SOB, wheezing, recent illness/hospitalizations. Michael has undergone prior endoscopy. Last colonoscopy was 10/[address] Hwang at [facility]. Sedation received: Fentanyl 50 micrograms IV, Midazolam 7 mg IV, Diphenhydramine 50 mg IV Impression: - Internal hemorrhoids. CURRENT MEDICATIONS Current Outpatient Medications Medication Sig potassium chloride (K-TAB) 10 mEq tablet Take 10 mEq by mouth two times a day. Lactobacillus acidophilus (PROBIOTIC ACIDOPHILUS ORAL) Take by mouth. pantoprazole DR (PROTONIX) 20 mg tablet Take 1 tablet by mouth daily before breakfast. Take on empty stomach, 1/2 hr before meal. hydrOXYchloroQUINE (PLAQUENIL) 200 mg tablet Take 200 mg by mouth once daily. losartan (COZAAR) 100 mg tablet Take 100 mg by mouth once daily. metoprolol succinate ER (TOPROL XL) 50 mg 24 hr tablet Take 50 mg by mouth once daily. amLODIPine (NORVASC) 2.5 mg tablet Take 2.5 mg by mouth once daily. cholecalciferol, vitamin D3, 10 mcg (400 unit) cap Take 400 Units by mouth once daily. mometasone-formoterol (DULERA) 100-5 mcg/actuation inhaler Inhale 2 Puffs as instructed twice daily. Dr. Liz calcium carbonate/vitamin D3 (CALCIUM 600 + D,3, ORAL) Take 2 tablets by mouth once daily. atorvastatin (LIPITOR) 40 mg tablet Take 1 tablet by mouth once daily. Hydrochlorothiazide 12.5 mg capsule Take 1 capsule by mouth once daily. clopidogrel (PLAVIX) 75 mg tablet TAKE 1 TABLET DAILY nitroglycerin sublingual (NITROQUICK) 0.4 mg SL tablet Dissolve 1 tablet under the tongue as needed. FOR CHEST PAIN. IF NO RELIEF CALL 911 diclofenac (VOLTAREN) 1 % topical gel Apply 2 g to affected area as needed (each hand). predniSONE 10 mg tablet Take 10 mg by mouth as needed. Fluticasone Furoate 27.5 mcg/actuation nasal spray Use 2 Sprays in each nostril as needed. No current facility-administered medications for this visit. ALLERGIES: Amoxicillin and Seasonal Allergies PAST MEDICAL HISTORY PAST MEDICAL HISTORY Diagnosis Date allergies seasonal/environmental Colon polyps 2010 tubular adenomas GERD (gastroesophageal reflux disease) Hypertension Lupus 2009 KATARZYNA+ Osteopenia 2007 PAST SURGICAL HISTORY PAST SURGICAL HISTORY Procedure Laterality Date COLONOSCOPY FLX DX W/COLLJ SPEC WHEN PFRMD 03/28/2010 tubular adenoma x 2, repeat in 3-4 years COLONOSCOPY FLX DX W/COLLJ SPEC WHEN PFRMD 10/25/13 internal hemorrhoids FAMILY HISTORY FAMILY HISTORY Problem Relation Age of Onset Breast Cancer Mother at age 65, had twice Diabetes Father Diabetes Maternal Grandmother Hypertension Father Coronary Artery Disease Paternal Grandfather [place] other (celiac disease [Other]) Sister Coronary Artery Disease Mother [place] SOCIAL HISTORY Social History Tobacco Use Smoking status: Never Smokeless tobacco: Never Substance Use Topics Alcohol use: No Drug use: No REVIEW OF SYMPTOMS: The review of systems data was entered by the nurse and reviewed by id Nursing Notes: Massiel Lomeli RN 12/31/2023 2:59 PM Signed REVIEW OF SYSTEMS: General: The patient denies fatigue, denies weight loss, denies weight gain, denies feeling hot, and denies feelings of cold. Eyes: The patient denies glaucoma, denies eye injury/surgery, does not wear glasses or contacts. Ear/Nose/Throat: The patient NOTES allergies, denies hayfever, denies ear infections, and denies bloody noses. Cardiovascular: The patient denies chest pain, denies heart disease, NOTES high blood pressure,NOTES cardiac stent, denies prior heart attack, denies irregular heart beat, NOTES high cholesterol, denies poor circulation, denies heart failure, other cardiac issues, denies claudication, denies cold feet, denies peripheral arterial stent. Respiratory: The patient denies tuberculosis, denies pneumonia, denies frequent cough, denies pulmonary embolism, denies shortness of breath, and denies coughing up blood. Gastrointestinal: The patient denies difficulty swallowing, NOTES acid reflux, denies ulcers, denies vomiting, denies jaundice/hepatitis, denies gallbladder problems, denies black or tarry stools, denies hemorrhoids, denies bleeding from rectum, denies diverticulitis, denies constipation, denies diarrhea, denies loss of stool control, and denies hernias. Kidney/Bladder: The patient denies kidney stones, denies urine infections, and denies bloody urine. Skin: The patient denies a history of skin cancer, denies bleeding/changing moles, and NOTES a history of skin rash. Neurologic: The patient denies a history of epilepsy/convulsions, denies headaches, denies head/spinal injuries, and denies stroke/TIA. Psychiatric: The patient denies psychiatric medications, denies depression, and denies voices, denies substance abuse. Endocrine: The patient denies thyroid disorders, denies diabetes, and denies hormonal problems. Hematologic: The patient denies a history of bruising, denies bleeding, and denies anemia, denies blood clots. Infections: The patient denies a history of measles and mumps, denies rheumatic fever, and denies sexually transmitted diseases. Musculoskeletal: The patient denies back pain/injury, denies back problems, denies sciatica, deniesknee/foot trouble, denies arthritis, or denies gout. When was patient's last Mammogram screening? 10/2023 Last Colonoscopy: 10/25/2013 Massiel Lomeli RN PHYSICAL EXAMINATION: General: The patient is 73 year old, female well nourished, well hydrated in no acute distress. Thepatient is oriented to time, place, and person. VITALS: Blood pressure 112/70, pulse 83, temperature 36.1 C (97 F), weight 59.1 kg (130 lb 6.4 oz),last menstrual period 07/15/2007, SpO2 100%. Body mass index is 26.34 kg/m . HEENT: Normal cephalic, ataumatic, pupils are equally round, sclera are anicteric, mucous membranesare moist, oropharynx is clear. Neck has no masses, asymmetry or lymphadenopathy. Respiratory: Clear to auscultation and percussion. Normal respiratory excursion and pattern. Cardiac: Examination is regular rate and rhythm. Normal S1/S2 Abdominal exam: Soft, nontender, with no palpable masses. No hepatosplenomegaly. No palpable hernias. Extremities: no clubbing, cyanosis or edema. No adenopathy. LABORATORY VALUES: As Noted RADIOLOGIC STUDIES: As Noted Assessment IMPRESSION: screen for colon cancer PLAN: I have reviewed my findings with the surgeon. Will plan for lower endoscopy. We discussed therisks and benefits of the planned endoscopy. I have informed the patient that complications can occur including failure to complete the endoscopy and perforation. Michael had the opportunity to ask questions concerning the planned endoscopy. My staff has also explained the procedure to the patient in understandable terms and has given the patient printed material concerning the procedure. Jolly consents to surgery. I plan to use Golytely bowel preparation Based on hx of bilateral carotid stenosis (<50% on both sides) & hx of stents, recently taken off 81mg asa, going to proceed with endoscopy while continuing plavix. Pt agreeable. I have explained to the patient the difference between IV conscious sedation and MAC anesthesia - and I have offered either, according to the patient's wishes. I have explained that with IV conscioussedation there is no anesthesia provider available and therefore there is a limitation of the amount of IV medications that can be given and that the patient may wake up in the middle of the procedure and/or experience pain/discomfort during the procedure. Further discussion was done and the patient was given the opportunity to ask questions and all questions were answered. Michael chooses IV conscious sedation. Michael was counseled that if there are changes in his/her medical condition, to let the office know if surgery should proceed. If there are changes in patient's medical condition from time of this encounter to the day of the procedure that preclude anesthesia, patient may have procedure cancelled for patient's safety. Diagnoses: (Z12.11) Screen for colon cancer (primary encounter diagnosis) (Z86.0100) History of colonic polyps Consultation requested by Dr. Jaimes for an opinion regarding history of colonic polyps. My final recommendations will be communicated back to the requesting physician by way of shared Medical record or letter to requesting physician via [place] mail. Portions of this documentation were copied and pasted from previous office visit notes in order to provide a cohesive continuity of the history. The note has been reviewed and edited and updated as necessary. Farzana Shirley APRN.BUSINESS JOB TITLES [facility] Tele[facility] encounter Note * Telephone Encounter - Neha Brown LPN - 01/26/2024 2:22 PM EST The patient has been identified by name and date of : Yes Caregiver verified no other encounters exist for this prescription request: Yes Caregiver confirmed with patient/requestor that no other refills are due, in the near future, with this provider at this time: Yes The last office visit in the department: 12/10/2023 Does the patient have a future office visit with this provider/department: Yes 06/09/2024 Requested Prescriptions Pending Prescriptions Disp Refills potassium chloride (K-TAB) 10 mEq tablet 90 tablet 3 Sig: Take 1 tablet by mouth daily with breakfast. Neha Brown LPN January 26, 2024 2:24 PM [facility]11-[facility] Miscellaneous Notes* Telephone Encounter - Neha Brown LPN - 01/26/2024 2:22 PM EST The patient has been identified by name and date of : Yes Caregiver verified no other encounters exist for this prescription request: Yes Caregiver confirmed with patient/requestor that no other refills are due, in the near future, with this provider at this time: Yes The last office visit in the department: 12/10/2023 Does the patient have a future office visit with this provider/department: Yes 06/09/2024 Requested Prescriptions Pending Prescriptions Disp Refills potassium chloride (K-TAB) 10 mEq tablet 90 tablet 3 Sig: Take 1 tablet by mouth daily with breakfast. Neha Brown LPN January 26, 2024 2:24 PM documented in this encounterPome[facility]10-[facility] Nurse Note* Massiel Lomeli RN - 12/31/2023 3:25 PM EDT This Nurse reviewed and provided patient with copy of written instructions. The patient verbalized understanding and was given a number for questions. Massiel Lomeli RN [facility] Nurse Note* Massiel Lomeli RN - 12/31/2023 3:25 PM EDT This Nurse reviewed and provided patient with copy of written instructions. The patient verbalized understanding and was given a number for questions. Massiel Lomeli RN * Massiel Lomeli RN - 12/31/2023 2:57 PM EDT REVIEW OF SYSTEMS: General: The patient denies fatigue, denies weight loss, denies weight gain, denies feeling hot, and denies feelings of cold. Eyes: The patient denies glaucoma, denies eye injury/surgery, does not wear glasses or contacts. Ear/Nose/Throat: The patient NOTES allergies, denies hayfever, denies ear infections, and denies bloody noses. Cardiovascular: The patient denies chest pain, denies heart disease, NOTES high blood pressure,NOTES cardiac stent, denies prior heart attack, denies irregular heart beat, NOTES high cholesterol, denies poor circulation, denies heart failure, other cardiac issues, denies claudication, denies cold feet, denies peripheral arterial stent. Respiratory: The patient denies tuberculosis, denies pneumonia, denies frequent cough, denies pulmonary embolism, denies shortness of breath, and denies coughing up blood. Gastrointestinal: The patient denies difficulty swallowing, NOTES acid reflux, denies ulcers, denies vomiting, denies jaundice/hepatitis, denies gallbladder problems, denies black or tarry stools, denies hemorrhoids, denies bleeding from rectum, denies diverticulitis, denies constipation, denies diarrhea, denies loss of stool control, and denies hernias. Kidney/Bladder: The patient denies kidney stones, denies urine infections, and denies bloody urine. Skin: The patient denies a history of skin cancer, denies bleeding/changing moles, and NOTES a history of skin rash. Neurologic: The patient denies a history of epilepsy/convulsions, denies headaches, denies head/spinal injuries, and denies stroke/TIA. Psychiatric: The patient denies psychiatric medications, denies depression, and denies voices, denies substance abuse. Endocrine: The patient denies thyroid disorders, denies diabetes, and denies hormonal problems. Hematologic: The patient denies a history of bruising, denies bleeding, and denies anemia, denies blood clots. Infections: The patient denies a history of measles and mumps, denies rheumatic fever, and denies sexually transmitted diseases. Musculoskeletal: The patient denies back pain/injury, denies back problems, denies sciatica, deniesknee/foot trouble, denies arthritis, or denies gout. When was patient's last Mammogram screening? 10/2023 Last Colonoscopy: 10/25/2013 Massiel Lomeli RN documented in this encounterPome[facility]10-[facility] Nurse Note* Massiel Lomeli RN - 12/31/2023 2:57 PM EDT REVIEW OF SYSTEMS: General: The patient denies fatigue, denies weight loss, denies weight gain, denies feeling hot, and denies feelings of cold. Eyes: The patient denies glaucoma, denies eye injury/surgery, does not wear glasses or contacts. Ear/Nose/Throat: The patient NOTES allergies, denies hayfever, denies ear infections, and denies bloody noses. Cardiovascular: The patient denies chest pain, denies heart disease, NOTES high blood pressure,NOTES cardiac stent, denies prior heart attack, denies irregular heart beat, NOTES high cholesterol, denies poor circulation, denies heart failure, other cardiac issues, denies claudication, denies cold feet, denies peripheral arterial stent. Respiratory: The patient denies tuberculosis, denies pneumonia, denies frequent cough, denies pulmonary embolism, denies shortness of breath, and denies coughing up blood. Gastrointestinal: The patient denies difficulty swallowing, NOTES acid reflux, denies ulcers, denies vomiting, denies jaundice/hepatitis, denies gallbladder problems, denies black or tarry stools, denies hemorrhoids, denies bleeding from rectum, denies diverticulitis, denies constipation, denies diarrhea, denies loss of stool control, and denies hernias. Kidney/Bladder: The patient denies kidney stones, denies urine infections, and denies bloody urine. Skin: The patient denies a history of skin cancer, denies bleeding/changing moles, and NOTES a history of skin rash. Neurologic: The patient denies a history of epilepsy/convulsions, denies headaches, denies head/spinal injuries, and denies stroke/TIA. Psychiatric: The patient denies psychiatric medications, denies depression, and denies voices, denies substance abuse. Endocrine: The patient denies thyroid disorders, denies diabetes, and denies hormonal problems. Hematologic: The patient denies a history of bruising, denies bleeding, and denies anemia, denies blood clots. Infections: The patient denies a history of measles and mumps, denies rheumatic fever, and denies sexually transmitted diseases. Musculoskeletal: The patient denies back pain/injury, denies back problems, denies sciatica, deniesknee/foot trouble, denies arthritis, or denies gout. When was patient's last Mammogram screening? 10/2023 Last Colonoscopy: 10/25/2013 Massiel Lomeli RN [facility] History of Present illness Narrative* Farzana Shirley APRN.BUSINESS JOB TITLES - 12/31/2023 2:30 PM EDT HISTORY AND PHYSICAL Michael Alcantara : 1950 REFERRING PHYSICIAN: Xavi Jaimes [address] [facility] [address] CHIEF COMPLAINT: Patient presents with: Consult: colonoscopy HPI: Michael is a 73 year old female referred for endoscopy. Michael notes due for screening colonoscopy, history of polyps. Michael denies abdominal pain.. Michael denies diarrhea. Michael denies constipation. Michael denies a change in bowel habits. Michael denies melena. Michael denies bright red blood per rectum. Michael denies hemorrhoids. Michael denies heartburn. Michael denies dysphagia. Michael denies a history of ulcers/ peptic ulcer disease. Michael notes family history of colon issues. Sister with celiac disease. Michael has a history of CAD with stent x2 placement in 2015. She take Plavix. Cardiology recently stopped 81mg asa. Stress test in 2020 with no ischemia and preserved EF. Last OV 05/2023. Hx of bilateral carotid artery stenosis. Denies CP, SOB, dizziness, palpitations, syncope, edema, recent hospitalizations. Hx of mild intermittent asthma. Follows with Dr. Gonzales. Uses Dulera daily. Denies any increasing SOB, wheezing, recent illness/hospitalizations. Michael has undergone prior endoscopy. Last colonoscopy was 10/[address] Hwang at [facility]. Sedation received: Fentanyl 50 micrograms IV, Midazolam 7 mg IV, Diphenhydramine 50 mg IV Impression: - Internal hemorrhoids. Current Outpatient Medications Medication Sig potassium chloride (K-TAB) 10 mEq tablet Take 10 mEq by mouth two times a day. Lactobacillus acidophilus (PROBIOTIC ACIDOPHILUS ORAL) Take by mouth. pantoprazole DR (PROTONIX) 20 mg tablet Take 1 tablet by mouth daily before breakfast. Take on empty stomach, 1/2 hr before meal. hydrOXYchloroQUINE (PLAQUENIL) 200 mg tablet Take 200 mg by mouth once daily. losartan (COZAAR) 100 mg tablet Take 100 mg by mouth once daily. metoprolol succinate ER (TOPROL XL) 50 mg 24 hr tablet Take 50 mg by mouth once daily. amLODIPine (NORVASC) 2.5 mg tablet Take 2.5 mg by mouth once daily. cholecalciferol, vitamin D3, 10 mcg (400 unit) cap Take 400 Units by mouth once daily. mometasone-formoterol (DULERA) 100-5 mcg/actuation inhaler Inhale 2 Puffs as instructed twice daily. Dr. Liz calcium carbonate/vitamin D3 (CALCIUM 600 + D,3, ORAL) Take 2 tablets by mouth once daily. atorvastatin (LIPITOR) 40 mg tablet Take 1 tablet by mouth once daily. Hydrochlorothiazide 12.5 mg capsule Take 1 capsule by mouth once daily. clopidogrel (PLAVIX) 75 mg tablet TAKE 1 TABLET DAILY nitroglycerin sublingual (NITROQUICK) 0.4 mg SL tablet Dissolve 1 tablet under the tongue as needed. FOR CHEST PAIN. IF NO RELIEF CALL 911 diclofenac (VOLTAREN) 1 % topical gel Apply 2 g to affected area as needed (each hand). predniSONE 10 mg tablet Take 10 mg by mouth as needed. Fluticasone Furoate 27.5 mcg/actuation nasal spray Use 2 Sprays in each nostril as needed. No current facility-administered medications for this visit. ALLERGIES: Amoxicillin and Seasonal Allergies PAST MEDICAL HISTORY Diagnosis Date allergies seasonal/environmental Colon polyps 2010 tubular adenomas GERD (gastroesophageal reflux disease) Hypertension Lupus 2009 KATARZYNA+ Osteopenia 2007 PAST SURGICAL HISTORY Procedure Laterality Date COLONOSCOPY FLX DX W/COLLJ SPEC WHEN PFRMD 03/28/2010 tubular adenoma x 2, repeat in 3-4 years COLONOSCOPY FLX DX W/COLLJ SPEC WHEN PFRMD 10/25/13 internal hemorrhoids FAMILY HISTORY Problem Relation Age of Onset Breast Cancer Mother at age 65, had twice Diabetes Father Diabetes Maternal Grandmother Hypertension Father Coronary Artery Disease Paternal Grandfather [place] other (celiac disease [Other]) Sister Coronary Artery Disease Mother [place] Social History Tobacco Use Smoking status: Never Smokeless tobacco: Never Substance Use Topics Alcohol use: No Drug use: No REVIEW OF SYMPTOMS: The review of systems data was entered by the nurse and reviewed by id Nursing Notes: Massiel Lomeli RN 12/31/2023 2:59 PM Signed REVIEW OF SYSTEMS: General: The patient denies fatigue, denies weight loss, denies weight gain, denies feeling hot, and denies feelings of cold. Eyes: The patient denies glaucoma, denies eye injury/surgery, does not wear glasses or contacts. Ear/Nose/Throat: The patient NOTES allergies, denies hayfever, denies ear infections, and denies bloody noses. Cardiovascular: The patient denies chest pain, denies heart disease, NOTES high blood pressure,NOTES cardiac stent, denies prior heart attack, denies irregular heart beat, NOTES high cholesterol, denies poor circulation, denies heart failure, other cardiac issues, denies claudication, denies cold feet, denies peripheral arterial stent. Respiratory: The patient denies tuberculosis, denies pneumonia, denies frequent cough, denies pulmonary embolism, denies shortness of breath, and denies coughing up blood. Gastrointestinal: The patient denies difficulty swallowing, NOTES acid reflux, denies ulcers, denies vomiting, denies jaundice/hepatitis, denies gallbladder problems, denies black or tarry stools, denies hemorrhoids, denies bleeding from rectum, denies diverticulitis, denies constipation, denies diarrhea, denies loss of stool control, and denies hernias. Kidney/Bladder: The patient denies kidney stones, denies urine infections, and denies bloody urine. Skin: The patient denies a history of skin cancer, denies bleeding/changing moles, and NOTES a history of skin rash. Neurologic: The patient denies a history of epilepsy/convulsions, denies headaches, denies head/spinal injuries, and denies stroke/TIA. Psychiatric: The patient denies psychiatric medications, denies depression, and denies voices, denies substance abuse. Endocrine: The patient denies thyroid disorders, denies diabetes, and denies hormonal problems. Hematologic: The patient denies a history of bruising, denies bleeding, and denies anemia, denies blood clots. Infections: The patient denies a history of measles and mumps, denies rheumatic fever, and denies sexually transmitted diseases. Musculoskeletal: The patient denies back pain/injury, denies back problems, denies sciatica, deniesknee/foot trouble, denies arthritis, or denies gout. When was patient's last Mammogram screening? 10/2023 Last Colonoscopy: 10/25/2013 Massiel Lomeli RN PHYSICAL EXAMINATION: General: The patient is 73 year old, female well nourished, well hydrated in no acute distress. Thepatient is oriented to time, place, and person. VITALS: Blood pressure 112/70, pulse 83, temperature 36.1 C (97 F), weight 59.1 kg (130 lb 6.4 oz),last menstrual period 07/15/2007, SpO2 100%. Body mass index is 26.34 kg/m . HEENT: Normal cephalic, ataumatic, pupils are equally round, sclera are anicteric, mucous membranesare moist, oropharynx is clear. Neck has no masses, asymmetry or lymphadenopathy. Respiratory: Clear to auscultation and percussion. Normal respiratory excursion and pattern. Cardiac: Examination is regular rate and rhythm. Normal S1/S2 Abdominal exam: Soft, nontender, with no palpable masses. No hepatosplenomegaly. No palpable hernias. Extremities: no clubbing, cyanosis or edema. No adenopathy. LABORATORY VALUES: As Noted RADIOLOGIC STUDIES: As Noted Assessment IMPRESSION: screen for colon cancer PLAN: I have reviewed my findings with the surgeon. Will plan for lower endoscopy. We discussed therisks and benefits of the planned endoscopy. I have informed the patient that complications can occur including failure to complete the endoscopy and perforation. Michael had the opportunity to ask questions concerning the planned endoscopy. My staff has also explained the procedure to the patient in understandable terms and has given the patient printed material concerning the procedure. Jolly consents to surgery. I plan to use Golytely bowel preparation Based on hx of bilateral carotid stenosis (<50% on both sides) & hx of stents, recently taken off 81mg asa, going to proceed with endoscopy while continuing plavix. Pt agreeable. I have explained to the patient the difference between IV conscious sedation and MAC anesthesia - and I have offered either, according to the patient's wishes. I have explained that with IV conscioussedation there is no anesthesia provider available and therefore there is a limitation of the amount of IV medications that can be given and that the patient may wake up in the middle of the procedure and/or experience pain/discomfort during the procedure. Further discussion was done and the patient was given the opportunity to ask questions and all questions were answered. Michael chooses IV conscious sedation. Michael was counseled that if there are changes in his/her medical condition, to let the office know if surgery should proceed. If there are changes in patient's medical condition from time of this encounter to the day of the procedure that preclude anesthesia, patient may have procedure cancelled for patient's safety. Diagnoses: (Z12.11) Screen for colon cancer (primary encounter diagnosis) (Z86.0100) History of colonic polyps Consultation requested by Dr. Jaimes for an opinion regarding history of colonic polyps. My final recommendations will be communicated back to the requesting physician by way of shared Medical record or letter to requesting physician via US mail. Portions of this documentation were copied and pasted from previous office visit notes in order to provide a cohesive continuity of the history. The note has been reviewed and edited and updated as necessary. Farzana Shirley APRN.MARQUEZ documented in this encounterP[facility]10-23-2024 NoteHNO ID: [id number] Author: FARZANA SHIRLEY APRN.MARQUEZ Service: ? Author Type: Nurse Practitioner Type: Progress Notes Filed: 12/31/2023 15:30 Note Text: HISTORY AND PHYSICAL Michael Alcantara : 1950 REFERRING PHYSICIAN: Xavi Jaimes [address] [facility] [address] CHIEF COMPLAINT: Patient presents with: Consult: colonoscopy HPI: Michael is a 73 year old female referred for endoscopy. Michael notes due for screening colonoscopy, history of polyps. Michael denies abdominal pain.. Michael denies diarrhea. Michael denies constipation. Michael denies a change in bowel habits. Michael denies melena. Michael denies bright red blood per rectum. Michael denies hemorrhoids. Michael denies heartburn. Michael denies dysphagia. Michael denies a history of ulcers/ peptic ulcer disease. Michael notes family history of colon issues. Sister with celiac disease. Michael has a history of CAD with stent x2 placement in 2016. She take Plavix. Cardiology recently stopped 81mg asa. Stress test in 2020 with no ischemia and preserved EF. Last OV 05/2023. Hx of bilateral carotid artery stenosis. Denies CP, SOB, dizziness, palpitations, syncope, edema, recent hospitalizations. Hx of mild intermittent asthma. Follows with Dr. Gonzales. Uses Dulera daily. Denies any increasing SOB, wheezing, recent illness/hospitalizations. Michael has undergone prior endoscopy. Last colonoscopy was 10/[address] Hwang at [facility]. Sedation received: Fentanyl 50 micrograms IV, Midazolam 7 mg IV, Diphenhydramine 50 mg IV Impression: - Internal hemorrhoids. Current Outpatient Medications Medication Sig potassium chloride (K-TAB) 10 mEq tablet Take 10 mEq by mouth two times a day. Lactobacillus acidophilus (PROBIOTIC ACIDOPHILUS ORAL) Take by mouth. pantoprazole DR (PROTONIX) 20 mg tablet Take 1 tablet by mouth daily before breakfast. Take on empty stomach, 1/2 hr before meal. hydrOXYchloroQUINE (PLAQUENIL) 200 mg tablet Take 200 mg by mouth once daily. losartan (COZAAR) 100 mg tablet Take 100 mg by mouth once daily. metoprolol succinate ER (TOPROL XL) 50 mg 24 hr tablet Take 50 mg by mouth once daily. amLODIPine (NORVASC) 2.5 mg tablet Take 2.5 mg by mouth once daily. cholecalciferol, vitamin D3, 10 mcg (400 unit) cap Take 400 Units by mouth once daily. mometasone-formoterol (DULERA) 100-5 mcg/actuation inhaler Inhale 2 Puffs as instructed twice daily. Dr. Liz calcium carbonate/vitamin D3 (CALCIUM 600 + D,3, ORAL) Take 2 tablets by mouth once daily. atorvastatin (LIPITOR) 40 mg tablet Take 1 tablet by mouth once daily. Hydrochlorothiazide 12.5 mg capsule Take 1 capsule by mouth once daily. clopidogrel (PLAVIX) 75 mg tablet TAKE 1 TABLET DAILY nitroglycerin sublingual (NITROQUICK) 0.4 mg SL tablet Dissolve 1 tablet under the tongue as needed. FOR CHEST PAIN. IF NO RELIEF CALL 911 diclofenac (VOLTAREN) 1 % topical gel Apply 2 g to affected area as needed (each hand). predniSONE 10 mg tablet Take 10 mg by mouth as needed. Fluticasone Furoate 27.5 mcg/actuation nasal spray Use 2 Sprays in each nostril as needed. No current facility-administered medications for this visit. ALLERGIES: Amoxicillin and Seasonal Allergies PAST MEDICAL HISTORY Diagnosis Date allergies seasonal/environmental Colon polyps 2010 tubular adenomas GERD (gastroesophageal reflux disease) Hypertension Lupus 2009 KATARZYNA+ Osteopenia 2007 PAST SURGICAL HISTORY Procedure Laterality Date COLONOSCOPY FLX DX W/COLLJ SPEC WHEN PFRMD 03/28/2010 tubular adenoma x 2, repeat in 3-4 years COLONOSCOPY FLX DX W/COLLJ SPEC WHEN PFRMD 10/25/13 internal hemorrhoids FAMILY HISTORY Problem Relation Age of Onset Breast Cancer Mother at age 65, had twice Diabetes Father Diabetes Maternal Grandmother Hypertension Father Coronary Artery Disease Paternal Grandfather [place] other (celiac disease [Other]) Sister Coronary Artery Disease Mother [place] Social History Tobacco Use Smoking status: Never Smokeless tobacco: Never Substance Use Topics Alcohol use: No Drug use: No REVIEW OF SYMPTOMS: The review of systems data was entered by the nurse and reviewed by id Nursing Notes: Massiel Lomeli RN 12/31/2023 2:59 PM Signed REVIEW OF SYSTEMS: General: The patient denies fatigue, denies weight loss, denies weight gain, denies feeling hot, and denies feelings of cold. Eyes: The patient denies glaucoma, denies eye injury/surgery, does not wear glasses or contacts. Ear/Nose/Throat: The patient NOTES allergies, denies hayfever, denies ear infections, and denies bloody noses. Cardiovascular: The patient denies chest pain, denies heart disease, NOTES high blood pressure,NOTES cardiac stent, denies prior heart attack, denies irregular heart beat, NOTES high cholesterol, denies poor circulation, denies heart failure, other cardiac issues, denies claudication, denies cold (more content not included)...[facility]10-02-2024 NoteHNO ID: [id number] Author: XAVI JAIMES MD Service: ? Author Type: Physician Type: Progress Notes Filed: 12/10/2023 11:02 Note Text: Patient presents with: Follow Up: 6 months HPI: Patient presents today for office visit for follow up. Still following with rheumatology. Did have flare of lupus recently. Dong well now. No issues with gi tract. Asthmas is doing well. No new cough or wheeze. Rarely using rescue inhaler. Still seeing Dr Gonzales. Still seeing [facility]. No chest pain or shortness of beath. Had followed with Dr. Peña for her vascular follow up. Note was copied and pasted, without alteration from: GERD: Patient takes: pantoprazole Heartburn is controlled: Yes. Bloody or black stools: No. Bowel changes: No. Cardio stopped ASA. They are keeping her on plavix. Seeing [facility]. Getting another carotid done. And then seeing Dr Peña Still seeing rheumatology Also seeing Dr Gonzales in [place] for her asthma. Is stable. Latest Ref Rng 12/08/2023 Glucose 74 - 99 mg/dL 107 (H) BUN 7 - 21 mg/dL 21 Creatinine 0.58 - 0.96 mg/dL 0.94 Sodium 136 - 144 mmol/L 138 Potassium 3.7 - 5.1 mmol/L 3.9 Chloride 98 - 107 mmol/L 101 CO2 22 - 30 mmol/L 26 Anion Gap 8 - 15 mmol/L 11 Calcium 8.5 - 10.2 mg/dL 9.7 eGFR >=60 mL/min/1.73m? 65 Legend: (H) High .MEDICATIONS: Current Outpatient Medications Medication Sig pantoprazole DR (PROTONIX) 20 mg tablet Take 1 tablet by mouth daily before breakfast. Take on empty stomach, 1/2 hr before meal. hydrOXYchloroQUINE (PLAQUENIL) 200 mg tablet Take 200 mg by mouth once daily. losartan (COZAAR) 100 mg tablet Take 100 mg by mouth once daily. metoprolol succinate ER (TOPROL XL) 50 mg 24 hr tablet Take 50 mg by mouth once daily. amLODIPine (NORVASC) 2.5 mg tablet Take 2.5 mg by mouth once daily. cholecalciferol, vitamin D3, 10 mcg (400 unit) cap Take 400 Units by mouth once daily. mometasone-formoterol (DULERA) 100-5 mcg/actuation inhaler Inhale 2 Puffs as instructed twice daily. Dr. Liz calcium carbonate/vitamin D3 (CALCIUM 600 + D,3, ORAL) Take 2 tablets by mouth once daily. atorvastatin (LIPITOR) 40 mg tablet Take 1 tablet by mouth once daily. Hydrochlorothiazide 12.5 mg capsule Take 1 capsule by mouth once daily. clopidogrel (PLAVIX) 75 mg tablet TAKE 1 TABLET DAILY diclofenac (VOLTAREN) 1 % topical gel Apply 2 g to affected area as needed (each hand). Fluticasone Furoate 27.5 mcg/actuation nasal spray Use 2 Sprays in each nostril as needed. meloxicam (MOBIC) 7.5 mg tablet Take 7.5 mg by mouth once daily. (Patient not taking: Reported on 12/10/2023) aspirin, enteric coated (ASPIRIN, ENTERIC COATED) 81 mg EC tablet Take 81 mg by mouth once daily. (Patient not taking: Reported on 12/10/2023) nitroglycerin sublingual (NITROQUICK) 0.4 mg SL tablet Dissolve 1 tablet under the tongue as needed. FOR CHEST PAIN. IF NO RELIEF CALL 911 predniSONE 10 mg tablet Take 10 mg by mouth as needed. No current facility-administered medications for this visit. ALLERGIES: ALLERGIES Allergen Reactions Amoxicillin Diarrhea, GI Upset Environmemtal [Othe* stuffy nose, sneezing, cough PAST MEDICAL HISTORY Diagnosis Date allergies seasonal/environmental Colon polyps 2010 tubular adenomas GERD (gastroesophageal reflux disease) Hypertension Lupus 2009 KATARZYNA+ Osteopenia 2007 PAST SURGICAL HISTORY Procedure Laterality Date COLONOSCOPY FLX DX W/COLLJ SPEC WHEN PFRMD 03/28/2010 tubular adenoma x 2, repeat in 3-4 years COLONOSCOPY FLX DX W/COLLJ SPEC WHEN PFRMD 10/25/13 internal hemorrhoids FAMILY HISTORY Problem Relation Age of Onset Breast Cancer Mother at age 65, had twice Diabetes Father Diabetes Maternal Grandmother Hypertension Father Coronary Artery Disease Paternal Grandfather [place] other (celiac disease [Other]) Sister Coronary Artery Disease Mother [place] Social History Tobacco Use Smoking status: Never Smokeless tobacco: Never Substance Use Topics Alcohol use: No Drug use: No Reviewed current medications, allergies, past medical history, surgical history, family history and social history today. REVIEW OF SYSTEMS All other reviewed and negative other than HPI. HEALTH MAINTENANCE: Reviewed health maintenance issues today and recommended the following in detail. Depression Screening Never done Anxiety Screening Never done Cervical Cancer Screening due on 02/18/2014 Mammogram Screening due on 10/24/2022 DTaP,Tdap,Td Vaccine(3 - Td or Tdap) due on 09/18/2023 Colorectal Cancer Screening due on 10/26/2023 Influenza Vaccine(1) due on 11/09/2023 Covid-19 Vaccine( season) due on 11/09/2023 VITALS: BP 122/72 Pulse 80 Resp 14 Wt 58.4 kg (128 lb 12 oz) LMP 07/15/2007 BMI 26.00 kg/m? Last 4 Encounter Wt Readings: Date: Wt: 12/10/2023 58.4 kg (128 lb 12 oz) 06/04/2023 58.1 kg (128 lb) 12/02/2022 61.2 kg (135 lb) (more content not included)...[facility]10-02-2024 History of Present illness Narrative* Xavi Jaimes MD - 12/10/2023 9:33 AM EDT Patient presents with: Follow Up: 6 months HPI: Patient presents today for office visit for follow up. Still following with rheumatology. Did have flare of lupus recently. Dong well now. No issues with gi tract. Asthmas is doing well. No new cough or wheeze. Rarely using rescue inhaler. Still seeing Dr Gonzales. Still seeing [facility]. No chest pain or shortness of beath. Had followed with Dr. Peña for her vascular follow up. Note was copied and pasted, without alteration from: GERD: Patient takes: pantoprazole Heartburn is controlled: Yes. Bloody or black stools: No. Bowel changes: No. Cardio stopped ASA. They are keeping her on plavix. Seeing [facility]. Getting another carotid done. And then seeing Dr Peña Still seeing rheumatology Also seeing Dr Gonzales in [place] for her asthma. Is stable. Latest Ref Rng 12/08/2023 Glucose 74 - 99 mg/dL 107 (H) BUN 7 - 21 mg/dL 21 Creatinine 0.58 - 0.96 mg/dL 0.94 Sodium 136 - 144 mmol/L 138 Potassium 3.7 - 5.1 mmol/L 3.9 Chloride 98 - 107 mmol/L 101 CO2 22 - 30 mmol/L 26 Anion Gap 8 - 15 mmol/L 11 Calcium 8.5 - 10.2 mg/dL 9.7 eGFR >=60 mL/min/1.73m 65 Legend: (H) High .MEDICATIONS: Current Outpatient Medications Medication Sig pantoprazole DR (PROTONIX) 20 mg tablet Take 1 tablet by mouth daily before breakfast. Take on empty stomach, 1/2 hr before meal. hydrOXYchloroQUINE (PLAQUENIL) 200 mg tablet Take 200 mg by mouth once daily. losartan (COZAAR) 100 mg tablet Take 100 mg by mouth once daily. metoprolol succinate ER (TOPROL XL) 50 mg 24 hr tablet Take 50 mg by mouth once daily. amLODIPine (NORVASC) 2.5 mg tablet Take 2.5 mg by mouth once daily. cholecalciferol, vitamin D3, 10 mcg (400 unit) cap Take 400 Units by mouth once daily. mometasone-formoterol (DULERA) 100-5 mcg/actuation inhaler Inhale 2 Puffs as instructed twice daily. Dr. Liz calcium carbonate/vitamin D3 (CALCIUM 600 + D,3, ORAL) Take 2 tablets by mouth once daily. atorvastatin (LIPITOR) 40 mg tablet Take 1 tablet by mouth once daily. Hydrochlorothiazide 12.5 mg capsule Take 1 capsule by mouth once daily. clopidogrel (PLAVIX) 75 mg tablet TAKE 1 TABLET DAILY diclofenac (VOLTAREN) 1 % topical gel Apply 2 g to affected area as needed (each hand). Fluticasone Furoate 27.5 mcg/actuation nasal spray Use 2 Sprays in each nostril as needed. meloxicam (MOBIC) 7.5 mg tablet Take 7.5 mg by mouth once daily. (Patient not taking: Reported on 12/10/2023) aspirin, enteric coated (ASPIRIN, ENTERIC COATED) 81 mg EC tablet Take 81 mg by mouth once daily. (Patient not taking: Reported on 12/10/2023) nitroglycerin sublingual (NITROQUICK) 0.4 mg SL tablet Dissolve 1 tablet under the tongue as needed. FOR CHEST PAIN. IF NO RELIEF CALL 911 predniSONE 10 mg tablet Take 10 mg by mouth as needed. No current facility-administered medications for this visit. ALLERGIES: ALLERGIES Allergen Reactions Amoxicillin Diarrhea, GI Upset Environmemtal [Othe* stuffy nose, sneezing, cough PAST MEDICAL HISTORY Diagnosis Date allergies seasonal/environmental Colon polyps 2010 tubular adenomas GERD (gastroesophageal reflux disease) Hypertension Lupus 2009 KATARZYNA+ Osteopenia 2007 PAST SURGICAL HISTORY Procedure Laterality Date COLONOSCOPY FLX DX W/COLLJ SPEC WHEN PFRMD 03/28/2010 tubular adenoma x 2, repeat in 3-4 years COLONOSCOPY FLX DX W/COLLJ SPEC WHEN PFRMD 10/25/13 internal hemorrhoids FAMILY HISTORY Problem Relation Age of Onset Breast Cancer Mother at age 65, had twice Diabetes Father Diabetes Maternal Grandmother Hypertension Father Coronary Artery Disease Paternal Grandfather [place] other (celiac disease [Other]) Sister Coronary Artery Disease Mother [place] Social History Tobacco Use Smoking status: Never Smokeless tobacco: Never Substance Use Topics Alcohol use: No Drug use: No Reviewed current medications, allergies, past medical history, surgical history, family history andsocial history today. REVIEW OF SYSTEMS All other reviewed and negative other than HPI. HEALTH MAINTENANCE: Reviewed health maintenance issues today and recommended the following in detail. Depression Screening Never done Anxiety Screening Never done Cervical Cancer Screening due on 02/18/2014 Mammogram Screening due on 10/24/2022 DTaP,Tdap,Td Vaccine(3 - Td or Tdap) due on 09/18/2023 Colorectal Cancer Screening due on 10/26/2023 Influenza Vaccine(1) due on 11/09/2023 Covid-19 Vaccine( season) due on 11/09/2023 VITALS: BP 122/72 Pulse 80 Resp 14 Wt 58.4 kg (128 lb 12 oz) LMP 07/15/2007 BMI 26.00 kg/m Last 4 Encounter Wt Readings: Date: Wt: 12/10/2023 58.4 kg (128 lb 12 oz) 06/04/2023 58.1 kg (128 lb) 12/02/2022 61.2 kg (135 lb) 05/29/2022 58.9 kg (129 lb 12.8 oz) PHYSICAL EXAMINATION: General appearance: Well appearing, alert, in no acute distress, well-hydrated, well nourished. Skin: Skin color, texture, turgor normal, no suspicious rashes or lesions Head: Normocephalic, no masses, lesions, tenderness or abnormalities Eyes: Anicteric sclera. Pupils are equally round and reactive to light. Extraocular movements are intact. Lungs: Lungs clear to auscultation. No wheezing, rhonchi, rales Heart: RRR without murmur, gallop, or rubs. No ectopy Abdomen: Normal abdominal exam, Abdomen soft, non-tender. Bowel sounds normal. No masses, organomegaly Extremities: No deformities, edema, skin discoloration, clubbing or cyanosis. Good capillary refill. Musculoskeletal: No joint swelling, deformity, or tenderness Peripheral pulses: Normal Neuro: Negative. ASSESSMENT/PLAN: 1. Primary hypertension - ICD9: 401.9, ICD10: I10 (primary diagnosis) - Controlled - Continue current medications 2. Screening for depression - ICD9: V79.0, ICD10: Z13.31 - DEPRESSION SCREENING 3. Encounter for screening examination for other mental health and behavioral disorders - ICD9: V79.8, ICD10: Z13.39 - ANXIETY SCREENING 4. Encounter for immunization - ICD9: V03.89, ICD10: Z23 - INFLUENZA VACCINE, PRSV FREE, AGE 65+ YR, HIGH DOSE, TRIVALENT (FLUZONE HIGH-DOSE) - [email or web address] COVID-19 VACCINE AGE 12+ YR (COMIRNATY) 5. Hypercholesterolemia - ICD9: 272.0, ICD10: E78.00 - stable. 6. Atherosclerosis of coronary artery of [place] heart without angina pectoris, unspecified vessel or lesion type - ICD9: 414.01, ICD10: I25.10 - continue to follow with cardiology. 7. History of gastroesophageal reflux (GERD) - ICD9: V12.79, ICD10: Z87.19 - stable. 8. Disorder of carotid artery (HCC) - ICD9: 447.9, ICD10: I77.9 - stable. 9. Hyperglycemia - ICD9: 790.29, ICD10: R73.9 - check labs in six months. 10. Mild intermittent asthma, uncomplicated - ICD9: 493.90, ICD10: J45.20 - stable. Xavi Jaimes RTO in six months and prn. documented in this encounterPome[facility]08-28-2024 NotePatient Outreach (INTMMN) MICHAEL ALCANTARA ([id number]) 1950 F Date Time Provider Department 11/05/23 XAVI JAIMES INTMMN During your visit today, we recorded the following information about you: Allergies As of Date: 11/05/2023 Noted Allergy Reaction AMOXICILLIN 07/10/2018 6 - Diarrhea 8 - GI Upset environmemtal [Other] 02/19/2005 Comments: stuffy nose, sneezing, cough Date Reviewed: 06/04/2023 Reviewed by: Imelda Ceron LPN - Fully Assessed Visit Diagnosis:Encounter for screening mammogram for breast cancer [Z12.31] Order(s):[facility] SCREENING W EFRAÍN [[id number]] Order #: [id number] FUTURE Prescriptions as of 11/10/2023 - pantoprazole DR (PROTONIX) 20 mg tablet Take 1 tablet by mouth daily before breakfast. Take on empty stomach, 1/2 hr before meal. - potassium chloride (K-TAB) 10 mEq tablet Take 1 tablet by mouth daily with breakfast. - hydrOXYchloroQUINE (PLAQUENIL) 200 mg tablet Take 200 mg by mouth once daily. - losartan (COZAAR) 100 mg tablet Take 100 mg by mouth once daily. - meloxicam (MOBIC) 7.5 mg tablet Take 7.5 mg by mouth once daily. - metoprolol succinate ER (TOPROL XL) 50 mg 24 hr tablet Take 50 mg by mouth once daily. - amLODIPine (NORVASC) 2.5 mg tablet Take 2.5 mg by mouth once daily. - cholecalciferol, vitamin D3, 10 mcg (400 unit) cap Take 400 Units by mouth once daily. - aspirin, enteric coated (ASPIRIN, ENTERIC COATED) 81 mg EC tablet Take 81 mg by mouth once daily. - mometasone-formoterol (DULERA) 100-5 mcg/actuation inhaler Inhale 2 Puffs as instructed twice daily. Dr. Liz - calcium carbonate/vitamin D3 (CALCIUM 600 + D,3, ORAL) Take 2 tablets by mouth once daily. - atorvastatin (LIPITOR) 40 mg tablet Take 1 tablet by mouth once daily. - Hydrochlorothiazide 12.5 mg capsule Take 1 capsule by mouth once daily. - clopidogrel (PLAVIX) 75 mg tablet TAKE 1 TABLET DAILY - nitroglycerin sublingual (NITROQUICK) 0.4 mg SL tablet Dissolve 1 tablet under the tongue as needed. FOR CHEST PAIN. IF NO RELIEF CALL 911 - diclofenac (VOLTAREN) 1 % topical gel Apply 2 g to affected area as needed (each hand). - predniSONE 10 mg tablet Take 10 mg by mouth as needed. - Fluticasone Furoate 27.5 mcg/actuation nasal spray Use 2 Sprays in each nostril as needed. Problem List As Of Date 11/05/2023 Noted Resolved Allergic rhinitis, cause unspecified [J30.9] 08/13/2007 Esophageal reflux [K21.9] 08/13/2007 12/02/2022 Primary hypertension [I10] 08/13/2007 Disorder of bone and cartilage [M89.9, M94.9] 10/06/2007 Routine general medical examination at [facility]*11/21/2008 04/13/2015 Class: Chronic Routine gynecological examination [Z01.419] 11/21/2008 04/13/2015 Class: Chronic Fam hx-diabetes mellitus 11/21/2008 Foot pain [M79.673] 08/16/2009 10/13/2015 Special screening for malignant neoplasms, colo*03/28/2010 04/13/2015 Benign neoplasm of colon [D12.6] 03/28/2010 Hypercholesterolemia [E78.00] 02/07/2016 Status post insertion of drug-eluting stent int*03/01/2016 05/29/2022 Presence of drug coated stent in left circumfle*03/01/2016 Other forms of systemic lupus erythematosus (HC*03/01/2016 Mild intermittent asthma, uncomplicated [J45.20]05/24/2020 Osteoarth NOS-other site [M19.09] 05/24/2020 Hyperglycemia [R73.9] 05/22/2021 Advance care planning [Z71.89] 05/28/2021 Atherosclerosis of coronary artery [I25.10] 12/02/2022 Diagnosed: 12/02/2022 Atypical chest pain [R07.89] 06/05/2022 12/02/2022 Diagnosed: 12/02/2022 Disorder of carotid artery (HCC) [I77.9] 12/02/2022 Diagnosed: 12/02/2022 History of gastroesophageal reflux (GERD) [Z87.*12/02/2022 Diagnosed: 12/02/2022 Encounter Status:Closed by [employer], PRODUSER on 11/10/23[facility] 06-04-2023 History of Present illness Narrative* Xavi Jaimes MD - 06/04/2023 10:07 AM EDT Patient presents with: 6 Month Exam HPI: Patient presents today for office visit for follow up GERD: Patient takes: pantoprazole Heartburn is controlled: Yes. Bloody or black stools: No. Bowel changes: No. Cardio stopped ASA. They are keeping her on plavix. Seeing [facility]. Getting another carotid done. And then seeing Dr Peña Still seeing rheumatology Also seeing Dr Gonzales in [place] for her asthma. Is stable. Note was copied and pasted, without alteration from: last ov HTN: Patient is compliant with meds Yes Monitors bp at home: Occasionally. Denies side effects: Yes. Chest pain: No. Dyspnea: No. Edema: No. Palpitations: No. Syncope: No. Headache: No. Dizziness: No. HYPERLIPIDEMIA: Patient is taking medications: Yes. Patient is watching diet: Yes. Patient denies myalgias: Yes. Patient denies gi upset: Yes GERD: Patient takes: Pantoprazole Heartburn is controlled: Yes. Bloody or black stools: No. Bowel changes: No. Followed by Rheum and Cardiology Breathing has been stable. Taking her inhalers regularly. No cough or congestion. Latest Ref Rng 05/29/2023 WBC 3.70 - 11.00 k/uL 4.99 RBC 3.90 - 5.20 m/uL 4.33 Hemoglobin 11.5 - 15.5 g/dL 13.0 Hematocrit 36.0 - 46.0 % 37.5 MCV 80.0 - 100.0 fL 86.6 MCH 26.0 - 34.0 pg 30.0 MCHC 30.5 - 36.0 g/dL 34.7 RDW-CV 11.5 - 15.0 % 12.6 Platelet Count 150 - 400 k/uL 185 MPV 9.0 - 12.7 fL 10.6 Neut% % 63.2 Abs Neut (ANC) 1.45 - 7.50 k/uL 3.15 Lymph% % 22.6 Abs Lymph 1.00 - 4.00 k/uL 1.13 Fisher% % 10.4 Abs Fisher <0.87 k/uL 0.52 Eosin% % 2.2 Abs Eosin <0.46 k/uL 0.11 Baso% % 1.4 Abs Baso <0.11 k/uL 0.07 Immature Gran % % 0.2 IMMATURE GRANS (ABS) <0.10 k/uL <0.03 NRBC /100 WBC 0.0 Absolute nRBC <0.01 k/uL <0.01 DTYPE Auto Protein, Total 6.3 - 8.0 g/dL 6.8 Albumin 3.9 - 4.9 g/dL 4.3 Calcium 8.5 - 10.2 mg/dL 9.3 Bilirubin, Total 0.2 - 1.3 mg/dL 0.6 Alkaline Phosphatase 34 - 123 U/L 60 AST 13 - 35 U/L 25 ALT 7 - 38 U/L 11 Glucose 74 - 99 mg/dL 121 (H) BUN 7 - 21 mg/dL 13 Creatinine 0.58 - 0.96 mg/dL 0.98 (H) Sodium 136 - 144 mmol/L 137 Potassium 3.7 - 5.1 mmol/L 3.7 Chloride 97 - 105 mmol/L 101 CO2 22 - 30 mmol/L 28 Anion Gap 9 - 18 mmol/L 8 (L) eGFR >=60 mL/min/1.73m 62 Cholesterol, Total <200 mg/dL 151 Triglyceride <150 mg/dL 58 HDL Cholesterol >39 mg/dL 70 Non HDL Cholesterol <130 mg/dL 81 Fasting Time hrs 12 VLDL Cholesterol <30 mg/dL 12 TC:HDL Ratio <5.10 2.16 LDL Cholesterol <100 mg/dL 69 LDL:HDL Ratio <2.54 0.99 Hemoglobin A1C 4.3 - 5.6 % 5.6 Estimated Average Glucose mg/dL 114 Legend: (H) High (L) Low MEDICATIONS: Current Outpatient Medications Medication Sig potassium chloride (K-TAB) 10 mEq tablet Take 1 tablet by mouth daily with breakfast. pantoprazole DR (PROTONIX) 20 mg tablet Take 1 tablet by mouth daily before breakfast. Take on empty stomach, 1/2 hr before meal. hydrOXYchloroQUINE (PLAQUENIL) 200 mg tablet Take 200 mg by mouth once daily. losartan (COZAAR) 100 mg tablet Take 100 mg by mouth once daily. metoprolol succinate ER (TOPROL XL) 50 mg 24 hr tablet Take 50 mg by mouth once daily. amLODIPine (NORVASC) 2.5 mg tablet Take 2.5 mg by mouth once daily. mometasone-formoterol (DULERA) 100-5 mcg/actuation inhaler Inhale 2 Puffs as instructed twice daily. Dr. Liz calcium carbonate/vitamin D3 (CALCIUM 600 + D,3, ORAL) Take 2 tablets by mouth once daily. atorvastatin (LIPITOR) 40 mg tablet Take 1 tablet by mouth once daily. Hydrochlorothiazide 12.5 mg capsule Take 1 capsule by mouth once daily. clopidogrel (PLAVIX) 75 mg tablet TAKE 1 TABLET DAILY scopolamine (TRANSDERM-SCOP) patch 1.5 mg/72 hr (delivers 1 mg over 3 days) Apply 1 Patch as directed every 72 hours. Apply patch to skin behind ear 4hrs prior to travel. meloxicam (MOBIC) 7.5 mg tablet Take 7.5 mg by mouth once daily. cholecalciferol, vitamin D3, 10 mcg (400 unit) cap Take 400 Units by mouth once daily. aspirin, enteric coated (ASPIRIN, ENTERIC COATED) 81 mg EC tablet Take 81 mg by mouth once daily. nitroglycerin sublingual (NITROQUICK) 0.4 mg SL tablet Dissolve 1 tablet under the tongue as needed. FOR CHEST PAIN. IF NO RELIEF CALL 911 diclofenac (VOLTAREN) 1 % topical gel Apply 2 g to affected area as needed (each hand). predniSONE 10 mg tablet Take 10 mg by mouth as needed. Fluticasone Furoate 27.5 mcg/actuation nasal spray Use 2 Sprays in each nostril as needed. No current facility-administered medications for this visit. ALLERGIES: ALLERGIES Allergen Reactions Amoxicillin Diarrhea, GI Upset Environmemtal [Othe* stuffy nose, sneezing, cough PAST MEDICAL HISTORY Diagnosis Date allergies seasonal/environmental Colon polyps 2010 tubular adenomas GERD (gastroesophageal reflux disease) Hypertension Lupus (HCC) 2009 KATARZYNA+ Osteopenia 2007 PAST SURGICAL HISTORY Procedure Laterality Date COLONOSCOPY FLX DX W/COLLJ SPEC WHEN PFRMD 03/28/2010 tubular adenoma x 2, repeat in 3-4 years COLONOSCOPY FLX DX W/COLLJ SPEC WHEN PFRMD 10/25/13 internal hemorrhoids FAMILY HISTORY Problem Relation Age of Onset Breast Cancer Mother at age 65, had twice Diabetes Father Diabetes Maternal Grandmother Hypertension Father Coronary Artery Disease Paternal Grandfather [place] other (celiac disease [Other]) Sister Coronary Artery Disease Mother [place] Social History Tobacco Use Smoking status: Never Smokeless tobacco: Never Substance Use Topics Alcohol use: No Drug use: No Reviewed current medications, allergies, past medical history, surgical history, family history andsocial history today. REVIEW OF SYSTEMS All other reviewed and negative other than HPI. HEALTH MAINTENANCE: Reviewed health maintenance issues today and recommended the following in detail. BP Controlled (<130/80) Never done RSV Vaccine(1 - 1-dose 60+ series) Never done Mammogram Screening due on 10/24/2022 Advance Directive Discussion - her is dpoa. Depression Assessment due on 03/10/2023 VITALS: BP 122/72 Pulse 82 Wt 58.1 kg (128 lb) LMP 07/15/2007 SpO2 99% BMI 25.85 kg/m Last 4 Encounter Wt Readings: Date: Wt: 06/04/2023 58.1 kg (128 lb) 12/02/2022 61.2 kg (135 lb) 05/29/2022 58.9 kg (129 lb 12.8 oz) 11/29/2021 59.7 kg (131 lb 9.6 oz) PHYSICAL EXAMINATION: General appearance: Well appearing, alert, in no acute distress, well-hydrated, well nourished. Skin: Skin color, texture, turgor normal, no suspicious rashes or lesions Neck: Supple, no adenopathy; thyroid symmetric, normal size, no bruits Back: Normal exam Lungs: Lungs clear to auscultation. No wheezing, rhonchi, rales Heart: RRR without murmur, gallop, or rubs. No ectopy Abdomen: Normal abdominal exam, Abdomen soft, non-tender. Bowel sounds normal. No masses, organomegaly Extremities: No deformities, edema, skin discoloration, clubbing or cyanosis. Good capillary refill. Musculoskeletal: No joint swelling, deformity, or tenderness ASSESSMENT/PLAN: 1. Primary hypertension - ICD9: 401.9, ICD10: I10 (primary diagnosis) - Controlled - Continue current medications 2. Hypercholesterolemia - ICD9: 272.0, ICD10: E78.00 - stable. 3. Atherosclerosis of coronary artery of [place] [facility] without angina pectoris, unspecified vessel or lesion type - ICD9: 414.01, ICD10: I25.10 - per cardiology. 4. Mild intermittent asthma, uncomplicated - ICD9: 493.90, ICD10: J45.20 - stable 5. Hyperglycemia - ICD9: 790.29, ICD10: R73.9 Numbers are good. 6. Disorder of carotid artery (HCC) - ICD9: 447.9, ICD10: I77.9 - per vascular surgery. 7. Other forms of systemic lupus erythematosus, unspecified organ involvement status (HCC) - ICD9: 710.0, ICD10: M32.8 - per rheum. Xavi Jaimes MD documented [facility] encounterP[facility]10-[facility] Evaluation + Plan note Future Scheduled Tests Radiology* MA Mammo Screening Bilateral w/ Efraín 12/18/22 [facility] 08-07-2023 Miscellaneous Notes* Telephone Encounter - Osmin Gill LPN - 10/14/2022 6:16 PM EDT Patient phones requesting refills as follows: Requested Prescriptions Pending Prescriptions Disp Refills pantoprazole DR (PROTONIX) 20 mg tablet 90 tablet 3 Sig: Take 1 tablet by mouth daily before breakfast. Take on empty stomach, 1/2 hr before meal. NITIN 05/29/22 NOV 12/02/22 Please review and advise. Osmin Gill LPN documented in this encounterPomerene [facility]03-29-2023 History of Past illness Narrative* Problem Noted Date Diagnosed Date Resolved Date Atypical chest pain 06/05/2022 12/02/2022 12/03/19 23 Status post insertion of savannah g-eluting stent into right coronary artery for coronary artery disease 03/01/2016 05/29/2022 Special screening for malign ant neoplasms, colon 03/28/2010 04/13/2015 Foot pain 08/16/2009 10/13/2015 Routine general medical exam ination at a health care facility 11/21/2008 04/13/2015 Overview: 11/21/2008, from Dr. Lopez (retired) 01/03/2010, yearly check Routine gynecological examination 11/21/2008 04/13/2015 Overview: Jennifer Tristan Esophageal reflux 08/13/2007 12/02/2022 documented as of this encounter (statuses as of 06/05/2023) [facility] History of Present illness Narrative* Xavi Jaimes MD - 05/29/2022 9:58 AM EDT Patient presents with: 6 Month Exam HPI: Patient presents today for office visit for follow up. HTN; Monitors BP occ Stable Denies chest pain and shortness of breath No headaches or dizziness No edema No syncope No palpitations Followed by Rheum and Cardiology Saw Cardiology last week. Scheduled for EKG and blood flow study. Cardiology did lipids not long ago. GERD: Tolerating Pantoprazole. Symptoms controlled Breathing has been stable. Taking her inhalers regularly. No cough or congestion. Component Latest Ref Rng & Units 11/30/2021 Protein, Total 6.3 - 8.0 g/dL 6.8 Albumin 3.9 - 4.9 g/dL 4.2 Calcium 8.5 - 10.2 mg/dL 9.4 Bilirubin, Total 0.2 - 1.3 mg/dL 0.6 Alkaline Phosphatase 34 - 123 U/L 66 AST 13 - 35 U/L 30 ALT 7 - 38 U/L 12 Glucose 74 - 99 mg/dL 108 (H) BUN 7 - 21 mg/dL 20 Creatinine 0.58 - 0.96 mg/dL 0.93 Sodium 136 - 144 mmol/L 136 Potassium 3.7 - 5.1 mmol/L 4.1 Chloride 97 - 105 mmol/L 101 CO2 22 - 30 mmol/L 26 Anion Gap 9 - 18 mmol/L 9 eGFR >=60 mL/min/1.73m 67 Cholesterol, Total <200 mg/dL 139 Triglyceride <150 mg/dL 54 HDL Cholesterol >39 mg/dL 64 Non HDL Cholesterol <130 mg/dL 75 Fasting Time hrs 12 VLDL Cholesterol <30 mg/dL 11 TC:HDL Ratio <5.10 2.17 LDL Cholesterol <100 mg/dL 64 LDL:HDL Ratio <2.54 1.00 Hemoglobin A1C 4.3 - 5.6 % 5.8 (H) Estimated Average Glucose mg/dL 120 MEDICATIONS: Current Outpatient Medications Medication Sig hydrOXYchloroQUINE (PLAQUENIL) 200 mg tablet Take 200 mg by mouth once daily. losartan (COZAAR) 100 mg tablet Take 100 mg by mouth once daily. meloxicam (MOBIC) 7.5 mg tablet Take 7.5 mg by mouth once daily. metoprolol succinate ER (TOPROL XL) 50 mg 24 hr tablet Take 50 mg by mouth once daily. potassium chloride (K-TAB) 10 mEq tablet Take 1 tablet by mouth daily with breakfast. pantoprazole DR (PROTONIX) 20 mg tablet Take 1 tablet by mouth daily before breakfast. Take on empty stomach, 1/2 hr before meal. amLODIPine (NORVASC) 2.5 mg tablet Take 2.5 mg by mouth once daily. cholecalciferol, vitamin D3, 10 mcg (400 unit) cap Take 400 Units by mouth once daily. aspirin, enteric coated (ASPIRIN, ENTERIC COATED) 81 mg EC tablet Take 81 mg by mouth once daily. mometasone-formoterol (DULERA) 100-5 mcg/actuation inhaler Inhale 2 Puffs as instructed twice daily. Dr. Liz calcium carbonate/vitamin D3 (CALCIUM 600 + D,3, ORAL) Take 2 tablets by mouth once daily. atorvastatin (LIPITOR) 40 mg tablet Take 1 tablet by mouth once daily. Hydrochlorothiazide 12.5 mg capsule Take 1 capsule by mouth once daily. clopidogrel (PLAVIX) 75 mg tablet TAKE 1 TABLET DAILY nitroglycerin sublingual (NITROQUICK) 0.4 mg SL tablet Dissolve 1 tablet under the tongue as needed. FOR CHEST PAIN. IF NO RELIEF CALL 911 diclofenac (VOLTAREN) 1 % topical gel Apply 2 g to affected area as needed (each hand). predniSONE 10 mg tablet Take 10 mg by mouth as needed. Fluticasone Furoate 27.5 mcg/actuation nasal spray Use 2 Sprays in each nostril as needed. No current facility-administered medications for this visit. ALLERGIES: ALLERGIES Allergen Reactions Amoxicillin Diarrhea, GI Upset Environmemtal [Othe* stuffy nose, sneezing, cough PAST MEDICAL HISTORY Diagnosis Date allergies seasonal/environmental Colon polyps 2010 tubular adenomas GERD (gastroesophageal reflux disease) Hypertension Lupus (HCC) 2009 KATARZYNA+ Osteopenia 2007 PAST SURGICAL HISTORY Procedure Laterality Date COLONOSCOPY FLX DX W/COLLJ SPEC WHEN PFRMD 03/28/2010 tubular adenoma x 2, repeat in 3-4 years COLONOSCOPY FLX DX W/COLLJ SPEC WHEN PFRMD 10/25/13 internal hemorrhoids FAMILY HISTORY Problem Relation Age of Onset Breast Cancer Mother at age 65, had twice Diabetes Father Diabetes Maternal Grandmother Hypertension Father Coronary Artery Disease Paternal Grandfather [place] other (celiac disease [Other]) Sister Coronary Artery Disease Mother [place] Social History Tobacco Use Smoking status: Never Smokeless tobacco: Never Substance Use Topics Alcohol use: No Drug use: No Reviewed current medications, allergies, past medical history, surgical history, family history andsocial history today. REVIEW OF SYSTEMS GI: Negative for change in bowel habit All other reviewed and negative other than HPI. HEALTH MAINTENANCE: Reviewed health maintenance issues today and recommended the following in detail. ADVANCE DIRECTIVE DISCUSSION - believes they have one but will check. DEPRESSION ASSESSMENT Never done VITALS: BP 100/74 Pulse 73 Ht 149.9 cm (4' 11) Wt 58.9 kg (129 lb 12.8 oz) LMP 07/15/2007 SpO2 99% BMI 26.22 kg/m Last 4 Encounter Wt Readings: Date: Wt: 11/29/2021 59.7 kg (131 lb 9.6 oz) 05/28/2021 59 kg (130 lb) 11/27/2020 57.2 kg (126 lb) 05/24/2020 58.5 kg (129 lb) PHYSICAL EXAMINATION: General appearance: Well appearing, alert, in no acute distress, well-hydrated, well nourished. Skin: Skin color, texture, turgor normal, no suspicious rashes or lesions Head: Normocephalic, no masses, lesions, tenderness or abnormalities Eyes: Anicteric sclera. Pupils are equally round and reactive to light. Extraocular movements are intact. Neck: Supple, no adenopathy; thyroid symmetric, normal size, no bruits Lungs: Lungs clear to auscultation. No wheezing, rhonchi, rales Heart: RRR without murmur, gallop, or rubs. No ectopy Abdomen: Normal abdominal exam, Abdomen soft, non-tender. Bowel sounds normal. No masses, organomegaly Extremities: No deformities, edema, skin discoloration, clubbing or cyanosis. Good capillary refill. ASSESSMENT/PLAN: 1. Hypercholesterolemia - ICD9: 272.0, ICD10: E78.00 (primary diagnosis) - follow progress. Labs per cardiology 2. Primary hypertension - ICD9: 401.9, ICD10: I10 - good control - Continue current medication(s) - Goal of BP <130/80 3. Presence of drug coated stent in left circumflex coronary artery - ICD9: V45.82, ICD10: Z95.5 - per cardiology 4. Mild intermittent asthma, uncomplicated - ICD9: 493.90, ICD10: J45.20 - doing well. - COMP METABOLIC PANEL 5. Hyperglycemia - ICD9: 790.29, ICD10: R73.9 - labs now and in six months. - HGB A1C - HGB A1C 6. Osteoarth NOS-other site - ICD9: 715.98, ICD10: M19.09 - stable. See rheum. Xavi Jaimes MD documented in this encounterP[facility]09-22-[facility]22 History of Present illness Narrative* Xavi Jaimes MD - 11/29/2021 9:19 AM EDT Patient presents with: 6 Month Exam HPI: Patient presents today for office visit for 6 month follow up. Mammo done at [facility] over summer. Still sees Rheum. Had labs done. Sees Cardiology. No chest pain or SOB. No edema or dizziness. BP is well controlled. Compliant with meds. Denies symptoms. Has occasional heartburn. On Dulera and albuterol. Seeing pulmonology/allergy. Has labs ordered. Reviewed most recent labs from rheumatology. MEDICATIONS: Current Outpatient Medications Medication Sig pantoprazole DR (PROTONIX) 20 mg tablet Take 1 tablet by mouth daily before breakfast. Take on empty stomach, 1/2 hr before meal. amLODIPine (NORVASC) 2.5 mg tablet Take 2.5 mg by mouth once daily. potassium chloride (K-TAB) 10 mEq tablet Take 1 tablet by mouth daily with breakfast. aspirin, enteric coated (ASPIRIN, ENTERIC COATED) 81 mg EC tablet Take 81 mg by mouth once daily. mometasone-formoterol (DULERA) 100-5 mcg/actuation inhaler Inhale 2 Puffs as instructed twice daily. Dr. Liz calcium carbonate/vitamin D3 (CALCIUM 600 + D,3, ORAL) Take 2 tablets by mouth once daily. atorvastatin (LIPITOR) 40 mg tablet Take 1 tablet by mouth once daily. Hydrochlorothiazide 12.5 mg capsule Take 1 capsule by mouth once daily. clopidogrel (PLAVIX) 75 mg tablet TAKE 1 TABLET DAILY nitroglycerin sublingual (NITROQUICK) 0.4 mg SL tablet Dissolve 1 tablet under the tongue as needed. FOR CHEST PAIN. IF NO RELIEF CALL 911 diclofenac (VOLTAREN) 1 % topical gel Apply 2 g to affected area as needed (each hand). predniSONE 10 mg tablet Take 10 mg by mouth as needed. Fluticasone Furoate 27.5 mcg/actuation nasal spray Use 2 Sprays in each nostril as needed. cholecalciferol, vitamin D3, 10 mcg (400 unit) cap Take 400 Units by mouth once daily. (Patient nottaking: Reported on 11/29/2021) No current facility-administered medications for this visit. ALLERGIES: ALLERGIES Allergen Reactions Amoxicillin Diarrhea, GI Upset Environmemtal [Othe* stuffy nose, sneezing, cough PAST MEDICAL HISTORY Diagnosis Date allergies seasonal/environmental Colon polyps 2010 tubular adenomas GERD (gastroesophageal reflux disease) Hypertension Lupus (HCC) 2009 KATARZYNA+ Osteopenia 2007 PAST SURGICAL HISTORY Procedure Laterality Date COLONOSCOPY FLX DX W/COLLJ SPEC WHEN PFRMD 03/28/2010 tubular adenoma x 2, repeat in 3-4 years COLONOSCOPY FLX DX W/COLLJ SPEC WHEN PFRMD 10/25/13 internal hemorrhoids FAMILY HISTORY Problem Relation Age of Onset Breast Cancer Mother at age 65, had twice Diabetes Father Diabetes Maternal Grandmother Hypertension Father Coronary Artery Disease Paternal Grandfather [place] other (celiac disease [Other]) Sister Coronary Artery Disease Mother [place] Social History Tobacco Use Smoking status: Never Smokeless tobacco: Never Substance Use Topics Alcohol use: No Drug use: No Reviewed current medications, allergies, past medical history, surgical history, family history andsocial history today. REVIEW OF SYSTEMS All other reviewed and negative other than HPI. HEALTH MAINTENANCE: Reviewed health maintenance issues today and recommended the following in detail. ADVANCE DIRECTIVE DISCUSSION -recommended. COVID-19 VACCINE(4 - Booster for Pfizer series) due on 04/24/2021 DEPRESSION SCREENING Depression Screening 10/13/2015 07/24/2018 11/26/2020 11/29/2021 PHQ-2 Score 0 0 0 0 Depression screening tool completed and reviewed. Based on score and interview, patient is not at risk for depression. Screening tool discussed with patient, and I recommended no further interventionat this time. INFLUENZA(1) due on 11/08/2021 VITALS: BP 126/70 Pulse 72 Ht 149.9 cm (4' 11) Wt 59.7 kg (131 lb 9.6 oz) LMP 07/15/2007 SpO2 99% BMI 26.58 kg/m Last 4 Encounter Wt Readings: Date: Wt: 11/29/2021 59.7 kg (131 lb 9.6 oz) 05/28/2021 59 kg (130 lb) 11/27/2020 57.2 kg (126 lb) 05/24/2020 58.5 kg (129 lb) PHYSICAL EXAMINATION: General appearance: Well appearing, alert, in no acute distress, well-hydrated, well nourished. Skin: Skin color, texture, turgor normal, no suspicious rashes or lesions Head: Normocephalic, no masses, lesions, tenderness or abnormalities Neck: Supple, no adenopathy; thyroid symmetric, normal size, no bruits Lungs: Lungs clear to auscultation. No wheezing, rhonchi, rales Heart: RRR without murmur, gallop, or rubs. No ectopy Abdomen: Normal abdominal exam, Abdomen soft, non-tender. Bowel sounds normal. No masses, organomegaly Extremities: No deformities, edema, skin discoloration, clubbing or cyanosis. Good capillary refill. ASSESSMENT/PLAN: 1. Primary hypertension - ICD9: 401.9, ICD10: I10 (primary diagnosis) - good control - Continue current medication(s) - Goal of BP <130/80 2. Encounter for immunization - ICD9: V03.89, ICD10: Z23 - [email or web address] COVID-19 BIVALENT BOOSTER VACCINE, AGE 12+ YR - INFLUENZA SEASONAL QUADRIVALENT HIGH DOSE AGE 65+ - Discussed risks and benefits of new medication with the patient. Advised them to call if any sideeffects or questions. 3. Hypercholesterolemia - ICD9: 272.0, ICD10: E78.00 - follow progress. 4. Presence of drug coated stent in left circumflex coronary artery - ICD9: V45.82, ICD10: Z95.5 - stable. 5. Status post insertion of drug-eluting stent into right coronary artery for coronary artery disease - ICD9: V45.82, ICD10: Z95.5 - per cardiology. 6. Mild intermittent asthma, uncomplicated - ICD9: 493.90, ICD10: J45.20 -stable. 7. Gastroesophageal reflux disease without esophagitis - ICD9: 530.81, ICD10: K21.9 - stable. 8. Other forms of systemic lupus erythematosus, unspecified organ involvement status (HCC) - ICD9: 710.0, ICD10: M32.8 - per rheum Xavi Jaimes MD RTO in 6 months documented in [facility] encounterP[facility]12-23-2016 History of Past illness Narrative* Problem Noted Date Resolved Date Status post insertion of savannah g-eluting stent into right coronary artery for coronary artery disease 03/01/2016 05/29/2022 Special screening for malignant neoplasms, colon 03/28/2010 04/13/2015 Foot pain 08/16/2009 10/13/2015 Routine general medical exam ination at a health care facility 11/21/2008 04/13/2015 Overview: 11/21/2008, from Dr. Lopez (retired) 01/03/2010, yearly check Routine gynecological examination 11/21/2008 04/13/2015 Overview: Jennifer Rojas documented as of this encounter (statuses as of 05/29/2022) [facility] of Past illness Narrative* Problem Noted Date Diagnosed Date Resolved Date Status post insertion of savannah g-eluting stent into right coronary artery for coronary artery disease 03/01/2016 05/29/2022 Special screening for malign ant neoplasms, colon 03/28/2010 04/13/2015 Foot pain 08/16/2009 10/13/2015 Routine general medical exam ination at a health care facility 11/21/2008 04/13/2015 Overview: 11/21/2008, from Dr. Lopez (retired) 01/03/2010, yearly check Routine gynecological examination 11/21/2008 04/13/2015 Overview: Jennifer Rojas documented as of this encounter (statuses as of 10/15/2022) [facility]12-[facility] History of Past illness Narrative* Problem Noted Date Diagnosed Date Resolved Date Status post insertion of savannah g-eluting stent into right coronary artery for coronary artery disease 03/01/2016 05/29/2022 Special screening for malign ant neoplasms, colon 03/28/2010 04/13/2015 Foot pain 08/16/2009 10/13/2015 Routine general medical exam ination at a health care facility 11/21/2008 04/13/2015 Overview: 11/21/2008, from Dr. Lopez (retired) 01/03/2010, yearly check Routine gynecological examination 11/21/2008 04/13/2015 Overview: Jennifer Rojas documented as of this encounter (statuses as of 10/15/2022) [facility] History of Past illness Narrative* Problem Noted Date Diagnosed Date Resolved Date Status post insertion of savannah g-eluting stent into right coronary artery for coronary artery disease 03/01/2016 05/29/2022 Special screening for malign ant neoplasms, colon 03/28/2010 04/13/2015 Foot pain 08/16/2009 10/13/2015 Routine general medical exam ination at a health care facility 11/21/2008 04/13/2015 Overview: 11/21/2008, from Dr. Lopez (retired) 01/03/2010, yearly check Routine gynecological examination 11/21/2008 04/13/2015 Overview: Jennifer Rojas documented as of this encounter (statuses as of 12/02/2022) [facility] History of Past illness Narrative* Problem Noted Date Resolved Date Special screening for malignant neoplasms, colon 03/28/2010 04/13/2015 Foot pain 08/16/2009 10/13/2015 Routine general medical exam ination at a health care facility 11/21/2008 04/13/2015 Overview: 11/21/2008, from Dr. Lopez (retired) 01/03/2010, yearly check Routine gynecological examination 11/21/2008 04/13/2015 Overview: Jennifer Rojas documented as of this encounter (statuses as of 10/22/2021) [facility] History of Past illness Narrative* Problem Noted Date Resolved Date Special screening for malignant neoplasms, colon 03/28/2010 04/13/2015 Foot pain 08/16/2009 10/13/2015 Routine general medical exam ination at a health care facility 11/21/2008 04/13/2015 Overview: 11/21/2008, from Dr. Lopez (retired) 01/03/2010, yearly check Routine gynecological examination 11/21/2008 04/13/2015 Overview: Jennifer Rojas documented as of this encounter (statuses as of 10/22/2021) [facility] History of Past illness Narrative* Problem Noted Date Resolved Date Special screening for malignant neoplasms, colon 03/28/2010 04/13/2015 Foot pain 08/16/2009 10/13/2015 Routine general medical exam ination at a health care facility 11/21/2008 04/13/2015 Overview: 11/21/2008, from Dr. Lopez (retired) 01/03/2010, yearly check Routine gynecological examination 11/21/2008 04/13/2015 Overview: Jennifer Rojas documented as of this encounter (statuses as of 11/29/2021) [facility] History of Past illness Narrative* Problem Noted Date Resolved Date Special screening for malignant neoplasms, colon 03/28/2010 04/13/2015 Foot pain 08/16/2009 10/13/2015 Routine general medical exam ination at a health care facility 11/21/2008 04/13/2015 Overview: 11/21/2008, from Dr. Lopez (retired) 01/03/2010, yearly check Routine gynecological examination 11/21/2008 04/13/2015 Overview: Jennifer Rojas documented as of this encounter (statuses as of 12/03/2021) [facility] No data available for this section [facility] Evaluation note* Diagnosis Encounter for screening mammogram for breast cancer documented in this encounter [facility] note* Diagnosis Primary hypertension- Primary Unspecified essential hypertension Encounter for immunization Need for other specified prophylactic vaccination against single bacterial disease Hypercholesterolemia Pure hypercholesterolemia Presence of drug coated stent in left circumflex coronary artery Postsurgical percutaneous transluminal coronary angioplasty status Status post insertion of drug-eluting stent into right coronary artery for coronary artery disease Mild intermittent asthma, uncomplicated Unspecified asthma Gastroesophageal reflux disease without esophagitis Esophageal reflux Other forms of systemic lupus erythematosus, unspecified organ involvement status (HCC) Hypokalemia Hypopotassemia [facility] Diagnosis Onset Date Resolution Status Atherosclerotic heart diseas e of [place] coronary artery without angina pectoris chronic Essential (primary) hypertension chronic Hyperlipemia [facility] Work Phone: Evaluation note* Diagnosis Hypercholesterolemia- Primary Pure hypercholesterolemia Primary hypertension Unspecified essential hypertension Presence of drug coated stent in left circumflex coronary artery Postsurgical percutaneous transluminal coronary angioplasty status Mild intermittent asthma, uncomplicated Unspecified asthma Hyperglycemia Other abnormal glucose Osteoarth NOS-other site documented in this encounter [facility]* Diagnosis Motion sickness, subsequent encounter- Primary documented in this encounter [facility] note* Diagnosis Encounter for screening mammogram for breast cancer documented in this encounter [facility] noteNo assessment information [facility] Work Phone: Evaluation note* Diagnosis Primary hypertension- Primary Unspecified essential hypertension Hypercholesterolemia Pure hypercholesterolemia Atherosclerosis of coronary artery of [place] heart without angina pectoris, unspecified vessel or lesion type Mild intermittent asthma, uncomplicated Unspecified asthma Hyperglycemia Other abnormal glucose Disorder of carotid artery (HCC) Unspecified disorders of arteries and arterioles Other forms of systemic lupus erythematosus, unspecified organ involvement status (HCC) documented in this encounter [facility] note* Diagnosis Onset Date Resolution Status Carotid artery disease acute Atherosclerotic heart diseas e of [place] coronary artery without angina pectoris chronic Essential (primary) hypertension chronic Hyperlipemia chronic Carotid artery disease acute [facility] Work Phone: Evaluation note* Diagnosis Encounter for screening mammogram for breast cancer documented in this encounter [facility] note* Diagnosis Hypercholesterolemia- Primary Pure hypercholesterolemia Screening for depression Encounter for screening examination for other mental health and behavioral disorders Encounter for immunization Need for other specified prophylactic vaccination against single bacterial disease Primary hypertension Unspecified essential hypertension Atherosclerosis of coronary artery of [place] heart without angina pectoris, unspecified vessel or lesion type History of gastroesophageal reflux (GERD) Personal history of other diseases of digestive system Disorder of carotid artery (HCC) Unspecified disorders of arteries and arterioles Hyperglycemia Other abnormal glucose Mild intermittent asthma, uncomplicated Unspecified asthma Other forms of systemic lupus erythematosus, unspecified organ involvement status (HCC) History of colonic polyps Personal history of colonic polyps documented in this encounter [facility] note* Diagnosis Screen for colon cancer- Primary Special screening for malignant neoplasms, colon History of colonic polyps Personal history of colonic polyps documented in this encounter [facility] note* Diagnosis Hypokalemia Hypopotassemia documented in this encounter [facility] note* Diagnosis Benign neoplasm of colon, unspecified part of colon- Primary History of colonic polyps Personal history of colonic polyps Screen for colon cancer Special screening for malignant neoplasms, colon documented in this encounter [facility] note* Diagnosis Viral illness- Primary Unspecified viral infection, in conditions classified elsewhere and of unspecified site documented in this encounter [facility] note* Diagnosis Primary hypertension- Primary Unspecified essential hypertension Hypercholesterolemia Pure hypercholesterolemia Atherosclerosis of coronary artery of [place] heart without angina pectoris, unspecified vessel or lesion type Benign neoplasm of colon, unspecified part of colon History of gastroesophageal reflux (GERD) Personal history of other diseases of digestive system Hyperglycemia Other abnormal glucose Other forms of systemic lupus erythematosus, unspecified organ involvement status (HCC) Disorder of carotid artery Unspecified disorders of arteries and arterioles Motion sickness, subsequent encounter Hypokalemia Hypopotassemia documented in this encounter [facility] Discharge instructions No data available for this section [facility] Progress note No data available for this section [facility] Reason for referral (narrative)* Diagnostic Procedure Only (Routine) - Pending Review Specialty Diagnoses / Procedures Referred By Contac t Referred To Contact [facility] Diagnoses Encounter for screening mammogram for breast cancer Procedures NIRAJ SCREENING SCREENING MAMMOGRAPHY BI 2-VIEW BREAST INC CAD Xavi Jaimes MD [address] [place] [address] [facility] [address] [place] [address] Referral ID Status Reason Start Date Expiration Date Visits Requested Visits Authorized [id number] Pending Review Auto-Generat ed Referral 10/17/2021 11/16/2022 1 1 [facility] for referral (narrative)* Diagnostic Procedure Only (Routine) - Pending Review Specialty Diagnoses / Procedures Referred By Sara triplett Referred To Contact [facility] Diagnoses Encounter for screening mammogram for breast cancer Procedures NIRAJ SCREENING SCREENING MAMMOGRAPHY BI 2-VIEW BREAST INC Xavi Perez MD [address] [place] [address] [facility] [address] [place] [address] Referral ID Status Reason Start Date Expiration Date Visits Requested Visits Authorized [id number] Pending Review Auto-Generat ed Referral 11/27/2022 12/27/2023 1 1 [facility] for referral (narrative)* Diagnostic Procedure Only (Routine) - New Request Specialty Diagnoses / Procedures Referred By Sara triplett Referred To Contact [facility] Diagnoses Encounter for screening mammogram for breast cancer Procedures NIRAJ SCREENING W EFRAÍN SCREENING DIGITAL BREAST TOMOSYNTHESIS BI SCREENING MAMMOGRAPHY BI 2-VIEW BREAST INC Xavi Perez MD [address] [place] [address] [facility] [address] [place] [address] Referral ID Status Reason Start Date Expiration Date Visits Requested Visits Authorized [id number] New Request Auto-Generat ed Referral 11/05/2023 12/04/2024 1 1 [facility] for referral (narrative)* Outpatient Procedure (Routine) - New Request Specialty Diagnoses / Procedures Referred By Sara t Referred To Contact [facility] Diagnoses History of colonic polyps Screen for colon cancer Procedures COLONOSCOPY SCREENING COLONOSCOPY FLX DX W/COLLJ SPEC WHEN Farzana Egan APRN.[employer] [address] [place] [address] [facility] [place] [address] [place] [address] Referral ID Status Reason Start Date Expiration Date Visits Requested Visits Authorized [id number] New Request Auto-Generat ed Referral 12/30/2024 1 1 [facility] for referral (narrative)* Outpatient Procedure (Routine) - Closed Specialty Diagnoses / Procedures Referred By Sara triplett Referred To Contact [facility] Diagnoses History of colonic polyps Screen for colon cancer Procedures COLONOSCOPY SCREENING COLONOSCOPY FLX DX W/COLLJ SPEC WHEN Farzana Egan APRN.CNP [address] [facility] [place] [address] [facility] Disease [address] [address] Referral ID Status Reason Start Date Expiration Date V isits Requested Visits Authorized [id number] Closed Auto-Generate d Referral 12/31/2023 12/30/2024 1 1 [facility] for referral (narrative)No reason for referral information [facility]WHol[facility] Work Phone: Reason for visit Narrative* Outpatient Procedure (Routine) - Closed Specialty Diagnoses / Procedures Referred By Sara triplett Referred To Contact [facility] Diagnoses History of colonic polyps Screen for colon cancer Procedures COLONOSCOPY SCREENING COLONOSCOPY FLX DX W/COLLJ SPEC WHEN Farzana Egan APRN.[employer] [address] [place] [address] [address] Referral ID Status Reason Start Date Expiration Date V isits Requested Visits Authorized [id number] Closed Auto-Generate d Referral 12/31/2023 12/30/2024 1 1 [facility] Summary Purpose Family History Relationship Condition Age at Onset Recorded Date/T lidia mother Malignant neoplasm of breast Unknown Myocardial infarction Unknown father Hypertension Unknown Diabetes mellitus Unknown Advance Directives Advance Directive Response Recorded Date/ Time Living Will No December 08 4:59pm Power of Guidance And Control System Engineer No December 08 4:59pm Advance Directive Response Recorded Date/ Time Living Will No December 08 3:59pm Power of Guidance And Control System Engineer No December 08 021 3:59pm Advance Directive Response Recorded Date/ Time Living Will No December 08 4:59pm Do you have a Healthcare Power of Guidance And Control System Engineer? No December 08, 2020 4:59pm Chief Complaint and Reason for Visit Chief Complaint 1 Y FU 2 ORDERS/ 2 DRS Reason for Visit Atherosclerotic hear t disease of [place] coronary artery without angina pectoris Essential (primary) hypertension Hyperlipemia Chief Complaint 1 Y FU 2 ORDERS/ 2 DRS CAD ASHD CAD ASHD Amb Documentation Reason for Visit Atherosclerotic hear t disease of [place] coronary artery without angina pectoris Essential (primary) hypertension Hyperlipemia Chief Complaint EORDER Chief Complaint 1 Y FU Occlusion and stenosis of left carotid artery ROUTINE CAROTID Reason for Visit Carotid artery disea se Atherosclerotic heart disease of [place] coronary artery without angina pectoris Essential (primary) hypertension Hyperlipemia Carotid artery disease Chief Complaint Admit Date Establish Care, Carotid Stenosis 2024 8:10am CARTOID STENOSIS June 14, 2024 9:37 am Reason for Visit Admit Date Carotid artery disease May 05 8:10am Reason for Referral Specialty Diagnoses / Procedures Referred By Sara triplett Referred To Contact General Surgery Diagnoses History of colonic polyps Procedures CONSULT TO GENERAL SURGERY OFFICE/OUTPATIENT [facility] 60 MINUTES Xavi Jaimes MD [address] [place] [address] Referral ID Status Reason Start Date Expiration Date Visits Requested Visits Authorized [id number] Authorized PCP Requested Referral 12/10/2023 12/09/2024 1 1 Additional Source Comments INFORMATION SOURCE (unrecogn ized section and content) DATE CREATED AUTHOR 08/29/2017 [facility] DATE CREATED AUTHOR AUTHOR'S ORGANIZ ATION 08/29/2017 [facility] DATE CREATED AUTHOR AUTHOR'S ORGANIZ ATION 12/26/2022 [facility] DATE CREATED AUTHOR AUTHOR'S ORGANIZ ATION 06/27/2024 [facility] DATE CREATED AUTHOR AUTHOR'S ORGANIZ ATION 08/10/2024 [facility] DATE CREATED AUTHOR AUTHOR'S ORGANIZ ATION 08/21/2024 [facility] Care Team (unrecognized sect ion and content) Care Team Personnel Name: XAVI JAIMES MD Member Role: Primary Care Physician Address: Address: [facility] [address] Care Team Related Persons Name: BROOKLYN ALCANTARA Address: Home [address] [place] [phone] Source Comments (unrecognize d section and content) In the event this informatio n is protected by the Federal Confidentiality of Alcohol and Drug Abuse Patient Records regulations: The Federal rules restrict any use of the information to criminally investigate or prosecute any alcohol or drug abuse patient.[facility] the event this information is protected by the Federal Confidentiality of Alcohol and Drug Abuse Patient Records regulations: The Federal rules restrict any use of the information to criminally investigate or prosecute any alcohol or drug abuse patient.[facility] Hospital[facility] the event this information is protected by the Federal Confidentiality of Alcohol and Drug Abuse Patient Records regulations: The Federal rules restrict any use of the information to criminally investigate or prosecute any alcohol or drug abuse patient.[facility] Hospital[facility] the event this information is protected by the Federal Confidentiality of Alcohol and Drug Abuse Patient Records regulations: The Federal rules restrict any use of the information to criminally investigate or prosecute any alcohol or drug abuse patient.[facility] HospitalIn the event this information is protected by the Federal Confidentiality of Alcohol and Drug Abuse Patient Records regulations: The Federal rules restrict any use of the information to criminally investigate or prosecute any alcohol or drug abuse patient.[facility] HospitalIn the event this information is protected by the Federal Confidentiality of Alcohol and Drug Abuse Patient Records regulations: The Federal rules restrict any use of the information to criminally investigate or prosecute any alcohol or drug abuse patient.[facility] HospitalIn the event this information is protected by the Federal Confidentiality of Alcohol and Drug Abuse Patient Records regulations: The Federal rules restrict any use of the information to criminally investigate or prosecute any alcohol or drug abuse patient.[facility] HospitalIn the event this information is protected by the Federal Confidentiality of Alcohol and Drug Abuse Patient Records regulations: The Federal rules restrict any use of the information to criminally investigate or prosecute any alcohol or drug abuse patient.[facility] HospitalIn the event this information is protected by the Federal Confidentiality of Alcohol and Drug Abuse Patient Records regulations: The Federal rules restrict any use of the information to criminally investigate or prosecute any alcohol or drug abuse patient.[facility] Hospital[facility] the event this information is protected by the Federal Confidentiality of Alcohol and Drug Abuse Patient Records regulations: The Federal rules restrict any use of the information to criminally investigate or prosecute any alcohol or drug abuse patient.[facility] HospitalIn the event this information is protected by the Federal Confidentiality of Alcohol and Drug Abuse Patient Records regulations: The Federal rules restrict any use of the information to criminally investigate or prosecute any alcohol or drug abuse patient.[facility] HospitalIn the event this information is protected by the Federal Confidentiality of Alcohol and Drug Abuse Patient Records regulations: The Federal rules restrict any use of the information to criminally investigate or prosecute any alcohol or drug abuse patient.[facility] HospitalIn the event this information is protected by the Federal Confidentiality of Alcohol and Drug Abuse Patient Records regulations: The Federal rules restrict any use of the information to criminally investigate or prosecute any alcohol or drug abuse patient.[facility] HospitalIn the event this information is protected by the Federal Confidentiality of Alcohol and Drug Abuse Patient Records regulations: The Federal rules restrict any use of the information to criminally investigate or prosecute any alcohol or drug abuse patient.[facility] HospitalIn the event this information is protected by the Federal Confidentiality of Alcohol and Drug Abuse Patient Records regulations: The Federal rules restrict any use of the information to criminally investigate or prosecute any alcohol or drug abuse patient.[facility] HospitalIn the event this information is protected by the Federal Confidentiality of Alcohol and Drug Abuse Patient Records regulations: The Federal rules restrict any use of the information to criminally investigate or prosecute any alcohol or drug abuse patient.[facility] HospitalIn the event this information is protected by the Federal Confidentiality of Alcohol and Drug Abuse Patient Records regulations: The Federal rules restrict any use of the information to criminally investigate or prosecute any alcohol or drug abuse patient.[facility] HospitalIn the event this information is protected by the Federal Confidentiality of Alcohol and Drug Abuse Patient Records regulations: The Federal rules restrict any use of the information to criminally investigate or prosecute any alcohol or drug abuse patient.[facility] HospitalIn the event this information is protected by the Federal Confidentiality of Alcohol and Drug Abuse Patient Records regulations: The Federal rules restrict any use of the information to criminally investigate or prosecute any alcohol or drug abuse patient.[facility] HospitalIn the event this information is protected by the Federal Confidentiality of Alcohol and Drug Abuse Patient Records regulations: The Federal rules restrict any use of the information to criminally investigate or prosecute any alcohol or drug abuse patient.[facility] HospitalIn the event this information is protected by the Federal Confidentiality of Alcohol and Drug Abuse Patient Records regulations: The Federal rules restrict any use of the information to criminally investigate or prosecute any alcohol or drug abuse patient.[facility] HospitalIn the event this information is protected by the Federal Confidentiality of Alcohol and Drug Abuse Patient Records regulations: The Federal rules restrict any use of the information to criminally investigate or prosecute any alcohol or drug abuse patient.[facility] HospitalIn the event this information is protected by the Federal Confidentiality of Alcohol and Drug Abuse Patient Records regulations: The Federal rules restrict any use of the information to criminally investigate or prosecute any alcohol or drug abuse patient.[facility] HospitalIn the event this information is protected by the Federal Confidentiality of Alcohol and Drug Abuse Patient Records regulations: The Federal rules restrict any use of the information to criminally investigate or prosecute any alcohol or drug abuse patient.[facility] Care Teams (unrecognized sec tion and content) Bowling Alley Refinisher Relationship Specialty Start Date End Date Xavi Jaimes MD [address] [place] [address] PCP - General Family Practice 04/13/15 Lorenzo, Altaf S [address] [address] Physician Cardiology 07/10/18 Bowling Alley Refinisher Relationship Specialty Start Date End Date Xavi Jaimes MD [address] [place] [address] PCP - General Family Practice 04/13/15 Lorenzo, Altaf S [address] [place] [address] Physician Cardiology 07/10/18 Bowling Alley Refinisher Relationship Specialty Start Date End Date Xavi Jaimes MD [address] [place] [address] PCP - General Family Medicine 04/13/15 Lorenzo, Altaf S [address] [place] [address] Physician Cardiology 07/10/18 Bowling Alley Refinisher Relationship Specialty Start Date End Date Xavi Jaimes MD [address] [place], [place] [address] PCP - General Family Medicine 04/13/15 Altaf Ventura S [address] [facility] [address] [address] Physician Cardiology 07/10/18 Team Status: Active Member Role Status Dates Dr. Xavi Jaimes MD Family Provider Active Dr. Xavi Jaimes MD Primary Care Provider Active Team Status: Inactive Member Role Status Dates Dr. Xavi Jaimes MD Primary Care Provider, Referring Provider Active Dr. Altaf Ventura MD Attending Provider Active Team Status: Inactive Member Role Status Dates Dr. Xavi Jaimes MD Primary Care Provider Active Dr. Altaf Ventura MD Attending Provider, Referring Pro vider Active EZEQUIEL SOTO MD Other Provider Active Team Status: Active Member Role Status Dates Dr. Xavi Jaimes MD Primary Care Provider Active Dr. Altaf Ventura MD Attending Provider Active Team Status: Active Member Role Status Dates Dr. Xavi Jaimes MD Primary Care Provider Active Dr. Dylon Peña MD Attending Provider Active Team Status: Active Member Role Status Dates Dr. Xavi Jaimes MD Primary Care Provider Active Jaida Padilla Attending Provider Active Team Status: Inactive Member Role Status Dates Dr. Xavi Jaimes MD Primary Care Provider Active Dr. Altaf Ventura MD Attending Provider Active Bowling Alley Refinisher Relationship Specialty Start Date End Date Xavi Jaimes MD [address] [place] [address] PCP - General Family Medicine 04/13/15 Carmine Venturaril S [address] [facility] [address] [phone] Physician Cardiology 07/10/18 Bowling Alley Refinisher Relationship Specialty Start Date End Date Xavi Jaimes MD [address] [place] [address] PCP - General Family Medicine 04/13/15 Altaf Ventura [address] [facility] [address] [address] Physician Cardiology 07/10/18 Bowling Alley Refinisher Relationship Specialty Start Date End Date Xavi Jaimes MD [address] [place] [address] PCP - General Family Medicine 04/13/15 Altaf Ventura MD [address] [place] [address] [address] Physician Cardiology 07/10/18 Team Status: Inactive Member Role Status Dates Dr. Xavi Jaimes MD Primary Care Provider Active EZEQUIEL SOTO MD Attending Provider, Referring Pro vider Active Team Status: Inactive Member Role Status Dates Dr. Xavi Jaimes MD Primary Care Provider Active Dr. Altaf Ventura MD Attending Provider, Referring Pro vider Active Team Status: Inactive Member Role Status Dates Dr. Xavi Jaimes MD Primary Care Provider Active LOLY VALDEZ Attending Provider Active Bowling Alley Refinisher Relationship Specialty Start Date End Date Xavi Jaimes MD [address] [place] [address] PCP - General Family Medicine 04/13/15 Altaf Ventura MD [address] [facility] [address] [address] Physician Cardiology 07/10/18 Team Status: Inactive Member Role Status Dates Dr. Xavi Jaimes MD Primary Care Provider, Referring Provider Active Juanita Pop BUTTON BUTTONHOLE MARKER, BUTTON BUTTONHOLE MARKER-C Attending Provider Active Team Status: Inactive Member Role Status Dates Dr. aXvi Jaimes MD Primary Care Provider, Referring Provider Active Dr. Dylon Peña MD Attending Provider Active Team Status: Inactive Member Role Status Dates Dr. Xavi Jaimes MD Primary Care Provider Active Dr. Dylon Peña MD Attending Provider, Referring Provider Active Bowling Alley Refinisher Relationship Specialty Start Date End Date Xavi Jaimes MD [address] [place] [address] PCP - General Family Medicine 04/13/15 Altaf Ventura MD [address] [address] [place] [address] Physician Cardiology 07/10/18 Bowling Alley Refinisher Relationship Specialty Start Date End Date Xavi Jaimes MD [address] [place] [address] PCP - General Family Medicine 04/13/15 Altaf Ventura MD [address] [place] [address] Physician Cardiology 07/10/18 Bowling Alley Refinisher Relationship Specialty Start Date End Date Xavi Jaimes MD [address] [place], [place] [address] PCP - General Family Medicine 04/13/15 Altaf Ventura MD [address] [address] [address] Physician Cardiology 07/10/18 Bowling Alley Refinisher Relationship Specialty Start Date End Date Xavi Jaimes MD [address] [place] [address] PCP - General Family Medicine 04/13/15 Altaf Ventura MD [address] [place] [address] Physician Cardiology 07/10/18 Bowling Alley Refinisher Relationship Specialty Start Date End Date Xavi Jaimes MD [address] [place] [address] PCP - General Family Medicine 04/13/15 Altaf Ventura MD [address] [place] [address] Physician Cardiology 07/10/18 Bowling Alley Refinisher Relationship Specialty Start Date End Date Xavi Jaimes MD [address] [place] [address] PCP - General Family Medicine 04/13/15 Altaf Ventura MD [address] [place] [address] Physician Cardiology 07/10/18 Bowling Alley Refinisher Relationship Specialty Start Date End Date Xavi Jaimes MD [address] [place] [address] PCP - General Family Medicine 04/13/15 Altaf Ventura MD [address] [place] [address] Physician Cardiology 07/10/18 Bowling Alley Refinisher Relationship Specialty Start Date End Date Xavi Jaimes MD [address] [place] [address] PCP - General Family Medicine 04/13/15 Altaf Ventura MD [address] [place] [address] Physician Cardiology 07/10/18 Amber Fontanez APRN.BUSINESS JOB TITLES [address] [place] [address] [facility] 02/16/24 Rachel Otrega APRN.BUSINESS JOB TITLES [address] [facility] [place] [address] [facility] 02/16/24 Bowling Alley Refinisher Relationship Specialty Start Date End Date Xavi Jaimes MD [address] [facility] [place] [address] PCP - General Family Medicine 04/13/15 Altaf Ventura MD [address] [facility] [address] [place] [address] Physician Cardiology 07/10/18 Amber Fontanez JOY OPERATOR HELPER.BUSINESS JOB TITLES [address] [place] [address] [facility] 02/16/24 Rachel Ortega APRN.BUSINESS JOB TITLES [address] [facility] [place] [address] [facility] 02/16/24 Bowling Alley Refinisher Relationship Specialty Start Date End Date Xavi Jaimes MD [address] [facility] [place] [address] PCP - General Family Medicine 04/13/15 Altaf Ventura MD [address] [place] [address] Physician Cardiology 07/10/18 Amber Fontanez APRN.BUSINESS JOB TITLES [address] [place] [address] [facility] 02/16/24 Rachel Ortega APRN.BUSINESS JOB TITLES [address] [facility], [place] [address] [facility] 02/16/24 Bowling Alley Refinisher Relationship Specialty Start Date End Date Xavi Jaimes MD [address] [facility], [place] [address] PCP - General Family Medicine 04/13/15 Altaf Ventura MD [address], [place] [address] Physician Cardiology 07/10/18 Amber Fontanez APRN.BUSINESS JOB TITLES [address] [place] [address] [facility] 02/16/24 Rachel Ortega APRN.BUSINESS JOB TITLES [address] [facility] [place] [address] [facility] 02/16/24 Team Status: Active Member Role Status Dates Dr. Xavi Jaimes MD Primary Care Provider Active Team Status: Inactive Member Role Status Dates Dr. Xavi Jaimes MD Primary Care Provider Active Start: May 05, 2024 End: May 05, 2024 Dr. Xavi Jaimes MD Referring Provider Active Start: May 05, 2024 End: May 05, 2024 IRENE Root Attending Provider Active Star t: May 05, 2024 End: May 05, 2024 Team Status: Inactive Member Role Status Dates Dr. Xavi Jaimes MD Primary Care Provider Active Start: June 14, 2024 End: June 14, 2024 Dr. Brooks Jamison MD Attending Provider Active S tart: June 14, 2024 End: June 14, 2024 Dr. Brooks Jamison MD Referring Provider Active S tart: June 14, 2024 End: June 14, 2024 Team Status: Active Member Role Status Dates Dr. Xavi Jaimes MD Primary Care Provider Active Start: June 14, 2024 Dr. Brooks Jamison MD Attending Provider Active S tart: June 14, 2024 Bowling Alley Refinisher Relationship Specialty Start Date End Date Xavi Jaimes MD [address] [facility] [place] [address] PCP - General Family Medicine 04/13/15 Altaf Ventura MD [address] [place], [place] [address] Physician Cardiology 07/10/18 Amber Fontanez, JOY OPERATOR HELPER.BUSINESS JOB TITLES [address] [place] [address] Sheet Catcher Family Medicine 02/16/24 Rachel Ortega JOY OPERATOR HELPER.BUSINESS JOB TITLES [address] [facility] [place] [address] Sheet Catcher Family Medicine 02/16/24 Vivienne Blake, temporary office assistantImage Scientist 07/15/24 Bowling Alley Refinisher Relationship Specialty Start Date End Date Xavi Jaimes MD [address] [place] [place] [address] PCP - General Family Medicine 04/13/15 Altaf Ventura MD [address] [place], [place] [address] Physician Cardiology 07/10/18 Amber Fontanez, JOY OPERATOR HELPER.BUSINESS JOB TITLES [address] [place] [address] [facility] 02/16/24 Rachel Ortega APRN.BUSINESS JOB TITLES [address] [place] [address] [facility] 02/16/24 Vivienne Blake temporary office assistantImage Scientist 07/15/24 Reason for Visit (unrecogniz ed section and content) Reason Comments 6 Month Exam Reason Onset Date Comments Refill Request 10/14/2022 Reason Comments Follow Up 6 months Reason Comments Consult colonoscopy Specialty Diagnoses / Procedures Referred By Contalek t Referred To Contact General Surgery Diagnoses History of colonic polyps Procedures CONSULT TO GENERAL SURGERY OFFICE/OUTPATIENT [facility] 60 MINUTES Xavi Jaimes MD [address] [place] [address] Referral ID Status Reason Start Date Expiration Date V isits Requested Visits Authorized [id number] Closed PCP Requested Referral 12/10/2023 12/09/2024 1 1 Reason Onset Date Comments Refill Request 01/26/2024 Reason Onset Date Comments Population Health Navigation Outreach 04/22/2024 [employer] High Risk - Attempt 1 Reason Comments Cough Cough, RAMIREZ and ST x 1 week Reason Onset Date Comments Population Health Navigation Outreach 05/17/2024 [employer] High Risk Attempt Two [place] [facility] Reason Onset Date Comments Population Health Navigation Outreach 05/26/2024 [employer] High Risk Attempt Three [place] [facility] Goals (unrecognized section and content) Goals may be documented in a n alternate section FOR RECORDS PERTAINING TO PATIENTS WHO ARE OR HAVE BEEN ENROLLED IN A CHEMICAL DEPENDENCY/SUBSTANCEABUSE PROGRAM, SOME INFORMATION MAY BE OMITTED. This clinical summary was aggregated from multiple sources. Caution should be exercised in using it in the provision of clinical care. This summary normalizes information from multiple sources, and as a consequence, information in this document may materially change the coding, format and clinical context of patient data. In addition, data may be omitted in some cases. CLINICAL DECISIONS SHOULD BE BASED ON THE PRIMARY CLINICAL RECORDS. [facility]. provides no warranty or guarantee of the accuracy or completeness of information in this document.
--- NOTE | 2024-08-23 19:49 | STRESSREP ---
Stress Test Report Exercise myocardial perfusion stress test. 74-year-old with a history of chest pain Stress protocol: Resting EKG demonstrates normal sinus rhythm with a rate of 70 bpm resting blood pressure is 152/88 mmHg. The patient exercised according to the regular Jose protocol for a total duration of 7 minutes attaining a maximum heart rate of 154 bpm which was 90% of maximum predicted heart rate; the maximum workload was 10.1 metabolic equivalents. At rest there were no ST or T wave changes noted to suggest ischemia and at peak exercise upsloping ST changes only were noted which did not meet the criteria for ischemia. No clinical angina was noted the test was terminated due to the target heart rate being achieved/fatigue. The peak blood pressure was 162/70 mmHg. Rate-pressure product was 21,000. Myocardial perfusion protocol. 11.3 mCi of technetium 99m sestamibi was injected at rest. The patient exercised according to regular Jose protocol for total duration of 7 minutes and at peak exercise 32.9 mCi of technetium 99m sestamibi was injected stress images were obtained stress and rest images were reconstructed in comparing the short axis vertical long and horizontal long axis. Gated images were also obtained. Perfusion SPECT analysis: Review of the stress images demonstrate normal uptake of tracer noted in all areas of the myocardium. The resting images similarly demonstrate normal uptake of tracer noted in all areas of the myocardium. No areas of reversibility are noted to suggest ischemia no previous infarct was noted. Gated SPECT analysis: The gated ejection fraction is 85%. Conclusion: Normal exercise myocardial perfusion stress test at a high workload Preserved ejection fraction.
== END | disposition home or self-care (01) ==
LOC: CVS 06:19
PROVIDERS: PCP Family Medicine; Referring Provider Internal Medicine Cardiovascular Disease; Visit Provider Internal Medicine Cardiovascular Disease
DX: I25.10 Atherosclerotic heart disease of native coronary artery without angina pectoris (principal); I65.21 Occlusion and stenosis of right carotid artery; I10 Essential (primary) hypertension; E78.5 Hyperlipidemia, unspecified; Z95.5 Presence of coronary angioplasty implant and graft
CPT/HCPCS: 78452; 93017; A9500; A4216